=== PATIENT | female | born 1950 | race African-American/Black ===

== ENCOUNTER → 2020-07-25 10:32 | Outpatient (CLI) | payer MEDICARE, OTHER, SELFPAY ==
[2020-07-25 12:30] LABS: CRP < 2.90 mg/L (0.0-3.0)
[2020-07-26 20:07] LABS: Endomysial Antibody IgA Negative (Negative)
[2020-07-26 20:46] LABS: Immunoglobulin A 468 mg/dL (64-422); t-Transglutaminase IgA 5 U/mL (0-3)
== END ==
PROVIDERS: PCP Family Medicine; Referring Provider Internal Medicine Gastroenterology; Visit Provider Internal Medicine Gastroenterology
DX: R19.7 Diarrhea, unspecified (principal)
CPT/HCPCS: 36415; 82784; 83516; 86140; 86255

== ENCOUNTER 2021-11-07 08:43 | Day surgery (SDC) | payer MEDICARE, OTHER, SELFPAY ==
--- NOTE | 2021-11-07 09:15 | HP.PCM_ITS ---
History and Physical Date of Admission: 11/07/21 71 F who presents to the office today for evaluation of abdominal pain associated with diarrhea. She says that this started multiple years ago with abdominal pain and urgency. She was given a previous diagnosis of IBS. However she does not think she has that disease. She has not had any success with cholestyramine. She has not tried fiber in the past. She is status post cholecystectomy, but she does not think that her diarrhea was worse after getting her gallbladder out. She does have a lot of fecal incontinence which is getting worse. She has no history of rectocele, rectal prolapse or bladder prolapse. She does have history of diabetes. However she has recently been taken off of insulin. She says her blood sugars have been under very good control. For the last forty years she has been having difficulty with stomach pain following PO intake and then urgent diarrhea and incontinence during the night and day. Stool will have undigested food in it. Difficulty swallowing. Has been following PCP for this issue. 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 She is a diabetic. Last colonoscopy performed last year by Dr. Nur who removed some polyps which she reports tubular adenoma. ROS Const Constitutional: No anorexia, fatigue, fever(s), weight change or sleep problems Eyes Eyes: No change in vision ENT ENT: No abnormal hearing, difficulty swallowing, mouth lesions, tongue swelling or throat swelling Resp Respiratory: No cough or shortness of breath Cardio Cardiology: No chest pain at rest, chest pain with exertion, shortness of breath or dyspnea on exertion Gastro GI: No difficulty swallowing Genitourinary-Female: No difficulty urinating or burning urination Musc Musculoskeletal: No joint pain, joint swelling, muscle weakness or decreased muscle mass Skin Skin: No hair loss in leg, yellowing of the eye, itchy eyes, rash, skin ulcer or skin swelling Neuro Neurology: No abnormal hearing, abnormal movements, confusion, unsteady gait/balance or memory loss Psych Psychiatric: No anxiety, No confusion and No memory loss Endo Endocrine: No fatigue or weight change Aller/Imm Allergy/Immunologic: No itchy eyes, throat swelling or tongue swelling Ward/Lymp Hematologic/Lymphatic: No easy bleeding, easy bruising or enlarged lymph nodes Exam Const General: cooperative and comfortable Nutritional Appearance: average body habitus and well nourished HENMT Head: normal to inspection Ears: hearing grossly normal bilaterally Nose: external nose normal Face and sinus: normal facial exam Mouth: oral mucosae normal Throat: posterior oropharynx normal Eyes General: appearance normal, both eyes and all related structures Neck Neck: normal visual inspection Chest Chest palpation & inspection: normal inspection of the chest and normal palpation of entire chest wall Resp Effort & Inspection: normal respiratory effort Auscultation: Bilateral: Clear to Auscultation Cardio Palpation: normal PMI Rate: regular rate Rhythm: regular rhythm GI Inspection: normal to inspection Auscultation: normal bowel sounds Percussion: normal to percussion Palpation: no hepatosplenomegaly Skin General: no rashes or lesions noted Neuro General: patient alert Extrem General: normal to inspection Psych Affect: normal affect Quality Reporting Tobacco Screening ([facility]) Smoking Status: Former smoker Assessment and Plan Assessment and Plan (1) Fecal incontinence: Status: Acute Plan - Dr. Melendez Friend, DO: Her diagnosis for her fecal incontinence could include infectious diarrhea. Also could include poor rectal tone, diverticular disease in the setting of overflow incontinence. Also would include rectal prolapse. I recommended that she start on fiber twice a day to thicken up her stools. We will evaluate further doing a colonoscopy. (2) Diarrhea: Status: Acute Plan - Dr. Al Emerson, DO: Differential diagnosis for her diarrhea includes microscopic colitis, lymphocytic colitis, IBS with diarrhea and accelerated gastrocolic reflex secondary to dumping syndrome. We will do biopsies in upper and lower GI tract and also check stool for any enteric pathogens and C. difficile Procedure. (3) Abdominal pain: Status: Acute Plan - Dr. Al Emerson, DO: The differential diagnosis for abdominal pain could be associated with dumping syndrome associated with diabetes, bacterial overgrowth secondary to diabetes, peptic ulcer disease, less likely inflammatory bowel disease, bile induced gastritis secondary to removing her gallbladder. We will evaluate this further with her upper endoscopy. I have re-examined the patient. There are no clinical changes since date of exam.
[2021-11-07 09:21] VITALS: BP 143/90; PULSE 75; RESP 18; TEMP 36.5; O2SAT 95; BMI 34.2
[2021-11-07] MEDS: Lactated Ringers 1,000 ML 15 ML IV (09:28)
[2021-11-07 09:36] LABS: Bedside Glucose 145 mg/dL (70-110)
--- NOTE | 2021-11-07 09:45 | COLBX_PTH ---
PATIENT: EDWIGE BEARDEN LOC: [facility] U#:[id number] AGE/SX: 71/F ROOM: RE11/07/[address]: Dr. Al Emerson DO : 1950 BED: DIS: 11/07/2021 SPEC #: [id number] RECD: 11/07/21 10:54 STATUS: CHANO ESPINOZA #: [id number] TASHA: 11/07/21 09:[address]: Al Emerson DEPT: SURGICAL PATHOLOGY RECD BY: Jesus Dawn ENTERED: 11/07/21 13:23 SP TYPE: COLON BX OTHR DR: Dr. Dashawn Abraham MD Tissues: A - Duodenum, NOS B - Gastric mucous membrane C - Esophagus, NOS D - Transverse colon E - Gastric mucous membrane F - COLON BIOPSY Procedures: Special Stain Group II Surgery Specimen Level IV Alcian Blue/PAS (control) HEADER OPERATION: Colonoscopy, EGD ([facility] [place] PRE-OP DIAGNOSIS: Fecal incontinence, diarrhea, abdominal pain TISSUE SUBMITTED: A ? Duodenum biopsy, B ? Gastric antrum biopsy for H. pylori and path, C ? Distal esophagus biopsy, D ? Biopsy of transverse polyp, E ? Biopsy of hepatic flexure polyp, F ? Random colon biopsies MICROSCOPIC DIAGNOSIS A. Duodenum, biopsy: Fragments of duodenal mucosa with focal nonspecific chronic inflammation. B. Gastric antrum, biopsy: Mild gastritis. See microscopic description and comment. C. Distal esophagus, biopsy: Fragments of gastric mucosa with moderate chronic inflammation. Intestinal metaplasia (goblet cell metaplasia) not identified. See comment. D. Transverse colon polyp, biopsy: Fragments of tubular adenoma. E. Hepatic flexure polyp, biopsy: Tubular adenoma. F. Colon, random biopsy: Fragments of colonic mucosa, no pathologic diagnosis. SJ:erin 11/08/2021 COMMENT B. The results of immunohistochemistry for Helicobacter pylori will be reported separately ([id number]). C. Alcian blue/PAS stain with matched control is used in the evaluation of the specimen. MICROSCOPIC DESCRIPTION Slides are reviewed. B. The specimen shows fragments of gastric mucosa with chronic inflammatory cell infiltrates in the lamina propria consisting of lymphocytes and plasma cells, consistent with mild chronic gastritis. Focal mucosal congestion and hemorrhage are also noted. GROSS DESCRIPTION A - Received in fixative is one container labeled with the patient's name and designated duodenum biopsy. The specimen consists of multiple irregular fragments of light amezcua soft tissue that in aggregate measure 1.4 x 0.3 x 0.1 cm. The specimen is totally submitted in one cassette. B - Received in fixative is one container labeled with the patient's name and designated gastric antrum biopsy. The specimen consists of multiple irregular fragments of light amezcua soft tissue that in aggregate measure 1.2 x 0.3 x 0.1 cm. The specimen is totally submitted in one cassette. C - Received in fixative is one container labeled with the patient's name and designated distal esophagus biopsy. The specimen consists of multiple irregular fragments of light amezcua soft tissue that in aggregate measure 1 x 0.3 x 0.1 cm. The specimen is totally submitted in one cassette. D - Received in fixative is one container labeled with the patient's name and designated biopsy of transverse polyp. The specimen consists of one irregular fragment of light amezcua soft tissue that measures 0.4 x 0.4 x 0.1 cm. Also present in the container are minute fragments of amezcua soft tissue measuring 0.1 cm in greatest dimension. The entire specimen is submitted in one cassette. E - Received in fixative is one container labeled with the patient's name and designated biopsy of hepatic flexure polyp. The specimen consists of one irregular fragment of light amezcua soft tissue that measures 0.4 x 0.3 x 0.1 cm. The specimen is totally submitted in one cassette. F - Received in fixative is one container labeled with the patient's name and designated random colon biopsy. The specimen consists of multiple irregular fragments of light amezcua soft tissue that in aggregate measure 2 x 1 x 0.1 cm. The specimen is totally submitted in one cassette. / SJ:erin 11/07/21 TC:1 [facility]: [id number] x6, [id number]
--- NOTE | 2021-11-07 09:45 | IMM_PTH ---
PATIENT: EDWIGE BEARDEN LOC: [facility] U#:[id number] AGE/SX: 71/F ROOM: RE11/07/[address]: Dr. Al Emerson DO : 1950 BED: DIS: 11/07/2021 SPEC #: [id number] RECD: 11/07/21 12:44 STATUS: CHANO REAlexander #: [id number] TASHA: 11/07/21 09:[address]: Al Emerson DEPT: IMMUNOHISTOCHEMISTRY RECD BY: Odalys Song ENTERED: 11/07/21 12:44 SP TYPE: IMMUNO OTHR DR: Dr. Dashawn Abraham MD Tissues: B - Stomach, NOS Procedures: H Pylori (initial) PHYSICIAN & INSTITUTION [place] [id number] SPECIMEN INFORMATION: Tissue Source: B ? Gastric antrum Clinical Info: Fecal incontinence, diarrhea, abdominal pain Specimen Number: [id number] CPT code: 26321 METHODOLOGY: Deparaffinized sections of prefer/formalin-fixed tissue or PAP/DQ stained slides are incubated with monoclonal/polyclonal antibodies/oligonucleotide probes. Localization is made via biotin free immunoperoxidase method. Appropriate controls are performed and reacted as expected. Results on target cell population are indicated in the following table: RESULTS: ANTIBODY / CLONE RESULT Block B H Pylori (polyclonal) negative These tests were developed and their performance characteristics determined by [facility]. They may not have been cleared or approved by the U.S. Food and Drug Administration. The FDA has determined that such clearance or approval is not necessary. INTERPRETATION: B. Gastric antrum, biopsy: Negative for Helicobacter pylori organisms. KAREN:erin 11/08/2021
[2021-11-07 10:36] VITALS: BP 135/90; BP 143/90; PULSE 75; RESP 16; TEMP 36.3; O2SAT 92
[2021-11-07 10:40] VITALS: BP 140/86; BP 143/90; PULSE 68; RESP 16; O2SAT 92
--- NOTE | 2021-11-07 10:41 | OP.EGD_ITS ---
Patient Name: Cristine Urbina Procedure Date: 11/07/2021 9:39 AM Date of : 1950 Age: 71 Procedure: Upper GI endoscopy Indications: Epigastric abdominal pain Providers: Al Emerson DO Medicines: See the Anesthesia note for documentation of the administered medications Patient Profile: This is a 71 year old female. Refer to note in patient chart for documentation of history and physical. Patient has symptoms of acute abdominal cramping, acute abdominal distention and acute epigastric abdominal pain. Complications: No immediate complications. Procedure: Pre-Anesthesia Assessment: - Prior to the procedure, a History and Physical was performed, and patient medications and allergies were reviewed. The patient is competent. The risks and benefits of the procedure and the sedation options and risks were discussed with the patient. All questions were answered and informed consent was obtained. Patient identification and proposed procedure were verified by the physician in the pre-procedure area. Mental Status Examination: alert and oriented. Airway Examination: normal oropharyngeal airway and neck mobility. Respiratory Examination: clear to auscultation. CV Examination: normal. Prophylactic Antibiotics: The patient does not require prophylactic antibiotics. Prior Anticoagulants: The patient has taken no previous anticoagulant or antiplatelet agents. ASA Grade Assessment: II - A patient with mild systemic disease. After reviewing the risks and benefits, the patient was deemed in satisfactory condition to undergo the procedure. The anesthesia plan was to use moderate sedation / analgesia (conscious sedation). Immediately prior to administration of medications, the patient was re-assessed for adequacy to receive sedatives. The heart rate, respiratory rate, oxygen saturations, blood pressure, adequacy of pulmonary ventilation, and response to care were monitored throughout the procedure. The physical status of the patient was re-assessed after the procedure. After obtaining informed consent, the endoscope was passed under direct vision. Throughout the procedure, the patient's blood pressure, pulse, and oxygen saturations were monitored continuously. The pediatric colonoscope was introduced through the mouth, and advanced to the second part of duodenum. The upper GI endoscopy was accomplished without difficulty. The patient tolerated the procedure well. Moderate Sedation: Moderate (conscious) sedation was administered by the endoscopy nurse and supervised by the endoscopist. The patient's oxygen saturation, heart rate, blood pressure and response to care were monitored. Total physician intraservice time was 15 minutes. Scope In: 9:55:27 AM Scope Out: 10:02:26 AM Total Procedure Duration Time 0 hours 6 minutes 59 seconds Findings: LA Grade A (one or more mucosal breaks less than 5 mm, not extending between tops of 2 mucosal folds) esophagitis with no bleeding was found 34 to 35 cm from the incisors. Biopsies were taken with a cold forceps for histology. Verification of patient identification for the specimen was done by the physician. Estimated blood loss was minimal. Scattered moderate inflammation characterized by congestion (edema), erosions, erythema, friability and granularity was found in the gastric body and in the gastric antrum. Biopsies were taken with a cold forceps for histology. Verification of patient identification for the specimen was done. Estimated blood loss was minimal. Localized mildly erythematous mucosa without active bleeding and with no stigmata of bleeding was found in the first portion of the duodenum and in the second portion of the duodenum. Biopsies were taken with a cold forceps for histology. Verification of patient identification for the specimen was done. Estimated blood loss was minimal. Impression: - LA Grade A reflux esophagitis. Biopsied. - Gastritis. Biopsied. - Erythematous duodenopathy. Biopsied. Recommendation: - Discharge patient to home. - Resume previous diet. - Continue present medications. - Await pathology results. - Return to my office in 2 weeks. Procedure Code(s): --- Professional --- 21591, Esophagogastroduodenoscopy, flexible, transoral; with biopsy, single or multiple 48329, 59, Moderate sedation services provided by the same physician or other qualified health resident care technician performing the diagnostic or therapeutic service that the sedation supports, requiring the presence of an independent trained observer to assist in the monitoring of the patient's level of consciousness and physiological status; initial 15 minutes of intraservice time, patient age 5 years or older CPT copyright 2017 [employer]. All rights reserved. The codes documented in this report are preliminary and upon medical records coder review may be revised to meet current compliance requirements. Al Emerson DO 11/07/2021 10:40:46 AM This report has been signed electronically. Number of Addenda: 1 Note Initiated On: 11/07/2021 9:39 AM Addendum Number: 1 Addendum Date: 07/11/2022 6:06:15 AM MAC was used instead of moderate sedation for the patient. Al Emerson DO 07/11/2022 6:06:22 AM This report has been signed electronically.
--- NOTE | 2021-11-07 10:41 | OP.CCLET_ITS ---
07/11/2022 Dashawn Abraham Re : Upper GI endoscopy procedure for Cristine Perkinsr Leigh This procedure was performed on Sunday, November 07, 2021. My impressions and recommendations are as follows: Impressions : - LA Grade A reflux esophagitis. Biopsied. - Gastritis. Biopsied. - Erythematous duodenopathy. Biopsied. Recommendations : - Discharge patient to home. - Resume previous diet. - Continue present medications. - Await pathology results. - Return to my office in 2 weeks. My findings are described in the full procedure note, which is enclosed. If I can be of further assistance, please feel free to contact me at . Sincerely, Al Emerson, 11/07/2021 10:40:46 AM This report has been signed electronically.
[2021-11-07 10:45] VITALS: BP 135/83; BP 143/90; PULSE 67; RESP 16; O2SAT 93
--- NOTE | 2021-11-07 10:46 | OP.CCLET_ITS ---
07/11/2022 Dashawn Abraham Re : Colonoscopy procedure for Cristine Perkinsr Leigh This procedure was performed on Sunday, November 07, 2021. My impressions and recommendations are as follows: Impressions : - Stool in the rectum and in the cecum. - Two 1 to 2 mm polyps in the transverse colon and at the hepatic flexure, removed with a hot snare. Resected and retrieved. - Diverticulosis in the recto-sigmoid colon, in the sigmoid colon and in the descending colon. There was no evidence of diverticular bleeding. - Congested mucosa in the sigmoid colon, in the descending colon, at the hepatic flexure and in the ascending colon. Biopsied. Recommendations : - Discharge patient to home. - Resume previous diet. - Continue present medications. - Await pathology results. - Return to my office in 2 weeks. - Repeat colonoscopy in 5 years for surveillance based on pathology results. My findings are described in the full procedure note, which is enclosed. If I can be of further assistance, please feel free to contact me at . Sincerely, Al Emerson, 11/07/2021 10:46:00 AM This report has been signed electronically.
--- NOTE | 2021-11-07 10:46 | OP.COLON_ITS ---
Patient Name: Cristine Urbina Procedure Date: 11/07/2021 10:02 AM Date of : 1950 Age: 71 Procedure: Colonoscopy Indications: Generalized abdominal pain, Chronic diarrhea Providers: Al Emerson DO Medicines: See the Anesthesia note for documentation of the administered medications Patient Profile: This is a 71 year old female. Refer to note in patient chart for documentation of history and physical. Patient has symptoms of acute abdominal cramping, acute abdominal distention and acute epigastric abdominal pain. Last Colonoscopy: 5 years ago. Complications: No immediate complications. Procedure: Pre-Anesthesia Assessment: - Prior to the procedure, a History and Physical was performed, and patient medications and allergies were reviewed. The patient is competent. The risks and benefits of the procedure and the sedation options and risks were discussed with the patient. All questions were answered and informed consent was obtained. Patient identification and proposed procedure were verified by the physician in the pre-procedure area. Mental Status Examination: alert and oriented. Airway Examination: normal oropharyngeal airway and neck mobility. Respiratory Examination: clear to auscultation. CV Examination: normal. Prophylactic Antibiotics: The patient does not require prophylactic antibiotics. Prior Anticoagulants: The patient has taken no previous anticoagulant or antiplatelet agents. ASA Grade Assessment: II - A patient with mild systemic disease. After reviewing the risks and benefits, the patient was deemed in satisfactory condition to undergo the procedure. The anesthesia plan was to use moderate sedation / analgesia (conscious sedation). Immediately prior to administration of medications, the patient was re-assessed for adequacy to receive sedatives. The heart rate, respiratory rate, oxygen saturations, blood pressure, adequacy of pulmonary ventilation, and response to care were monitored throughout the procedure. The physical status of the patient was re-assessed after the procedure. After I obtained informed consent, the scope was passed under direct vision. Throughout the procedure, the patient's blood pressure, pulse, and oxygen saturations were monitored continuously. The pediatric colonoscope was introduced through the anus and advanced to the cecum, identified by appendiceal orifice and ileocecal valve. The colonoscopy was performed without difficulty. The patient tolerated the procedure well. The quality of the bowel preparation was adequate. Moderate Sedation: Moderate (conscious) sedation was administered by the endoscopy nurse and supervised by the endoscopist. The patient's oxygen saturation, heart rate, blood pressure and response to care were monitored. Total physician intraservice time was 15 minutes. Scope In: 10:06:51 AM Scope Withdrawal Time 0 hours 15 minutes 9 seconds Scope Out: 10:33:41 AM Total Procedure Duration Time 0 hours 26 minutes 50 seconds Findings: The perianal and digital rectal examinations were normal. Semi-liquid stool was found in the rectum and in the cecum, precluding visualization. Lavage of the area was performed using a moderate amount of sterile water, resulting in clearance with fair visualization. Two sessile polyps were found in the transverse colon and hepatic flexure. The polyps were 1 to 2 mm in size. These polyps were removed with a hot snare. Resection and retrieval were complete. Verification of patient identification for the specimen was done. Estimated blood loss was minimal. Scattered small and large-mouthed diverticula were found in the recto-sigmoid colon, sigmoid colon and descending colon. There was no evidence of diverticular bleeding. An area of mildly congested mucosa was found in the sigmoid colon, in the descending colon, at the hepatic flexure and in the ascending colon. Biopsies were taken with a cold forceps for histology. Verification of patient identification for the specimen was done. Estimated blood loss was minimal. Impression: - Stool in the rectum and in the cecum. - Two 1 to 2 mm polyps in the transverse colon and at the hepatic flexure, removed with a hot snare. Resected and retrieved. - Diverticulosis in the recto-sigmoid colon, in the sigmoid colon and in the descending colon. There was no evidence of diverticular bleeding. - Congested mucosa in the sigmoid colon, in the descending colon, at the hepatic flexure and in the ascending colon. Biopsied. Recommendation: - Discharge patient to home. - Resume previous diet. - Continue present medications. - Await pathology results. - Return to my office in 2 weeks. - Repeat colonoscopy in 5 years for surveillance based on pathology results. Procedure Code(s): --- Professional --- 78459, Colonoscopy, flexible; with removal of tumor(s), polyp(s), or other lesion(s) by snare technique 34017, 59, Colonoscopy, flexible; with biopsy, single or multiple 40747, 59, Moderate sedation services provided by the same physician or other qualified health medicare contact specialist performing the diagnostic or therapeutic service that the sedation supports, requiring the presence of an independent trained observer to assist in the monitoring of the patient's level of consciousness and physiological status; initial 15 minutes of intraservice time, patient age 5 years or older CPT copyright 2017 [employer]. All rights reserved. The codes documented in this report are preliminary and upon narrow fabric loom fixer review may be revised to meet current compliance requirements. Al Emerson DO 11/07/2021 10:46:00 AM This report has been signed electronically. Number of Addenda: 1 Note Initiated On: 11/07/2021 10:02 AM Addendum Number: 1 Addendum Date: 07/11/2022 6:06:31 AM MAC was used instead of moderate sedation for the patient. Al Emerson DO 07/11/2022 6:06:36 AM This report has been signed electronically.
[2021-11-07 10:50] VITALS: BP 140/86; BP 143/90; PULSE 65; RESP 16; O2SAT 94
[2021-11-07 11:29] VITALS: BP 143/90
== END 2021-11-07 23:59 | disposition home or self-care (01) ==
LOC: EN 08:47 → AC 08:49
PROVIDERS: PCP Family Medicine; Referring Provider Family Medicine; Visit Provider Internal Medicine Gastroenterology
PROC: 0DJD8ZZ Inspection of Lower Intestinal Tract, Via Natural or Artificial Opening Endoscopic (ICD-10-PCS; CPT 45378; principal; 2021-11-07 09:40)
DX: K21.00 Gastro-esophageal reflux disease with esophagitis, without bleeding (principal); E11.9 Type 2 diabetes mellitus without complications; K29.70 Gastritis, unspecified, without bleeding; K31.89 Other diseases of stomach and duodenum; K52.9 Noninfective gastroenteritis and colitis, unspecified; K57.30 Diverticulosis of large intestine without perforation or abscess without bleeding; D12.3 Benign neoplasm of transverse colon; K63.89 Other specified diseases of intestine; R10.84 Generalized abdominal pain; I10 Essential (primary) hypertension; E78.00 Pure hypercholesterolemia, unspecified; M19.90 Unspecified osteoarthritis, unspecified site; Z90.49 Acquired absence of other specified parts of digestive tract; Z79.899 Other long term (current) drug therapy; Z87.891 Personal history of nicotine dependence; Z86.73 Personal history of transient ischemic attack (TIA), and cerebral infarction without residual deficits
CPT/HCPCS: 45385; 45380; 43239; 82962; 88305; 88313; 88342; J7120; J2405

== ENCOUNTER 2021-11-09 10:36 | Outpatient (CLI) | payer MEDICARE, OTHER, SELFPAY ==
--- NOTE | 2021-11-09 10:42 | RAD_ITS ---
PROCEDURE: Fluoroscopic guided right shoulder Injection DATE: 05/09/2022. INDICATION: Female, 71 years old. Chronic right shoulder pain. PHYSICIAN: Hernan Roland M.D. MEDICATIONS: 12 mg of BETAMETHASONE and 4 cc of 1% LIDOCAINE. 2% lidocaine administered subcutaneously for local anesthesia. ACCESS SITE: Right shoulder. NEEDLE: 22-gauge spinal needle. FLUOROSCOPY TIME (if supplied): (1:00) minutes/seconds. One image was submitted. FINDINGS: The risks, benefits, and alternatives to the procedure were explained to the patient. The specific risks of bleeding, infection, and neurovascular injury were detailed and accepted. Witnessed informed consent was obtained. A 20-gauge spinal needle was positioned under radiographic fluoroscopic localization. Approximately 2 cc of ISOVUE-300 instilled for localization purposes. Medication was then injected. The patient tolerated the procedure well without any immediate complications. RAD/Inj/Asp Bert Jt Should/Hip/Knee IMPRESSION: 1. Successful fluoroscopic guided right shoulder injection. Electronically Signed: Hernan Roland MD at 12:38 EST , Service support ,
== END 2021-11-09 23:59 | disposition short-term general hospital (02) ==
LOC: RAD 10:38
PROVIDERS: PCP Family Medicine; Referring Provider Specialist; Visit Provider Specialist
DX: M19.011 Primary osteoarthritis, right shoulder (principal)
CPT/HCPCS: 23350; 20610; 77002; Q9967; J0702

== ENCOUNTER → 2022-04-04 | Outpatient (CLI) | payer MEDICARE, OTHER, SELFPAY ==
--- NOTE | 2022-04-04 14:20 | RAD_ITS ---
STUDY: X-RAY CHEST REASON FOR EXAM: Female, 71 years old. Preop TECHNIQUE: Single PA view of the chest. COMPARISON: None. FINDINGS: The lungs are clear and expanded. There is no demonstrated pleural abnormality. Normal size heart. Normal mediastinum and leonardo. Normal visualized pulmonary arteries. There is atherosclerotic calcification of the aortic arch with tortuosity. Normal visualized thoracic spine. Normal visualized ribs, clavicles, and shoulders. There is no demonstrated abnormality of the visualized soft tissue structures of the upper abdomen. RAD/Chest 1 View IMPRESSION: Nonacute portable x-ray examination of the chest. Electronically Signed: Abdiel Silverman MD ([place]) at 18:54 EDT ,
== END | disposition home or self-care (01) ==
LOC: PAT 05-14 14:18
PROVIDERS: Anesthesiology; PCP Family Medicine; Visit Provider Orthopaedic Surgery
DX: Z01.818 Encounter for other preprocedural examination (principal)
CPT/HCPCS: 36415; 71045; 84443

== ENCOUNTER 2022-06-06 09:29 | Inpatient (IN) | payer MEDICARE, OTHER, SELFPAY ==
--- NOTE | 2022-05-25 10:42 | HP.PCM_ITS ---
History and Physical History and Physical [facility] Patient Name: Cristine Urbina : 1950 From:? TA ESQUEDA PA-C? DATE OF SURGERY:? 06/06/2022 SCHEDULED PROCEDURE:? LUMBAR 4 - 5 POSTERIOR LUMBAR INTERBODY FUSION, DECOMPRESSION, POSTERIOR SPINAL FUSION WITH INSTRUMENTATION, USE OF ALLOGRAFT HISTORY OF PRESENT ILLNESS: Preoperative history and physical exam was performed on May 24, 2022.? This is a 71-year-old female who was initially to undergo back surgery but was canceled due to elevated thyroid lab work.? Patient was referred back to her endo crinologist and has been given surgical clearance to proceed with surgery.? Patient has had chronic low back pain for years.? They have been going on for over 5 years.? She states her symptoms have progressed over the past 1 year.? Patient has been in pain management with Dr. Burciaga who has treated her with injections in the past.? Prior to that she has seen Dr. Ibarra for injections.? Injections are only helpful for a short period of time.? She continues to get pain in the low back region.? She gets pain in the bilateral lower extremities.? She has not had any bowel or bladder dysfunction.? No recent fevers, chills, recent infections.? She has tried conservative care with injections from pain management, oral medications including [place], Excedrin, ibuprofen with minimal relief.? Patient has been through physical therapy.? After failing conservative measures and discussing treatment options with Dr. Armando Stone, the patient does wish to proceed with the L4-L5 posterior lumbar interbody fusion with decompression and posterior spinal fusion with use of allograft.? We have been given surgical clearance from primary care provider Mylene Krishna, cardiology Kimber Marks, and endocrinology Dr. Connor.? Patient currently denies any chest pain or shortness of breath. REVIEW OF SYSTEMS: Review Of Systems: Constitutional: Reports weight change,Denies change in appetite, fever, hard of hearing, vision problems? Cardiovasular: Denies chest pain, heart murmur, irregular heartbeat and peripheral vascular disease. Respiratory: Denies asthma, cough, pneumonia, sleep apnea, shortness of breath, tuberculosis and wheezing. Gastrointestinal: Reports heartburn, but denies constipation, diarrhea, nausea, rectal itching, bloody stools and vomiting. Genitourinary: Denies incontinence. Musculoskeletal: Reports trouble walking and weakness, but denies leg swelling and pain. Skin: Denies Raynaud's, history of shingles and tattoo. Neurological: Reports difficulty with balance and tremor but denies ambulatory dysfunction, dizziness, numbness/tingling and transient monocular blindness. Psychiatric: Denies anxiety, depression, insomnia, mental illness and stress. Hematologic/Lymphatic: Reports past transfusion, but denies anemia and bleeding/bruising tendency. Reviewed, no changes. PAST MEDICAL HISTORY: Advance Care Plan: Other Directive, P.O.A. Effective Date: 09/30/2016 Comments: [employer]?? Other Directive, LIVING WILL Effective Date: 09/30/2016 Comments: [employer]? Past Medical History: Medical Problems: Diabetes, High Blood Pressure, Stroke, Arthritis, Sleep Apnea, Bundle Branch Block, Migraines Covid- 19 - (09/2020) Anxiety, IBS, GERD, DVT Accidents: Fell - (01/15/2022) RT 3rd FINGER, RT SHOULDER, RT KNEE Surgical Hx: [facility]ito Knee Arthroscopy - GEE @ [facility] RT Shoulder Arthroscopy - GEE @ [facility] RT Foot Bunion - [facility] Lito CTR - NEIL @ [facility] RT TKR - (2002) GEE @ [facility] LT TKR - (2011) GEE @ [facility] IRRIGATION AND DEBRIDEMENT BY [email or web address] ON 08/08/15? Lito Hammer Toe - [facility] LT Knee - (09/01/2015) [email or web address] LT TKR Revision - (10/13/2015) [email or web address] Lito Lympoma (Fatty Tumor) - lipoma LT TKR Revision - (07/28/2017) [facility] @ [facility] IV Fliter - (2011) Heart Cath Anesthesia Complications: None Assistive Devices: Glasses Reviewed, no changes. SOCIAL HISTORY: Social History: Marital: .Occupation: Retired.Work Status: Retired.Hand Dominance: Right- handed. Personal Habits:? Cigarette Use: Former.Smokeless Tobacco: Never Used Smokeless Tobacco.E-Cigarette Use: Never used.Alcohol: Occasionally.Drug Use: Denies Use.Enjoy Exercising: Exercises 1-3 X/Week. Reviewed, no changes. VITALS: Ht: 74.4 Wt: 265lb Wt k.204 BMI: 33.7 BP: 132/90 Pulse: 69 Resp: 14 T: 97.6 T: 36.4C Pain Level: 1 O2SatR: 97 ALLERGIES: Sulfa Linezolid? MEDICATIONS: Ipratropion [place] 42 mcg 2 sprays each nostril bid, Metoprolol Tartrate 50 mg 1 tab PO bid, Levothyroxine Sodium 125 mcg 1 tab PO daily, Clonazepam 1 mg 1 tab PO qhs, Gabapentin 400 mg 1 cap PO q hs, Acetaminophen 325 mg prn, Hydrochlorothiazide 25 mg 1 tab PO daily, Candesartan Cilexetil 16 mg 1 tab PO daily, Tizanidine HCL 4 mg prn, Oxybutynin Chloride ER 10 mg 1 tab PO daily, Duloxetine HCL 60 mg 1 by mouth every day, Ibuprofen 200 200 mg prn, Colestipol HCL 1 gm 1 by mouth QDAY, Pantoprazole Sodium 20 mg 1 by mouth every day, Ondansetron 4 mg dissolve 1 tablet ON TONGUE every 8 hours if needed for nausea OR vomiting, Cpap? as directed PRE-OP EXAM:? General appearance:NORMAL? ? ? Other: Eyes: Conjunctivae and lids: NORMAL? Pupils: ERR Ears, Nose, Mouth, and Throat: NORMAL? Other: Inspection of lips, teeth and gums: NORMAL? ?Other: Neck: Examination of neck: no masses noted. Respiratory: Assessment of respiratory effort: NORMAL? ?Other: ?Auscultation of lungs: clear to auscultation no wheezes, rhonchi or rales. Cardiovascular:? Auscultation of heart: regular rate and rhythm, no murmurs, gallops or rubs. PHYSICAL EXAMINATION: Patient does walk with a slight antalgic gait.? She has tenderness to palpation along the lower lumbar region around L4-L5.? Bilateral paraspinal tenderness to palpation lumbar region.? She has pain in the sciatic notch bilaterally.? Sensation intact to light touch to bilateral lower extremities. IMAGING STUDIES: Previous lumbar x-rays reveal overall good alignment in coronal and sagittal planes.? No gross instability.? Degenerative changes at multiple levels with loss of disc height, disc osteophyte complex formation and facet arthrosis most severe L4-L5.? Degenerative changes in bilateral sacroiliac joints. ?Lumbar MRI from outside facility dated 02/04/22 she has good overall alignment in coronal and sagittal planes.? No gross instability is noted.? The radiologist has commented on likely renal cyst. At L5-S1 there is no loss of disc height or signal.? No posterior disc bulge or central canal stenosis.? No facet arthrosis.? No subarticular or foraminal stenosis. At L4-5 there is moderate to severe loss of disc height and signal.? Mild broad posterior disc bulge compressing the thecal sac.? No central canal stenosis.? Moderate facet arthrosis.? Moderate subarticular stenosis.? Mild foraminal stenosis. At L3-4, L2-3, L1-2, T12-L1 there is minimal loss of disc height and signal.? Minimal posterior disc bulge.? No central canal stenosis.? Minimal facet arthrosis.? No subarticular or foraminal stenosis. IMPRESSION: 1.? Lumbar degenerative disc disease with stenosis 2.? Type 2 diabetes mellitus: 3.? Hypertension 4.? Stroke 5.? Obstructive sleep apnea 6.? Bundle branch block 7.? History of migraines 8.? Anxiety 9.? Irritable bowel syndrome 10.? Gastroesophageal reflux disease PLAN: Dr. Armando Stone did discuss and review with the patient all treatment options including surgical versus nonsurgical options.? Patient does wish to proceed with the above-stated procedure.? Potential risks, benefits, and complications of the procedure were discussed in detail including but not limited to , infection, nerve and blood vessel damage, persistent pain, numbness, tingling, paresthesias, blood clot, pulmonary embolism, and requirement for possible further surgery.? The patient expressed full understanding and has no further questions for the doctor.? Patient does agree to proceed with the above-stated procedure and has signed the surgery consent form.? Patient was given back brace at previous preoperative visit.? She will bring this to day of surgery. We discussed the current risks associated with COVID 19.? This does include the risk of exposure while in the hospital.? Patient was reassured local hospitals have low infection rates and are taking all necessary precautions to avoid exposure to patients.? In addition, we discussed strategies that can be used to help limit exposure including those that limit the patient's time in the hospital.? Also using strategies to limit the patient's need for continued inpatient services after being discharged from the hospital.? Patient was notified that we will need to comply with any screening or testing the hospital wishes to perform or that surgery may be delayed for any positive results. This dictation was created using voice recognition software. Phonetic and/or grammatical errors may exist. ___? I have re-examined the patient.? There are no clinical changes since date of exam. ___? See progress notes for changes. ___? Dictated on admission Date: ? ? ?Time: Signature:
[2022-06-06] VITALS (12 sets, daily range): BP systolic 112–139; BP diastolic 68–80; PULSE 67–75; RESP 13–18; TEMP 36.4–36.6; O2SAT 94–100; BMI 33.7
[2022-06-06 10:35] LABS: Bedside Glucose 170 mg/dL (74-106)
[2022-06-06] MEDS: Lactated Ringers 1,000 ML 15 ML IV (10:36)
--- NOTE | 2022-06-06 11:02 | OP.PCM_ITS ---
Problems Associated Problem List Diagnoses (1) Lumbar stenosis: Report of Operation Date of Procedure: 06/06/22 Pre-Operative Diagnosis: 1. Lumbar stenosis, L4-5 with spondylosis 2. Lumbar degenerative disc disease, L4-5 Post-Operative Diagnosis: 1. Lumbar stenosis, L4-5 with spondylosis 2. Lumbar degenerative disc disease, L4-5 Surgery/Procedure Performed:: 1. L4-5 posterior lumbar interbody fusion 2. Insertion of intervertebral biomechanical device x1 3. Structural allograft for spinal fusion 4. L4 bilateral laminectomies, foraminotomies, facetectomies, decompression of nerve roots 5. L5 bilateral laminectomies, foraminotomies, facetectomies, decompression of bilateral nerve roots 6. L4-5 posterior lateral fusion 7. Pedicle screw fixation 8. Local autograft for spinal fusion 9. Neuro monitoring bilateral upper and bilateral lower extremities Description of Surgical Findings:: The patient is a 71-year-old female with intractable back and leg pain. Image studies confirm the above diagnoses. She has failed conservative treatment to include medication, physical therapy and injections. The patient opted for operative intervention understanding the risk to include but not limited to infection, bleeding, damage to nerves arteries and veins, possibility of spinal fluid leak, nonunion, hardware failure, continued pain, need for further surgery, deep vein thrombosis, pulmonary embolism, heart attack, risk of stroke or . The patient was identified in the preoperative holding area. There she received preoperative IV antibiotics, Ancef, and was then transferred to the operative suite. Once in the operative suite after general endotracheal anesthesia was established the patient was transferred to the [place] operating table in the prone position. All bony prominences were padded accordingly. The lumbar spine was prepped and draped in a standard fashion. Bear hugger's were not turned on until the drapes were placed and sealed with Ioban. A midline incision was made and taken down to the lumbodorsal fascia. The fascia was divided and subperiosteal dissection was taken down to the level of the bilateral transverse processes of L4 and L5. Deep retractors were placed. A bone scalpel was used to make cuts in the lamina of L4 and then a series of rongeurs and Kerrisons was used removing the spinous process and lamina at L4. Then facetectomies of greater than 50% were performed as well as foraminotomies, decompressing the bilateral nerve roots. Given the severity of the stenosis I needed to perform wide bilateral laminectomies and near complete facetectomies in order to decompress the neural elements therefore creating instability necessitating the fusion. The dura and nerve roots were identified and retracted medially and a 15 blade scalpel was used to make a laminotomy at L4-5 on the right. An endplate elevator, curettes, and pituitaries were utilized to remove disc material. Endplates were prepared with a rasp. An appropriate sized intervertebral peek cage device measuring 10 millimeters was packed with morselized cancellous allograft and impacted into position completing the posterior lumbar interbody fusion at L4-5. I then proceeded with pedicle screw fixation. Starting points were found at the junction of the superior articular process and transverse process of L4 and L5 bilaterally. A power bur was used for the starting points. Pedicle probes were placed bilaterally and then 6.5 x 45 millimeter screws were placed bilaterally at L4 and 6.4 x 45 millimeter screws were placed bilaterally at L5. The screws were tested with intraoperative neurophysiologic monitoring and tested within normal limits. Connecting rods were applied and secured with set screws. I then proceeded with the posterior lateral fusion. This was accomplished by decorticating the transverse processes bilaterally at L4 and L5. This decorticated bone was then bridged with local autograft from the decompression as well as morselized cancellous allograft therefore completing the posterior lateral fusion at L4-5. The incision was thoroughly irrigated. Tisseel was placed over the dura as a hemostatic agent. A deep drain was placed. The fascia was closed with #1 Vicryl, subcutaneous with 2-0 Vicryl and skin with 2-0 nylon. A sterile dressing was applied with 4 x 4's ABD and tape. Sponge instrument and needle counts were correct at the end of the case. Neurophysiologic monitoring was maintained at baseline throughout the duration of the case. The patient was extubated and taken to the PACU without incident Surgeon: Armando Stone Type of Anesthesia: General Drains: Hemovac Estimated Blood Loss (mL): 600 cc Fluids Replaced: 1400 cc Grafts/Implants Used: Unified spine, talos, vitae os, DBM Complications None Admit VTE Documentation VTE Present on Admission: No
--- NOTE | 2022-06-06 11:03 | PCM.PN.ORT ---
Subjective Subjective The patient was seen and examined postoperatively in the PACU. She is lying in bed resting comfortably. She is complaining of some postop soreness in the back. She denies any other complaints including numbness tingling or weakness Objective Data Objective Data Vital Signs: Vital Signs Temp Pulse Resp BP Pulse Ox O2 Del Method 97.9 F 67 18 118/76 95 Room Air 06/06/22 10:03 06/06/22 10:03 06/06/22 10:03 06/06/22 10:03 06/06/22 10:03 06/06/22 10:03 Oxygen Delivery Method Room Air Weight: 263 lb 0.183 oz Body Mass Index (BMI) 33.7 Lab / Micro Data Labs: Laboratory Results - last 24 hr 06/06/22 10:06: POC Glucose 170 H Physical Exam Const alert, oriented x3 and no apparent distress General Appearance: cooperative and comfortable HEENT normocephalic and head/scalp atraumatic Eyes EOMs intact bilaterally and conjunctivae normal Neck full ROM General: normal visual inspection Chest inspection of chest normal and palpation of chest normal Resp normal respiratory effort and normal air movement Cardio regular rate, regular rhythm and peripheral pulses 2+ throughout GI soft to palpation, non-tender and non-distended Back/Spine Back/Spine Narrative: Dressing clean dry and intact. Drain in place and functioning with serosanguineous fluid in the drain. Cervical Spine: cervical ROM normal Thoracic Spine / Upper Back: normal to inspection Lumbar Spine / Lower Back: normal to inspection Extremity normal to inspection, full ROM, normal capillary refill, no clubbing, cyanosis or edema and no calf tenderness Skin no rashes or lesions noted General Skin Exam: no breakdown Neuro oriented x3, CN's II-XII intact bilaterally, moves all extremities, no focal motor deficits, no sensory deficits noted and deep tendon reflexes 2+ bilaterally Motor Exam: strength 5/5 throughout and muscle tone normal throughout Assessment & Plan Assessment/Plan (1) Lumbar stenosis: PLAN: Plan Okay to transfer to floor See orders Pain control and mobilization as tolerated. Back brace on at all times while out of bed Discharge planning, likely home tomorrow
--- NOTE | 2022-06-06 11:03 | PCM.DC.SUM ---
Providers Date of Admission: 06/06/22 Primary Care Physician: Mylene Esteban, TOOL GRINDING TECHNICIAN-C Reason For Visit: LUMBAR 4-5 INTERBODY FUSION Medications at Discharge Home Medications clonazepam 1 mg tablet 1 mg PO QHS sleep 08/07/15 gabapentin 400 mg capsule 400 mg PO QHS pain 08/07/15 levothyroxine 125 mcg tablet (Synthroid) 200 mcg PO DAILY Thyroid 08/07/15 diphenhydramine HCl 25 mg capsule (Banophen) 25 mg PO Q4H PRN ITCHING ##0 10/09/15 candesartan 16 mg tablet (Atacand) 16 mg PO QHS Check with primary doctor 07/21/17 duloxetine 60 mg capsule,delayed release (Cymbalta) 60 mg PO DAILY nerve pain 07/21/17 oxybutynin chloride 10 mg tablet,extended release 24 hr (Ditropan XL) 10 mg PO DAILY bladder 07/21/17 tizanidine 4 mg tablet (Zanaflex) 4 mg PO PRN PRN Pain 07/21/17 metformin 500 mg tablet 500 mg PO BID Blood sugar 11/05/21 atorvastatin 10 mg tablet (Lipitor) 5 mg PO QHS Check with primary doctor 04/04/22 colestipol 1 gram tablet (Colestid) See Rx Instructions .Route .COMPLEX Check with primary doctor 04/04/22 empagliflozin 25 mg tablet (Jardiance) 25 mg PO BID Blood sugar 04/04/22 metoprolol tartrate 50 mg tablet 50 mg PO BID BP 04/04/22 psyllium husk 0.4 gram capsule (Fiber (psyllium husk)) 0.4 g PO BID Stomach health 04/04/22 ondansetron 4 mg disintegrating tablet 4 mg PO Q8H PRN nausea and vomiting #60 tabs 05/29/22 pantoprazole 40 mg tablet,delayed release 40 mg PO DAILY GERD #90 tabs 05/29/22 hydrocodone-acetaminophen 5-325mg 5mg-325mg 1 tab PO Q6H 7 days #28 tabs 06/06/22 Hospital Course Operations - (L4-5 posterior lumbar interbody fusion, decompression, posterior spinal fusion with instrumentation, use of allograft) Summary of Care Provided Minutes Spent on Discharge: 15 Hospital Course: The patient is a 71-year-old female who underwent L4-5 posterior lumbar interbody fusion, decompression, posterior spinal fusion with instrumentation, use of allograft on 06/06/2022. She was subsequently admitted. The hospitalist was consulted for medical management. The patient progressed well. Her pain was controlled and she was mobilizing well. Her drain was pulled on postoperative day 1. No significant medical issues were reported. She was subsequently discharged home on 06/08/2022 to follow-up with Dr. Stone in 3 weeks Physical Exam Const alert, oriented x3 and no apparent distress General Appearance: cooperative, comfortable and well kempt HEENT normocephalic and head/scalp atraumatic Eyes EOMs intact bilaterally and conjunctivae normal Neck full ROM General: normal visual inspection Chest inspection of chest normal and palpation of chest normal Resp normal respiratory effort and normal air movement Effort and Inspection: able to speak in complete sentences Cardio regular rate and peripheral pulses 2+ throughout GI soft to palpation, non-tender and non-distended Back/Spine Back/Spine Narrative: Dressing clean dry and intact. Drain in place and functioning with small amount of serosanguineous fluid present. Drain was pulled. Incision well approximated with interrupted sutures in place. No tenderness erythema drainage or fluctuance Cervical Spine: cervical ROM normal Thoracic Spine / Upper Back: normal to inspection Lumbar Spine / Lower Back: normal to inspection Extremity normal to inspection, full ROM, normal capillary refill, no clubbing, cyanosis or edema and no calf tenderness Skin no rashes or lesions noted General Skin Exam: no breakdown Neuro oriented x3, CN's II-XII intact bilaterally, moves all extremities, no focal motor deficits, no sensory deficits noted and deep tendon reflexes 2+ bilaterally Motor Exam: strength 5/5 throughout and muscle tone normal throughout Weight / BMI Weight Weight: 263 lb 0.183 oz Body Mass Index (BMI) 33.7 ABG / Lab / Microbiology Data Result Diagrams: 06/07/22 10:35 Laboratory: Laboratory Results - last 24 hr 06/06/22 10:06: POC Glucose 170 H D/C Instructions Discharge Diet: No restrictions Lifting Restricted to (Lbs): 5 Additional Activity Instructions: No repetitive bending twisting or lifting greater than 5 pounds. Back brace on at all times while out of bed Call your doctor if your incision/area has: Continuous Slow Oozing, Sudden Increased Bleeding, Increased Pain/ Swelling, Increased Redness, Foul Smelling Discharge and Swelling at the incision site Call your doctor if you observe: Fever of 101 or Higher, Coldness, Increased Pain, Numbness or Tingling, Change in Color, Inability to urinate, Inability to have a bowel movement, Using more than 1 pad per hour, Shortness of breath, Dizziness, Fainting spells, Swelling in the ankles, Chest pain, Prolonged hiccupping, Increased palpitations (irregular heartbeat), Calf discomfort and Uncontrolled pain Cleanse incision/area with: Do not get Incision Wet and Keep Dressing Clean & Dry Additional Dressing/Incision Instructions: Change dressing daily with iodine gauze and tape. [place] dressing to shower Please Follow Up With: Armando Stone DO When: 3 weeks Meaningful Use Info Meaningful Use Diagnoses (Choose all that apply): None applicable Discharge Plan Admission Admit Date/Time: 06/06/22 09:29 Primary Reason for Your Visit: Lumbar stenosis, L4-5 with spondylosis Attending Provider: Armando Stone Primary Care Provider: Mylene Esteban NP Consulting Providers: Hannah Espinoza ; Olivia Carvalho ; Cristine Johnson ; Kwaku Cruz ; Adam Harris ; Maurilio Weaver ; Hanna Mitchell ; Gabriel Lancaster ; Raj Horne ; Garth Gonzales ; Callie Carpio ; Wade Giang ; Teresa Del Rio ; Pranav Turcios ; Efren Goldsmith ; Brian Parra ; Rica Nguyen ; Rick Overton ; Ashely Contreras ; Mylene Choudhary TOOL GRINDING TECHNICIAN Instructions Additional Instructions / Restrictions: 1. During your procedure, you received sedation through your IV. Please follow these instructions for the next 24 hours: Do not drive a motor vehicle, do not drink any alcoholic beverages, and do not sign any legal documents or make personal or business decisions. A responsible adult should stay with you at least 6 hours after the procedure. 2. Keep your surgical site/incision clean and the dressing dry and intact. Change dressing daily 3. Monitor the incision site for any signs or symptoms of infection. Watch for redness, excessive swelling or drainage, or continued pain at the incision site after 3 days. Contact your physician immediately for a fever, chills or a temperature of 101.5? F or greater. 4. Take your medication exactly as prescribed by your physician. Do not attempt to wean yourself off any of your medications even though your pain is improving. This process needs to be carefully monitored by your doctor. Take any antibiotics prescribed exactly as directed and until they are gone. 5. Avoid stretching, bending, pulling, twisting or any sudden movements. Do not bend or twist at the waist. Back brace on at all times while out of bed 6. No lifting greater than 5 pounds. 7. Do not operate a motor vehicle, equipment or a power tool while your stimulator is on. If you need to use any equipment, you must turn your stimulator off first. As a passenger in a motor vehicle, you may use your stimulator. 8. Do not have any manipulation done by a chiropractor or any other physician without first consulting with the surgeon 9.Please contact our office if you are even scheduled for a CT scan or an MRI. 10. Please call us if you have any questions, problems or concerns. Do not resume your candesartan until your blood pressure is above 120 systolic. Discharge Orders/Prescriptions Prescriptions: New hydrocodone-acetaminophen 5-325 mg tablet 1 tab PO Q6H 7 Days Qty: 28 0RF Continued ondansetron 4 mg tablet,disintegrating 4 mg PO Q8H PRN (Reason: nausea and vomiting) Qty: 60 0RF pantoprazole 40 mg tablet,delayed release (DR/EC) 40 mg PO DAILY Qty: 90 0RF gabapentin 400 MG capsule 400 mg PO QHS Label Comments: Nerve pain clonazepam 1 mg tablet 1 mg PO QHS Label Comments: ANXIETY levothyroxine [Synthroid] 125 mcg tablet 200 mcg PO DAILY Label Comments: THYROID diphenhydramine HCl [Banophen] 25 MG capsule 25 mg PO Q4H PRN (Reason: ITCHING) Qty: 0 0RF oxybutynin chloride [Ditropan XL] 10 MG tablet extended release 24hr 10 mg PO DAILY tizanidine [Zanaflex] 4 MG tablet 4 mg PO PRN PRN (Reason: Pain) candesartan [Atacand] 16 MG tablet 16 mg PO QHS duloxetine [Cymbalta] 60 MG capsule 60 mg PO DAILY metformin 500 mg Tablet 500 mg PO BID Jardiance 25 mg tablet 25 mg PO BID Label Comments: take 1 tablet by mouth every morning atorvastatin [Lipitor] 10 MG tablet 5 mg PO QHS metoprolol tartrate 50 MG tablet 50 mg PO BID colestipol [Colestid] 1 gram tablet See Rx Instructions .ROUTE .COMPLEX Rx Instructions: take 1 tablet by mouth twice a day psyllium husk [Fiber (psyllium husk)] 0.4 gram capsule 0.4 g PO BID Discontinued verapamil [Verelan] 240 mg capsule,ext rel. pellets 24 hr 240 mg PO QHS Label Comments: BLOOD PRESSURE hydrochlorothiazide 25 MG tablet 25 mg PO DAILY Referrals / Follow Up: Armando Stone DO [Med Staff - Active Staff] - Mylene Esteban NP, TOOL GRINDING TECHNICIAN-C [Primary Care Provider] - Within 1 Week (See your family physician within a week for a recheck on your blood pressure and guidance whether to resume the blood pressure medicines we have stopped during your hospitalization) Disposition Disposition (needs filled in before D/C Order can be placed): Home Health Service
--- NOTE | 2022-06-06 12:05 | RAD_ITS ---
INDICATION: L4-5 POSTERIOR FUSION EXAMINATION/TECHNIQUE: X-RAY - XR Spine Lumbar 2 or 3 Views COMPARISON: None. FLUOROSCOPY DOSE: 61.67 mGy FLUOROSCOPY TIME: 116.3 seconds. FINDINGS: 6 spot fluoroscopic images were obtained intraoperatively. Images demonstrate localization of the L4 vertebral body right surgery, follow-up images demonstrate placement of internal fixation screws in addition to a L5-S1 intervertebral disc spacer. No radiologist was present for the procedure, please refer to operative report for details. RAD/Lumbar Spine 2 or 3 Views IMPRESSION: Please refer to operative report for details. Electronically Signed: Ephraim Ng MD at 15:47 EDT ,
[2022-06-06] MEDS: Heparin 10,000 UNITS/10 ML Vial 10000 UNITS (13:20)
[2022-06-06] MEDS: Bupivacaine 0.25% 30 ML Vial (15:35)
[2022-06-06 17:35] LABS: Bedside Glucose 215 mg/dL (74-106)
[2022-06-06] MEDS: Cefazolin 1 GM/50 ML BAG IV ×2 (17:53→23:47)
--- NOTE | 2022-06-06 18:24 | PN.HOSP_ITS ---
Subjective Subjective Patient was seen and examined today at the request of orthopedic surgery, patient underwent an L4-5 posterior lumbar interbody fusion, L4-5 posterior lateral fusion, L4 bilateral laminectomies, and L5 bilateral laminectomies. Chronic medical problems include essential hypertension, hypothyroidism, hyperlipidemia, osteoarthritis, type 2 diabetes, and chronic kidney disease. At the time my examination, patient is not complaining of any severe back discomfort or leg discomfort. Patient has no complaints of any shortness of breath. Patient is on 2 L nasal cannula oxygen, her vital signs appear to be stable. Objective Data Objective Data Vital Signs: Vital Signs Temp Pulse Resp BP Pulse Ox O2 Del Method O2 Flow Rate 97.5 F L 69 16 112/71 97 Nasal Cannula 2 06/06/22 17:29 06/06/22 17:29 06/06/22 17:29 06/06/22 17:29 06/06/22 17:29 06/06/22 17:29 06/06/22 17:29 Oxygen Flow Rate (L/min) 2 Oxygen Delivery Method Nasal Cannula Weight: 119.3 kg Body Mass Index (BMI) 33.7 Intake & Output: Intake and Output for Last 24 Hours 06/04/22 06/05/22 06/06/22 23:59 23:59 23:59 Intake Total 115 / 115 Output Total 550 / 550 Balance -435 / -435 Lab / Micro Data Labs: Laboratory Results - last 24 hr 06/06/22 10:06: POC Glucose 170 H 06/06/22 17:01: POC Glucose 215 H Radiography Diagnostic Testing: Radiology Impression Lumbar Spine X-Ray 06/06/22 12:05 IMPRESSION: Please refer to operative report for details. Electronically Signed: Ephraim Ng MD at 15:47 EDT , Physical Exam Const alert, oriented x3, no apparent distress, average body habitus and healthy crow earing General Appearance: cooperative, well kempt and well developed Orientation / Consciousness: awake, oriented to person, oriented to place and oriented to time HEENT normocephalic, head/scalp atraumatic and moist oral mucous membranes Eyes PERRL, EOMs intact bilaterally and conjunctivae normal Neck supple, no JVD, thyroid normal and no carotid bruits General: trachea midline Resp normal respiratory effort, no retractions, no use of accessory muscles and clear to auscultation bilaterally Auscultation: Negative for rales, rhonchi or wheezes Cardio regular rate, regular rhythm, S1 normal heart sound, S2 normal heart sound, no murmurs, no rub and no gallops GI normal to inspection, nondistended, normoactive bowel sounds, soft to palpation, non-tender and non-distended Extremity no clubbing, cyanosis or edema Skin no rashes or lesions noted Neuro oriented x3, CN's II-XII intact bilaterally, moves all extremities, no focal motor deficits and no sensory deficits noted Sensorium / Orientation: awake and alert Speech: speech normal Psych affect normal Assessment & Plan Assessment/Plan (1) Hypertension: QUALIFIERS: Hypertension type: essential hypertension Qualified Code(s): I10 - Essential (primary) hypertension PLAN: Plan 1. Essential hypertension-patient will remain on her present blood pressure medications, blood pressure will be monitored #2 type 2 diabetes-patient will have fingerstick blood sugars monitored, sliding scale insulin will be given as needed #3 hypothyroidism-patient is on Synthroid #4 hyperlipidemia-patient is on Lipitor #5 degenerative disc disease of the lumbar spine with spinal stenosis-postop day 0 L4-L5 posterior lumbar interbody fusion with L4-L5 bilateral laminectomies-PT and OT will be seeing the patient, spinal surgery participating in her care Charges/Coding Visit Charges Inpatient E&M: 55900 Subs Hosp L2
[2022-06-06] MEDS: Morphine 4 MG/ML Syringe IV (20:24)
[2022-06-06] MEDS: Lactated Ringers 1,000 ML 100 ML IV (20:24)
[2022-06-06] MEDS: Gabapentin 400 MG Capsule PO (22:24)
[2022-06-06] MEDS: Psyllium 1 PACKET PO (22:24)
[2022-06-06] MEDS: Acetaminophen 500 MG Tablet 1000 MG PO (22:24)
[2022-06-06] MEDS: Metoprolol Tartrate 50 MG Tablet PO (22:24)
[2022-06-06] MEDS: Losartan Potassium 50 MG Tablet 75 MG PO (22:25)
[2022-06-06] MEDS: metFORMIN HCl 500 MG Tablet PO (22:25)
[2022-06-06] MEDS: clonazePAM 1 MG Tablet PO (22:25)
[2022-06-06] MEDS: Atorvastatin Calcium 10 MG Tablet 5 MG PO (22:25)
[2022-06-06] MEDS: Empagliflozin 25 MG Tablet PO (22:26)
[2022-06-06] MEDS: Colestipol 1 GM TABLET PO (22:26)
[2022-06-06] MEDS: Verapamil SR 240 MG Tablet PO (22:26)
[2022-06-06] MEDS: oxyCODONE 5 MG Tablet PO (23:53)
[2022-06-07] VITALS (17 sets, daily range): BP systolic 70–121; BP diastolic 40–80; PULSE 71–93; RESP 14–18; TEMP 36.4–36.8; O2SAT 94–99
[2022-06-07 00:01] LABS: Bedside Glucose 209 mg/dL (74-106)
[2022-06-07] MEDS: Acetaminophen 500 MG Tablet 1000 MG PO ×3 (05:31→22:49)
[2022-06-07] MEDS: oxyCODONE 5 MG Tablet PO ×3 (05:31→22:49)
[2022-06-07] MEDS: Levothyroxine 100 MCG Tablet 200 MCG PO (05:31)
--- NOTE | 2022-06-07 07:22 | PCM.PN.ORT ---
Subjective Subjective The patient was seen and examined postoperative day 1. She is sitting up in a chair resting comfortably. She is having some soreness in her lower back from surgery but feels this is controlled well with her pain medications. She has been mobilizing well. She denies any complaints including numbness tingling or weakness. Objective Data Objective Data Vital Signs: Vital Signs Temp Pulse Resp BP Pulse Ox O2 Del Method O2 Flow Rate 97.6 F L 78 14 121/80 H 95 Room Air 2 06/07/22 02:54 06/07/22 07:04 06/07/22 02:54 06/07/22 02:54 06/07/22 06:43 06/07/22 06:43 06/07/22 03:00 Oxygen Flow Rate (L/min) 2 Oxygen Delivery Method Room Air Weight: 263 lb 0.183 oz Body Mass Index (BMI) 33.7 Intake & Output: Intake and Output for Last 24 Hours 06/05/22 06/06/22 06/07/22 23:59 23:59 23:59 Intake Total 313.25 / 813.25 1950 / 1950 Output Total 550 / 1400 1780 / 1780 Balance -236.75 / -586.75 170 / 170 Lab / Micro Data Labs: Laboratory Results - last 24 hr 06/06/22 10:06: POC Glucose 170 H 06/06/22 17:01: POC Glucose 215 H 06/06/22 22:21: POC Glucose 209 H Radiography Diagnostic Testing: Radiology Impression Lumbar Spine X-Ray 06/06/22 12:05 IMPRESSION: Please refer to operative report for details. Electronically Signed: Ephraim Ng MD at 15:47 EDT , Physical Exam Const alert, oriented x3 and no apparent distress General Appearance: cooperative, comfortable and well kempt HEENT normocephalic and head/scalp atraumatic Eyes EOMs intact bilaterally and conjunctivae normal Neck full ROM General: normal visual inspection Chest inspection of chest normal and palpation of chest normal Resp normal respiratory effort and normal air movement Effort and Inspection: able to speak in complete sentences Cardio regular rate and peripheral pulses 2+ throughout GI soft to palpation, non-tender and non-distended Back/Spine Back/Spine Narrative: Dressing clean dry and intact. Drain in place and functioning. Small amount of serosanguineous fluid in the drain. Incision well approximated with interrupted sutures in place. No tenderness erythema drainage or fluctuance Cervical Spine: cervical ROM normal Thoracic Spine / Upper Back: normal to inspection Lumbar Spine / Lower Back: normal to inspection Extremity normal to inspection, full ROM, normal capillary refill, no clubbing, cyanosis or edema and no calf tenderness Skin no rashes or lesions noted General Skin Exam: no breakdown Neuro oriented x3, CN's II-XII intact bilaterally, moves all extremities, no focal motor deficits, no sensory deficits noted and deep tendon reflexes 2+ bilaterally Motor Exam: strength 5/5 throughout and muscle tone normal throughout Assessment & Plan Assessment/Plan (1) Lumbar stenosis: PLAN: The patient is doing very well status post L4-5 fusion. Drain was pulled today. Okay to stop antibiotics. Okay to remove Donaldson. Continue with pain control and mobilization with activity as tolerated. Back brace on at all times while out of bed. The patient wishes to stay another night. Plan for discharge tomorrow morning.
[2022-06-07] MEDS: Psyllium 1 PACKET PO ×2 (09:06→22:52)
[2022-06-07] MEDS: Pantoprazole Sodium 40 MG Tablet PO (09:06)
[2022-06-07] MEDS: Empagliflozin 25 MG Tablet PO ×2 (09:06→22:51)
[2022-06-07] MEDS: Colestipol 1 GM TABLET PO ×2 (09:06→22:50)
[2022-06-07] MEDS: Tolterodine Tartrate 2 MG CAP.SA PO (09:06)
[2022-06-07] MEDS: metFORMIN HCl 500 MG Tablet PO ×2 (09:07→22:51)
--- NOTE | 2022-06-07 09:45 | CASEMGMT ---
CARY SINGH Face to Face with patient for initial transition planning/care coordination assessment. RN CM introduced self and role at [facility]. Patient sitting in chair, alert and oriented. Patient willing to participate in assessment and is able to answer all questions appropriately. Care providers, pharmacy, and demographics verified. Patient wishes to discharge home with HHC to assist with dressing changes. RN SAMANTHA explained that HHC will not come daily and she will need someone to learn and assist with changes at home. Patient voiced understanding. CM to provide patient with HHC list. Patient states she has no further needs or concerns at this time. CM to follow for discharge planning needs that may arise. PCP: Carlito Specialists: Chase, spinal ortho; Ted, Neuro; Friend, GI; Jeff, endocrinology Preferred Pharmacy: [facility] Insurance: [place] Prescription Benefit: yes Living Will/HPOA: yes, daughter Dionna Urbina, HPOA LNOK: daughter, sister, nephew Living Arrangements: Patient lives alone in a single story home with 2 steps to enter. Patient states she is independent at home. Patient states she has cleaning lady. Transportation: self, nephew DME/HHC: Patient has shower chair, raised toilet, cane, walker, lift chair, grab bars, medical alert, cpap, pulse ox, BP cuff, and glucometer with supplies at home. Patient denies previous HHC. Patient states she has been to SNF in [place] previously. Disposition Plan: Patient to discharge to home with HHC, family support, and follow-up plans in place. Lavern RAMAN, RN, CM
[2022-06-07 10:48] LABS: Hematocrit 33.5 % (37-47); Hemoglobin 10.3 g/dL (12.0-15.0)
--- NOTE | 2022-06-07 10:55 | CASEMGMT ---
Addendum entered by Sepideh Hobbs 06/07/22 16:23: CARY SINGH in to pt room, pt aware [facility] will start on Friday. She denies further needs at this time. Addendum entered by Sepideh Hobbs 06/07/22 16:07: Received tc from Nilesh at [facility], they are able to accept pt for SOC on Friday. Original Note: CARY SINGH in to pt room, patient was provided a list of [facility] providers including quality and resource use data and consistent with the patient?s preferred geographic region, medical needs, and insurance network. The patient?s preferred provider is [facility], [facility] and [facility] respectively. TC to Nilesh at [facility], left message with referral. TC to [facility] main number, spoke with Connie and requested referral to be faxed. Faxed referral at this time.
[2022-06-07] MEDS: Insulin Lispro 100 UNIT/ML INSULN.PEN SC ×3 (12:07→23:00)
[2022-06-07 12:21] LABS: Bedside Glucose 236 mg/dL (74-106)
--- NOTE | 2022-06-07 17:30 | PCM.PN.HOSP ---
Subjective Subjective Patient was seen and examined today, she has been running low blood pressure and I have held her blood pressure medication for now. Patient was given IV fluids today with some improvement in her blood pressure. Objective Data Objective Data Vital Signs: Vital Signs Temp Pulse Resp BP Pulse Ox O2 Del Method O2 Flow Rate 97.5 F L 74 16 99/58 L 94 Room Air 2 06/07/22 14:07 06/07/22 15:01 06/07/22 14:07 06/07/22 14:07 06/07/22 14:07 06/07/22 14:07 06/07/22 03:00 Oxygen Flow Rate (L/min) 2 Oxygen Delivery Method Room Air Weight: 119.3 kg Body Mass Index (BMI) 33.7 Intake & Output: Intake and Output for Last 24 Hours 06/05/22 06/06/22 06/07/22 23:59 23:59 23:59 Intake Total 313.25 / 813.25 3050 / 3050 Output Total 550 / 1400 2780 / 2780 Balance -236.75 / -586.75 270 / 270 Lab / Micro Data Result Diagrams: 06/07/22 10:35 Labs: Laboratory Results - last 24 hr 06/06/22 17:01: POC Glucose 215 H 06/06/22 22:21: POC Glucose 209 H 06/07/22 10:35: Hgb 10.3 L, Hct 33.5 L 06/07/22 11:57: POC Glucose 236 H Physical Exam Const alert, oriented x3, no apparent distress and healthy appearing General Appearance: cooperative, well kempt and well developed Orientation / Consciousness: awake, oriented to person, oriented to place and oriented to time HEENT normocephalic and moist oral mucous membranes Eyes PERRL, EOMs intact bilaterally and conjunctivae normal Neck supple, no JVD and thyroid normal General: trachea midline Resp normal respiratory effort, no retractions, no use of accessory muscles and clear to auscultation bilaterally Auscultation: Negative for rales, rhonchi or wheezes Cardio regular rate, regular rhythm, S1 normal heart sound, S2 normal heart sound, no murmurs, no rub and no gallops GI normal to inspection, nondistended, normoactive bowel sounds, soft to palpation, non-tender and non-distended Extremity no clubbing, cyanosis or edema Skin no rashes or lesions noted General Skin Exam: no breakdown Neuro oriented x3, CN's II-XII intact bilaterally, no focal motor deficits and no sensory deficits noted Sensorium / Orientation: awake and alert Speech: speech normal Psych affect normal Assessment & Plan Assessment/Plan (1) Infection of total left knee replacement: (2) Hypertension: QUALIFIERS: Hypertension type: essential hypertension Qualified Code(s): I10 - Essential (primary) hypertension PLAN: Plan 1. Essential hypertension-due to low blood pressure at this time, patient's hypertensive medications will be held, blood pressure will be monitored #2 type 2 diabetes-patient will have fingerstick blood sugars monitored, sliding scale insulin will be given as needed #3 hypothyroidism-patient is on Synthroid #4 hyperlipidemia-patient is on Lipitor #5 degenerative disc disease of the lumbar spine with spinal stenosis-postop day 1 L4-L5 posterior lumbar interbody fusion with L4-L5 bilateral laminectomies-PT and OT will be seeing the patient, spinal surgery participating in her care Charges/Coding Visit Charges Inpatient E&M: 24782 Subs Hosp L2
[2022-06-07 17:45] LABS: Bedside Glucose 164 mg/dL (74-106)
[2022-06-07] MEDS: Morphine 4 MG/ML Syringe IV (17:55)
[2022-06-07] MEDS: 0.9% Saline Lock 10 ML Syringe IV (17:55)
[2022-06-07] MEDS: clonazePAM 1 MG Tablet PO (22:49)
[2022-06-07] MEDS: Gabapentin 400 MG Capsule PO (22:49)
[2022-06-07] MEDS: Atorvastatin Calcium 10 MG Tablet 5 MG PO (22:52)
[2022-06-07 23:06] LABS: Bedside Glucose 197 mg/dL (74-106)
[2022-06-08] VITALS (7 sets, daily range): BP systolic 99–118; BP diastolic 50–63; PULSE 93–113; RESP 16–18; TEMP 36.7–36.8; O2SAT 94–98
[2022-06-08] MEDS: Acetaminophen 500 MG Tablet 1000 MG PO (05:34)
[2022-06-08] MEDS: oxyCODONE 5 MG Tablet PO ×2 (05:34→09:30)
[2022-06-08] MEDS: Levothyroxine 100 MCG Tablet 200 MCG PO (05:34)
[2022-06-08] MEDS: Insulin Lispro 100 UNIT/ML INSULN.PEN SC ×2 (06:47→11:20)
[2022-06-08 07:10] LABS: Bedside Glucose 162 mg/dL (74-106)
--- NOTE | 2022-06-08 08:10 | PCM.PN.HOSP ---
Subjective Subjective Patient was seen and Ament today, she has no complaints of any fevers or chills, her blood pressure still running slightly low for somebody on chronic blood pressure medication and who is not receiving any blood pressure medication in the hospital presently. I told her I may have to adjust her medications on a home-going basis, I will talk with spinal surgery about her care today. Objective Data Objective Data Vital Signs: Vital Signs Temp Pulse Resp BP Pulse Ox O2 Del Method O2 Flow Rate 98.0 F 98 16 118/63 98 Room Air 2 06/08/22 05:30 06/08/22 07:00 06/08/22 05:30 06/08/22 05:30 06/08/22 05:30 06/08/22 05:30 06/07/22 03:00 Oxygen Flow Rate (L/min) 2 Oxygen Delivery Method Room Air Weight: 119.3 kg Body Mass Index (BMI) 33.7 Intake & Output: Intake and Output for Last 24 Hours 06/06/22 06/07/22 06/08/22 23:59 23:59 23:59 Intake Total 313.25 / 813.25 3350 / 3350 Output Total 550 / 1400 2780 / 2780 Balance -236.75 / -586.75 570 / 570 Lab / Micro Data Result Diagrams: 06/07/22 10:35 Labs: Laboratory Results - last 24 hr 06/07/22 10:35: Hgb 10.3 L, Hct 33.5 L 06/07/22 11:57: POC Glucose 236 H 06/07/22 17:25: POC Glucose 164 H 06/07/22 22:46: POC Glucose 197 H 06/08/22 06:46: POC Glucose 162 H Physical Exam Const alert, oriented x3, no apparent distress and healthy appearing General Appearance: cooperative, well kempt and well developed Orientation / Consciousness: awake, oriented to person, oriented to place and oriented to time HEENT normocephalic and moist oral mucous membranes Eyes PERRL, EOMs intact bilaterally and conjunctivae normal Neck supple, no JVD, thyroid normal and no carotid bruits General: trachea midline Resp normal respiratory effort, no retractions, no use of accessory muscles and clear to auscultation bilaterally Auscultation: Negative for rales, rhonchi or wheezes Cardio regular rate, regular rhythm, S1 normal heart sound, S2 normal heart sound, no murmurs, no rub and no gallops GI normal to inspection, nondistended, normoactive bowel sounds, soft to palpation, non-tender and non-distended Extremity no clubbing, cyanosis or edema Skin no rashes or lesions noted General Skin Exam: no breakdown Neuro oriented x3, CN's II-XII intact bilaterally, moves all extremities, no focal motor deficits and no sensory deficits noted Sensorium / Orientation: awake and alert Speech: speech normal Psych affect normal Assessment & Plan Assessment/Plan (1) Lumbar stenosis: (2) Infection of total left knee replacement: (3) Hypertension: QUALIFIERS: Hypertension type: essential hypertension Qualified Code(s): I10 - Essential (primary) hypertension PLAN: Plan 1. Essential hypertension-due to low blood pressure at this time, patient's hypertensive medications will be held, blood pressure will be monitored #2 type 2 diabetes-patient will have fingerstick blood sugars monitored, sliding scale insulin will be given as needed #3 hypothyroidism-patient is on Synthroid #4 hyperlipidemia-patient is on Lipitor #5 degenerative disc disease of the lumbar spine with spinal stenosis-postop day 1 L4-L5 posterior lumbar interbody fusion with L4-L5 bilateral laminectomies-PT and OT will be seeing the patient, spinal surgery participating in her care
[2022-06-08] MEDS: DULoxetine Hcl 60 MG Capsule PO (09:25)
[2022-06-08] MEDS: Tolterodine Tartrate 2 MG CAP.SA PO (09:25)
[2022-06-08] MEDS: Colestipol 1 GM TABLET PO (09:25)
[2022-06-08] MEDS: metFORMIN HCl 500 MG Tablet PO (09:25)
[2022-06-08] MEDS: Pantoprazole Sodium 40 MG Tablet PO (09:25)
[2022-06-08] MEDS: Metoprolol Tartrate 50 MG Tablet PO (09:25)
[2022-06-08] MEDS: Empagliflozin 25 MG Tablet PO (09:25)
[2022-06-08] MEDS: Psyllium 1 PACKET PO (09:26)
[2022-06-08 11:50] LABS: Bedside Glucose 161 mg/dL (74-106)
--- NOTE | 2022-06-08 14:06 | DCINST_ITS ---
Discharge Instructions Diet Discharge Diet: 1800 Calorie Control Diet Activity Discharge Activity: May Not Drive (for 23 hrs) Weight Bearing Status: Full weight bearing Additional Activity Instructions:: No repetitive bending twisting or lifting greater than 5 pounds. Back brace on at all times while out of bed Dressing / Incision Call your doctor if your incision/area has: Continuous Slow Oozing, Sudden Increased Bleeding, Increased Pain/ Swelling, Increased Redness, Foul Smelling Discharge and Swelling at the incision site Call your doctor if you observe: Fever of 101 or Higher, Coldness, Increased Pain, Numbness or Tingling, Change in Color, Inability to urinate, Inability to have a bowel movement, Using more than 1 pad per hour, Shortness of breath, Dizziness, Fainting spells, Swelling in the ankles, Chest pain, Prolonged hiccupping, Increased palpitations (irregular heartbeat), Calf discomfort and Uncontrolled pain Cleanse incision/area with: Do not get Incision Wet and Keep Dressing Clean & Dry Additional Dressing/Incision Instructions:: Change dressing daily with iodine gauze and tape. [place]iterocks dressing to shower Follow Up Care Please Follow Up With: Armando Stone DO Test Results: Test results from this visit will be discussed in further detail at your follow- up appointment, if applicable. Discharge Plan Admission Admit Date/Time: 06/06/22 09:29 Primary Reason for Your Visit: Lumbar stenosis, L4-5 with spondylosis Attending Provider: Armando Stone Primary Care Provider: Mylene Esteban NP Consulting Providers: Hannah Espinoza ; Olivia Carvalho ; Cristine Johnson ; Kwaku Cruz ; Adam Harris ; Maurilio Weaver ; Hanna Mitchell ; Gabriel Lancaster ; Raj Horne ; Garth Gonzales ; Callie Carpio ; Wade Giang ; Teresa Del Rio ; Pranav Turcios ; Efren Goldsmith ; Brian Parra ; Rica Nguyen ; Rick Overton ; Ashely Contreras ; Mylene Choudhary THEORETICAL PHYSICS TEACHER Instructions Additional Instructions / Restrictions: 1. During your procedure, you received sedation through your IV. Please follow these instructions for the next 24 hours: Do not drive a motor vehicle, do not drink any alcoholic beverages, and do not sign any legal documents or make personal or business decisions. A responsible adult should stay with you at least 6 hours after the procedure. 2. Keep your surgical site/incision clean and the dressing dry and intact. Change dressing daily 3. Monitor the incision site for any signs or symptoms of infection. Watch for redness, excessive swelling or drainage, or continued pain at the incision site after 3 days. Contact your physician immediately for a fever, chills or a temperature of 101.5? F or greater. 4. Take your medication exactly as prescribed by your physician. Do not attempt to wean yourself off any of your medications even though your pain is improving. This process needs to be carefully monitored by your doctor. Take any antibiotics prescribed exactly as directed and until they are gone. 5. Avoid stretching, bending, pulling, twisting or any sudden movements. Do not bend or twist at the waist. Back brace on at all times while out of bed 6. No lifting greater than 5 pounds. 7. Do not operate a motor vehicle, equipment or a power tool while your stimulator is on. If you need to use any equipment, you must turn your stimulator off first. As a passenger in a motor vehicle, you may use your stimulator. 8. Do not have any manipulation done by a chiropractor or any other physician without first consulting with the surgeon 9.Please contact our office if you are even scheduled for a CT scan or an MRI. 10. Please call us if you have any questions, problems or concerns. Do not resume your candesartan until your blood pressure is above 120 systolic. Discharge Orders/Prescriptions Prescriptions: New hydrocodone-acetaminophen 5-325 mg tablet 1 tab PO Q6H 7 Days Qty: 28 0RF Continued ondansetron 4 mg tablet,disintegrating 4 mg PO Q8H PRN (Reason: nausea and vomiting) Qty: 60 0RF pantoprazole 40 mg tablet,delayed release (DR/EC) 40 mg PO DAILY Qty: 90 0RF gabapentin 400 MG capsule 400 mg PO QHS Label Comments: Nerve pain clonazepam 1 mg tablet 1 mg PO QHS Label Comments: ANXIETY levothyroxine [Synthroid] 125 mcg tablet 200 mcg PO DAILY Label Comments: THYROID diphenhydramine HCl [Banophen] 25 MG capsule 25 mg PO Q4H PRN (Reason: ITCHING) Qty: 0 0RF oxybutynin chloride [Ditropan XL] 10 MG tablet extended release 24hr 10 mg PO DAILY tizanidine [Zanaflex] 4 MG tablet 4 mg PO PRN PRN (Reason: Pain) candesartan [Atacand] 16 MG tablet 16 mg PO QHS duloxetine [Cymbalta] 60 MG capsule 60 mg PO DAILY metformin 500 mg Tablet 500 mg PO BID Jardiance 25 mg tablet 25 mg PO BID Label Comments: take 1 tablet by mouth every morning atorvastatin [Lipitor] 10 MG tablet 5 mg PO QHS metoprolol tartrate 50 MG tablet 50 mg PO BID colestipol [Colestid] 1 gram tablet See Rx Instructions .ROUTE .COMPLEX Rx Instructions: take 1 tablet by mouth twice a day psyllium husk [Fiber (psyllium husk)] 0.4 gram capsule 0.4 g PO BID Discontinued verapamil [Verelan] 240 mg capsule,ext rel. pellets 24 hr 240 mg PO QHS Label Comments: BLOOD PRESSURE hydrochlorothiazide 25 MG tablet 25 mg PO DAILY Referrals / Follow Up: Armando Stone DO [Med Staff - Active Staff] - Mylene Esteban NP, THEORETICAL PHYSICS TEACHER-C [Primary Care Provider] - Within 1 Week (See your family physician within a week for a recheck on your blood pressure and guidance whether to resume the blood pressure medicines we have stopped during your hospitalization) Disposition Disposition (needs filled in before D/C Order can be placed): Home Health Service
--- NOTE | 2022-06-08 14:15 | PCM.PN.HOSP ---
Subjective Subjective Patient was seen and examined today, her blood pressure is still running a little low but her systolic blood pressure is above 100 at the time of this dictation. I talked to her about staying off of some of her blood pressure medications and monitoring her pressure at home. I asked her to see her PCP next week to see if the medicines that were stopped could be resumed. Also talked with Dr. Stone and he confirmed that he was okay with the patient going home. Objective Data Objective Data Vital Signs: Vital Signs Temp Pulse Resp BP Pulse Ox O2 Del Method O2 Flow Rate 98.1 F 93 18 99/57 L 98 Room Air 2 06/08/22 09:13 06/08/22 11:00 06/08/22 09:13 06/08/22 09:25 06/08/22 09:13 06/08/22 09:18 06/07/22 03:00 Oxygen Flow Rate (L/min) 2 Oxygen Delivery Method Room Air Weight: 119.3 kg Body Mass Index (BMI) 33.7 Intake & Output: Intake and Output for Last 24 Hours 06/06/22 06/07/22 06/08/22 23:59 23:59 23:59 Intake Total 313.25 / 813.25 3350 / 3350 Output Total 550 / 1400 2780 / 2780 Balance -236.75 / -586.75 570 / 570 Lab / Micro Data Result Diagrams: 06/07/22 10:35 Labs: Laboratory Results - last 24 hr 06/07/22 17:25: POC Glucose 164 H 06/07/22 22:46: POC Glucose 197 H 06/08/22 06:46: POC Glucose 162 H 06/08/22 11:18: POC Glucose 161 H Physical Exam Const alert, oriented x3, no apparent distress and healthy appearing General Appearance: cooperative, well kempt and well developed Orientation / Consciousness: awake, oriented to person, oriented to place and oriented to time HEENT normocephalic and moist oral mucous membranes Eyes PERRL, EOMs intact bilaterally and conjunctivae normal Neck supple, no JVD, thyroid normal and no carotid bruits General: trachea midline Resp normal respiratory effort, no retractions, no use of accessory muscles and clear to auscultation bilaterally Auscultation: Negative for rales, rhonchi or wheezes Cardio regular rate, regular rhythm, S1 normal heart sound, S2 normal heart sound, no murmurs, no rub and no gallops GI normal to inspection, nondistended, normoactive bowel sounds, soft to palpation, non-tender and non-distended Extremity no clubbing, cyanosis or edema Skin no rashes or lesions noted General Skin Exam: no breakdown Neuro oriented x3, CN's II-XII intact bilaterally, no focal motor deficits and no sensory deficits noted Sensorium / Orientation: awake and alert Speech: speech normal Psych affect normal Assessment & Plan Assessment/Plan (1) Lumbar stenosis: (2) Infection of total left knee replacement: (3) Hypertension: QUALIFIERS: Hypertension type: essential hypertension Qualified Code(s): I10 - Essential (primary) hypertension PLAN: Plan 1. Essential hypertension-I filled out home-going instructions for the patient, I have elected to hold her hydrochlorothiazide, her verapamil, and her Atacand for now. I have asked her to monitor her pressure at home and if her systolic blood pressure is above 120, she can resume the Atacand. She is to remain off hydrochlorothiazide and verapamil though. I asked her to follow-up with her PCP next week for further guidance on her blood pressure medications. #2 type 2 diabetes #3 hypothyroidism-patient is on Synthroid #4 hyperlipidemia-patient is on Lipitor #5 degenerative disc disease of the lumbar spine with spinal stenosis-postop day 2 L4-L5 posterior lumbar interbody fusion with L4-L5 bilateral laminectomies-PT and OT will be seeing the patient, spinal surgery participating in her care Charges/Coding Visit Charges Inpatient E&M: 38877 Subs Hosp L3
== END 2022-06-08 15:39 | disposition home health service (06) | DRG 455 ==
LOC: ACINP 09:30 → MS3 11:19
PROVIDERS: Internal Medicine; Admitting Provider Orthopaedic Surgery; PCP Nurse Practitioner Primary Care; Visit Provider Orthopaedic Surgery
PROC: 0SG00AJ Fusion of Lumbar Vertebral Joint with Interbody Fusion Device, Posterior Approach, Anterior Column, Open Approach (ICD-10-PCS; CPT 22630; principal; 2022-06-06 10:40)
DX: M48.061 Spinal stenosis, lumbar region without neurogenic claudication (principal); E03.9 Hypothyroidism, unspecified; E11.9 Type 2 diabetes mellitus without complications; E78.00 Pure hypercholesterolemia, unspecified; F41.9 Anxiety disorder, unspecified; G43.909 Migraine, unspecified, not intractable, without status migrainosus; I10 Essential (primary) hypertension; K58.9 Irritable bowel syndrome, unspecified; K21.9 Gastro-esophageal reflux disease without esophagitis; G47.33 Obstructive sleep apnea (adult) (pediatric); M51.36 Other intervertebral disc degeneration, lumbar region; M47.816 Spondylosis without myelopathy or radiculopathy, lumbar region; Z86.73 Personal history of transient ischemic attack (TIA), and cerebral infarction without residual deficits; Z86.16 Personal history of COVID-19; Z86.718 Personal history of other venous thrombosis and embolism; Z87.891 Personal history of nicotine dependence; Z79.899 Other long term (current) drug therapy; Z79.84 Long term (current) use of oral hypoglycemic drugs
CPT/HCPCS: 36415; 72100; 76000; 82962; 85014; 85018; 97162; 97530; 99251; C1713; J7040; J7120; A4216; G0463; J2405

== ENCOUNTER 2023-08-27 09:15 | Inpatient (IN) | payer MEDICARE, OTHER, SELFPAY ==
--- NOTE | 2023-08-04 12:37 | EKG12_ITS ---
Test Reason : PRE OP Blood Pressure : / mmHG Vent. Rate : 077 BPM Atrial Rate : 077 BPM P-R Int : 156 ms QRS Dur : 132 ms QT Int : 418 ms P-R-T Axes : 071 -04 011 degrees QTc Int : 473 ms Normal sinus rhythm Right bundle branch block Abnormal ECG Confirmed by NIRMAL ZHU, RAISA ([id number]), assistant film editor GABRIELLE SMALLS ([id number]) on 08/05/2023 2:14:06 PM Referred By: SHANNAN Confirmed By:RAISA KINNEY MD
[2023-08-04 13:18] LABS: Absolute Lymphocyte Count 1.93 X10^3/uL (0.83-4.51); Absolute Neutrophil Count 2.3 X10^3/uL (2.0-7.7); Basophil# 0.02 X10^3/uL; Basophil% 0.4 % (0-1); Eosinophil# 0.32 X10^3/uL; Eosinophils% 6.1 % (0-5); Hematocrit 44.1 % (37-47); Hemoglobin 13.6 g/dL (12.0-15.0); Lymphocyte # 1.93 X10^3/ul (0.83-4.51); Lymphocyte % 36.6 % (19-41); Mean Corp Hgb Conc 30.8 g/dL (32-36); Mean Corpuscular Hgb 29.2 pg (27.0-32.0); Mean Corpuscular Volume 94.8 fL (81-99); Mean Platelet Vol. 9.2 fl (6.2-12.0); Monocyte# 0.71 X10^3/uL; Monocyte% 13.4 % (0-10); NRBC Flagged by Analyzer 0 % (0-5); Neutrophil # 2.29 X10^3/uL (2.7-7.7); Neutrophil % 43.3 % (47-70); Platelet Count 276 K/mm3 (150-450); RBC Distribution Width CV 12.9 % (11.6-14.6); RBC Distribution Width SD 45.1 fl (35.1-43.9); Red Blood Count 4.65 M/mm3 (4.2-5.4); White Blood Count 5.3 K/mm3 (4.4-11.0)
[2023-08-04 13:57] LABS: Albumin, Serum 3.5 g/dL (3.2-5.0); Anion Gap 4 (5-15); BUN 10 mg/dL (7-18); BUN/Creat Ratio 11.5 RATIO (10-20); Calcium,Total 9.4 mg/dL (8.5-10.1); Chloride 106 mmol/L (98-107); Creatinine, Serum 0.87 mg/dL (0.55-1.02); EST Glomerular Filtration Rate 68 mL/min (>60); Est Glom Filt Rate - Afr Amer 82 mL/min (>60); Glucose 123 mg/dL (74-106); Potassium 3.8 mmol/L (3.5-5.1); Sodium Level 141 mmol/L (136-145)
[2023-08-04 13:58] LABS: Hemoglobin A1c 6.1 % (3.8-5.6)
[2023-08-04 14:07] LABS: Magnesium 2.1 mg/dL (1.6-2.6); Thyroid Stim Hormone (TSH) 2.21 uIU/mL (0.358-3.74)
--- NOTE | 2023-08-18 13:14 | HP.PCM_ITS ---
History and Physical History and Physical? Patient Name: Cristine Urbina : 1950 From:? TA ESQUEDA PA-C? DATE OF PRE-OPERATIVE EXAM: 08/18/2023 DATE OF SURGERY:? 08/27/2023 SCHEDULED PROCEDURE:? Revision right total knee arthroplasty HISTORY OF PRESENT ILLNESS: Preoperative history and physical exam was performed on August 18, 2023.? This is a 72-year-old female who is had ongoing pain in the right knee.? Patient states the knee wants to give out.? On the right knee by outside provider Dr. Olivares.? Patient underwent previous knee arthroscopy as well as a right total knee arthroplasty in 2002.? Patient does report having a DVT after the right total knee arthroplasty.? She has continued to have pain with the right knee.? She has been using a cane for ambulatory assistance.? She has tried bracing.? She has been through physical therapy for strengthening.? She has had previous bone scan which did show increase uptake in loosening of the right total knee.? She had inflammatory lab work with elevated ESR 58 and CRP less than 0.2.? She did have aspirations which was negative for infection.? After failing the conservative measures and discussion with Dr. Raghav Murphy, the patient does wish to proceed with a revision right total knee arthroplasty.? Patient has obtain surgical clearance from the primary care provider Mylene Esteban.? She has had past cardiac clearance from [facility] however since it was many months ago primary care provider would like her to see cardiology again.? She has appointment on Friday, August 25, 2023.? She denies any recent chest pain, short breath, fevers chills or recent infections.? She has had recent left hip intra-articular injection by Dr. Raghav Murphy which was helpful.? Patient does have medical history pertinent for type 2 diabetes mellitus with current A1c 6.1, hypertension, previous stroke, sleep apnea with use of CPAP, migraines, anxiety, irritable bowel syndrome, gastroesophageal reflux disease, past history of DVT, kidney disease stage III.? Patient is currently in pain management at [facility] with Adia Triplett in which she takes chronic Percocet. REVIEW OF SYSTEMS: Review Of Systems: Constitutional: Reports weight change. Cardiovasular: Denies chest pain, heart murmur, irregular heartbeat and peripheral vascular disease. Respiratory: Denies asthma, cough, pneumonia, sleep apnea, shortness of breath, tuberculosis and wheezing. Gastrointestinal: Reports heartburn, but denies constipation, diarrhea, nausea, rectal itching, bloody stools and vomiting. Genitourinary: Denies incontinence. Musculoskeletal: Reports pain, trouble walking and weakness, but denies leg swelling. Skin: Denies Raynaud's, history of shingles and tattoo. Neurological: Reports difficulty with balance and tremor but denies ambulatory dysfunction, dizziness, numbness/tingling and transient monocular blindness. Psychiatric: Denies anxiety, depression, insomnia, mental illness and stress. Hematologic/Lymphatic: Reports past transfusion, but denies anemia and bleeding/bruising tendency. Reviewed and updated. PAST MEDICAL HISTORY: Advance Care Plan: Other Directive, P.O.A. Effective Date: 09/30/2016 Comments: [employer]?? Other Directive, LIVING WILL Effective Date: 09/30/2016 Comments: [employer]? Past Medical History: Medical Problems: Diabetes, High Blood Pressure, Stroke, Arthritis, Sleep Apnea, Bundle Branch Block, Migraines Covid- 19 - (09/2020) Anxiety, IBS, GERD, DVT, Kidney Disease/Renal Failure Accidents: Fell - (01/15/2022) RT 3rd FINGER, RT SHOULDER, RT KNEE Surgical Hx: Lito Knee Arthroscopy - DR OLIVARES @ [place] RT Shoulder Arthroscopy - DR OLIVARES @ [facility] RT Foot Bunion - @ [facility] CTR - DR NEIL @ [place] RT TKR - (2002) DR OLIVARES @ [place] LT TKR - (2011) DR OLIVARES @ [place] Fliter - (2011) Lito Hammer Toe - [place] LT Knee, I&D w/ Explant TKA w/ Placement of ABx Spacer - (08/08/2015) SAW @ [facility] LT Knee, Revision of ABx Spacer, Debridement, Placement of Wound Vac - (09/01/2015) JERMAINE @ [facility] LT TKR Revision - (10/13/2015) JERMAINE @ [facility] Lito Lympoma (Fatty Tumor) - lipoma LT TKR Revision - (07/29/2017) SAW @ [facility] Heart Cath L4 - 5 Posterior Lumbar Interbody Fusion w/ Posterolateral Fusion - (06/06/2022) Dr Elsy Stone @ [facility] Anesthesia Complications: None Assistive Devices: Glasses, Cpap, Cane Reviewed and updated. SOCIAL HISTORY: Social History: Marital: .Occupation: Retired.Work Status: Retired.Hand Dominance: Right- handed. Personal Habits:? Cigarette Use: Former.Smokeless Tobacco: Never Used Smokeless Tobacco.E-Cigarette Use: Never used.Alcohol: Occasionally.Drug Use: Denies Use.Enjoy Exercising: Exercises 1-3 X/Week. Reviewed, no changes. VITALS: Ht: 74 Wt: 255lb Wt k.668 BMI: 32.7 BP: 126/78 Pulse: 86 Resp: 14 T: 96.8 T: 36.0C Pain Level: 4 O2SatR: 93 ALLERGIES: Sulfa Linezolid Sulfa (Sulfonamide Antibiotics)? MEDICATIONS: Pantoprazole Sodium 40 mg daily, Jardiance 25 mg twice A day, Metformin HCL 500 mg twice A day, Ipratropion Channahon 42 mcg 2 sprays each nostril bid, Levothyroxine Sodium 125 mcg 1 tab PO daily, Clonazepam 1 mg 1 tab PO qhs, Gabapentin 400 mg 1 cap PO q hs, Acetaminophen 325 mg prn, Candesartan Cilexetil 16 mg 1 tab PO daily, Tizanidine HCL 4 mg prn, Oxybutynin Chloride ER 10 mg 1 tab PO daily, Duloxetine HCL 60 mg 1 by mouth every day, Ibuprofen 200 200 mg prn, Ondansetron 4 mg dissolve 1 tablet ON TONGUE every 8 hours if needed for nausea OR vomiting, Percocet 5-325 mg 1-2 by mouth every 4-6 hour as needed pain, Ozempic (0.25 Or 0.5 MG/Dose) 2 mg/3ml inject 0.25 qweekly for four weeks inject 0.5 qweekly for two weeks, Metoclopramide HCL 5 mg take 1 tablet by mouth twice a day, Aimovig 140 mg/ml once monthly, Probiotic Gummies 30 mg daily PRE-OP EXAM:? General appearance:NORMAL? ? ? Other: Eyes: Conjunctivae and lids: NORMAL? Pupils: ERR Ears, Nose, Mouth, and Throat: NORMAL? Other: Inspection of lips, teeth and gums: NORMAL? ?Other: Neck: Examination of neck: no masses noted. Respiratory: Assessment of respiratory effort: NORMAL? ?Other: ?Auscultation of lungs: clear to auscultation no wheezes, rhonchi or rales. Cardiovascular:? Auscultation of heart: regular rate and rhythm, no murmurs, gallops or rubs. PHYSICAL EXAMINATION: On exam the patient's right knee the incision is well-healed.? There is no erythema or signs of infection.? Patient has tenderness to palpation over the anterior medial knee at the pes anserine region.? Range of motion: 0 extension to 100 flexion.? Laxity with anterior drawer testing with increased pain. IMAGING STUDIES: Previous bone scan of the right knee reveals increased uptake consistent with loosening. Inflammatory lab work: Previous ESR 58 and CRP less than 0.2 Negative for aspiration for infectious workup IMPRESSION: 1.? Painful right total knee arthroplasty 2.? Type 2 diabetes mellitus 3.? Hypertension 4.? Previous stroke 5.? Sleep apnea with use of CPAP 6.? Stage III kidney disease 7.? History of DVT 2002 8.? Migraines 9.? Anxiety 10.? Irritable bowel syndrome 11.? Gastroesophageal reflux disease PLAN: Dr. Raghav Murphy did discuss and review with the patient all treatment options including surgical versus nonsurgical options.? Patient does wish to proceed with the above-stated procedure.? Potential risks, benefits, and complications of the procedure were discussed in detail including but not limited to , infection, nerve and blood vessel damage, persistent pain, numbness, tingling, paresthesias, blood clot, pulmonary embolism, and requirement for possible further surgery.? The patient expressed full understanding and has no further questions for the doctor.? Patient does agree to proceed with the above-stated procedure and has signed the surgery consent form. POST-OP MEDICATION PLAN: Pain Medications: We are reaching out the patient's pain management provider Adia Triplett to determine who will be managing postoperative narcotics. DVT Prophylaxis: Patient does have past history of DVT in 2002.? We will proceed was Rivaroxaban 10 mg once daily for the first 2 weeks followed by aspirin 81 mg twice daily for an additional 2 weeks This dictation was created using voice recognition software. Phonetic and/or grammatical errors may exist. ___? I have re-examined the patient.? There are no clinical changes since date of exam. ___? See progress notes for changes. ___? Dictated on admission Date: ? ? ?Time: Signature:
[2023-08-27] VITALS (12 sets, daily range): BP systolic 124–169; BP diastolic 75–99; PULSE 77–90; RESP 14–18; TEMP 36.1–36.7; O2SAT 94–100; BMI 32.8; BMI 32.9
[2023-08-27] MEDS: Magnesium 1 GM over 15 mins IV (10:09)
[2023-08-27] MEDS: Acetaminophen 500 MG Tablet 1000 MG PO ×2 (10:10→21:26)
[2023-08-27] MEDS: Gabapentin 600 MG Tablet PO ×2 (10:10→21:26)
[2023-08-27] MEDS: Lactated Ringers 1,000 ML 999 ML IV ×2 (10:19→16:12)
[2023-08-27 13:06] LABS: Bedside Glucose 124 mg/dL (74-106)
[2023-08-27] MEDS: JPS (Morphine 10mg/ml) OPERA.SITE (15:10)
[2023-08-27] MEDS: TRANEXAMIC ACID 2,000 MG, 0.9% Normal Saline (100mL Bag) 100 ML OPERA.SITE (15:10)
--- NOTE | 2023-08-27 15:13 | PCM.OPRPT ---
Report of Operation Date of Procedure: 08/27/23 Pre-Operative Diagnosis: Painful right total knee replacement, aseptic loosening Post-Operative Diagnosis: Painful right total knee replacement, aseptic loosening Surgery/Procedure Performed:: Revision right total knee replacement all components Description of Surgical Findings:: Stable knee with good patella tracking. Implants demonstrated for bone cement interface. Surgeon: Raghav Murphy insulation board back tender: Bart King Type of Anesthesia: General Anesthesiologist: Siva Amaro Special Medications: 2 g Ancef, 1 g TXA at incision, 1 g TXA closure, 10 mg Decadron, joint cocktail (5 mg Duramorph, 30 mL of 0.5% Ropivicaine, 1000 units of epinephrine, 30 mg of Toradol), Ancef was redosed after 2 hours Specimen's removed: 3 separate specimens were sent to microbiology Estimated Blood Loss (mL): 125 Fluids Replaced: 1800 mL crystalloid Description of Procedure: Implants used: Femur: [place] triathlon total stabilized size 5 distal femoral component with 5 mm augments distally medially and laterally and 5 mm augments posteriorly medially and laterally. 15 x 100 mm cemented stem Tibia: Size 6 [place] triathlon universal tibial baseplate with 15 x 50 mm stem. Size C. Jamie tibial cone Poly: Jamie triathlon total stabilized 13 mm polyethylene insert Patella: [place] triathlon 38 mm asymmetric press-fit patella Brief history operative indications: 72-year-old F with total knee replacement in 2002. Patient demonstrated pain and instability. Bone scan consistent with loosening. After ruling out infection we agreed to proceed with revision total knee replacement which had risks which include but not limited to blood loss, DVTs, PEs, nervous damage, infection, the risk of anesthesia. Patient demonstrate understanding was able to sign informed consent. Medical clearance was obtained. Procedure: On the date of procedure patient's R lower extremity was marked in the preoperative area. The patient was then taken back to the operating room where the patient was placed on the table in the supine position. All bony prominences were identified a well-padded. Anesthesia assumed control of the C-spine and airway and remained controlled throughout the remainder of the procedure. A tourniquet was placed on the R upper thigh and the leg was prepped in a sterile fashion. The surgeon then scrubbed at this time. Upon reentering the room R lower extremity was draped in a standard orthopedic fashion. A timeout was then called and everyone agreed upon the side, the site, the procedure to be performed, patient's identity and antibiotics given. An Esmarch bandage was used to exsanguinate the extremity and the tourniquet was placed up to 250 mmHg with the knee in flexion. A midline skin incision was made using the previous incision and extending it proximally and distally to identify normal tissue planes. Medial and lateral flaps were developed appropriate releases. The standard medial parapatellar arthrotomy was made and the patella was subluxed laterally. At this time an aggressive synovectomy was performed re-creating the medial gutter first, then the suprapatellar pouch than the lateral gutter. Once this was completed the knee was flexed up an osteotome was used to remove the tibial polyethylene. The remainder of the synovium was debrided. The standard deep MCL release was done and the patella scar pad was resected and lateral releases were performed. Next our attention was directed to the femur. Where flexible osteotomes and TPS saw were used to break up the implant cement interface. This was done both medially and laterally. After this a bone tamp was used to remove the femur component from the end of the bone. This was done with minimal bone loss. At this time attention was now directed towards the proximal tibia. Possible osteotome and TPS saw were then used to break up the proximal tibia implant interface and stacked osteotomes were used to remove the tibial implant. This was done with minimal bone loss. Our attention was then turned to the tibia where the intramedullary canal was reamed to 18 mm and a size C tibial cone was reamed. We then made a cleanup cut on the tibia, A drop lalo was then used to verify the cut. A size 6 tibial base plate was selected. the knee was flexed and the tibial component was pinned into place and the boss reamer was used to ream the proximal medullary canal. The trial implant was impacted in its prepared position. Our attention was then turned back to the femur or the femur intramedullary canal was reamed to 19 mm using the previous implants a size 5 TCG cutting guide with a 19 mm stem was put into place. The medial epicondyle was used to set the joint line. With this TCG cutting guide we used a 13 mm polyethylene trial in order to help balance the gaps. Once the gaps were appropriately balanced the guide was firmly pinned into place. Distal cuts were made with 5 mm augments medially and 5 mm augment laterally. Posterior cuts were made with 5 mm augments medially and 5 mm augment laterally. Using the guide the box cut was made using a reciprocating saw. The appropriate trials were then placed on the femur and tibia. A trial polyethylene was trialed to ensure proper balancing and stability of the knee. Patella tracking, was then verified and corrected appropriately as needed. Our attention was then directed to the patella. Patella had significant chronic wear and deformity. Based on this we elected to reverse the patella and remove it. Patella and cement were removed using a saw making a fresh cut down to bone. Pegs were drilled for a 38 mm patella. Final components were verified and opened, 6 liters of normal saline were irrigated throughout the joint under low-pressure lavage. Then the cement was mixed in a vacuum. [place] Simplex cement with tobramycin was used. The wound was copiously irrigated with normal saline. When the cement was ready cement plugs were placed in the tibial cone was placed the components were cemented into place starting with the tibia, femur. The trial poly component was placed and the knee was placed in full extension. All excess cement was removed in the process. Once the cement had cured the tracking, alignment and balance were verified and a size 13 mm TS polyethylene component was placed. Once the final components were placed a 3-minute dilute Betadine lavage followed by a chlorhexidine lavage was used and the wound was copiously irrigated with normal saline solution and the remainder of the periarticular injection was given. The wound was closed in a layer de jesus fashion using #1 vicryl interrupted sutures for the arthrotomy, 2-0 interrupted Vicryl for the subcuticular layer and martha for final skin closure. A sterile compressive dressing was then placed. The patient was then awakened from anesthesia, transferred to the [place] and transferred to the PACU for recovery. Post op plan DVT ppx: Xarelto 10 mg daily due to previous VTE, thigh high compression stockings Follow up: in office in 2 weeks for wound check PT: to start POD #0 at hospital, outpatient PT should be arranged. Cultures: Patient be placed on doxycycline 100 mg p.o. twice daily as we follow cultures. My physician therapeutic recreation assistant was a vital part of this case. He was important in appropriate retraction during the case, and protection of soft tissues during bony cuts. His intimate knowledge of the case and my steps aided in safe and expedient completion of the procedure as well as appropriate position of the leg during the case. He was also vital in assisting with closure under my direct supervision.
--- NOTE | 2023-08-27 16:15 | RAD_ITS ---
INDICATION: post op -- AP and Lateral xray of operative knee in PACU EXAMINATION/TECHNIQUE: X-RAY - RIGHT XR Knee 2 VIEWS COMPARISON: FINDINGS: Status post total right knee replacement. The hardware components are well aligned.. Post surgical changes in the adjacent soft tissue. RAD/Knee 1 or 2 Views IMPRESSION: Total right knee replacement with post surgical changes. Electronically Signed: Matthias Mantilla DO at 16:53 EDT ,
[2023-08-27 16:45] LABS: Bedside Glucose 168 mg/dL (74-106)
[2023-08-27] MEDS: Lactated Ringers 1,000 ML 15 ML IV (17:16)
--- NOTE | 2023-08-27 17:50 | NURSING ---
dietary hs been called for reg diet for this pt
[2023-08-27] MEDS: Cefazolin 1 GM/50 ML BAG IV (20:05)
--- NOTE | 2023-08-27 21:00 | PN.HOSP_ITS ---
Reason for Visit Reason for Visit: Right knee osteoarthritis Subjective Subjective Ms. Urbina is a 72-year-old female who had been suffering ongoing pain in the right knee. She had previous knee arthroplasty in 2002 and did have a DVT after her right total knee arthroplasty. She had been using a cane for assistance and had tried bracing with no significant effect. She also been through physical therapy for strengthening. Bone scan was performed that showed increased uptake and loosening of the right total knee arthroplasty. She did have an elevated E SR but her CRP was unremarkable. She had aspirations which were negative for infection and after failing conservative outpatient management she decided to proceed with a revision of her right total knee arthroplasty. She was admitted to [facility] on 08/27/2023 for an elective right total knee arthroplasty done by Dr. Murphy. Her past medical history includes DM-2, hypertension, history of stroke, AYAZ, migraines, IBS, GERD, history of DVT, CKD stage IIIb and anxiety. The patient is in chronic pain management and takes Percocet regularly. We have been consulted postoperatively for medical management of medical issues postoperatively. Patient was evaluated in the medical floor postoperatively. Patient denies any significant pain at this point in time. States the plan is for her to stay 3 midnights and go to transitional care unit versus rehab at discharge. Objective Data Objective Data Vital Signs: Vital Signs Temp Pulse Resp BP Pulse Ox O2 Del Method O2 Flow Rate 97.8 F 78 16 152/99 H 100 Nasal Cannula 2 08/27/23 19:47 08/27/23 19:47 08/27/23 19:47 08/27/23 19:47 08/27/23 19:47 08/27/23 19:47 08/27/23 19:47 Oxygen Flow Rate (L/min) 2 Oxygen Delivery Method Nasal Cannula Weight: 116.12 kg Body Mass Index (BMI) 32.8 Intake & Output: Intake and Output for Last 24 Hours 08/25/23 08/26/23 08/27/23 23:59 23:59 23:59 Intake Total 2151 Balance 2151 Lab / Micro Data 08/04/23 12:55 08/04/23 12:55 Labs: Laboratory Results - last 24 hr 08/27/23 09:58: POC Glucose 124 H 08/27/23 16:25: POC Glucose 168 H Micro: Microbiology 08/04/23 12:55 Swab (Method) Nasal Screen MRSA/MSSA - Final Radiography Diagnostic Testing: Radiology Impression Knee X-Ray 08/27/23 16:15 IMPRESSION: Total right knee replacement with post surgical changes. Electronically Signed: Matthias Mantilla DO at 16:53 EDT Reading Location ID and State: [address] [place] [address] Tel [phone], Service support , Physical Exam Const alert, oriented x3, no apparent distress, healthy appearing and well nourished Constitutional Narrative: Older, -[place] female, sitting up in bed resting but awakens easily to voice, appears comfortable nontoxic HEENT head/scalp atraumatic, moist oral mucous membranes and oropharynx normal HEENT Narrative: Mallampati 3, no thrush Resp normal respiratory effort, no retractions, no use of accessory muscles and clear to auscultation bilaterally Auscultation: wheezes; Negative for crackles or rhonchi Cardio regular rate, regular rhythm, S1 normal heart sound, S2 normal heart sound, no murmurs, no rub, no gallops and no clicks GI normal to inspection, nondistended, normoactive bowel sounds, soft to palpation and non-tender Extremity no clubbing, cyanosis or edema Extremity Narrative: Right knee with polar ice in place, bilateral lower extremity thigh-high YUKI hose in place Neuro oriented x3, CN's II-XII intact bilaterally and no focal motor deficits Speech: speech normal Psych affect normal Psych Narrative: Very pleasant Assessment & Plan Assessment/Plan (1) Arthritis of right knee: PLAN: Plan Right knee arthritis -Postop day 0 of revision right total knee arthroplasty -Management per primary -Recommend bowel regimen -PT/OT consultation -DVT prophylaxis with Xarelto 10 mg daily due to previous DVT and thigh high compression stockings -Postop weightbearing as tolerated -Cultures are pending and plan is for patient to be on doxycycline twice daily as cultures are followed AYAZ -Continue home CPAP Hypertension -Continue amlodipine and continue home atenolol -Continue home ARB DM-2 -Well-controlled with hemoglobin A1c of 6.1 preoperatively -Continue Ozempic -continue home metformin -Continue home Jardiance Neuropathy -Continue home Cymbalta -continue home gabapentin Glaucoma -Continue home eyedrops Hypothyroidism -Continue home Synthroid Urinary continence -Continue home oxybutynin Insomnia -Continue home clonazepam 0.5 mg nightly GERD -Continue home PPI IBS -restart home plecanatide tied at discharge DVT prophylaxis -Michel per primary Charges/Coding Visit Charges Inpatient E&M: 40563 Subs Hosp L2
[2023-08-27] MEDS: Senna/Docusate Sodium 1 Tablet 2 TABLET PO (21:26)
[2023-08-27] MEDS: clonazePAM 0.5 MG Tablet PO (21:26)
[2023-08-27] MEDS: Ketorolac 15 MG/ML Vial IV (21:26)
[2023-08-27] MEDS: Atenolol 100 MG Tablet PO (21:27)
[2023-08-27] MEDS: Losartan Potassium 100 MG Tablet PO (21:27)
[2023-08-28] VITALS (8 sets, daily range): BP systolic 107–152; BP diastolic 64–94; PULSE 80–98; RESP 16–18; TEMP 36.3–36.9; O2SAT 93–98; BMI 32.9
[2023-08-28] MEDS: Ondansetron ODT 4 MG Tablet PO (02:24)
[2023-08-28] MEDS: Morphine 4 MG/ML Syringe IV (02:24)
[2023-08-28] MEDS: Ketorolac 15 MG/ML Vial IV ×2 (04:35→20:16)
[2023-08-28] MEDS: Cefazolin 1 GM/50 ML BAG IV (04:35)
[2023-08-28] MEDS: Levothyroxine 175 MCG Tablet PO (05:46)
[2023-08-28] MEDS: Metoclopramide 5 MG TABLET PO ×2 (05:46→15:38)
[2023-08-28] MEDS: Acetaminophen 500 MG Tablet 1000 MG PO ×3 (05:46→21:56)
[2023-08-28] MEDS: Rivaroxaban 10 MG Tablet PO (05:47)
[2023-08-28 07:03] LABS: Hematocrit 35.2 % (37-47); Hemoglobin 10.7 g/dL (12.0-15.0); Mean Corp Hgb Conc 30.4 g/dL (32-36); Mean Corpuscular Hgb 29.3 pg (27.0-32.0); Mean Corpuscular Volume 96.4 fL (81-99); Mean Platelet Vol. 9.2 fl (6.2-12.0); Platelet Count 149 K/mm3 (150-450); RBC Distribution Width CV 13.5 % (11.6-14.6); RBC Distribution Width SD 47.8 fl (35.1-43.9); Red Blood Count 3.65 M/mm3 (4.2-5.4); White Blood Count 6.5 K/mm3 (4.4-11.0)
[2023-08-28 07:22] LABS: Anion Gap 4 (5-15); BUN 11 mg/dL (7-18); BUN/Creat Ratio 11.6 RATIO (10-20); Calcium,Total 8.4 mg/dL (8.5-10.1); Chloride 103 mmol/L (98-107); Creatinine, Serum 0.95 mg/dL (0.55-1.02); EST Glomerular Filtration Rate 61 mL/min (>60); Est Glom Filt Rate - Afr Amer 74 mL/min (>60); Estimated Creatinine Clearance 63.73 ml/min; Glucose 194 mg/dL (74-106); Potassium 3.7 mmol/L (3.5-5.1); Sodium Level 138 mmol/L (136-145)
[2023-08-28] MEDS: metFORMIN HCl 500 MG Tablet PO ×2 (08:22→15:52)
[2023-08-28] MEDS: Pantoprazole Sodium 40 MG Tablet PO (08:22)
[2023-08-28] MEDS: Tolterodine Tartrate 2 MG CAP.SA PO (08:22)
[2023-08-28] MEDS: DULoxetine Hcl 60 MG Capsule PO (08:22)
[2023-08-28] MEDS: Ensure Surgery 237 ML LIQUID PO ×3 (08:27→15:51)
--- NOTE | 2023-08-28 09:04 | CASEMGMT ---
Discharge Planning A list of?SNF providers including quality and resource use data and consistent with the patient's preferred geographic region, medical needs, and insurance network was created in CarePort Guide.? This list was provided to the SW. Randi Thakur Discharge Planning Asst.
[2023-08-28] MEDS: Gabapentin 300 MG Capsule PO (09:33)
[2023-08-28] MEDS: oxyCODONE 5 MG Tablet PO ×2 (09:33→14:16)
[2023-08-28] MEDS: Senna/Docusate Sodium 1 Tablet 2 TABLET PO ×2 (09:37→21:56)
[2023-08-28] MEDS: Famotidine 20 MG Tablet PO (09:37)
[2023-08-28] MEDS: amLODIPine 5 MG Tablet PO (09:38)
[2023-08-28] MEDS: Atenolol 100 MG Tablet PO ×2 (09:39→21:56)
--- NOTE | 2023-08-28 10:23 | PN.ORTHO_ITS ---
Subjective Subjective The patient was sitting in bedside chair eating breakfast upon examination. Patient denies any chest pain, shortness of breath, dizziness, lightheadedness, nausea or vomiting, or calf pain. Pain is controlled on medications. Patient did receive perioperative block for the knee. No adverse overnight events. She has worked with physical therapy. Patient does live home alone and is wishing to try to be discharged to rehabilitation facility temporarily. Case management is currently on board. Patient does have past history of DVT and is currently on Xarelto. Patient did report having drainage over the distal incision after getting up to use the restroom. New Mepilex dressing was placed and there is been no further drainage even after finishing with physical therapy. Objective Data Objective Data Vital Signs: Vital Signs Temp Pulse Resp BP Pulse Ox O2 Del Method O2 Flow Rate 97.3 F L 87 16 107/64 95 Room Air 2 08/28/23 08:52 08/28/23 08:52 08/28/23 08:52 08/28/23 08:52 08/28/23 08:52 08/28/23 08:52 08/27/23 21:47 Oxygen Flow Rate (L/min) 2 Oxygen Delivery Method Room Air Weight: 116.12 kg Body Mass Index (BMI) 32.8 Intake & Output: Intake and Output for Last 24 Hours 08/26/23 08/27/23 08/28/23 23:59 23:59 23:59 Intake Total 2151 50 / 50 Balance 2151 50 / 50 Lab / Micro Data 08/28/23 06:45 08/28/23 06:45 Labs: Laboratory Results - last 24 hr 08/27/23 09:58: POC Glucose 124 H 08/27/23 16:25: POC Glucose 168 H 08/28/23 06:45: WBC 6.5, RBC 3.65 L, Hgb 10.7 L, Hct 35.2 L, MCV 96.4, MCH 29.3, MCHC 30.4 L, RDW Std Deviation 47.8 H, RDW Coeff of Olesya 13.5, Plt Count 149 L, MPV 9.2, Sodium 138, Potassium 3.7, Chloride 103, Carbon Dioxide 31.0, Anion Gap 4 L, BUN 11, Creatinine 0.95, Estim Creat Clear Calc 63.73, Est GFR (MDRD) Af Amer 74, Est GFR (MDRD) Non-Af 61, BUN/Creatinine Ratio 11.6, Glucose 194 H, Calcium 8.4 L Micro: Microbiology 08/04/23 12:55 Swab (Method) Nasal Screen MRSA/MSSA - Final Radiography Diagnostic Testing: Radiology Impression Knee X-Ray 08/27/23 16:15 IMPRESSION: Total right knee replacement with post surgical changes. Electronically Signed: Matthias MantillaDO at 16:53 EDT , Physical Exam Narrative Vital signs stable and afebrile. SCDs and YUKI hose are in place bilaterally Patient is able to plantarflex and dorsiflex actively. Sensation is intact to light touch to saphenous, sural, superficial and deep peroneal, and tibial distribution. Current dressing dressing is clean dry and intact. Patient does report nursing remove the first dressing due to the drainage over the distal portion after getting up to the restroom. Since physical therapy there has been no further drainage. We will continue to monitor the dressing for drainage. Negative Homans bilaterally, negative signs and symptoms of DVT. Const alert, oriented x3 and no apparent distress Assessment & Plan Assessment/Plan (1) Status post revision of total replacement of right knee: PLAN: 1. S/P revision right total knee arthroplasty POD #1 2. Continue Pain Medications: Tylenol and oxycodone 3. DVT Prophylaxis: Patient is currently placed on Xarelto 10 mg once daily for 2 weeks postoperatively. She does have past history of DVT. After 2 weeks of Xarelto she will then be switched over to aspirin 81 mg twice daily for an additional 2 weeks. 4. PT/OT: Weightbearing as tolerated with walker 5. Lab work has been reviewed and currently stable. Mild drop in hemoglobin postoperatively but no need for current treatment at this time. Repeat lab work tomorrow for CBC 6. Currently on doxycycline for 2 weeks postoperatively. Microbiology wound and tissue specimens were reviewed in chart and are currently pending. I discussed with the patient potential side effects of doxycycline including sensitivity to the sunlight and increased risk of skin burn. Recommend patient take appropriate precautions. Also recommend patient to take probiotic while on the antibiotic. Patient voiced understanding agreement. 7. Continue postoperative medical management per medicine: Case was discussed with medicine 8. Encouraged Incentive Spirometry 9. Disposition: Patient currently lives home alone and case management is currently involved with appropriate and safe discharge planning. I would like to continue to monitor the cultures. They are currently pending. Once we have discharge planning from case management can consider discharge as long as patient is stable. Patient does see chronic pain management in which they are wanting orthopedics to prescribe medications for the first 6 weeks postoperatively. She was on chronic Percocet. I did inform her upon discharge she is not to use the Percocet and only utilize medications we prescribed her. She voiced understanding and agreement. Appreciate recommendations from physical therapy. I have reviewed the [place] Automated Rx Reporting System (OARRS) report for this patient for refill pattern and other prescriber involvement as part of the appropriate surveillance for the provision of acute and chronic controlled medications. The report was requested and reviewed on the date of this entry and was considered in the prescribing process. This dictation was created using voice recognition software. Phonetic and/or gr ammatical errors may exist.
--- NOTE | 2023-08-28 10:59 | CASEMGMT ---
Social Work SW met with pt to discuss advance directives.? Pt confirms she has completed a living will and health care POA naming her daughter La Urbina.? Pt notified that documents are not on file at [facility] and SW requested they be brought in for scanning into the EMR.? BALTAZAR Meyer
--- NOTE | 2023-08-28 11:01 | CASEMGMT ---
Social Work SW?to room to meet with patient for initial transition planning/care coordination?assessment.?SW?introduced self and role at [facility].? Pt voices understanding and consents to?assessment.? Pt is A/Ox4 and answers all questions appropriately. Dgt Lizzie present during assessment.?? Care providers, pharmacy, and demographics verified. PCP: Mylene Esteban [employer] DIRECTOR Specialists: Jeffrey, senait - Shola, radio division officer - Chase, surgeon, Kendrick - Cardiology Preferred Pharmacy: [facility] Insurance: Sandata and secondary Prescription Benefit:?yes Living Will/HPOA:?Pt has completed a living will and health care power of trust and estates attorney naming her daughter Lizzie. Documents not on file and SW requested they be brought in for scanning into medical record LNOK: Daughter La Urbina, sister Whit Olguin Living Arrangements: Pt lives home alone in a single story home with 2 steps to enter. Prior to elective surgery pt was independent with all ADLs and IADLs. Transportation:?Pt drives herself and has no concerns. DME: ? cane, walker, seat in the walk in shower PLAN: Pt and dgt concerned with pt returning home alone after surgery as pt has a history of falls at home. Pt requesting to go to TCU. SW informed that TCU does not have beds available at this time and no dischrages planned. A list of SNF providers including quality and resource use data and consistent with the patient?s preferred geographic region, medical needs, and insurance network were provided from the CarePort Guide. Pt requesting placement at [facility]. SW did advise pt and dgt that precert will be needed and admission to SNF is dependent on insurance approval. Referral to be sent. BALTAZAR Meyer
[2023-08-28] MEDS: Latanoprost 0.005% 1 Bottle 1 DRP EACH EYE (11:19)
[2023-08-28] MEDS: Flu Vacc QS2023-24(65YR UP)/PF 240 MCG/0.7 ML Syringe IM (11:35)
--- NOTE | 2023-08-28 11:41 | CASEMGMT ---
Discharge Planning Referral sent to [facility]CU via [facility]. Randi Thakur, Discharge Planning Asst.
--- NOTE | 2023-08-28 14:16 | PCM.PN.HOSP ---
Reason for Visit Reason for Visit: Diagnoses Unilateral primary osteoarthritis, right knee (08/27/23) Encounter for preprocedural cardiovascular examination (08/27/23) Encounter for other preprocedural examination (08/27/23) Presence of right artificial knee joint (08/27/23) Subjective Subjective Feeling well today, had a bit of pain but is not moving around. No other complaints Objective Data Objective Data Vital Signs: Vital Signs Temp Pulse Resp BP Pulse Ox O2 Del Method O2 Flow Rate 97.3 F L 87 16 107/64 95 Room Air 2 08/28/23 08:52 08/28/23 08:52 08/28/23 08:52 08/28/23 08:52 08/28/23 08:52 08/28/23 08:52 08/27/23 21:47 Oxygen Flow Rate (L/min) 2 Oxygen Delivery Method Room Air Weight: 116.12 kg Body Mass Index (BMI) 32.8 Intake & Output: Intake and Output for Last 24 Hours 08/26/23 08/27/23 08/28/23 23:59 23:59 23:59 Intake Total 2151 50 / 50 Balance 2151 50 / 50 Lab / Micro Data 08/28/23 06:45 08/28/23 06:45 Labs: Laboratory Results - last 24 hr 08/27/23 16:25: POC Glucose 168 H 08/28/23 06:45: WBC 6.5, RBC 3.65 L, Hgb 10.7 L, Hct 35.2 L, MCV 96.4, MCH 29.3, MCHC 30.4 L, RDW Std Deviation 47.8 H, RDW Coeff of Olesya 13.5, Plt Count 149 L, MPV 9.2, Sodium 138, Potassium 3.7, Chloride 103, Carbon Dioxide 31.0, Anion Gap 4 L, BUN 11, Creatinine 0.95, Estim Creat Clear Calc 63.73, Est GFR (MDRD) Af Amer 74, Est GFR (MDRD) Non-Af 61, BUN/Creatinine Ratio 11.6, Glucose 194 H, Calcium 8.4 L Micro: Microbiology 08/27/23 12:00 Tissue - Tibial Membrane Gram Stain - Final 08/27/23 12:00 Tissue - Femoral Membrane Gram Stain - Final 08/27/23 12:00 Tissue - Suprapatellar Pouch Gram Stain - Final 08/04/23 12:55 Swab (Method) Nasal Screen MRSA/MSSA - Final Radiography Diagnostic Testing: Radiology Impression Knee X-Ray 08/27/23 16:15 IMPRESSION: Total right knee replacement with post surgical changes. Electronically Signed: Matthias Mantilla DO at 16:53 EDT Reading Location ID and State: [facility] / [place] Tel [phone], Service support , Physical Exam Narrative General: Alert, oriented, no apparent distress HEENT: Atraumatic, normocephalic Eyes: extraocular movements grossly intact Neck: Supple Respiratory: normal respiratory effort Cardiovascular: no edema appreciated GI: nondistended Extremities: Moving all extremities Neuro: No overt focal neurological deficits Psych: Cooperative Assessment & Plan Assessment/Plan (1) Arthritis of right knee: PLAN: Plan Right knee arthritis -Postop day 0 of revision right total knee arthroplasty -Management per primary -Recommend bowel regimen -PT/OT consultation -DVT prophylaxis with Xarelto 10 mg daily due to previous DVT and thigh high compression stockings -Postop weightbearing as tolerated -Cultures are pending and plan is for patient to be on doxycycline twice daily as cultures are followed -08/28: On Doxy, management per primary AYAZ -Continue home CPAP Hypertension -Continue amlodipine and continue home atenolol -Continue home ARB -08/28: Well-controlled, no adjustments needed at this time DM-2 -Well-controlled with hemoglobin A1c of 6.1 preoperatively -Continue Ozempic -continue home metformin -Continue home Jardiance -08/28: Remains on home medications, add glucose checks and ssi Neuropathy -Continue home Cymbalta -continue home gabapentin Glaucoma -Continue home eyedrops Hypothyroidism -Continue home Synthroid Urinary continence -Continue home oxybutynin Insomnia -Continue home clonazepam 0.5 mg nightly GERD -Continue home PPI IBS -restart home plecanatide tied at discharge DVT prophylaxis -Xarelto per primary Charges/Coding Visit Charges Inpatient E&M: [id number] [facility] Hosp L1
[2023-08-28] MEDS: Insulin Lispro 100 UNIT/ML INSULN.PEN SC ×2 (15:52→21:58)
--- NOTE | 2023-08-28 16:09 | CHAPLAIN ---
Type of Pastoral Visit _x__ Initial Visit ___ Follow-up Visit ___ On-call Visit ___ General Patient Visit ___ Spiritual Assessment ___ Family Conference ___ Bereavement ___ Rapid Response ___ Code Blue ___ Other (describe below) Pastoral Care Referral From _x__ Patient ___ Family ___ Nurse ___ Physician ___ Dairy Lab Technician ___ Industrial Mechanic ___ Other (describe below) Sacrament/Intervention _x__ Active listening ___ Anointing ___ Latter Day ___ Bereavement ___ Communion _x__ Patria exploration ___ _x__ Life review _x__ Prayer ___ Reconciliation ___ Sacrament of Sick ___ Supportive presence ___ Wedding ___ Other (describe below) Pastoral Comments patient gives life and family review; pt has no concerns but recognizes need to follow through with therapy and handle the pain; pt has other ortho surgeries expected in her future; pt is active with her religious and finds support in the community and patria; pt has an active family of grandchildren that are in college and make the pt proud of them; prayer and presence
[2023-08-28 16:16] LABS: Bedside Glucose 224 mg/dL (74-106)
[2023-08-28] MEDS: 0.9% Saline Lock 10 ML Syringe IV (20:16)
[2023-08-28] MEDS: clonazePAM 0.5 MG Tablet PO (21:56)
[2023-08-28] MEDS: Losartan Potassium 100 MG Tablet PO (21:56)
[2023-08-28] MEDS: Gabapentin 600 MG Tablet PO (21:56)
[2023-08-28 22:24] LABS: Bedside Glucose 236 mg/dL (74-106)
[2023-08-29 02:15] VITALS: BP 152/89; PULSE 85; RESP 16; TEMP 36.7; O2SAT 97
[2023-08-29] MEDS: oxyCODONE 5 MG Tablet PO ×2 (05:49→16:00)
[2023-08-29] MEDS: Acetaminophen 500 MG Tablet 1000 MG PO ×2 (05:49→13:39)
[2023-08-29] MEDS: Rivaroxaban 10 MG Tablet PO (05:49)
[2023-08-29] MEDS: Levothyroxine 175 MCG Tablet PO (05:49)
[2023-08-29] MEDS: Metoclopramide 5 MG TABLET PO (05:49)
[2023-08-29] MEDS: Insulin Lispro 100 UNIT/ML INSULN.PEN SC ×2 (06:29→12:04)
[2023-08-29 07:04] LABS: Bedside Glucose 179 mg/dL (74-106)
[2023-08-29 07:36] VITALS: BP 110/66; PULSE 93; RESP 16; TEMP 37.3; O2SAT 93
[2023-08-29] MEDS: metFORMIN HCl 500 MG Tablet PO (07:46)
[2023-08-29 07:48] LABS: Hemoglobin 9.2 g/dL (12.0-15.0); Mean Corp Hgb Conc 30.7 g/dL (32-36); Mean Corpuscular Hgb 29.2 pg (27.0-32.0); Mean Corpuscular Volume 95.2 fL (81-99); Mean Platelet Vol. 10.1 fl (6.2-12.0); Platelet Count 145 K/mm3 (150-450); RBC Distribution Width CV 13.6 % (11.6-14.6); RBC Distribution Width SD 47.3 fl (35.1-43.9); Red Blood Count 3.15 M/mm3 (4.2-5.4)
[2023-08-29] MEDS: Ensure Surgery 237 ML LIQUID PO (07:48)
[2023-08-29 08:33] VITALS: O2SAT 97
--- NOTE | 2023-08-29 09:33 | CASEMGMT ---
Discharge Planning Patient has been accepted by [facility]. Updates faxed and SW notified. Randi Thakur, Discharge Planning Asst.
[2023-08-29] MEDS: Tolterodine Tartrate 2 MG CAP.SA PO (10:28)
[2023-08-29] MEDS: Empagliflozin 25 MG Tablet 12.5 MG PO (10:28)
[2023-08-29] MEDS: DULoxetine Hcl 60 MG Capsule PO (10:28)
[2023-08-29] MEDS: amLODIPine 5 MG Tablet PO (10:29)
[2023-08-29] MEDS: Famotidine 20 MG Tablet PO (10:29)
[2023-08-29] MEDS: Pantoprazole Sodium 40 MG Tablet PO (10:29)
[2023-08-29] MEDS: Senna/Docusate Sodium 1 Tablet 2 TABLET PO (10:30)
[2023-08-29] MEDS: Atenolol 100 MG Tablet PO (10:30)
[2023-08-29] MEDS: Latanoprost 0.005% 1 Bottle 1 DRP EACH EYE (10:34)
[2023-08-29] MEDS: Gabapentin 300 MG Capsule PO (10:38)
[2023-08-29 11:21] VITALS: O2SAT 95
--- NOTE | 2023-08-29 11:28 | CASEMGMT ---
Social Work [facility] is able to accept pt into the TCU. Precert started at this time. Pt updated and states she will notify her daughter. BALTAZAR Meyer
--- NOTE | 2023-08-29 11:54 | PN.ORTHO_ITS ---
Subjective Subjective Patient is s/p revision right sided total knee arthroplasty with Dr. Murphy. Patient resting comfortably in bed. Rates pain 6/ 10 at rest. With movement 6/10. States taking Tylenol and oxycodone as needed and ice help to relieve pain. Patient has been up with therapy. Walking with the assit of a walker. Afebrile, no chest pain, shortness of breath, negative calf pain/ erythema, and no other signs of DVT . Dressing was replaced yesterday. She has no further problems with drainage or incision.. Objective Data Objective Data Vital Signs: Vital Signs Temp Pulse Resp BP Pulse Ox O2 Del Method O2 Flow Rate 99.1 F 93 16 110/66 97 Room Air 2 08/29/23 07:36 08/29/23 07:36 08/29/23 07:36 08/29/23 07:36 08/29/23 08:33 08/29/23 08:33 08/27/23 21:47 Oxygen Flow Rate (L/min) 2 Oxygen Delivery Method Room Air Weight: 116.12 kg Body Mass Index (BMI) 32.8 Intake & Output: Intake and Output for Last 24 Hours 08/27/23 08/28/23 08/29/23 23:59 23:59 23:59 Intake Total 215 / 215 1750 / 1750 Balance 215 / 2151 1750 / 1750 Lab / Micro Data 08/29/23 07:05 08/28/23 06:45 Labs: Laboratory Results - last 24 hr 08/28/23 15:45: POC Glucose 224 H 08/28/23 21:52: POC Glucose 236 H 08/29/23 06:28: POC Glucose 179 H 08/29/23 07:05: WBC 8.0, RBC 3.15 L, Hgb 9.2 L, Hct 30.0 L, MCV 95.2, MCH 29.2, MCHC 30.7 L, RDW Std Deviation 47.3 H, RDW Coeff of Olesya 13.6, Plt Count 145 L, MPV 10.1 Micro: Microbiology 08/27/23 12:00 Tissue - Femoral Membrane Gram Stain - Final 08/27/23 12:00 Tissue - Femoral Membrane Wound Culture - Final No growth aerobically. 08/27/23 12:00 Tissue - Suprapatellar Pouch Gram Stain - Final 08/27/23 12:00 Tissue - Suprapatellar Pouch Wound Culture - Final No growth aerobically. 08/27/23 12:00 Tissue - Tibial Membrane Gram Stain - Final 08/04/23 12:55 Swab (Method) Nasal Screen MRSA/MSSA - Final Physical Exam Narrative Patient resting comfortably in bed No signs of acute distress Satting well on room air Limb is warm to touch, Sensation intact throughout entire lower extremity, including saphenous, sural, superficial and deep peroneal, and tibial distribution. DP/PT pulses bounding. dorsi/plantar flexion 5/5 Dressing clear , dry, intact Calf nontender to palpation, no erythema, no edema. Negative Homans Assessment & Plan Assessment/Plan (1) Status post revision of total replacement of right knee: PLAN: (1) Status post revision of total replacement of right knee: PLAN: 1. S/P revision right total knee arthroplasty POD #2 2. Continue Pain Medications: Tylenol and oxycodone 3. DVT Prophylaxis: Patient is currently placed on Xarelto 10 mg once daily for 2 weeks postoperatively. She does have past history of DVT. After 2 weeks of Xarelto she will then be switched over to aspirin 81 mg twice daily for an additional 2 weeks. 4. PT/OT: Weightbearing as tolerated with walker 5. H/H 9.2/ 30.0 ( 10.7 / 35.2) . asymptomatic. acute post op anemia: will begin ferrous sulfate and folate supplements. should follow up with PCP for follow up blood work. recommend repeat CBC in 2-3 days. 6. Currently on doxycycline for 2 weeks postoperatively. Microbiology wound and tissue specimens were reviewed in chart and are currently pending. I discussed with the patient potential side effects of doxycycline including sensitivity to the sunlight and increased risk of skin burn. Recommend patient take appropriate precautions. Also recommend patient to take probiotic while on the antibiotic. Patient voiced understanding agreement. 7. Continue postoperative medical management per medicine: Case was discussed with medicine 8. Encouraged Incentive Spirometry 9. Disposition: Patient currently lives home alone and case management is currently involved with appropriate and safe discharge planning. patient has been accepted to [facility] and precert obtained. Patient does see chronic pain management in which they are wanting orthopedics to prescribe medications for the first 6 weeks postoperatively. She was on chronic Percocet. I did inform her upon discharge she is not to use the Percocet and only utilize medications we prescribed her. She voiced understanding and agreement. Appreciate recommendations from physical therapy.
--- NOTE | 2023-08-29 12:12 | DCINST_ITS ---
Discharge Instructions Diet Discharge Diet: No restrictions Activity Discharge Activity: Return to Normal Activity Weight Bearing Status: Weight bearing as tolerated Dressing / Incision Call your doctor if your incision/area has: Continuous Slow Oozing, Sudden Increased Bleeding, Increased Pain/ Swelling, Increased Redness, Foul Smelling Discharge and Swelling at the incision site Call your doctor if you observe: Fever of 101 or Higher, Dizziness and Chest pain Remove Dressing in: 5 days Cleanse incision/area with: Soap & Water and Keep Dressing Clean & Dry Follow Up Care When: in 2 weeks as previously scheduled with [place] [facility]. Test Results: Test results from this visit will be discussed in further detail at your follow- up appointment, if applicable. Discharge Plan Admission Admit Date/Time: 08/27/23 09:15 Attending Provider: Raghav Murphy Primary Care Provider: Mylene Esteban NP Consulting Providers: Rica Nguyen Discharge Orders/Prescriptions Prescriptions: New acetaminophen 500 mg Tablet 1,000 mg PO Q8 Qty: 120 0RF oxycodone 5 mg Tablet 5 - 10 mg PO .q4-6hours prn pain PRN (Reason: Pain Score 4-10) 7 Days Qty: 42 0RF Xarelto 10 mg Tablet 10 mg PO DAILY@0600 Qty: 12 0RF sennosides-docusate sodium [Stool Softener-Stimulant Laxat] 8.6-50 mg Tablet 2 tab PO BID Qty: 14 0RF aspirin 81 mg tablet,chewable 81 mg PO DAILY Qty: 30 0RF doxycycline hyclate 100 mg tablet 100 mg PO BID Qty: 30 0RF ferrous sulfate 325 mg (65 mg iron) tablet 325 mg PO DAILY Qty: 1 0RF folic acid 1 mg tablet 1 mg PO DAILY Qty: 30 0RF Continued metoclopramide HCl 5 mg tablet 5 mg PO BID Qty: 90 3RF Trulance 3 mg tablet 3 mg PO BID Qty: 180 2RF gabapentin 400 MG capsule 600 mg PO QHS Patient Comments: Nerve pain clonazepam 1 mg tablet 0.5 mg PO QHS Patient Comments: ANXIETY levothyroxine [Synthroid] 125 mcg tablet 175 mcg PO MOTUWETHFR Patient Comments: THYROID oxybutynin chloride [Ditropan XL] 10 MG tablet extended release 24hr 10 mg PO DAILY tizanidine [Zanaflex] 4 MG tablet 4 mg PO PRN PRN (Reason: Pain) candesartan [Atacand] 16 MG tablet 32 mg PO QHS duloxetine [Cymbalta] 60 MG capsule 60 mg PO DAILY metformin 500 mg Tablet 500 mg PO BID Jardiance 25 mg tablet 12.5 mg PO DAILY Patient Comments: take 1 tablet by mouth every morning psyllium husk [Fiber (psyllium husk)] 0.4 gram capsule 0.4 g PO BID PRN (Reason: Stomach health) amlodipine 5 mg tablet 5 mg PO DAILY atenolol 100 mg tablet 100 mg PO BID Patient Comments: take 1 tablet by mouth twice a day fluticasone propionate 50 mcg/actuation spray,suspension 1 spray intranasal DAILY PRN (Reason: allergy symptoms) Rx Instructions: administer into each nostril latanoprost 0.005 % drops 1 drp EACH EYE DAILY nystatin 100,000 unit/gram cream 1 applic TOPICAL PRN Patient Comments: apply topically twice a day as directed Ozempic 1 mg/dose (4 mg/3 mL) pen injector 1 mg subcut SA gabapentin 300 mg capsule 300 mg PO DAILY pantoprazole 20 mg tablet,delayed release (DR/EC) 40 mg PO DAILY pantoprazole 40 mg tablet,delayed release (DR/EC) 40 mg PO BID Qty: 60 3RF ondansetron 4 mg tablet,disintegrating 4 mg PO Q8H PRN (Reason: nausea and vomiting) Qty: 60 3RF Discontinued oxycodone-acetaminophen 5-325 mg tablet 1 tab PO Q12H PRN (Reason: pain) acetaminophen 650 mg tablet extended release 650 mg PO Q12H PRN (Reason: pain) Referrals / Follow Up: Mylene Esteban NP, LANOLIN PLANT OPERATOR-C [Primary Care Provider] - Bart King PA-C [Med Staff - [facility]] - 09/11/23 3:15 pm Disposition Disposition (needs filled in before D/C Order can be placed): Nursing Home Facility
--- NOTE | 2023-08-29 12:13 | PCM.TXEXTCAR ---
Diet Diet Order/Speech Therapy: 08/27/23 17:49 Diet: Regular - General Wound(s) r knee: Wound Type: Surgical Incision Therapies Weight Bearing: Full weight bearing and Weight bearing as tolerated Physical Therapy: Eval and Treat Occupational Therapy: Eval and Treat Narrative: needs follow up labs for CBC for post op anemia. started on ferrous sulfate and folic acid. follow up with PCP [facility]. Problem/Diagnosis (1) Status post revision of total replacement of right knee: Status: Acute Code(s): Z96.651 - Presence of right artificial knee joint Plan: (1) Status post revision of total replacement of right knee: PLAN: 1. S/P revision right total knee arthroplasty POD #2 2. Continue Pain Medications: Tylenol and oxycodone 3. DVT Prophylaxis: Patient is currently placed on Xarelto 10 mg once daily for 2 weeks postoperatively. She does have past history of DVT. After 2 weeks of Xarelto she will then be switched over to aspirin 81 mg twice daily for an additional 2 weeks. 4. PT/OT: Weightbearing as tolerated with walker 5. H/H 9.2/ 30.0 ( 10.7 / 35.2) . asymptomatic. acute post op anemia: will begin ferrous sulfate and folate supplements. should follow up with PCP for follow up blood work. 6. Currently on doxycycline for 2 weeks postoperatively. Microbiology wound and tissue specimens were reviewed in chart and are currently pending. I discussed with the patient potential side effects of doxycycline including sensitivity to the sunlight and increased risk of skin burn. Recommend patient take appropriate precautions. Also recommend patient to take probiotic while on the antibiotic. Patient voiced understanding agreement. 7. Continue postoperative medical management per medicine: Case was discussed with medicine 8. Encouraged Incentive Spirometry 9. Disposition: Patient currently lives home alone and case management is currently involved with appropriate and safe discharge planning. patient has been accepted to [facility] and is waiting for precert from insurance. ok for discharge when precert obtained. Patient does see chronic pain management in which they are wanting orthopedics to prescribe medications for the first 6 weeks postoperatively. She was on chronic Percocet. I did inform her upon discharge she is not to use the Percocet and only utilize medications we prescribed her. She voiced understanding and agreement. Appreciate recommendations from physical therapy. Allergies/Procedures Done in Hospital Allergies Sulfa (Sulfonamide Antibiotics) Allergy (Verified 08/12/23 09:24) Itching linezolid [From Zyvox] Adverse Reaction (Verified 08/12/23 09:24) Other Type of Care/Length of Stay Estimated LOS: Convalescent Care Less Than 30 days Type of Care Needed: Skilled Rehab Potential: Good Prognosis: Good Additional Orders/Day of Discharge Day of Discharge: 08/29/23 Follow Up Care Please follow up with your Primary Care Physician in: [facility] needs follow up labs for CBC for post op anemia. When: [facility] in 2 weeks as previously scheduled. Discharge Plan Admission Admit Date/Time: 08/27/23 09:15 Attending Provider: Raghav Murphy Primary Care Provider: Mylene Esteban NP Consulting Providers: Rica Nguyen Discharge Orders/Prescriptions Prescriptions: New acetaminophen 500 mg Tablet 1,000 mg PO Q8 Qty: 120 0RF oxycodone 5 mg Tablet 5 - 10 mg PO .q4-6hours prn pain PRN (Reason: Pain Score 4-10) 7 Days Qty: 42 0RF Xarelto 10 mg Tablet 10 mg PO DAILY@0600 Qty: 12 0RF sennosides-docusate sodium [Stool Softener-Stimulant Laxat] 8.6-50 mg Tablet 2 tab PO BID Qty: 14 0RF aspirin 81 mg tablet,chewable 81 mg PO DAILY Qty: 30 0RF doxycycline hyclate 100 mg tablet 100 mg PO BID Qty: 30 0RF ferrous sulfate 325 mg (65 mg iron) tablet 325 mg PO DAILY Qty: 1 0RF folic acid 1 mg tablet 1 mg PO DAILY Qty: 30 0RF Continued metoclopramide HCl 5 mg tablet 5 mg PO BID Qty: 90 3RF Trulance 3 mg tablet 3 mg PO BID Qty: 180 2RF gabapentin 400 MG capsule 600 mg PO QHS Patient Comments: Nerve pain clonazepam 1 mg tablet 0.5 mg PO QHS Patient Comments: ANXIETY levothyroxine [Synthroid] 125 mcg tablet 175 mcg PO MOTUWETHFR Patient Comments: THYROID oxybutynin chloride [Ditropan XL] 10 MG tablet extended release 24hr 10 mg PO DAILY tizanidine [Zanaflex] 4 MG tablet 4 mg PO PRN PRN (Reason: Pain) candesartan [Atacand] 16 MG tablet 32 mg PO QHS duloxetine [Cymbalta] 60 MG capsule 60 mg PO DAILY metformin 500 mg Tablet 500 mg PO BID Jardiance 25 mg tablet 12.5 mg PO DAILY Patient Comments: take 1 tablet by mouth every morning psyllium husk [Fiber (psyllium husk)] 0.4 gram capsule 0.4 g PO BID PRN (Reason: Stomach health) amlodipine 5 mg tablet 5 mg PO DAILY atenolol 100 mg tablet 100 mg PO BID Patient Comments: take 1 tablet by mouth twice a day fluticasone propionate 50 mcg/actuation spray,suspension 1 spray intranasal DAILY PRN (Reason: allergy symptoms) Rx Instructions: administer into each nostril latanoprost 0.005 % drops 1 drp EACH EYE DAILY nystatin 100,000 unit/gram cream 1 applic TOPICAL PRN Patient Comments: apply topically twice a day as directed Ozempic 1 mg/dose (4 mg/3 mL) pen injector 1 mg subcut SA gabapentin 300 mg capsule 300 mg PO DAILY pantoprazole 20 mg tablet,delayed release (DR/EC) 40 mg PO DAILY pantoprazole 40 mg tablet,delayed release (DR/EC) 40 mg PO BID Qty: 60 3RF ondansetron 4 mg tablet,disintegrating 4 mg PO Q8H PRN (Reason: nausea and vomiting) Qty: 60 3RF Discontinued oxycodone-acetaminophen 5-325 mg tablet 1 tab PO Q12H PRN (Reason: pain) acetaminophen 650 mg tablet extended release 650 mg PO Q12H PRN (Reason: pain) Referrals / Follow Up: Mylene Esteban NP, RECREATION THERAPY AIDES TEACHER-C [Primary Care Provider] - Bart King PA-C [Med Staff - [facility]] - 09/11/23 3:15 pm Disposition Disposition (needs filled in before D/C Order can be placed): [facility]
[2023-08-29 12:29] LABS: Bedside Glucose 230 mg/dL (74-106)
--- NOTE | 2023-08-29 13:20 | CASEMGMT ---
Discharge Planning Discharge orders, signed med list, and [facility] will transport patient by wheelchair at 3p. Nursing, SW, and patient updated. Randi Thakur, Discharge Planning Asst.
[2023-08-29 13:33] VITALS: BP 96/69; PULSE 98; RESP 16; TEMP 36.8; O2SAT 96
[2023-08-29] MEDS: tiZANidine HCl 2 MG Tablet 4 MG PO (16:00)
== END 2023-08-29 16:50 | disposition skilled nursing facility (03) | DRG 468 ==
LOC: ACINP 09:37 → MS3 17:32
PROVIDERS: Anesthesiology; Admitting Provider Specialist; PCP Nurse Practitioner Primary Care; Referring Provider Specialist; Visit Provider Specialist
PROC: 0SPC0JZ Removal of Synthetic Substitute from Right Knee Joint, Open Approach (ICD-10-PCS; principal; 2023-08-27 11:35)
DX: T84.032A Mechanical loosening of internal right knee prosthetic joint, initial encounter (principal); E03.9 Hypothyroidism, unspecified; E11.40 Type 2 diabetes mellitus with diabetic neuropathy, unspecified; E11.22 Type 2 diabetes mellitus with diabetic chronic kidney disease; N18.32 Chronic kidney disease, stage 3b; I12.9 Hypertensive chronic kidney disease with stage 1 through stage 4 chronic kidney disease, or unspecified chronic kidney disease; F17.210 Nicotine dependence, cigarettes, uncomplicated; G47.33 Obstructive sleep apnea (adult) (pediatric); F41.9 Anxiety disorder, unspecified; E78.00 Pure hypercholesterolemia, unspecified; K21.9 Gastro-esophageal reflux disease without esophagitis; K58.9 Irritable bowel syndrome, unspecified; G47.00 Insomnia, unspecified; G89.29 Other chronic pain; X58.XXXA Exposure to other specified factors, initial encounter; R32 Unspecified urinary incontinence; Z96.653 Presence of artificial knee joint, bilateral; Z79.01 Long term (current) use of anticoagulants; Z79.84 Long term (current) use of oral hypoglycemic drugs; Z79.891 Long term (current) use of opiate analgesic; Z79.899 Other long term (current) drug therapy; Z86.718 Personal history of other venous thrombosis and embolism; Z86.73 Personal history of transient ischemic attack (TIA), and cerebral infarction without residual deficits
CPT/HCPCS: 36415; 73560; 80048; 82040; 82962; 83036; 83735; 84443; 85025; 85027; 87015; 87070; 87075; 87081; 87102; 87116; 87205; 87206; 93005; 94668; 97110; 97162; 97166; 97530; 97535; 99252; C1776; J7120; 90662; A4216; G0463; J2405; J3475

== ENCOUNTER 2023-12-18 10:07 | Day surgery (SDC) | payer MEDICARE, OTHER, SELFPAY ==
--- OUTSIDE RECORDS SUMMARY | 2023-12-15 05:30 | XMS RPT_ITS | CCD ---
Author Name Unknown Address [address] [place] [address] Organization [facility] Care Team Providers Care Medical Office Assistant Name Role Phone MALIK LETTER OF CREDIT DOCUMENT EXAMINER-SALMA, EDMUNDO Cardona Primary Care Physicia n ANTON ZHU, MILES Chin Primary Care Physician [phone] Miles Abraham MD Primary Care Provider [phone] Anton ZHU, Miles Chin Primary Care Provider [phone] ISAAC BERMUDEZ Attending Unavailable MILES ABRAHAM Primary Care Unavailable ISAAC BERMUDEZ Attending Unavailable MILES ABRAHAM Primary Care Unavailable MOSHE ZHU, DARIO Spencer Attending Unavailable MALIK LETTER OF CREDIT DOCUMENT EXAMINER-ROUTE RETURNER, EDMUNDO S Primary Care Unava symone CAMPBELL MD, DR WONG Mattson Attending Unavailab le MALIK LETTER OF CREDIT DOCUMENT EXAMINER-ROUTE RETURNER, EDMUNDO S Primary Care Unava symone CAMPBELL MD, DR WONG Mattson Attending Unavailab le MALIK LETTER OF CREDIT DOCUMENT EXAMINER-ROUTE RETURNER, EDMUNDO S Primary Care Unava symone CAMPBELL MD, DR WONG Mattson Attending Unavailab le MALIK LETTER OF CREDIT DOCUMENT EXAMINER-ROUTE RETURNER, EDMUNDO S Primary Care Unava NEL Fair MD Attending Unavaila ble MALIK LETTER OF CREDIT DOCUMENT EXAMINER-ROUTE RETURNER, EDMUNDO S Primary Care Unava ilable MALIK LETTER OF CREDIT DOCUMENT EXAMINER-ROUTE RETURNER, EDMUNDO S Primary Care Unava ilable MALIK LETTER OF CREDIT DOCUMENT EXAMINER-ROUTE RETURNER, EDMUNDO S Attending Unava ilmiladis GAN LETTER OF CREDIT DOCUMENT EXAMINER-ROUTE RETURNER, EDMUNDO S Attending Unava ilmiladis GAN LETTER OF CREDIT DOCUMENT EXAMINER-ROUTE RETURNER, EDMUNDO S Primary Care Unava ilable MELISSA LETTER OF CREDIT DOCUMENT EXAMINER-ROUTE RETURNER, ILYA Mattson Attending Linnea vailable MALIK LETTER OF CREDIT DOCUMENT EXAMINER-ROUTE RETURNER, [facility] Primary Care Unava seemaable SHANNAN ZHU, DR WONG Mattson Attending Unavailab le MALIK LETTER OF CREDIT DOCUMENT EXAMINER-ROUTE RETURNER, [facility] Primary Care Unava ilable MALIK LETTER OF CREDIT DOCUMENT EXAMINER-ROUTE RETURNER, [facility] Primary Care Unava ilable SHANNAN ZHU, DR WONG Mattson Attending Unavailab carlos ABRAHAM MD, MILES Chin Referring Unavailable BARBER DO, DR RODRIGUEZ Attending Unavailable JAQUELIN ZHU FACP, ARABELLA Spencer Admitting Unavail able MALIK LETTER OF CREDIT DOCUMENT EXAMINER-ROUTE RETURNER, [facility] Primary Care Unava ilable TORRES LETTER OF CREDIT DOCUMENT EXAMINER-ROUTE RETURNER, ILYA Mattson Attending Linnea vailable MALIK LETTER OF CREDIT DOCUMENT EXAMINER-ROUTE RETURNER, [facility] Primary Care Unava ilable TORRES LETTER OF CREDIT DOCUMENT EXAMINER-ROUTE RETURNER, ILYA Mattson Attending Linnea vailable MALIK LETTER OF CREDIT DOCUMENT EXAMINER-ROUTE RETURNER, [facility] Primary Care Unava ilable TORRES LETTER OF CREDIT DOCUMENT EXAMINER-ROUTE RETURNER, ILYA Mattson Attending Linnea vailable MALIK LETTER OF CREDIT DOCUMENT EXAMINER-ROUTE RETURNER, [facility] Primary Care Unava ilable TORRES LETTER OF CREDIT DOCUMENT EXAMINER-ROUTE RETURNER, ILYA Mattson Attending Linnea vailable MALIK LETTER OF CREDIT DOCUMENT EXAMINER-ROUTE RETURNER, [facility] Primary Care Unava ilable VAMSI VARGAS, DR TEAGAN Mattson Attending Unavailabl e MALIK LETTER OF CREDIT DOCUMENT EXAMINER-ROUTE RETURNER, [facility] Primary Care Unava ilable ZACH ZHU, NEL Attending Unavaila ble MALIK LETTER OF CREDIT DOCUMENT EXAMINER-ROUTE RETURNER, [facility] Primary Care Unava ilable ZACH ZHU, NEL Attending Unavaila ble MALIK LETTER OF CREDIT DOCUMENT EXAMINER-ROUTE RETURNER, [facility] Primary Care Unava symone CAMPBELL MD, DR WONG Mattson Attending Unavailab le MALIK LETTER OF CREDIT DOCUMENT EXAMINER-ROUTE RETURNER, [facility] Primary Care Unava symone CAMPBELL MD, DR WONG Mattson Attending Unavailab le MALIK LETTER OF CREDIT DOCUMENT EXAMINER-ROUTE RETURNER, [facility] Primary Care Unava ilable Allergies Allergy Classification Reported Allergen(s) Allergy Type Date of Onset Reaction(s) Facility (20 sources) linezolid; Translations: [linezolid] Drug Allergy [facility] (20 sources) Povidone-Iodine; Translations: [povidone iodine topical] Drug Allergy 02-05-2023 [facility] (20 sources) Sulfonamides (Antibiotic); Translations: [sulfa drugs] Drug allergy rash [facility] (10 sources) linezolid Drug Allergy 07-21-2017 [facility] (10 sources) Metoprolol Drug Allergy 08-10-2008 Rash [facility] (10 sources) Sulfonamides (Antibiotic) Drug Allergy 07-21-2017 Itching [facility] Medications Current Medications Medication Drug Class(es) Dates Sig (Normalized) Sig (Original) 0.5 ML semaglutide 1 MG/ML Auto-Injector (2 sources) Start: 04-14-2023 End: 06-09-2023 inject 1 dose by subcutaneous injection every week semaglutide 0.5 mg/0.5 mL (0.5 mg dose) subcutaneous solution Dose : 0.5 mg =, Subcutaneous, qWeek, in the abdomen, thigh, or upper arm, X 4 week(s), # 2 mL, 1 Refill(s), 06/09/23 7:55:00 AM EDT, Pharmacy: [facility] #[id number], 188, cm, 03/24/23 11:40:00 EDT, Height, kg, 03/24/23 11:40:00 EDT, Dosing Weight Start Date: 04/14/23 Stop Date: 06/09/23 Status: Ordered Completed/Discontinued Medications Medication Drug Class(es) Dates Sig (Normalized) Sig (Original) 0.25 MG, 0.5 MG Dose 3 ML semaglutide 0.68 MG/ML Pen Injector [Ozempic] (1 source) Start: 05-01-2023 inject 0.5 mg by subcutaneous injection every week Ozempic 2 mg/3 mL (0.25 mg or 0.5 mg dose) subcutaneous solution Dose : 0.5 mg =, Subcutaneous, qWeek, rotate injection sites, # 1 EA, 3 Refill(s), Pharmacy: [facility] #[id number], 188, cm, 03/24/23 11:40:00 EDT, Height Start Date: 05/01/23 Status: Ordered acetaminophen 325 mg / HYDROcodone bitartrate 5 mg oral tablet (16 sources) Opioid Agonist Start: 11-28-2021 End: 12-28-2021 take 1 tablet by mouth once daily as needed for pain [place] 325- 5 mg oral tablet Dose = 1 tab(s), Oral, Daily, PRN as needed for pain, # 30 tab(s), 0 Refill(s), Pharmacy: [id number] Spondylosis of lumbar region without myelopathy or radiculopathy, 191, cm, 11/28/21 9:32:00 EST, Height, 123, kg, 11/28/21 9:32:00 EST,... 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 09-09-2023 06:35-0500 Body temperature 97.52 [degF] ARABELLA HAMMER MD [facility] 09-09-2023 06:35-0500 Diastolic Blood Pressure Non-Invasive 82 1 ARABELLA HAMMER MD [facility] 09-09-2023 06:35-0500 Heart rate 75 /min ARABELLA HAMMER MD [facility] 09-09-2023 06:35-0500 Respiratory rate 18 /min ARABELLA HAMMER MD [facility] 09-09-2023 06:35-0500 Systolic Blood Pressure Non-Invasive 139 1 ARABELLA HAMMER MD FACP [facility] 09-08-2023 21:21-0500 Heart rate 82 /min ARABELLA HAMMER MD FACP [facility] 09-08-2023 20:31-0500 Body temperature 98.42 [degF] ARABELLA HAMMER MD FACP [facility] 09-08-2023 20:31-0500 Diastolic Blood Pressure Non-Invasive 72 1 ARABELLA HAMMER MD FACP [facility] 09-08-2023 20:31-0500 Heart rate 74 /min ARABELLA HAMMER MD FACP [facility] 09-08-2023 20:31-0500 Respiratory rate 18 /min ARABELLA HAMMER MD FACP [facility] 09-08-2023 20:31-0500 Systolic Blood Pressure Non-Invasive 128 1 ARABELLA HAMMER MD FACP [facility] 09-08-2023 06:45-0500 Body temperature 98.78 [degF] ARABELLA HAMMER MD FACP [facility] 09-08-2023 06:45-0500 Diastolic Blood Pressure Non-Invasive 85 1 ARABELLA HAMMER MD FACP [facility] 09-08-2023 06:45-0500 Heart rate 71 /min ARABELLA HAMMER MD FACP [facility] 09-08-2023 06:45-0500 Respiratory rate 18 /min ARABELLA HAMMER MD FACP [facility] 09-08-2023 06:45-0500 Systolic Blood Pressure Non-Invasive 142 1 ARABELLA HAMMER MD FACP [facility] 09-07-2023 20:14-0500 Heart rate 80 /min ARABELLA HAMMER MD FACP [facility] 09-06-2023 20:16-0400 Heart rate 78 /min ARABELLA HAMMER MD FACP [facility] 09-06-2023 10:05-0400 Heart rate 76 /min ARABELLA HAMMER MD FACP [facility] 09-06-2023 08:10-0400 Reason For Taking VItal Signs ARABELLA HAMMER MD FACP [facility] 09-05-2023 06:50-0400 Heart rate 73 /min ARABELLA HAMMER MD FACP [facility] 09-05-2023 06:50-0400 Reason For Taking VItal Signs ARABELLA HAMMER MD FACP [facility] 09-05-2023 05:01-0400 Body weight 118 kg ARABELLA HAMMER MD FACP [facility] 09-01-2023 23:26-0400 Mean blood pressure 86 mm[Hg] ARABELLA HAMMER MD FACP [facility] 08-29-2023 17:53-0400 Body height 188 cm ARABELLA HAMMER MD FACP [facility] 08-29-2023 17:53-0400 Body weight 115.9 kg ARABELLA HAMMER MD FACP [facility] 08-29-2023 17:53-0400 Body weight 32.79 kg/m2 ARABELLA HAMMER MD FACP [facility] 08-20-2023 10:30-0400 Body mass index (BMI) [Ratio] 32.74 kg/m2 Isaac Bermudez LETTER OF CREDIT DOCUMENT EXAMINER - ROUTE RETURNER Work Phone: [facility] 08-20-2023 10:30-0400 Body weight 115.67 kg Isaac Bermudez LETTER OF CREDIT DOCUMENT EXAMINER - ROUTE RETURNER Work Phone: [facility] 08-20-2023 10:30-0400 Diastolic blood pressure 85 mm[Hg] Isaac Bermudez LETTER OF CREDIT DOCUMENT EXAMINER - ROUTE RETURNER Work Phone: [facility] 08-20-2023 10:30-0400 Heart rate 86 /min Isaac Bermudez LETTER OF CREDIT DOCUMENT EXAMINER - ROUTE RETURNER Work Phone: [facility] 08-20-2023 10:30-0400 Systolic blood pressure 131 mm[Hg] Isaac Bermudez LETTER OF CREDIT DOCUMENT EXAMINER - ROUTE RETURNER Work Phone: [facility] 02-17-2023 08:38-0400 Diastolic Blood Pressure Non-Invasive 93 1 DARIO MESA MD [facility] 02-17-2023 08:38-0400 Heart rate 76 /min DARIO MESA MD [facility] 02-17-2023 08:38-0400 Respiratory rate 16 /min DARIO MESA MD [facility] 02-17-2023 08:38-0400 Systolic Blood Pressure Non-Invasive 160 1 DARIO MESA MD [facility] 02-17-2023 07:56-0400 Body height 188 cm DARIO MESA MD [facility] 02-17-2023 07:56-0400 Body temperature 98.06 [degF] DARIO MESA MD [facility] 02-17-2023 07:56-0400 Body weight 121 kg DARIO MESA MD [facility] 02-17-2023 07:56-0400 Diastolic Blood Pressure Non-Invasive 90 1 DARIO MESA MD [facility] 02-17-2023 07:56-0400 Heart rate 76 /min DARIO MESA MD [facility] 02-17-2023 07:56-0400 Systolic Blood Pressure Non-Invasive 155 1 DARIO MESA MD [facility] 02-05-2023 11:39-0400 Body height 188 cm Isaac Quentin LETTER OF CREDIT DOCUMENT EXAMINER - ROUTE RETURNER Work Phone: [facility] 02-05-2023 11:39-0400 Body mass index (BMI) [Ratio] 34.54 kg/m2 Isaac Quentin LETTER OF CREDIT DOCUMENT EXAMINER - ROUTE RETURNER Work Phone: [facility] 02-05-2023 11:39-0400 Body weight 122.02 kg Isaac Rojolellan LETTER OF CREDIT DOCUMENT EXAMINER - ROUTE RETURNER Work Phone: [facility] 02-05-2023 11:39-0400 Diastolic blood pressure 99 mm[Hg] Isaac Quentin LETTER OF CREDIT DOCUMENT EXAMINER - ROUTE RETURNER Work Phone: [facility] 02-05-2023 11:39-0400 Heart rate 111 /min Isaac Quentin LETTER OF CREDIT DOCUMENT EXAMINER - ROUTE RETURNER Work Phone: [facility] 02-05-2023 11:39-0400 Systolic blood pressure 174 mm[Hg] Isaac Quentin LETTER OF CREDIT DOCUMENT EXAMINER - ROUTE RETURNER Work Phone: [facility] 01-02-2022 03:02-0500 Body height [address] CARLA BURKS MD [facility] 01-02-2022 03:02-0500 Body temperature 98.24 [degF] DR CARLA BURKS MD [facility] 01-02-2022 03:02-0500 Body weight [address] CARLA BURKS MD [facility] 01-02-2022 03:02-0500 Diastolic blood pressure 92 mm[Hg] DR CARLA BURKS MD [facility] 01-02-2022 03:02-0500 Heart rate 98 /min DR CARLA BURKS MD [facility] 01-02-2022 03:02-0500 Respiratory rate 18 /min DR CARLA BURKS MD [facility] 01-02-2022 03:02-0500 Systolic blood pressure 158 mm[Hg] DR CARLA BURKS MD [facility] 12-11-2021 07:54-0500 diastolic 100 mm[Hg] BRYN WHITLEY MD [facility] 12-11-2021 07:54-0500 Heart rate 80 /min BRYN WHITLEY MD [facility] 12-11-2021 07:54-0500 Respiratory rate 20 /min BRYN WHITLEY MD [facility] 12-11-2021 07:54-0500 systolic 161 mm[Hg] BRYN WHITLEY MD [facility] 12-11-2021 07:48-0500 diastolic 103 mm[Hg] BRYN WHITLEY MD [facility] 12-11-2021 07:48-0500 Heart rate 79 /min BRYN WHITLEY MD [facility] 12-11-2021 07:48-0500 Respiratory rate 20 /min BRYN WHITLEY MD [facility] 12-11-2021 07:48-0500 systolic 173 mm[Hg] BRYN WHITLEY MD [facility] 12-11-2021 07:25-0500 Body height 191 cm BRYN WHITLEY MD [facility] 12-11-2021 07:25-0500 Body temperature 96.62 [degF] BRYN WHITLEY MD [facility] 12-11-2021 07:25-0500 Body weight 123 kg BRYN WHITLEY MD [facility] 12-11-2021 07:25-0500 Body weight 33.72 kg/m2 BRYN WHITLEY MD [facility] 12-11-2021 07:25-0500 diastolic 104 mm[Hg] BRYN WHITLEY MD [facility] 12-11-2021 07:25-0500 Heart rate 80 /min BRYN WHITLEY MD [facility] 12-11-2021 07:25-0500 Respiratory rate 20 /min BRYN WHITLEY MD [facility] 12-11-2021 07:25-0500 systolic 173 mm[Hg] BRYN WHITLEY MD [facility] Encounters Encounter Date Encounter Type Care Provider Facility Start: 12-12-2023 Refill Isaac cagle LETTER OF CREDIT DOCUMENT EXAMINER - ROUTE RETURNER Work Phone: [facility] Start: 11-25-2023 ambulatory EDMUNDO ROMERO LETTER OF CREDIT DOCUMENT EXAMINER-ROUTE RETURNER Facility:B Start: 11-11-2023 End: 11-12-[address] TEAGAN AGUSTIN DO Facility:[facility] Start: 11-11-2023 End: 11-11-[address] TEAGAN AGUSTIN DO [facility] Start: 10-20-2023 Telephone encounter Isaac Abraham LETTER OF CREDIT DOCUMENT EXAMINER - ROUTE RETURNER Work Phone: [facility] Start: 10-13-2023 End: 10-14-2023 ambulatory NEL SERRANO MD Facility:[facility] Start: 10-13-2023 End: 10-13-2023 Patient encounter procedure NEL SERRANO MD [facility] Start: 08-29-2023 End: 09-09-2023 Evaluation and management of inpatient MILES ABRAHAM MD Facility:B Start: 08-29-2023 End: 09-09-2023 Evaluation and management of inpatient ARABELLA HAMMER MD FACP [facility] Start: 08-20-2023 End: 08-20-2023 ambulatory ISAAC BERMUDEZ [facility] Start: 08-20-2023 End: 08-20-2023 Office outpatient visit 25 minutes Isaac Bermudez LETTER OF CREDIT DOCUMENT EXAMINER - ROUTE RETURNER Work Phone: [facility] Procedures Date Procedure Procedure Detail Performing Clinician Start: 08-03-2023 Knee region structur e (body structure) DR TEAGAN AGUSTIN DO Plan of Treatment Date Care Activity Detail Author Start: 02-19-2024 End: 02-19-2024 Patient encounter procedure 02/19/2024 12:30 PM EDT Office Visit [facility] [address] [place] [address] Isaac Bermudez, ALEXANDRO Castellanos CNP [address] [place] [address] [facility] Start: 08-07-2023 End: 08-07-2023 Patient encounter procedure [facility] Start: 07-04-2023 COVID-19 Vaccine ( season) COVID-19 Vaccine ( season) [facility] Start: 07-04-2023 Influenza vaccination Influenza Vaccine (#1) [facility] Start: 01-10-2023 COVID-19 Vaccine (6 - Moderna series) COVID-19 Vaccine (6 - Moderna series) [facility] Start: 07-15-2019 Zoster Vaccines (2 of 2) Zoster Vaccines (2 of 2) [facility] Start: 05-26-2018 DTaP/Tdap/Td Vaccines (2 - Td or Tdap) DTaP/Tdap/Td Vaccines (2 - Td or Tdap) [facility] Start: 2008 Hepatitis B Vaccines (1 of 3 - Risk 3-dose series) Hepatitis B Vaccines (1 of 3 - Risk 3-dose series) [facility] Start: 2008 RSV Immunization aged 60 or older (1 - 1-dose 60+ series) RSV Immunization aged 60 or older (1 - 1-dose 60+ series) [facility] Start: 1988 Screening for malignant neoplasm of breast Mammogram [facility] Start: 1967 Urine screening for protein Diabetes: Urine Protein Screening [facility] Start: 1966 Hepatitis C screening Hepatitis C Screening [facility] Start: 1960 Depression Screening Depression Screening [facility] Start: 1958 Diabetic foot examination Diabetes: Foot Exam [facility] Start: 1958 Glaucoma screening Diabetes: Retinopathy Screening [facility] Start: 1958 Preventive dental service Diabetes: Dental Exam [facility] Start: 1948 Creatinine measurement Creatinine Level [facility] Start: 1948 Echocardiography Echocardiogram [facility] Start: 1948 Hemoglobin A1c measurement Diabetes: Hemoglobin A1C [facility] Start: 1948 Hepatitis B Vaccines (1 of 3 - 3-dose series) Hepatitis B Vaccines (1 of 3 - 3-dose series) [facility] Start: 1948 Lipid panel Lipid Panel [facility] Start: 1948 Medicare Advantage Annual Wellness Visit (AWV) Medicare Advantage Annual Wellness Visit (AWV) [facility] Start: 1948 Potassium measurement Potassium Level [facility] Start: 1948 Screening for malignant neoplasm of colon [facility] Start: 1948 Screening for osteoporosis Bone Density Scan [facility] Start: 1948 Thyroid stimulating hormone measurement TSH Level [facility] Immunizations Immunization Date Immunization Notes Care Provider Fa [facility] 08-28-2023 influenza virus vaccine, unspecified formulation ARABELLA HAMMER MD [facility] 09-12-2022 SARS-CoV-2 (CV19)mRNA-1273 bivalent vac ILYA TORRES LETTER OF CREDIT DOCUMENT EXAMINER-ROUTE RETURNER [facility] 09-12-2022 SARSCoV2 (CV19)mRNA-1273(6y+ bival sarah EDMUNDO GAN LETTER OF CREDIT DOCUMENT EXAMINER-ROUTE RETURNER [facility] 07-31-2022 influenza, high dose seasonal, preservative-free NEL SERRANO MD [facility] 07-31-2022 influenza virus vaccine, unspecified formulation Isaac Bermudez LETTER OF CREDIT DOCUMENT EXAMINER - ROUTE RETURNER Work Phone: [facility] 02-04-2022 SARS-CoV-2 (COVID-19 ) mRNA-1273 vaccine CARRIE PELAEZ PA-C [facility] 09-12-2021 SARS-CoV-2 (COVID-19 ) mRNA-1273 vaccine CARRIE PELAEZ PA-C [facility] 02-13-2021 SARS-CoV-2 (COVID-19 ) mRNA-1273 vaccine CARRIE PELAEZ PA-C [facility] 01-16-2021 SARS-CoV-2 (COVID-19 ) mRNA-1273 vaccine NEL SERRANO MD [facility] Payers Date Payer Category Payer Medicare [id number] 2021 Medicare ANTHEM MEDICARE ADVANTAGE AN[employer]M MEDIBLUE [id number] 2021-Present [address] [place] [address] Medicare HMO [id number] 2021 Medicare [id number] 2008 Unknown ANIKA BAKERVA [id number] 2008-Present [address] [place] [address] Other Government [id number] 2008 Unknown [id number] 1948 Unknown [id number] .16.840.1.401000.3.579.2. 1948 Unknown [id number] 2.16.840.1.226184.3.579.2. 1948 Unknown [id number] 2..840.1.877768.3.579.2. 1948 Unknown [id number] 2.16.840.1.718394.3.579.2. 1948 Unknown [id number] 2..840.1.597849.3.579.2. 1948 Unknown [id number] 2..840.1.583778.3.579.2 1948 Unknown [id number] 2..840.1.884295.3.579.2. 1948 Unknown [id number] 2.840.1.884239.3.579.2 1948 Unknown [id number] 2..840.1.277214.3.579.2. 1948 Unknown [id number] 840.1.659446.3.579.2. 1948 Unknown [id number] ..840.1.434960.3.579.2. 1948 Unknown [id number] 840.1.641467.3.579.2. 1948 Unknown [id number] ..840.1.634801.3.579.2. 1948 Unknown [id number] 2..840.1.641268.3.579.2. 1948 Unknown [id number] 2..840.1.131237.3.579.2. 1948 Unknown [id number] 2.16.840.1.118227.3.579.2. 1948 Unknown [id number] 2.16.840.1.313483.3.579.2.627 1948 Unknown [id number] 2.16.840.1.095495.3.579.2.627 1948 Unknown [id number] 2.16.840.1.416616.3.579.2.627 1948 Unknown [id number] 2.16.840.1.749539.3.579.2.627 Social History Date Type Detail Facility Start: 02-02-2020 End: 08-20-2023 Ex-smoker (finding) [facility] Sex Assigned At Female [facility] History of tobacco use Current smoker [facility] Start: 02-05-2023 Alcohol intake Current drinke r of alcohol (finding) [facility] Start: 1948 Sex Assigned At Not on file [facility] Start: 01-26-2023 End: 02-05-2023 Exposure to SARS-CoV-2 (event) Not sure [facility] Start: 02-05-2023 End: 08-20-2023 History of Social function [facility] Start: 02-05-2023 End: 08-20-2023 Tobacco use panel [facility] Start: 01-29-2023 Gender identity Identifies as female gender (finding) [facility] History of tobacco use Cigarette Smoker S [facility] Start: 08-20-2023 Tobacco use and exposure Smokeless tobacco non-user [facility] Start: 08-20-2023 Alcohol intake Ex-drinker (finding) [facility] Medical Equipment Procedure Code Equipment Code Equipment Origin al Text Equipment Identifier Dates See Instructions , malcolm precision laurent test strips, 1 strip daily and as needed #50 per 30 and 6 refills., # 1 EA, 0 Refill(s), Pharmacy: [id number], Uncontrolled diabetes mellitus, 188, cm, 11/28/20 11:50:00 EST, Height, 115.6, kg, 01... Start: 11-28-2020 See Instructions , test strips for indira reader 2 - once a day - 100# with 3 refills., # 1 EA, 0 Refill(s), Pharmacy: [facility] [address] [facility] 188, cm, 11/28/20 11:50:00 EST, Height, 115.6, kg, 11/28/20 11:50:00 EST, Dosing Weight Start: 11-28-2020 See Instructions , freestlye precision laurent test strips, 1 strip daily and as needed #50 per 30 and 6 refills., # 1 EA, 0 Refill(s), Pharmacy: [facility] [address] [facility] Uncontrolled diabetes mellitus, 188, cm, 11/28/20 11:50:00 EST, Height, 115.6, kg, 01... Start: 11-28-2020 See Instructions , test strips for indira reader 2 - once a day - 100# with 3 refills., # 1 EA, 0 Refill(s), Pharmacy: [facility] [facility] 188, cm, 11/28/20 11:50:00 EST, Height, 115.6, kg, 11/28/20 11:50:00 EST, Dosing Weight Start: 11-28-2020 See Instructions , freestlye precision laurent test strips, 1 strip daily and as needed #50 per 30 and 6 refills., # 1 EA, 0 Refill(s), Pharmacy: [facility] Uncontrolled diabetes mellitus, 188, cm, 11/28/20 11:50:00 EST, Height, 115.6, kg, 01... Start: 11-28-2020 See Instructions , test strips for indira reader 2 - once a day - 100# with 3 refills., # 1 EA, 0 Refill(s), Pharmacy: [facility] 188, cm, 11/28/20 11:50:00 EST, Height, 115.6, kg, 11/28/20 11:50:00 EST, Dosing Weight Start: 11-28-2020 Functional Status Date Assessment Result Facility 09-09-2023 Functional Status bilateral knee high removed/off [facility] 09-09-2023 [facility] Functional Status Room check performed [facility]] 09-09-2023 Functional Status Moon ho [facility] 09-08-2023 Functional Status Moon ho [facility] 09-08-2023 [facility] Functional Status Lunch Percent 98 [facility] 09-08-2023 Functional Status Independent [facility] 09-08-2023 Functional Status 2x10 [facility] 09-08-2023 Functional Status Demonstrates C orrect Call Light Use Yes [facility] 09-08-2023 Functional Status [facility] 09-07-2023 Functional Status [facility] 09-07-2023 Functional Status [facility] 09-06-2023 Functional Status Ambulation Up with assi stance [facility] 09-06-2023 Functional Status [facility] 09-05-2023 Functional Status Positioning Repositions self [facility] 09-05-2023 Functional Status Dinner Percent 50 [facility] 09-05-2023 [facility] 09-05-[facility]23 Functional Status Moon ho [facility] 09-05-2023 Functional Status Moon ho [facility] 09-05-2023 Functional Status Moon ho [facility] 09-04-2023 Functional Status Moon ho [facility] 09-04-2023 Functional Status Moon ho [facility] 09-04-2023 Functional Status [facility] 09-03-2023 Functional Status [facility] 09-03-2023 Functional Status [facility] 09-03-2023 [facility] 09-[facility]23 Functional Status [facility] 09-02-2023 Functional Status [facility] 09-02-2023 Functional Status [facility] 09-01-2023 Functional Status Antiembolism S tocking On/Re-applied bilateral thigh high [facility] 09-01-2023 Functional Status [facility] 09-01-2023 Functional Status [facility] 09-01-2023 Functional Status Pt has a son a nd daughter but son lives out of state and daughter lives in [facility]. [facility] 08-31-2023 Functional Status [facility] 08-30-2023 Functional Status [facility] 08-30-2023 Functional Status Fair [facility] 08-30-2023 Functional Status Multilevel home [facility] 08-30-2023 Functional Status [facility] 08-30-2023 Functional Status [facility] 08-29-2023 Functional Status Sensory Deficits None A [facility] 02-17-2023 [facility] Status Date Assessment Result Facility 09-09-2023 [facility]08-[facility]23 [facility] Status [facility] 09-08-2023 [facility] Status [facility]-08-[facility]23 Mental Status [facility] 02-17-2023 Mental Status Oriented x 4 [facility] Clinical Notes 12-10-2021 to 10-20-2023 Telephone Encounter - Sandee Lovett MA - 10/20/2023 3:13 PM ESTTelephone Encounter - Sandee Lovett MA - 10/20/2023 3:13 PM ESTTelephone Encounter - Evy Navarreteson - 10/20/2023 1:03 PM EST Note Date & Type Note Facility 10-20-2023 Telephone encounter Note Patient notified and order sent to [facility] 10-20-2023 Miscellaneous Notes Patient notified and order sent to [facility] Please fax new PAP order to [facility] and let pt know I reduced her setting to [id number] Name of caller: Cristine Contact phone number: [phone] Relationship to Patient: patient Provider: Raymundo Bermudez Practice: Neurology Chief Complaint/Reason for Call: States had not been using CPAP machine because air is going into her stomach, as before, due to weight loss. She states the last time the office adjusted the air flow. Please call Cristine to advise. Best time of day caller can be reached: Any Patient advised that office/PCP has 24-48 business hours to return their call: Yes documented in this encounter [facility] 10-20-2023 Telephone encounter Note Please fax new PAP order to [facility] and let pt know I reduced her setting to [id number] [facility] 10-20-2023 Telephone encounter Note Name of caller: Cristine Contact phone number: [phone] Relationship to Patient: patient Provider: Raymundo Bermudez Practice: Neurology Chief Complaint/Reason for Call: States had not been using CPAP machine because air is going into her stomach, as before, due to weight loss. She states the last time the office adjusted the air flow. Please call Cristine to advise. Best time of day caller can be reached: Any Patient advised that office/PCP has 24-48 business hours to return their call: Yes [facility] 09-09-2023 Hospital Discharg e instructions Patient Education 09/09/2023 12:25:54 Oral Thrush, Adult, Zyhi-tl-Kfxi Oral Thrush, Adult Oral thrush is an infection in your mouth and throat. It causes white patches on your tongue and in your mouth. Follow these instructions at home: Helping with soreness To lessen your pain: ?Drink cold liquids, like water and iced tea. ?Eat frozen ice pops or frozen juices. ?Eat foods that are easy to swallow, like gelatin and ice cream. ?Drink from a straw if the patches in your mouth are painful. General instructions Take or use axql-zeh-kmukgfd and prescription medicines only as told by your doctor. Medicine for oral thrush may be something to swallow, or it may be something to put on the infected area. Eat plain yogurt that has live cultures in it. Read the label to make sure. If you wear dentures: ?Take out your dentures before you go to bed. ?Ragan them well. ?Soak them in a denture rug cleaner. Rinse your mouth with warm salt-water many times a day. To make the salt-water mixture, completely dissolve 1/2 1 teaspoon of salt in 1 cup of warm water. Contact a doctor if: Your problems are getting worse. Your problems do not get better in less than 7 days with treatment. Your infection is spreading. This may show as white patches on the skin outside of your mouth. You are nursing your baby and you have redness and pain in the nipples. This information is not intended to replace advice given to you by your health care provider. Make sure you discuss any questions you have with your health care provider. Document Released: 01/14/2011 Document Revised: 01/22/2019 Document Reviewed: 07/14/2017 [employer] Patient Education 2020 [employer] 09/09/2023 12:25:37 Total Knee Replacement Total Knee Replacement Total knee replacement is a procedure to replace the damaged knee joint with an artificial (prosthetic) knee joint. The purpose of this surgery is to reduce knee pain and improve knee function. The prosthetic knee joint (prosthesis) may be made of metal, plastic, or ceramic. It replaces parts of the thigh bone (femur), lower leg bone (tibia), and kneecap (patella) that are removed during the procedure. Tell a health care provider about: Any allergies you have. All medicines you are taking, including vitamins, herbs, eye drops, creams, and dhex-cik-fotcbew medicines. Any problems you or family members have had with anesthetic medicines. Any blood disorders you have. Any surgeries you have had. Any medical conditions you have. Whether you are or may be . What are the risks? Generally, this is a safe procedure. However, problems may occur, including: Infection. Bleeding. Blood clot. Allergic reactions to medicines. Damage to nerves or other structures. Decreased range of motion of the knee. Instability of the knee. Loosening of the prosthetic joint. Knee pain that does not go away (chronic pain). What happens before the procedure? Staying hydrated Follow instructions from your health care provider about hydration, which may include: Up to 2 hours before the procedure you may continue to drink clear liquids, such as water, clear fruit juice, black coffee, and plain tea. Eating and drinking restrictions Follow instructions from your health care provider about eating and drinking, which may include: 8 hours before the procedure stop eating heavy meals or foods, such as meat, fried foods, or fatty foods. 6 hours before the procedure stop eating light meals or foods, such as toast or cereal. 6 hours before the procedure stop drinking milk or drinks that contain milk. 2 hours before the procedure stop drinking clear liquids. Medicines Ask your health care provider about: Changing or stopping your regular medicines. This is especially important if you are taking diabetes medicines or blood thinners. Taking medicines such as aspirin and ibuprofen. These medicines can thin your blood. Do not take these medicines unless your health care provider tells you to take them. Taking gyvk-fea-fgtvxza medicines, vitamins, herbs, and supplements. Tests and exams You may have a physical exam. You may have tests, such as: ?X-rays. ?MRI. ?CT scan. ?Bone scans. You may have a blood or urine sample taken. Lifestyle If your health care provider prescribes physical therapy, do exercises as instructed. Maintain good body and oral hygiene. Germs from anywhere in your body can travel to your new joint and infect it. Tell your health care provider if you: ?Plan to have dental care and routine cleanings. ?Develop any skin infections. If you are overweight, work with your health care provider to reach a safe weight. Extra weight can put pressure on your knee. Do not use any products that contain nicotine or tobacco, such as cigarettes, e-cigarettes, and chewing tobacco. These can delay healing after surgery. If you need help quitting, ask your health care provider. General instructions Plan to have someone take you home from the hospital or clinic. Plan to have a responsible adult care for you for at least 24 hours after you leave the hospital or clinic. This is important. It is recommended that you have someone to help care for you for at least 4 6 weeks after your procedure. Do not shave your legs just before surgery. If hair removal is needed, it will be done in the hospital. Ask your health care provider how your surgical site will be marked or identified. Ask your health care provider what steps will be taken to prevent infection. These may include: ?Removing hair at the surgery site. ?Washing skin with a germ-killing soap. What happens during the procedure? An IV will be inserted into one of your veins. You will be given one or more of the following: ?A medicine to help you relax (sedative). ?A medicine that is injected into an area of your body near the nerves to numb everything below the injection site (peripheral nerve block). ?A medicine that is injected into your spine to numb the area below and slightly above the injection site (spinal anesthetic). ?A medicine to make you fall asleep (general anesthetic). An incision will be made in your knee. Damaged cartilage and bone will be removed from your femur, tibia, and patella. Parts of the prosthesis (liners) will be placed over the areas of bone and cartilage that were removed. A metal liner will be placed over your femur, and plastic liners will be placed over your tibia and the underside of your patella. One or more small tubes (drains) may be placed near your incision to help drain extra fluid from your surgery site. Your incision will be closed with stitches (sutures), skin glue, or adhesive strips. A bandage (dressing) will be placed over your incision. The procedure may vary among health care providers and hospitals. What happens after the procedure? Your blood pressure, heart rate, breathing rate, and blood oxygen level will be monitored until you leave the hospital or clinic. You will be given medicines to help manage pain. You may: ?Continue to receive fluids through an IV. ?Have fluid coming from one or more drains in your incision. ?Have to wear compression stockings. These stockings help to prevent blood clots and reduce swelling in your legs. ?Be given a continuous passive motion machine to use. You will be shown how to use this machine. You will be encouraged to move. A physical therapist will teach you how to use crutches or a walker. He or she will also teach you how to exercise at home. Do not drive until your health care provider approves. Summary Total knee replacement is a procedure to replace the knee joint with an artificial (prosthetic) knee joint. Before the procedure, follow instructions from your health care provider about eating and drinking. Plan to have someone take you home from the hospital or clinic. This information is not intended to replace advice given to you by your health care provider. Make sure you discuss any questions you have with your health care provider. Document Released: 01/26/2002 Document Revised: 06/03/2019 Document Reviewed: 06/03/2019 [employer] Patient Education 2020 [employer]. 09/09/2023 09:08:07 Weakness Weakness Weakness is a lack of strength. You may feel weak all over your body (generalized), or you may feel weak in one specific part of your body (focal). Common causes of weakness include: Infection and immune system disorders. Physical exhaustion. Internal bleeding or other blood loss that results in a lack of red blood cells (anemia). Dehydration. An imbalance in mineral (electrolyte) levels, such as potassium. Heart disease, circulation problems, or stroke. Other causes include: Some medicines or cancer treatment. Stress, anxiety, or depression. Nervous system disorders. Thyroid disorders. Loss of muscle strength because of age or inactivity. Poor sleep quality or sleep disorders. The cause of your weakness may not be known. Some causes of weakness can be serious, so it is important to see your health care provider. Follow these instructions at home: Activity Rest as needed. Try to get enough sleep. Most adults need 7 8 hours of quality sleep each night. Talk to your health care provider about how much sleep you need each night. Do exercises, such as arm curls and leg raises, for 30 minutes at least 2 days a week or as told by your health care provider. This helps build muscle strength. Consider working with a physical therapist or sports athletic trainer who can develop an exercise plan to help you gain muscle strength. General instructions Take mgwe-kqe-frarjov and prescription medicines only as told by your health care provider. Eat a healthy, well-balanced diet. This includes: ?Proteins to build muscles, such as lean meats and fish. ?Fresh fruits and vegetables. ?Carbohydrates to boost energy, such as whole grains. Drink enough fluid to keep your urine pale yellow. Keep all follow-up visits as told by your health care provider. This is important. Contact a health care provider if your weakness: Does not improve or gets worse. Affects your ability to think clearly. Affects your ability to do your normal daily activities. Get help right away if you: Develop sudden weakness, especially on one side of your face or body. Have chest pain. Have trouble breathing or shortness of breath. Have problems with your vision. Have trouble talking or swallowing. Have trouble standing or walking. Are light-headed or lose consciousness. Summary Weakness is a lack of strength. You may feel weak all over your body or just in one specific part of your body. Weakness can be caused by a variety of things. In some cases, the cause may be unknown. Rest as needed, and try to get enough sleep. Most adults need 7 8 hours of quality sleep each night. Eat a healthy, well-balanced diet. This information is not intended to replace advice given to you by your health care provider. Make sure you discuss any questions you have with your health care provider. Document Released: 10/20/2006 Document Revised: 05/26/2019 Document Reviewed: 05/26/2019 [employer] Patient Education 2020 [employer]. Follow Up Care 08/29/2023 14:44:36 With:BART ESQUEDA PA-C, Orthopedic Address: [facility] [address] [place] [id number]- When:09/11/2023 15:15:00 Comments:This is your post-op appointment. Follow-up as scheduled. With:EDMUNDO AGN APRN-[facility] Address: [address] [place] [address]- [phone] When:09/17/2023 13:30:00 Comments:This is your post-hospital follow-up appointment. [facility] 09-09-2023 Note Discharge Instructions Thank you for allowing [facility] to assist you with your healthcare needs. The following is important discharge information regarding your hospital visit. Your Care Team EDMUNDO GAN LISA APRN-CNP Your Diagnosis Anxiety Asthenia Chronic kidney disease, stage 3a Diabetes mellitus, type 2 HYPERTENSION, ESSENTIAL AYAZ (OBSTRUCTIVE SLEEP APNEA) S/P total knee arthroplasty What to do next Instructions From Your Doctor You were admitted to our swing program following a right total knee replacement. You have been working with our physical and occupational therapy while here and have progressed to the point where you are ready to discharge home. We have arranged for home health PT and OT to see you in your home and continue to work with you. You have a follow-up with Bart Esqueda PA-C tomorrow to have a repeat right knee x-ray and have your sutures removed. You also have a follow-up scheduled for 09/17 with your PCP for post-hospitalization follow-up. You stated that you did not need any medications sent in except for the nystatin swish and swallow. We will send this is to your mail-order pharmacy. We will send in a prescription for the doxycycline to [facility] as you will need another dose tonight through evening dose on 09/14/2023. You had been on xarelto for DVT prophylaxis which ended today. You are to start aspirin 81 mg oral twice daily tomorrow for two weeks. When this is finished, you can resume once daily baby aspirin as before surgery. If you have any new problems or concerns, please contact your PCP or return to the ED. Thank you for choosing our swing program for your rehab! Scheduled Follow-Up Appointments Appointment Type When With Where Contact InformationPC Hospital Follow-Up 09/17/2023 01:30 PM EDMUNDO GOSS APRN-[address] [phone] PC OV 10/15/2023 02:00 PM EST EDMUNDO GAN LETTER OF CREDIT DOCUMENT EXAMINER-[facility] [address] [place] [id number] ENDO OV 10/16/2023 02:45 PM EST NEL SERRANO MD AM [facility] PC OV 02/11/2024 02:00 PM EDT EDMUNDO GAN APRN-[facility] [address] [place] [phone] CV OV 03/15/2024 01:30 PM EDT CHERRY HILARIO APRN-[facility] CV Follow Up Appointments Follow Up with EDMUNDO GAN When 09/17/2023 01:30 PM EST Why: This is your post-hospital follow-up appointment. Where: [address] [place] [phone] Follow Up with BART ESQUEDA PA-C, Orthopedic When 09/11/2023 03:15 PM EST Why: This is your post-op appointment. Follow-up as scheduled. Where: [facility] [address] [place] [id number]- The Following Activity and Diet Have Been Ordered for You Discharge Activity - Ordered -- Resume your pre-hospitalization activity, 09/09/23 9:25:00 EST Discharge Diet - Ordered -- Type of Diet: Regular Diet, 09/09/23 9:25:00 EST Allergies linezolid sulfa drugs (rash) Medications Please ask your primary doctor or pharmacist before taking any other medication not listed, including over the counter drugs, herbal medications, vitamins and or supplements as they may interact with your home medications. What How Much When Why Instructions Last Dose New nystatin (nystatin 100,000 units/ mL oral suspension) 5 Milliliter Swish in mouth and swallow Four (4) times a day Duration: 7 Days Pickup at [facility] Changed amLODIPine (amLODIPine 5 mg oral tablet) 1 tab(s) by mouth Once a day Duration: 90 Days Changed doxycycline (doxycycline hyclate 100 mg oral capsule) 1 cap by mouth Two (2) times a day Pickup at [id number] Changed empagliflozin (Jardiance 10 mg oral tablet) 1 tab(s) by mouth Once a day (in the morning) Changed levothyroxine (levothyroxine 150 mcg (0.15 mg) oral tablet) 1 tab(s) by mouth Every Fri / / Fri / / Fri and Friday Changed metFORMIN (MetFORMIN (Eqv-Glumetza) 500 mg oral tablet, EXTENDED RELEASE) 1 tab(s) by mouth Two (2) times a day Unchanged acetaminophen (Tylenol Extra Strength 500 mg oral tablet) 2 tab(s) by mouth Every 8 hours Unchanged aspirin (aspirin 81 mg oral delayed release tablet) 1 tab(s) by mouth Two (2) times a day Duration: 14 Days Unchanged aspirin (aspirin 81 mg oral delayed release tablet) 1 tab(s) by mouth Every day Unchanged atenolol (atenolol 100 mg oral tablet) 1 tab(s) by mouth Two (2) times a day Unchanged candesartan (Atacand 32 mg oral tablet) 1 tab(s) by mouth Once a day Duration: 90 Days Unchanged clonazePAM (KlonoPIN 0.5 mg oral tablet) 1 tab(s) by mouth Daily at bedtime Insomnia Duration: 90 Days Unchanged DME (Alcohol Swabs) See instructions Diabetes mellitus type 2 QS for testing once daily. E11.9 Unchanged DME (DME MISCellaneous) See instructions DME Freestyle Indira 2 Sensors. 1 every 14 days. E11.65 Unchanged DME (DME MISCellaneous) See instructions Freestyle Indira 2 [place]. Unchanged DME (Pen needles 4 mm) See instructions Diabetes mellitus type 2 Injects insulin twice daily. E11.9 Unchanged docusate (docusate sodium) 50 Milligram by mouth Two (2) times a day Unchanged DULoxetine (DULoxetine 60 mg oral delayed release capsule) 1 cap by mouth Every day Duration: 90 Days Unchanged erenumab (Aimovig SureClick Autoinjector 140 mg/ mL subcutaneous solution) 140 Milligram Subcutaneous Once a month Unchanged ferrous sulfate (ferrous sulfate 325 mg (65 mg elemental iron) oral tablet) 1 tab(s) by mouth Once a day Unchanged fluticasone nasal (Flonase 50 mcg/ inh nasal spray) 1 spray(s) each nostril Two (2) times a day Bacterial sinusitis Unchanged folic acid (folic acid 1 mg oral tablet) 1 tab(s) by mouth Once a day Unchanged gabapentin (gabapentin 300 mg oral capsule) 1 cap by mouth Once a day Unchanged gabapentin (gabapentin 600 mg oral tablet) 1 tab(s) by mouth Daily at bedtime Unchanged latanoprost ophthalmic (latanoprost 0.005% ophthalmic solution) place 1 drop into both eyes every evening Unchanged metoclopramide (metoclopramide 5 mg oral tablet) take 1 tablet by mouth twice a day Unchanged Misc Medication (FREESTYLE INDIRA 2 SENSOR) apply 1 SENSOR to back OF UPPER ARM REMOVE AND REPLACE every 14 days Unchanged nystatin topical (nystatin 100,000 units/ g topical cream) 1 application Topical Two (2) times a day Unchanged ondansetron (ondansetron 4 mg oral tablet, disintegrating) dissolve 1 tablet ON TONGUE every 8 hours if needed for nausea and vomiting Unchanged oxybutynin (oxybutynin 10 mg/ 24 hr oral tablet, extended release) 1 tab(s) by mouth Once a day Duration: 90 Days Unchanged oxyCODONE (oxyCODONE 5 mg oral tablet ( IMMEDIATE release )) 1-2 tab(s) by mouth Every 4 hours as needed for for pain Unchanged pantoprazole (pantoprazole 40 mg oral enteric coated tablet) 1 tab(s) by mouth Two (2) times a day Unchanged psyllium 0.4 gram(s) by mouth Four (4) times a day Unchanged semaglutide (Ozempic 4 mg/ 3 mL (1 mg dose) subcutaneous solution) 1 Milligram Subcutaneous Every week Duration: 4 week(s) PLEASE CANCEL OUT PREVIOUS RX, AND FILL THIS RX WITH NEW DOSE THANK YOUE11.65 Pharmacy Information [id number]: [address], [place] [id number] [phone] [id number]: [address] [phone] What How Much When Comments Stop Taking plecanatide (Trulance 3 mg oral tablet) 1 tab(s) by mouth Two (2) times a day Stop Taking rivaroxaban (Xarelto 10 mg oral tablet) 1 tab(s) by mouth Once a day Please take this list to your next doctor s visit. Bring all medications you take, including over the counter medications, herbals and other supplements with you to your doctor s visit. Patients and families are reminded to discard old lists and to update any records with all medication providers or retail pharmacies. Medication Leaflets nystatin (oral) (santa STAT in) Bio-Statin What is the most important information I should know about nystatin? Use only as directed. Tell your doctor if you use other medicines or have other medical conditions or allergies. What is nystatin? Nystatin when taken by mouth is used to treat yeast infections in the mouth. Oral nystatin is not absorbed into your bloodstream and will not treat fungal infections in other parts of the body or on the skin. Nystatin may also be used for purposes other than those listed in this medication guide. What should I discuss with my healthcare provider before taking nystatin? You should not use nystatin if you are allergic to it. Tell your doctor if you are or . Do not give this medicine to a child without medical advice. How should I take nystatin? Follow all directions on your prescription label and read all medication guides or instruction sheets. Use the medicine exactly as directed. Take this medicine with a full glass of water. Shake the oral suspension (liquid) well just before you measure a dose. Measure liquid medicine with the dosing syringe provided, or with a special dose-measuring spoon or medicine cup. If you do not have a dose-measuring device, ask your pharmacist for one. When taking liquid nystatin to treat a yeast infection of the mouth, you may need to hold the medicine in your mouth for as long as possible. This allows the medicine to stay in contact with the infected area. Follow your doctor's instructions. Do not share this medicine with another person, even if they have the same symptoms you have. Use this medicine for the full prescribed length of time. Your symptoms may improve before the infection is completely cleared. Skipping doses may also increase your risk of further infection that is resistant to antifungal medicine. Nystatin will not treat a viral infection such as the flu or a common cold. Nystatin is usually given for up to 48 hours after lab tests show that the infection has cleared. Store the Bio-Statin brand of nystatin in the refrigerator. Do not freeze. Other brands or forms of this medicine may be stored at room temperature away from moisture and heat. What happens if I miss a dose? Take the missed dose as soon as you remember. Skip the missed dose if it is almost time for your next scheduled dose. Do not take extra medicine to make up the missed dose. What happens if I overdose? Seek emergency medical attention or call the Poison Help line at . What should I avoid while taking nystatin? Do not use nystatin to treat any condition that has not been checked by your doctor. What are the possible side effects of nystatin? Get emergency medical help if you have signs of an allergic reaction: hives; difficult breathing; swelling of your face, lips, tongue, or throat. Stop using nystatin if you have mouth irritation. Call your doctor at once if you have: fast heart rate; trouble breathing; or severe skin reaction--fever, sore throat, swelling in your face or tongue, burning in your eyes, skin pain, followed by a red or purple skin rash that spreads (especially in the face or upper body) and causes blistering and peeling. Common side effects may include: mouth irritation; upset stomach, nausea, vomiting, diarrhea; or skin rash. This is not a complete list of side effects and others may occur. Call your doctor for medical advice about side effects. You may report side effects to FDA at 2-663-OYI-6307. What other drugs will affect nystatin? Other drugs may affect nystatin, including prescription and jzqp-sgg-wpngiqi medicines, vitamins, and herbal products. Tell your doctor about all other medicines you use. Where can I get more information? Your doctor or pharmacist can provide more information about nystatin. Remember, keep this and all other medicines out of the reach of children, never share your medicines with others, and use this medication only for the indication prescribed. Every effort has been made to ensure that the information provided by [employer]. [employer]') is accurate, up-to-date, and complete, but no guarantee is made to that effect. Drug information contained herein may be time sensitive. [employer] information has been compiled for use by healthcare practitioners and consumers in the [place] and therefore [employer] does not warrant that uses outside of the [place] are appropriate, unless specifically indicated otherwise. [employer]'s drug information does not endorse drugs, diagnose patients or recommend therapy. [facility] drug information is an informational resource designed to assist licensed healthcare practitioners in caring for their patients and/or to serve consumers viewing this service as a supplement to, and not a substitute for, the expertise, skill, knowledge and judgment of healthcare practitioners. The absence of a warning for a given drug or drug combination in no way should be construed to indicate that the drug or drug combination is safe, effective or appropriate for any given patient. [facility] does not assume any responsibility for any aspect of healthcare administered with the aid of information [facility]. provides. The information contained herein is not intended to cover all possible uses, directions, precautions, warnings, drug interactions, allergic reactions, or adverse effects. If you have questions about the drugs you are taking, check with your doctor, nurse or pharmacist. Copyright 6871-0928 [employer]. Version: 6.01. Revision Date: 11/26/2021. doxycycline (oral/injection) (DOX i CRISTELA arellano) Acticlate, Adoxa, Alodox, Avidoxy, Doryx, Doryx MPC, Lymepak, Mondoxyne NL, Monodox, Morgidox, Morgidox [id number], Morgidox [id number], Okebo, Oracea, Targadox, Vibramycin, Vibramycin Monohydrate What is the most important information I should know about doxycycline? You should not take this medicine if you are allergic to any tetracycline antibiotic. Children younger than 8 years old should use doxycycline only in cases of severe or life-threatening conditions. This medicine can cause permanent yellowing or graying of the teeth in children Using doxycycline during could harm the unborn baby or cause permanent tooth discoloration later in the baby's life. What is doxycycline? Doxycycline is a tetracycline antibiotic that Doxycycline is used to treat many different bacterial infections, such as acne, urinary tract infections, intestinal infections, eye infections, gonorrhea, chlamydia, periodontitis (gum disease), and others. Doxycycline is also used to treat blemishes, bumps, and acne-like lesions caused by rosacea. Doxycycline will not treat facial redness caused by rosacea. Some forms of doxycycline are used to prevent malaria, to treat anthrax, or to treat infections caused by mites, ticks, or lice. Doxycycline may also be used for purposes not listed in this medication guide. What should I discuss with my healthcare provider before taking doxycycline? You should not take this medicine if you are allergic to doxycycline or other tetracycline antibiotics such as demeclocycline, minocycline, tetracycline, or tigecycline. Tell your doctor if you have ever had: liver disease; kidney disease; asthma or sulfite allergy; increased pressure inside your skull; or if you also take isotretinoin, seizure medicine, or a blood thinner such as warfarin (Coumadin). If you are using doxycycline to treat gonorrhea, your doctor may test you to make sure you do not also have syphilis, another sexually transmitted disease. Taking this medicine during may affect tooth and bone development in the unborn baby. Taking doxycycline during the last half of can cause permanent tooth discoloration later in the baby's life. Tell your doctor if you are or if you become . Doxycycline can make control pills less effective. Ask your doctor about using a non-hormonal control (condom, diaphragm with spermicide) to prevent . Doxycycline can pass into breast milk and may affect bone and tooth development in a nursing . Do not breastfeed while you are taking doxycycline. Doxycycline can cause permanent yellowing or graying of the teeth in children younger than 8 years old. Children should use doxycycline only in cases of severe or life-threatening conditions such as anthrax or [place] spotted fever. The benefit of treating a serious condition may outweigh any risks to the child's tooth development. How should I take doxycycline? Follow all directions on your prescription label and read all medication guides or instruction sheets. Use the medicine exactly as directed. Take doxycycline with a full glass of water. Drink plenty of liquids while you are taking doxycycline. Read and carefully follow any Instructions for Use provided with your medicine. Ask your doctor or pharmacist if you do not understand these instructions. Most brands of doxycyline may be taken with food or milk if the medicine upsets your stomach. Different brands of doxycycline may have different instructions about taking them with or without food. Take Oracea on an empty stomach, at least 1 hour before or 2 hours after a meal. You may need to split a doxycycline tablet to get the correct dose. Follow your doctor's instructions. Swallow a delayed-release capsule or tablet whole. Do not crush, chew, break, or open it. Measure liquid medicine with the dosing syringe provided, or with a special dose-measuring spoon or medicine cup. If you do not have a dose-measuring device, ask your pharmacist for one. If you take doxycycline to prevent malaria: Start taking the medicine 1 or 2 days before entering an area where malaria is common. Continue taking the medicine every day during your stay and for at least 4 weeks after you leave the area. Doxycycline is usually given by injection only if you are unable to take the medicine by mouth. A healthcare provider will give you this injection as an infusion into a vein. Use this medicine for the full prescribed length of time, even if your symptoms quickly improve. Skipping doses can increase your risk of infection that is resistant to medication. Doxycycline will not treat a viral infection such as the flu or a common cold. Store at room temperature away from moisture, heat, and light. Throw away any unused medicine after the expiration date on the label has passed. Using doxycycline can cause damage to your kidneys. What happens if I miss a dose? Take the medicine as soon as you can, but skip the missed dose if it is almost time for your next dose. Do not take two doses at one time. What happens if I overdose? Seek emergency medical attention or call the Poison Help line at . What should I avoid while taking doxycycline? Do not take iron supplements, multivitamins, calcium supplements, antacids, or laxatives within 2 hours before or after taking doxycycline. Avoid taking any other antibiotics with doxycycline unless your doctor has told you to. Doxycycline could make you sunburn more easily. Avoid sunlight or tanning beds. Wear protective clothing and use sunscreen (SPF 30 or higher) when you are outdoors. Antibiotic medicines can cause diarrhea, which may be a sign of a new infection. If you have diarrhea that is watery or bloody, call your doctor. Do not use anti-diarrhea medicine unless your doctor tells you to. What are the possible side effects of doxycycline? Get emergency medical help if you have signs of an allergic reaction (hives, difficult breathing, swelling in your face or throat) or a severe skin reaction (fever, sore throat, burning in your eyes, skin pain, red or purple skin rash that spreads and causes blistering and peeling). Seek medical treatment if you have a serious drug reaction that can affect many parts of your body. Symptoms may include: skin rash, fever, swollen glands, flu-like symptoms, muscle aches, severe weakness, unusual bruising, or yellowing of your skin or eyes. This reaction may occur several weeks after you began using doxycycline. Call your doctor at once if you have: severe stomach pain, diarrhea that is watery or bloody; throat irritation, trouble swallowing; chest pain, irregular heart rhythm, feeling short of breath; little or no urination; low white blood cell counts--fever, chills, swollen glands, body aches, weakness, pale skin, easy bruising or bleeding; increased pressure inside the skull--severe headaches, ringing in your ears, dizziness, nausea, vision problems, pain behind your eyes; or signs of liver or pancreas problems--loss of appetite, upper stomach pain (that may spread to your back), tiredness, nausea or vomiting, fast heart rate, dark urine, jaundice (yellowing of the skin or eyes). Common side effects may include: nausea, vomiting, upset stomach, loss of appetite; mild diarrhea; skin rash or itching; darkened skin color; or vaginal itching or discharge. This is not a complete list of side effects and others may occur. Call your doctor for medical advice about side effects. You may report side effects to FDA at 8-502-LVL-9860. What other drugs will affect doxycycline? Sometimes it is not safe to use certain medications at the same time. Some drugs can affect your blood levels of other drugs you take, which may increase side effects or make the medications less effective. Other drugs may affect doxycycline, including prescription and hkul-voj-pqtefsg medicines, vitamins, and herbal products. Tell your doctor about all your current medicines and any medicine you start or stop using. Where can I get more information? Your pharmacist can provide more information about doxycycline. Remember, keep this and all other medicines out of the reach of children, never share your medicines with others, and use this medication only for the indication prescribed. Every effort has been made to ensure that the information provided by [employer]. [employer]') is accurate, up-to-date, and complete, but no guarantee is made to that effect. Drug information contained herein may be time sensitive. [employer] information has been compiled for use by healthcare practitioners and consumers in the [place] and therefore [employer] does not warrant that uses outside of the [place] are appropriate, unless specifically indicated otherwise. [employer] drug information does not endorse drugs, diagnose patients or recommend therapy. [employer] drug information is an informational resource designed to assist licensed healthcare practitioners in caring for their patients and/or to serve consumers viewing this service as a supplement to, and not a substitute for, the expertise, skill, knowledge and judgment of healthcare practitioners. The absence of a warning for a given drug or drug combination in no way should be construed to indicate that the drug or drug combination is safe, effective or appropriate for any given patient. [employer] does not assume any responsibility for any aspect of healthcare administered with the aid of information [employer] provides. The information contained herein is not intended to cover all possible uses, directions, precautions, warnings, drug interactions, allergic reactions, or adverse effects. If you have questions about the drugs you are taking, check with your doctor, nurse or pharmacist. Copyright [id number] [facility] [employer]. Version: 25.. Revision Date: 07/09/2023. Education Materials Oral Thrush, Adult Oral thrush is an infection in your mouth and throat. It causes white patches on your tongue and in your mouth. Follow these instructions at home: Helping with soreness To lessen your pain: ? Drink cold liquids, like water and iced tea. ? Eat frozen ice pops or frozen juices. ? Eat foods that are easy to swallow, like gelatin and ice cream. ? Drink from a straw if the patches in your mouth are painful. General instructions Take or use slti-irc-rwnxjya and prescription medicines only as told by your doctor. Medicine for oral thrush may be something to swallow, or it may be something to put on the infected area. Eat plain yogurt that has live cultures in it. Read the label to make sure. If you wear dentures: ? Take out your dentures before you go to bed. ? Ragan them well. ? Soak them in a denture rug cleaner. Rinse your mouth with warm salt-water many times a day. To make the salt-water mixture, completely dissolve 1/2 1 teaspoon of salt in 1 cup of warm water. Contact a doctor if: Your problems are getting worse. Your problems do not get better in less than 7 days with treatment. Your infection is spreading. This may show as white patches on the skin outside of your mouth. You are nursing your baby and you have redness and pain in the nipples. This information is not intended to replace advice given to you by your health care provider. Make sure you discuss any questions you have with your health care provider. Document Released: 01/14/2011 Document Revised: 01/22/2019 Document Reviewed: 07/14/2017 [employer] Patient Education 2020 [employer]. Total Knee Replacement Total knee replacement is a procedure to replace the damaged knee joint with an artificial (prosthetic) knee joint. The purpose of this surgery is to reduce knee pain and improve knee function. The prosthetic knee joint (prosthesis) may be made of metal, plastic, or ceramic. It replaces parts of the thigh bone (femur), lower leg bone (tibia), and kneecap (patella) that are removed during the procedure. Tell a health care provider about: Any allergies you have. All medicines you are taking, including vitamins, herbs, eye drops, creams, and ueuu-uix-xtzrohy medicines. Any problems you or family members have had with anesthetic medicines. Any blood disorders you have. Any surgeries you have had. Any medical conditions you have. Whether you are or may be . What are the risks? Generally, this is a safe procedure. However, problems may occur, including: Infection. Bleeding. Blood clot. Allergic reactions to medicines. Damage to nerves or other structures. Decreased range of motion of the knee. Instability of the knee. Loosening of the prosthetic joint. Knee pain that does not go away (chronic pain). What happens before the procedure? Staying hydrated Follow instructions from your health care provider about hydration, which may include: Up to 2 hours before the procedure you may continue to drink clear liquids, such as water, clear fruit juice, black coffee, and plain tea. Eating and drinking restrictions Follow instructions from your health care provider about eating and drinking, which may include: 8 hours before the procedure stop eating heavy meals or foods, such as meat, fried foods, or fatty foods. 6 hours before the procedure stop eating light meals or foods, such as toast or cereal. 6 hours before the procedure stop drinking milk or drinks that contain milk. 2 hours before the procedure stop drinking clear liquids. Medicines Ask your health care provider about: Changing or stopping your regular medicines. This is especially important if you are taking diabetes medicines or blood thinners. Taking medicines such as aspirin and ibuprofen. These medicines can thin your blood. Do not take these medicines unless your health care provider tells you to take them. Taking rgiy-dil-dhobxqa medicines, vitamins, herbs, and supplements. Tests and exams You may have a physical exam. You may have tests, such as: ? X-rays. ? MRI. ? CT scan. ? Bone scans. You may have a blood or urine sample taken. Lifestyle If your health care provider prescribes physical therapy, do exercises as instructed. Maintain good body and oral hygiene. Germs from anywhere in your body can travel to your new joint and infect it. Tell your health care provider if you: ? Plan to have dental care and routine cleanings. ? Develop any skin infections. If you are overweight, work with your health care provider to reach a safe weight. Extra weight can put pressure on your knee. Do not use any products that contain nicotine or tobacco, such as cigarettes, e-cigarettes, and chewing tobacco. These can delay healing after surgery. If you need help quitting, ask your health care provider. General instructions Plan to have someone take you home from the hospital or clinic. Plan to have a responsible adult care for you for at least 24 hours after you leave the hospital or clinic. This is important. It is recommended that you have someone to help care for you for at least 4 6 weeks after your procedure. Do not shave your legs just before surgery. If hair removal is needed, it will be done in the hospital. Ask your health care provider how your surgical site will be marked or identified. Ask your health care provider what steps will be taken to prevent infection. These may include: ? Removing hair at the surgery site. ? Washing skin with a germ-killing soap. What happens during the procedure? An IV will be inserted into one of your veins. You will be given one or more of the following: ? A medicine to help you relax (sedative). ? A medicine that is injected into an area of your body near the nerves to numb everything below the injection site (peripheral nerve block). ? A medicine that is injected into your spine to numb the area below and slightly above the injection site (spinal anesthetic). ? A medicine to make you fall asleep (general anesthetic). An incision will be made in your knee. Damaged cartilage and bone will be removed from your femur, tibia, and patella. Parts of the prosthesis (liners) will be placed over the areas of bone and cartilage that were removed. A metal liner will be placed over your femur, and plastic liners will be placed over your tibia and the underside of your patella. One or more small tubes (drains) may be placed near your incision to help drain extra fluid from your surgery site. Your incision will be closed with stitches (sutures), skin glue, or adhesive strips. A bandage (dressing) will be placed over your incision. The procedure may vary among health care providers and hospitals. What happens after the procedure? Your blood pressure, heart rate, breathing rate, and blood oxygen level will be monitored until you leave the hospital or clinic. You will be given medicines to help manage pain. You may: ? Continue to receive fluids through an IV. ? Have fluid coming from one or more drains in your incision. ? Have to wear compression stockings. These stockings help to prevent blood clots and reduce swelling in your legs. ? Be given a continuous passive motion machine to use. You will be shown how to use this machine. You will be encouraged to move. A physical therapist will teach you how to use crutches or a walker. He or she will also teach you how to exercise at home. Do not drive until your health care provider approves. Summary Total knee replacement is a procedure to replace the knee joint with an artificial (prosthetic) knee joint. Before the procedure, follow instructions from your health care provider about eating and drinking. Plan to have someone take you home from the hospital or clinic. This information is not intended to replace advice given to you by your health care provider. Make sure you discuss any questions you have with your health care provider. Document Released: 01/26/2002 Document Revised: 06/03/2019 Document Reviewed: 06/03/2019 [employer] Patient Education 2020 [employer] Weakness Weakness is a lack of strength. You may feel weak all over your body (generalized), or you may feel weak in one specific part of your body (focal). Common causes of weakness include: Infection and immune system disorders. Physical exhaustion. Internal bleeding or other blood loss that results in a lack of red blood cells (anemia). Dehydration. An imbalance in mineral (electrolyte) levels, such as potassium. Heart disease, circulation problems, or stroke. Other causes include: Some medicines or cancer treatment. Stress, anxiety, or depression. Nervous system disorders. Thyroid disorders. Loss of muscle strength because of age or inactivity. Poor sleep quality or sleep disorders. The cause of your weakness may not be known. Some causes of weakness can be serious, so it is important to see your health care provider. Follow these instructions at home: Activity Rest as needed. Try to get enough sleep. Most adults need 7 8 hours of quality sleep each night. Talk to your health care provider about how much sleep you need each night. Do exercises, such as arm curls and leg raises, for 30 minutes at least 2 days a week or as told by your health care provider. This helps build muscle strength. Consider working with a physical therapist or sports athletic trainer who can develop an exercise plan to help you gain muscle strength. General instructions Take [id number] and prescription medicines only as told by your health care provider. Eat a healthy, well-balanced diet. This includes: ? Proteins to build muscles, such as lean meats and fish. ? Fresh fruits and vegetables. ? Carbohydrates to boost energy, such as whole grains. Drink enough fluid to keep your urine pale yellow. Keep all follow-up visits as told by your health care provider. This is important. Contact a health care provider if your weakness: Does not improve or gets worse. Affects your ability to think clearly. Affects your ability to do your normal daily activities. Get help right away if you: Develop sudden weakness, especially on one side of your face or body. Have chest pain. Have trouble breathing or shortness of breath. Have problems with your vision. Have trouble talking or swallowing. Have trouble standing or walking. Are light-headed or lose consciousness. Summary Weakness is a lack of strength. You may feel weak all over your body or just in one specific part of your body. Weakness can be caused by a variety of things. In some cases, the cause may be unknown. Rest as needed, and try to get enough sleep. Most adults need 7 8 hours of quality sleep each night. Eat a healthy, well-balanced diet. This information is not intended to replace advice given to you by your health care provider. Make sure you discuss any questions you have with your health care provider. Document Released: 10/20/2006 Document Revised: 05/26/2019 Document Reviewed: 05/26/2019 [employer] Patient Education 2020 [employer] Additional Information VACCINATE! IT SAVES LIVES! Members of the community who have not yet received the COVID-19 vaccine and would like to receive it can visit one of [facility] vaccine clinics. There are many vaccine clinic locations within the [facility]. For locations and available times, please visit https://[email or web address].[place].gov/. It is important to note that some COVID mobile vaccine clinics are held outdoors and may be canceled in rainy or stormy conditions. To learn more about pediatric vaccinations (ages 5-11), we invite you to visit the [facility] webpage. [email or web address] To learn more about the COVID-19 vaccine, we invite you to visit the CDC website for a list of frequently asked questions.https://www.cdc.gov/cor onavirus/2019-ncov/vaccines/faq.h tml [facility] Patient Portal Access Instructions: Stay connected with your healthcare team and access your personal medical information anytime with the [facility] Patient Portal. Please follow the directions below to create your [facility] account: 1.Access the email account you provided upon registration to the hospital/physician office.2.Look for an invitation email from [facility].3.Open the email and access the invitation link: Accept Invitation to [facility].4.Fill in the required fulton to create your account. To access your account, visit [email or web address]. Click the blue button labeled Access Patient Portal and then log in with the username and password that you created in the steps above. You will be able to view your test results, lab results, a summary of your visits, upcoming appointments and more. There is also a convenient messaging option where you can send secure messages to your provider. In addition, you will have the ability to download any documents or summaries to your computer and/or send the information securely to a physician. Remember that your healthcare information is confidential, so carefully consider who you will allow to register on the [facility] Patient Portal for access to your information. You can also access the [facility] Patient Portal on the [employer] [facility] crow. Simply click on Patient Portal and then log into your account. If you would like to receive a full copy of your medical records, please contact the [facility] Medical Records Department by calling [phone], Friday through Friday between 8 a.m. and 4:30 p.m. HOW TO SAFELY DISPOSE OF PRESCRIPTION MEDICATIONS Please use one of the following methods to safely dispose of your unused medications. 1.Use a drug disposal kit: the drug disposal pouch allows you to safely discard your old and unused drugs. Ask your nurse to give you one when you are discharged.2.Visit a local take-back location: Many local pharmacies and police departments have programs that collect old and unwanted prescription drugs. Call your local pharmacy or go to http://LearnBop.GigSocial/3V8Tj1i to find one close to you.3.Make use of household items: Use cat litter or old coffee grounds to dispose medications if other options are not available. Mix your drugs with these household products, seal them in an airtight container and throw it into the garbage. Call [facility]: [phone] to be sure your drugs can be disposed of in this way. Some medicines may require a different approach.4.Never flush your medications down the toilet. IF YOU HAVE BEEN PRESCRIBED AN OPIOID FOR PAIN If you have been prescribed an opioid (such as hydrocodone, oxycodone or morphine), it is critical to understand the possible side effects and risks of opioid pain medications. Even when taken as directed, opioids can have several side effects including: Tolerance, meaning you might need to take more of a medication for the same pain relief. Nausea, vomiting and/or constipation. Sleepiness, dizziness, dry mouth, confusion, depression or itching. Physical dependence, meaning you have withdrawal symptoms when a medication is stopped, can develop within a few days. KNOW YOUR RESPONSIBILITIES It is important to know exactly how much and how often to take the opioid pain medications you are prescribed. Never take opioids in higher amounts or more often than prescribed. Do not combine opioids with alcohol or other drugs that cause drowsiness, such as benzodiazepines, also known as benzos, including diazepam and alprazolam, muscle relaxants or sleep aids. Never sell or share prescription opioids. This is illegal. Store opioids in a secure place and out of reach of others (including children, family, friends and visitors). The last page of this document has been signed and retained as a CHART COPY. Signatures Patient Education Materials Oral Thrush, Adult, [id number] Total Knee Replacement Weakness Medication Leaflets nystatin (oral), doxycycline (oral/injection) My discharge plan and instructions have been reviewed and explained to me and IMONISHA MARY D understand my curren (more content not included)... [facility] 09-08-2023 Note ORIGINAL EXAMINATION: Right groin ITTODBTIOG01/6/2023 6:41 am COMPARISON: None HISTORY: ORDERING SYSTEM PROVIDED HISTORY: Reason for Exam: pain in rt groin, past hx inguinal hernia FINDINGS: Scanning of the right groin without and with Valsalva shows no evidence of hernia. No fluid collection or mass. There are a couple of inguinal lymph nodes that are subcentimeter short axis and statistically likely to be benign. 1 of these is 2.6 x 0.9 x 1.9 cm with no echogenic hilum. The other lymph node is 2.3 x 3.3 x 0.7 cm with a large echogenic hilum. IMPRESSION: No acute findings or obvious hernia. There are a couple of inguinal lymph nodes that are favored to be benign/reactive based on short axis measurement. 1 of these however does not have a fatty hilum and is therefore nonspecific in appearance. Interpreted by: Isaac Roland MD Preliminary Report By: Isaac Roland MD Electronically signed By Isaac Roland MD Dictated Date: 09/08/2023 9:29:12 AM Prelim Date: 09/08/2023 9:32:19 AM Sign Date: 09/08/2023 9:32:19 AM Ordering Provider: ANNETTA PORRAS [facility] 09-07-2023 Note Date of Service 09/07/2023 Chief Complaint weakness Subjective Patient seen and evaluated at her request this morning. Patient again complaining of right groin pain. She states that she had 3 episodes of severe pain in her right groin overnight. She is convinced that she has an inguinal hernia again. The area was palpated but nothing unusual was noted. We will order an ultrasound for tomorrow to see if there is anything unusual in that area. Patient otherwise feels that she is doing well. She denies any fever, chills, cough, shortness of breath, chest pain, abdominal pain, nausea or dysuria. All questions answered. Objective Vitals and Measurements T: 36.5 C (Oral) TMIN: 36.5 C (Oral) TMAX: 36.7 C (Oral) HR: 102(Apical) RR: 18 BP: 131/75 SpO2: 94% Intake and Output 7AM Yesterday to 7AM Today Intake and Output (Last 24 hours) Intake Output Total Summary Total Intake 0.00 Total Output 0.00 Fluid Balance 0.00 Physical Exam General: No acute distress. Patient is alert and appropriate. Skin: No rash. Skin is warm, dry and intact. HEENT: Head is normocephalic, atraumatic. Pupils are equal, round and reactive. Neck: Supple. No lymphadenopathy, thyromegaly. Lungs: Bilaterally clear but diminished without crepitation or wheeze. Unlabored. Heart: Heart is regular rhythm, S1, S2. No murmurs, gallops or rubs. Abdomen: Abdomen is soft, nontender. Bowels sounds present in all quadrants. Extremities: No clubbing, cyanosis, or edema. Peripheral pulses palpable. No calf tenderness. Right knee surgical incision healing, well-approximated, sutures remain in place. Neurological: Patient is awake and alert to person, place and time. Following simple commands, moving all extremities. Weight Dosing Weight: 118 kg (09/05/23) Dosing Weight: 115.9 kg (08/29/23) Medications Medications (36) Active Scheduled: (25) acetaminophen 500 mg Tablet 1,000 mg 2 tab(s), Oral, q8h amLODIPine 5 mg tablet 5 mg 1 tab(s), Oral, qDay aspirin 81 mg EC 81 mg 1 tab(s), Oral, Daily atenolol 50 mg tablet 100 mg 2 tab(s), Oral, BID clonazePAM 0.5 mg tablet 0.5 mg 1 tab(s), Oral, qHS docusate sodium 100 mg Capsule 100 mg 1 cap(s), Oral, BID doxycycline hyclate 100 mg Capsule 100 mg 1 cap(s), Oral, BID duloxetine [address] capsule 60 mg 1 cap(s), Oral, Daily empagliflozin 10 mg tablet 10 mg 1 tab(s), Oral, qAM ferrous sulfate 325 mg Tablet 325 mg 1 tab(s), Oral, qDayM fluticasone nasal 0.05 mg/inh [place] 50 mcg 1 spray(s), Nostril, each, BID folic acid 1 mg tablet 1 mg 1 tab(s), Oral, qDay gabapentin 300 mg Capsule 300 mg 1 cap(s), Oral, qDay gabapentin 300 mg Capsule 600 mg 2 cap(s), Oral, qHS latanoprost ophthalmic 0.005% Solution 1 drop(s), Eyes, both, qHS levothyroxine 100 mcg tablet 150 mcg 1.5 tab(s), Oral, Fri//Fri//Fri/Fri losartan 50 mg tablet 100 mg 2 tab(s), Oral, qDay metformin 500 mg ER tablet 500 mg 1 tab(s), Oral, BID metoclopramide 10 mg tablet 5 mg 0.5 tab(s), Oral, BID nystatin susp 100,000 units/mL 5 mL UD 500,000 unit(s) 5 mL, Swish & Swallow, QID oxybutynin 5 mg ER tablet 10 mg 2 tab(s), Oral, qDay Ozempic 4 mg/3 mL (1 mg dose) subcutaneous solution 1 mg, Subcutaneous, Friday pantoprazole 20 mg EC tablet 40 mg 2 tab(s), Oral, BID psyllium REC Packet 0.5 packet(s), Oral, QID rivaroxaban 10 mg tablet 10 mg 1 tab(s), Oral, qDay Continuous: (0) PRN: (11) acetaminophen 325 mg Tablet 650 mg 2 tab(s), Oral, q4h acetaminophen 325 mg Tablet 650 mg 2 tab(s), Oral, q4h Al hydrox/Mg hydrox/simethicone 200-200-20 mg/5 mL Susp UD 15 mL, Oral, q4h docusate sodium 100 mg Capsule 100 mg 1 cap(s), Oral, BID guaifenesin 100 mg/5 mL Liquid SUGAR-FREE 120 mL 200 mg 10 mL, Oral, q4h melatonin 3 mg tablet 6 mg 2 tab(s), Oral, qHS menthol (Biofreeze) gel packet 1 crow, Topical, TID ondansetron 4 mg DIS tablet 4 mg 1 tab(s), Oral, q8h oxycodone 5 mg tablet (immediate release) 5 mg 1 tab(s), Oral, q4h oxycodone 5 mg tablet (immediate release) 10 mg 2 tab(s), Oral, q4h polyethylene glycol 3350 - UD packet 17 gram(s) 15 mL, Oral, BID Assessment/Plan 1. Asthenia Continue PT and OT. Surgery was 08/27 at [facility]. Last dose of doxycycline 09/14/23. Patient is progressing well with therapy. Continue heating pad for groin pain. Will order ultrasound of right groin to rule out hernia. 2. S/P total knee arthroplasty Surgery was 08/27 at [facility] by Dr. Wong Campbell. Follow-up scheduled for 09/11 with Bart Esqueda PA-C. 3. Anxiety Patient is prescribed clonazepam 0.5 mg nightly and has been on this chronically. Continue. 4. Chronic kidney disease, stage 3a Baseline GFR 61-63 with creatinine of 0.9. Labs reviewed from [facility] on 08/28/2023 with creatinine of 0.95 and GFR of 61. 5. Diabetes mellitus, type 2 Chronic with peripheral neuropathy. Glucose goal of 180 or less and avoid hypoglycemia. Continue ADA diet. Continue gabapentin and duloxetine. Patient has her own Ozempic on hand in the med room. 6. HYPERTENSION, ESSENTIAL Chronic, controlled. Continue home antihypertensives with hold parameters. 7. AYAZ (OBSTRUCTIVE SLEEP APNEA) Continue CPAP as at home. DVT prophylaxis: Xarelto 10 mg daily, last dose 09/09/23. Code status: Full Code. Labs, diagnostic test and progress notes reviewed as noted in HPI. Plan of care discussed with patient. All questions answered. Patient verbalizes understanding and is agreeable with plan of care. This case was discussed with collaborating physician, Dr. Hussain Saucedo. Time Spent 35 minutes spent reviewing past diagnostic tests, reviewing lab results, vital sign trends, medical history, reviewing medications and ordering home medications, examining patient, reviewed past medical record regarding inguinal hernia repair, collaborating with physician, and documenting in chart. CPT#56567 Digitally Signed by ANNETTA PORRAS on 09/07/2023 11:36 AM Digitally Signed by ANNETTA PORRAS on 09/07/2023 11:37 AM [facility] 09-05-2023 Note Date of Service 09/05/2023 Chief Complaint Right groin pain Subjective Patient seen and evaluated this morning while resting in bed. She states that she is doing well but did have a few complaints this morning. She states that she developed right groin pain this morning but it is gone now. She had an inguinal hernia surgery in the past on the right side and states it feels similar to that. Patient states she was told to push up on that area if she gets the pain. She has been doing that and, for now, the pain is gone. No hernia palpated at this point. We will just continue to monitor it for now. She states Dr. Roman at [facility] did her surgery in the past. Patient also concerned about some redness at the top of her right knee sutures. It does look slightly erythematous at the top but is not warm to touch. Patient has an appointment scheduled for Sep.11 with Bart Esqueda PA-C. We will continue to monitor this area and let Ray know if it looks worse or is more painful. Patient denies any fever, chills, cough, shortness of breath, chest pain, abdominal pain, nausea, diarrhea, constipation or dysuria. All questions answered. Objective Vitals and Measurements T: 36.3 C (Oral) TMIN: 36.3 C (Oral) TMAX: 36.8 C (Oral) HR: 73(Monitored) RR: 18 BP: 137/69 SpO2: 94% WT: 118.0 kg Intake and Output 7AM Yesterday to 7AM Today Intake and Output (Last 24 hours) Intake Oral Intake 1160.00 Output Stool Count 1.00 Urine Count 8.00 Emesis Count 0.00 Total Summary Total Intake 1160.00 Total Output 0.00 Fluid Balance 1160.00 Physical Exam General: No acute distress. Patient is alert and appropriate. Skin: No rash. Skin is warm, dry and intact. HEENT: Head is normocephalic, atraumatic. Pupils are equal, round and reactive. Neck: Supple. No lymphadenopathy, thyromegaly. Lungs: Bilaterally clear but diminished without crepitation or wheeze. Unlabored. Heart: Heart is regular rhythm, S1, S2. No murmurs, gallops or rubs. Abdomen: Abdomen is soft, nontender. Bowels sounds present in all quadrants. Extremities: No clubbing, cyanosis, or edema. Peripheral pulses palpable. No calf tenderness. Sutures noted to right knee, incision healing and well-approximated. Neurological: Patient is awake and alert to person, place and time. Following simple commands, moving all extremities. Weight Dosing Weight: 118 kg (09/05/23) Dosing Weight: 115.9 kg (08/29/23) Medications Medications (36) Active Scheduled: (25) acetaminophen 500 mg Tablet 1,000 mg 2 tab(s), Oral, q8h amLODIPine 5 mg tablet 5 mg 1 tab(s), Oral, qDay aspirin 81 mg EC 81 mg 1 tab(s), Oral, Daily atenolol 50 mg tablet 100 mg 2 tab(s), Oral, BID clonazePAM 0.5 mg tablet 0.5 mg 1 tab(s), Oral, qHS docusate sodium 100 mg Capsule 100 mg 1 cap(s), Oral, BID doxycycline hyclate 100 mg Capsule 100 mg 1 cap(s), Oral, BID duloxetine [address] capsule 60 mg 1 cap(s), Oral, Daily empagliflozin 10 mg tablet 10 mg 1 tab(s), Oral, qAM ferrous sulfate 325 mg Tablet 325 mg 1 tab(s), Oral, qDayM fluticasone nasal 0.05 mg/inh [place] 50 mcg 1 spray(s), Nostril, each, BID folic acid 1 mg tablet 1 mg 1 tab(s), Oral, qDay gabapentin 300 mg Capsule 300 mg 1 cap(s), Oral, qDay gabapentin 300 mg Capsule 600 mg 2 cap(s), Oral, qHS latanoprost ophthalmic 0.005% Solution 1 drop(s), Eyes, both, qHS levothyroxine 100 mcg tablet 150 mcg 1.5 tab(s), Oral, Fri//Fri//Fri/Sat losartan 50 mg tablet 100 mg 2 tab(s), Oral, qDay metformin 500 mg ER tablet 500 mg 1 tab(s), Oral, BID metoclopramide 10 mg tablet 5 mg 0.5 tab(s), Oral, BID nystatin susp 100,000 units/mL 5 mL UD 500,000 unit(s) 5 mL, Swish & Swallow, QID oxybutynin 5 mg ER tablet 10 mg 2 tab(s), Oral, qDay Ozempic 4 mg/3 mL (1 mg dose) subcutaneous solution 1 mg, Subcutaneous, Friday pantoprazole 20 mg EC tablet 40 mg 2 tab(s), Oral, BID psyllium REC Packet 0.5 packet(s), Oral, QID rivaroxaban 10 mg tablet 10 mg 1 tab(s), Oral, qDay Continuous: (0) PRN: (11) acetaminophen 325 mg Tablet 650 mg 2 tab(s), Oral, q4h acetaminophen 325 mg Tablet 650 mg 2 tab(s), Oral, q4h Al hydrox/Mg hydrox/simethicone 200-200-20 mg/5 mL Susp UD 15 mL, Oral, q4h docusate sodium 100 mg Capsule 100 mg 1 cap(s), Oral, BID guaifenesin 100 mg/5 mL Liquid SUGAR-FREE 120 mL 200 mg 10 mL, Oral, q4h melatonin 3 mg tablet 6 mg 2 tab(s), Oral, qHS menthol (Biofreeze) gel packet 1 crow, Topical, TID ondansetron 4 mg DIS tablet 4 mg 1 tab(s), Oral, q8h oxycodone 5 mg tablet (immediate release) 5 mg 1 tab(s), Oral, q4h oxycodone 5 mg tablet (immediate release) 10 mg 2 tab(s), Oral, q4h polyethylene glycol 3350 - UD packet 17 gram(s) 15 mL, Oral, BID Imaging Results and Diagnostics XR Abdomen AP Result Date: September 02, 2023 Verified By: CLARITZA ZHU, LESTER Varner CLINICAL STATEMENT: IMPRESSION: No sign of acute abdominal process. Assessment/Plan 1. Asthenia Continue PT and OT. Surgery was 08/27 at [facility]. Last dose of doxycycline 09/14/23. Patient is progressing well with therapy. Continue heating pad for groin pain. If continues, patient may need an outpatient follow-up with general surgery. 2. S/P total knee arthroplasty Surgery was 08/27 at [facility] by Dr. Wong Campbell. 3. Anxiety Patient is prescribed clonazepam 0.5 mg nightly and has been on this chronically. Continue. 4. Chronic kidney disease, stage 3a Baseline GFR 61-63 with creatinine of 0.9. Labs reviewed from [facility] on 08/28/2023 with creatinine of 0.95 and GFR of 61. 5. Diabetes mellitus, type 2 Chronic with peripheral neuropathy. Glucose goal of 180 or less and avoid hypoglycemia. Continue ADA diet. Continue gabapentin and duloxetine. Patient has her own Ozempic on hand in the med room. 6. HYPERTENSION, ESSENTIAL Chronic, controlled. Continue home antihypertensives with hold parameters. 7. AYAZ (OBSTRUCTIVE SLEEP APNEA) Continue CPAP as at home. DVT prophylaxis: Xarelto 10 mg daily, last dose 09/09/23. Code status: Full Code. Labs, diagnostic test and progress notes reviewed as noted in HPI. Plan of care discussed with patient. All questions answered. Patient verbalizes understanding and is agreeable with plan of care. This case was discussed with collaborating physician, Dr. Hussain Saucedo. Time Spent 35 minutes spent reviewing past diagnostic tests, reviewing lab results, vital sign trends, medical history, reviewing medications and ordering home medications, examining patient, discussed plan of care with nursing, therapy and social media community manager, collaborating with physician, and documenting in chart. CPT#91947 Digitally Signed by ANNETTA PORRAS on 09/05/2023 02:26 PM [facility] 09-02-2023 Note ORIGINAL EXAMINATION: ONE SUPINE XRAY VIEW(S) OF THE ABDOMEN 09/02/2023 11:04 am COMPARISON: CT abdomen and pelvis on 05/19/2021 HISTORY: ORDERING SYSTEM PROVIDED HISTORY: Reason for Exam: Constipation FINDINGS: The bowel gas pattern is nonobstructive with scattered gas in the small and large intestine. No dilated loops of intestine are present. There is no abnormal fecal retention in the colon. No abnormal gas collection is detected. No pathologic calcifications are detected. Patient has had instrumented lumbosacral fusion. There is moderate arthritis of both hips. No acute skeletal abnormality is detected. IMPRESSION: No sign of acute abdominal process. Interpreted by: Lester Campbell MD Preliminary Report By: Lester Campbell MD Electronically signed By Lester Campbell MD Dictated Date: 09/02/2023 11:18:11 AM Prelim Date: 09/02/2023 11:20:15 AM Sign Date: 09/02/2023 11:20:15 AM Ordering Provider: GABRIELLE COPELAND [facility] 09-01-2023 Note Date of Service 09/01/2023 Chief Complaint Asthenia Subjective 72-year-old female with past medical history significant for hypertension, AYAZ on CPAP, MV prolapse, CKD stage III, hypothyroidism, insomnia, IBS, osteoarthritis, history of DVT, type 2 diabetes mellitus, GERD, glaucoma, neuropathy. Patient originally presented to [facility] for revision of right total knee arthroplasty on 08/27/[address] Campbell. Original TKA was done in 2002 In this right knee. She has failed conservative outpatient management. She did have a decrease in function from baseline requiring skilled therapy services per therapy recommendations. Patient has been progressing well. She did not sleep well last night due to groin pain. She states that she has had pain there before but it just started to creep back up since having the surgery. No complaints otherwise. Objective Vitals and Measurements T: 37.1 C (Oral) TMIN: 36.2 C (Oral) TMAX: 37.1 C (Oral) HR: 91(Apical) RR: 18 BP: 109/63 SpO2: 97% Intake and Output 7AM Yesterday to 7AM Today Intake and Output (Last 24 hours) Intake Oral Intake 1200.00 Output Stool Count 0.00 Urine Count 5.00 Emesis Count 0.00 Total Summary Total Intake 1200.00 Total Output 0.00 Fluid Balance 1200.00 Physical Exam GEN: Appears chronically ill CHEST: Normal S1 and S2. Rhythm is regular. Clear to auscultation, without rales, rhonchi, wheezing. ABD: Positive bowel sounds x 4 quads. Soft, nondistended, nontender. EXT: No significant deformity or joint abnormality. No edema. Peripheral pulses intact. NEURO: Sensation grossly intact SKIN: Skin color normal for ethnicity. PSYCH: The mental examination revealed the patient was alert and oriented x 4 Weight Dosing Weight: 115.9 kg (08/29/23) Medications Medications (35) Active Scheduled: (24) acetaminophen 500 mg Tablet 1,000 mg 2 tab(s), Oral, q8h amLODIPine 5 mg tablet 5 mg 1 tab(s), Oral, qDay aspirin 81 mg EC 81 mg 1 tab(s), Oral, Daily atenolol 50 mg tablet 100 mg 2 tab(s), Oral, BID clonazePAM 0.5 mg tablet 0.5 mg 1 tab(s), Oral, qHS docusate sodium 100 mg Capsule 100 mg 1 cap(s), Oral, BID doxycycline hyclate 100 mg Capsule 100 mg 1 cap(s), Oral, BID duloxetine [address] capsule 60 mg 1 cap(s), Oral, Daily empagliflozin 10 mg tablet 10 mg 1 tab(s), Oral, qAM ferrous sulfate 325 mg Tablet 325 mg 1 tab(s), Oral, qDayM fluticasone nasal 0.05 mg/inh [place] 50 mcg 1 spray(s), Nostril, each, BID folic acid 1 mg tablet 1 mg 1 tab(s), Oral, qDay gabapentin 300 mg Capsule 300 mg 1 cap(s), Oral, qDay gabapentin 300 mg Capsule 600 mg 2 cap(s), Oral, qHS latanoprost ophthalmic 0.005% Solution 1 drop(s), Eyes, both, qHS levothyroxine 100 mcg tablet 150 mcg 1.5 tab(s), Oral, Fri//Fri//Fri/Fri losartan 50 mg tablet 100 mg 2 tab(s), Oral, qDay metformin 500 mg ER tablet 500 mg 1 tab(s), Oral, BID metoclopramide 10 mg tablet 5 mg 0.5 tab(s), Oral, BID oxybutynin 5 mg ER tablet 10 mg 2 tab(s), Oral, qDay Ozempic 4 mg/3 mL (1 mg dose) subcutaneous solution 1 mg, Subcutaneous, Friday pantoprazole 20 mg EC tablet 40 mg 2 tab(s), Oral, BID psyllium REC Packet 0.5 packet(s), Oral, QID rivaroxaban 10 mg tablet 10 mg 1 tab(s), Oral, qDay Continuous: (0) PRN: (11) acetaminophen 325 mg Tablet 650 mg 2 tab(s), Oral, q4h acetaminophen 325 mg Tablet 650 mg 2 tab(s), Oral, q4h Al hydrox/Mg hydrox/simethicone 200-200-20 mg/5 mL Susp UD 15 mL, Oral, q4h docusate sodium 100 mg Capsule 100 mg 1 cap(s), Oral, BID guaifenesin 100 mg/5 mL Liquid SUGAR-FREE 120 mL 200 mg 10 mL, Oral, q4h melatonin 3 mg tablet 6 mg 2 tab(s), Oral, qHS menthol (Biofreeze) gel packet 1 crow, Topical, TID ondansetron 4 mg DIS tablet 4 mg 1 tab(s), Oral, q8h oxycodone 5 mg tablet (immediate release) 5 mg 1 tab(s), Oral, q4h oxycodone 5 mg tablet (immediate release) 10 mg 2 tab(s), Oral, q4h polyethylene glycol 3350 - UD packet 17 gram(s) 15 mL, Oral, BID Lab Results No 36 Hour Lab Data EKG No qualifying data available. Assessment/Plan 1. Asthenia 2. S/P total knee arthroplasty 3. HYPERTENSION, ESSENTIAL 4. Diabetes mellitus, type 2 5. Chronic kidney disease, stage 3a 6. AYAZ (OBSTRUCTIVE SLEEP APNEA) 7. Anxiety Asthenia Continue PT and OT. 5 days postop. Last dose of doxycyline 09/14/23. Patient is progressing well with therapy. Add heating pad for groin pain. HTN- SBP goal 140 or less. Continue home antihypertensives. Hold parameters. Type 2 diabetes mellitus with peripheral neuropathy- Glucose goal 180 or less and avoid hypoglycemia. ADA diet. Continue gabapentin and duloxetine CKD stage III baseline GFR 61-63 with creatinine of 0.9. Labs reviewed from [facility] on 08/28/2023 with creatinine of 0.95 and GFR of 61. AYAZ on CPAP CPAP as at home Anxiety patient is prescribed clonazepam 0.5 mg nightly and has been on this chronically. Continue. DVT prophylaxis: Xarelto 10 mg daily, last dose 09/09/23 Code Status: Full code Plan of care discussed with patient. All questions answered. Patient verbalizes understanding is agreeable to plan of care. This dictation was performed using voice recognition software and may include grammatical and/or spelling errors. Time Spent 20 minutes CPT 58387 Digitally Signed by GABRIELLE COPELAND on 09/01/2023 05:11 PM [facility] 1. Asthenia 2. S/P total knee arthroplasty 3. HYPERTENSION, ESSENTIAL 4. Diabetes mellitus, type 2 5. Chronic kidney disease, stage 3a 6. AYAZ (OBSTRUCTIVE SLEEP APNEA) 7. Anxiety Asthenia consult PT and OT. Admit to TCU. Patient is 3 days postop for revision of right total knee arthroplasty. Patient is postoperatively receiving doxycycline. She does have a low-grade temperature this morning of 37.7 C Last dose of doxycyline 09/14/23 HTN- SBP goal 140 or less. Continue home antihypertensives. Hold parameters. Type 2 diabetes mellitus with peripheral neuropathy- Glucose goal 180 or less and avoid hypoglycemia. ADA diet. Continue gabapentin and duloxetine CKD stage III baseline GFR 61-63 with creatinine of 0.9. Labs reviewed from [facility] on 08/28/2023 with creatinine of 0.95 and GFR of 61. AYAZ on CPAP CPAP as at home Anxiety patient is prescribed clonazepam 0.5 mg nightly and has been on this chronically. Continue. DVT prophylaxis: Xarelto 10 mg daily, last dose 09/09/23 Code Status: Full code Plan of care discussed with patient. All questions answered. Patient verbalizes understanding is agreeable to plan of care. This dictation was performed using voice recognition software and may include grammatical and/or spelling errors. CPT 43348 47 minutes Future Appointments Appointment Date:09/17/2023 01:30:00 PM Scheduled Provider:EDMUNDO GAN Location:[facility] Appointment Type:[facility] Hospital Follow-Up Appointment Date:10/15/2023 02:00:00 PM Scheduled Provider:EDMUNDO GAN Location:[facility] Appointment Type: OV Appointment Date:10/16/2023 02:45:00 PM Scheduled Provider:NEL SERRANO MD Location:[facility] Appointment Type:ENDO OV Appointment Date:02/11/2024 02:00:00 PM Scheduled Provider:EDMUNDO GAN Location:[facility] Appointment Type: OV Appointment Date:03/15/2024 01:30:00 PM Scheduled Provider:CHERRY HILARIO Location:[facility] Appointment Type:[facility] Future Scheduled Tests Laboratory* Thyroglobulin, Serum with Reflex 10/19/23 * Thyroid Antibodies 10/19/23 * Thyroid Stimulating Hormone 10/19/23 * Free T4 10/19/23 * A1C Hemoglobin 10/19/23 * Free T3 10/19/23 * Albumin/Creatinine Ratio, Random Urine 10/19/23 * Vitamin D Level 10/19/23 * Complete Metabolic Panel 10/19/23 [facility] 10-28-2023 Note Date of Service 08/30/2023 Chief Complaint Asthenia History of Present Illness 72-year-old female with past medical history significant for hypertension, AYAZ on CPAP, MV prolapse, CKD stage III, hypothyroidism, insomnia, IBS, osteoarthritis, history of DVT, type 2 diabetes mellitus, GERD, glaucoma, neuropathy. Patient originally presented to [facility] for revision of right total knee arthroplasty on 08/27/[address] Campbell. Original TKA was done in 2002 In this right knee. She has failed conservative outpatient management. She did have a decrease in function from baseline requiring skilled therapy services per therapy recommendations. Of note patient has a history of DVT following previous orthopedic surgery. On exam today, pt denies any fever or chills. No headache or dizziness. Denies chest pain, palpitations. No cough, dyspnea, sputum production. Denies N/V/D/C. No melena/hematochezia. No dysuria or hematuria. No new paresthesias. Review of Systems See HPI for specific ROS. All other systems reviewed and negative. Physical Exam Vitals and Measurements T: 37.7 C (Oral) TMIN: 36.6 C (Oral) TMAX: 37.7 C (Oral) HR: 88(Apical) RR: 18 BP: 129/83 SpO2: 92%HT: 188 cm WT: 115.9 kg BMI: 32.79 Weight Dosing Weight: 115.9 kg (08/29/23) GEN: Appears chronically ill EYES: No conjunctival erythema, drainage. EOMI EARS: Hearing grossly intact. NOSE: No nasal discharge. THROAT: Oral cavity and pharynx pink and moist. CHEST: Normal S1 and S2. Rhythm is regular. Clear to auscultation, without rales, rhonchi, wheezing. ABD: Positive bowel sounds x 4 quads. Soft, nondistended, nontender. EXT: No significant deformity or joint abnormality. No edema. Peripheral pulses intact. NEURO: Sensation grossly intact SKIN: Skin color normal for ethnicity. Dressing in place over surgical incision. PSYCH: The mental examination revealed the patient was alert and oriented x 4 Assessment/Plan 1. Asthenia 2. S/P total knee arthroplasty 3. HYPERTENSION, ESSENTIAL 4. Diabetes mellitus, type 2 5. Chronic kidney disease, stage 3a 6. AYAZ (OBSTRUCTIVE SLEEP APNEA) 7. Anxiety Asthenia consult PT and OT. Admit to TCU. Patient is 3 days postop for revision of right total kneearthroplasty. Patient is postoperatively receiving doxycycline. She does have a low-grade temperature this morning of 37.7 C Last dose of doxycyline 09/14/23 HTN- SBP goal 140 or less. Continue home antihypertensives. Hold parameters. Type 2 diabetes mellitus with peripheral neuropathy- Glucose goal 180 or less and avoid hypoglycemia. ADA diet. Continue gabapentin and duloxetine CKD stage III baseline GFR 61-63 with creatinine of 0.9. Labs reviewed from [facility] on 08/28/2023 with creatinine of 0.95 and GFR of 61. AYAZ on CPAP CPAP as at home Anxiety patient is prescribed clonazepam 0.5 mg nightly and has been on this chronically. Continue. DVT prophylaxis: Xarelto 10 mg daily, last dose 09/09/23 Code Status: Full code Plan of care discussed with patient. All questions answered. Patient verbalizes understanding is agreeable to plan of care. This dictation was performed using voice recognition software and may include grammatical and/or spelling errors. 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 Long-term current use of benzodiazepine Lower leg edema Lumbar post-laminectomy syndrome Lumbar radiculitis MIGRAINE MITRAL VALVE PROLAPSE Oral candidiasis AYAZ (OBSTRUCTIVE SLEEP APNEA) Screening for osteoporosis Sleep apnea Sleep apnea Spondylosis of lumbar region without myelopathy or radiculopathy Vitamin D deficiency Vivid dream Historical DVT - Deep vein thrombosis TIA Procedure/Surgical History Epidural steroid injection: 02/17/23 History of lumbar spine surgery: 06/06/22 Fluoroscopy guided injection of bilateral facet joints of cervical spine: 12/11/21 Injection into shoulder joint- right: 11/09/21 Radiofrequency ablation of medial branch of lumbar nerve using fluoroscopic guidance: 06/25/21 IVC - Removal of inferior vena caval filter: 08/15/17 Total arthroplasty of knee, geomedic or polycentric: 2011 Arthroscopy of shoulder: 2010 Total arthroplasty of knee, geomedic or polycentric: 2002 IVC - Insertion of inferior vena caval filter Hammer toe operation Cholecystectomy Cholecystectomy Medications Home Medications (35) Active Alcohol Swabs See Instructions amLODIPine 5 mg oral tablet 5 mg = 1 tab(s), Oral, qDay amLODIPine 5 mg oral tablet 5 mg = 1 tab(s), Oral, qDay aspirin 81 mg oral delayed release tablet 81 mg = 1 tab(s), Oral, Daily Atacand 32 mg oral tablet 32 mg = 1 tab(s), Oral, qDay atenolol 100 mg oral tablet 100 mg = 1 tab(s), Oral, BID DME MISCellaneous See Instructions DME MISCellaneous See Instructions docusate sodium 50 mg, Oral, BID doxycycline hyclate 100 mg oral capsule 100 mg = 1 cap(s), Oral, BID DULoxetine 60 mg oral delayed release capsule 60 mg = 1 cap(s), Oral, Daily ferrous sulfate 325 mg (65 mg elemental iron) oral tablet 325 mg = 1 tab(s), Oral, qDay Flonase 50 mcg/inh nasal spray 1 spray(s), Nostril, each, BID folic acid 1 mg oral tablet 1 mg = 1 tab(s), Oral, qDay FREESTYLE INDIRA 2 SENSOR gabapentin 300 mg oral capsule 300 mg = 1 cap(s), Oral, qDay gabapentin 600 mg oral tablet 600 mg = 1 tab(s), Oral, qHS Jardiance 25 mg oral tablet 12.5 mg = 0.5 tab(s), Oral, qAM KlonoPIN 0.5 mg oral tablet 0.5 mg = 1 tab(s), Oral, qHS latanoprost 0.005% ophthalmic solution metFORMIN 500 mg oral tablet (IR) 500 mg = 1 tab(s), Oral, BID metoclopramide 5 mg oral tablet nystatin 100,000 units/g topical cream 1 crow, Topical, BID ondansetron 4 mg oral tablet, disintegrating oxybutynin 10 mg/24 hr oral tablet, extended release 10 mg = 1 tab(s), Oral, qDay oxyCODONE 5 mg oral tablet ( IMMEDIATE release ) 1-2 tab(s), PRN, Oral, q4h Ozempic 4 mg/3 mL (1 mg dose) subcutaneous solution 1 mg, Subcutaneous, qWeek pantoprazole 40 mg oral enteric coated tablet 40 mg = 1 tab(s), Oral, BID Pen needles 4 mm See Instructions psyllium 0.4 gram(s), Oral, QID Synthroid 175 mcg (0.175 mg) oral tablet 175 mcg = 1 tab(s), Oral, qDay tiZANidine 4 mg oral capsule 4 mg = 1 cap(s), PRN, Oral, qDay Trulance 3 mg oral tablet 3 mg = 1 tab(s), Oral, BID Tylenol Extra Strength 500 mg oral tablet 1,000 mg = 2 tab(s), Oral, q8h Xarelto 10 mg oral tablet 10 mg = 1 tab(s), Oral, qDay Allergies linezolid sulfa drugs (rash) Social History Smoking Status - 08/09/2018 Former smoker Alcohol - Denies Alcohol Use, 01/13/2018 Use: Current. Type: Wine. Frequency: 1-2 times per year., 12/26/2022 Employment/School Status: Retired., 05/01/2021 Home/Environment Living situation: Home/Independent., 08/29/2023 Living situation: Home/Independent., 08/13/2019 Nutrition/Health Type of diet: Regular. Appetite Good., 08/29/2023 Caffeine intake amount: sometimes., 12/26/2022 Substance Abuse - Denies Substance Abuse, 01/13/2018 Use: Never., 12/24/2018 Tobacco Nicotine Use: Former smoker, quit more than 30 days ago. Exposure to Tobacco Smoke Lives in non-smoking home., 02/02/2020 Family History Cancer: Mother. Diabetes mellitus: Sister. HTN - Hypertension: Sister and Brother. Immunizations pneumococcal 13-valent conjugate vaccine: 0.5 mL (11/02/15) pneumococcal 23-valent vaccine(Pneumovax: 0.5 mL (08/22/20) pneumococcal 23-valent vaccine(Pneumovax: 0.5 mL (06/07/14) pneumococcal 23-valent vaccine(Pneumovax: 0 unknown unit (09/20/10) SARS-CoV-2 (COVID-19) mRNA-1273 vaccine: 0.25 unknown unit (02/04/22) SARS-CoV-2 (COVID-19) mRNA-1273 vaccine: 0.25 unknown unit (09/12/21) SARS-CoV-2 (COVID-19) mRNA-1273 vaccine: 0.5 unknown unit (02/13/21) SARS-CoV-2 (COVID-19) mRNA-1273 vaccine: 0.5 unknown unit (01/16/21) tetanus/diphth/pertuss (Tdap) adult/adol: 0.5 mL (05/26/08) zoster vaccine, inactivated: 1 unknown unit (05/20/19) Code Status Code Status - Ordered -- 08/29/23 17:54:00 EDT, Full Code, Constant Order Digitally Signed by GABRIELLE COPELAND on 08/30/2023 01:15 PM [facility]10-18-2023 NoteAddended by: JEREMIAH BERMUDEZ on: 08/20/2023 11:58 AM Modules [facility] History of Present illness Narrative* ALEXANDRO Morillo CNP - 08/20/2023 10:00 AM EDT Patient was identified and seen today via Telehealth by agreement and consent. I used the followingTeleAmitive technology: Audio and video capabilities. Patient location: Patient Location: Home. This patient encounter is appropriate and reasonable under the circumstances: transportation issuesVisit type: Established Patient Reason for Visit: Follow-up and Sleep Apnea Assessment and Plan 1. Migraine without aura and without status migrainosus, not intractable 2. Obstructive sleep apnea Subjective HPI: Failed-Nurtec, cannot use Triptans, Fioricet, Ubrelvy, Verapamil Gabapentin 300mg and 600mg in pm Cymbalta 60mg daily, Aimovig Total right knee replacement scheduled for next Friday She reports that her headaches are great Dosing Excedrin migraine She got a new PAP Using nightly She has lost about 16lbs. She is experiencing some gas after waking REVIEW OF SYSTEMS: Review of Systems Constitutional: Negative. HENT: Negative. Eyes: Negative. Respiratory: Negative. Cardiovascular: Negative. Gastrointestinal: Negative. Endocrine: Negative. Genitourinary: Negative. Musculoskeletal: Negative. Skin: Negative. Allergic/Immunologic: Negative. Neurological: Positive for headaches. Hematological: Negative. Psychiatric/Behavioral: Negative. Allergies Allergen Reactions Linezolid Other reaction(s): Other, Other (See Comments) Povidone-Iodine Other reaction(s): None Sulfa Antibiotics Itching Other reaction(s): rash Metoprolol Rash Outpatient Medications Prior to Visit Medication Sig Dispense Refill amLODIPine (Norvasc) 5 MG tablet 5 mg. aspirin 81 MG EC tablet 162 mg. atenolol (Tenormin) 100 MG tablet Take 100 mg by mouth. Azelastine HCl 137 MCG/SPRAY solution Administer 1 spray into each nostril 2 times daily. candesartan (Atacand) 32 MG tablet 32 mg. clonazePAM (KlonoPIN) 0.5 MG tablet Take 0.5 mg by mouth Nightly. doxycycline (Vibra-Tabs) 100 MG tablet Take 100 mg by mouth 2 times daily. DULoxetine (Cymbalta) [address] capsule Take 60 mg by mouth. erenumab (Aimovig) 140 MG/ML injection INJECT 1 PEN INTO THE SKIN EVERY 30 DAYS 1 mL 5 Jardiance 25 MG Take 25 mg by mouth every morning. levothyroxine (Synthroid, Levoxyl) 150 MCG tablet Take 150 mcg by mouth daily. metoclopramide (Reglan) 5 MG tablet Take 5 mg by mouth 2 times daily. ondansetron ODT (Zofran-ODT) 4 MG disintegrating tablet dissolve 1 tablet ON TONGUE every 8 hours if needed for nausea and vomiting Ozempic, 0.25 or 0.5 MG/DOSE, 2 MG/3ML solution pen-injector inject 0.5 milligram subcutaneously every week -ROTATE INJECTION SITES pantoprazole (ProtoNix) 40 MG EC tablet take 1 tablet by mouth twice a day for 8 WEEKS then once daily for 8 WEEKS plecanatide (Trulance) tablet tablet Take 3 mg by mouth. tiZANidine (Zanaflex) 4 MG tablet take 1 tablet by mouth once daily if needed for muscle spasm gabapentin (Neurontin) 300 MG capsule Take 1 cap in am and 2 at bedtime 270 capsule 1 No facility-administered medications prior to visit. Past Medical History: Diagnosis Date Diabetes mellitus (HCC) Hypertension Lumbar herniated disc Migraine Neuropathy Sleep apnea Stroke (HCC) 2007 Social History Tobacco Use Smoking status: Former Packs/day: 0.00 Years: 15.00 Additional pack years: 0.00 Total pack years: 0.00 Types: Cigarettes Smokeless tobacco: Never Substance Use Topics Alcohol use: Not Currently Past Surgical History: Procedure Laterality Date BACK SURGERY 06/06/2022 lower CARPAL TUNNEL RELEASE 1978 COLONOSCOPY JOINT REPLACEMENT UPPER GASTROINTESTINAL ENDOSCOPY No family history on file. Objective Vitals: BP 131/85 Pulse 86 Wt 255 lb (116 kg) BMI 32.74 kg/m General Appearance: Patient is in no apparent distress. Head is normocephalic, atraumatic Neurologic: Mentation: Alert and oriented x 3 to person, [address] and time. Speech and Language: Speech and language normal Concentration and Attention: Concentration normal Memory: Memory normal Fund of Knowledge: Fund of knowledge normal Data Reviewed and Summarized DIAGNOSTIC TESTING CBC: No results found for: WBC , RBC , HGB , HCT , MCV , MCH , MCHC , RDW , PLT , MPV CMP: No results found for: NA , K , CL , CO2 , BUN , CREATININE , AGRATIO , LABGLOM , GLUCOSE , GLU , PROT , CALCIUM , BILITOT , ALKPHOS , AST , ALT BMP: No results found for: NA , K , CL , CO2 , BUN , CREATININE , CALCIUM , LABGLOM , GLUCOSE , GLU PT/INR: No results found for: PROTIME , INR PTT: No results found for: APTT , PTT [APTT} FLP: No results found for: CHLPL , TRIG , HDL , LDLCALC , LDLDIRECT TSH: No results found for: TSH VITAMIN B12: No results found for: [id number] No results found for: PHENYTOIN , PHENOBARB , VALPROATE , CBMZ No components found for: TOPIRA @RESULTINGLABINFO@ No results found for: LEVETIRACETA , FERRITIN , CRP , GAMALIEL , ANCA No results found for: KATHLEEN , IMMUNOGLOBUL , OLIGOBANDS No results found for: [id number] , HEPCAB No results found for: CRP , ANATITER , ANCA FERRITIN: No results found for: FERRITIN ---- No image results found. @LASTAPPOINTMENTTHISPROV@ IMPRESSION and PLAN: Problem List Items Addressed This Visit None Visit Diagnoses Migraine without aura and without status migrainosus, not intractable - Primary Obstructive sleep apnea Continue Aimovig monthly injections Continue Gabapentin 300mg in am and 600mg in pm and Cymbalta 60mg daily Will get her current PAP settings from [facility] and reduce---after the visit staff was able to contact. Will reduce her CPAP setting from [id number] to [id number] No problem-specific Assessment & Plan notes found for this encounter. ALEXANDRO Morillo CNP I spent 30 minutes caring for this patient today, reviewing labs, records, seeing the patient, documenting in the record and arranging for studies. Electronically signed by @ALEXANDRA@ on @TDNR@ at @NOWNR@ . The patient has been advised of the potential risks and limitations of this mode of treatment (including but not limited to the absence of in-person examination) and has agreed to be treated in a remote fashion in spite of them. Any and all of the patient's/patient's family's questions on this issue have been answered and I have made no promises or guarantees to the patient. The patient has also been advised to contact this office for worsening conditions or problems, and seek emergency medical treatment and/or call 911 if the patient deems either necessary. The patient stated that they are currently in the [facility]. If the patient is a minor, permission has been obtained by the parent or guardian for the patient to receive medical care at this visit. documented in this [facility]10-18-2023 Miscellaneous Notes* Addendum Note - ALEXANDRO Morillo CNP - 08/20/2023 10:00 AM EDTAddended by: JEREMIAH BERMUDEZ on: 08/20/2023 11:58 AM Modules accepted: Orders documented in this [facility]10-18-2023 Note* Addendum Note - ALEXANDRO Morillo CNP - 08/20/2023 10:00 AM EDTAddended by: JEREMIAH BERMUDEZ on: 08/20/2023 11:58 AM Modules accepted: [id number] Note* Addendum Note - ALEXANDRO Morillo CNP - 08/20/2023 10:00 AM EDTAddended by: JEREMIAH BERMUDEZ on: 08/20/2023 11:58 AM Modules accepted: Orders [facility] [id number] Note. MICRO - Microbiology PROCEDURE: Acid Fast Bacilli Culture w Stain if Ind [*1] SOURCE: Synovial Fluid BODY SITE: COLLECTED DATE/TIME: 04/07/2023 14:39 EDT RECEIVED DATE/TIME: 04/07/2023 21:22 EDT START DATE/TIME: 04/07/2023 21:22 EDT FREE TEXT SOURCE: FINAL REPORTS Final Report [] Verified Date/Time/Personnel: 06/05/2023 09:19 EDT No growth of Acid Fast Bacilli PRELIMINARY REPORTS Preliminary Report [] Verified Date/Time/Personnel: 05/20/2023 09:33 EDT No growth of Acid Fast Bacilli to date. Final report to follow at 8 weeks. STAINS AFS [] Verified Date/Time/Personnel: 04/08/2023 12:13 EDT Acid Fast Smear from Concentrated Specimen: Negative Performing Locations *1: This test was performed at: [facility], [address] [place] [address], [facility] , [facility] ([place])05-07-2023 Note. MICRO - Microbiology PROCEDURE: Fungal Culture with Stain if Ind [*1] SOURCE: Synovial Fluid BODY SITE: COLLECTED DATE/TIME: 04/07/2023 14:40 EDT RECEIVED DATE/TIME: 04/07/2023 21:22 EDT START DATE/TIME: 04/07/2023 21:22 EDT FREE TEXT SOURCE: FINAL REPORTS Final Report [] Verified Date/Time/Personnel: 05/07/2023 08:46 EDT No fungus isolated in 4 weeks. PRELIMINARY REPORTS Preliminary Report [] Verified Date/Time/Personnel: 04/10/2023 07:38 EDT No fungus isolated to date. Final report to follow. STAINS FUNSM [] Verified Date/Time/Personnel: 04/08/2023 12:15 EDT No fungal elements observed by calcofluor white stain. Performing Locations *1: This test was performed at: [address], [facility] , [facility] access hospital04-12-2023 Note. MICRO - Microbiology PROCEDURE: Culture Body Fluid with Gram Stain [*1] SOURCE: Synovial Fluid BODY SITE: COLLECTED DATE/TIME: 04/07/2023 14:47 EDT RECEIVED DATE/TIME: 04/07/2023 21:22 EDT START DATE/TIME: 04/07/2023 21:22 EDT FREE TEXT SOURCE: FINAL REPORTS Final Report [] Verified Date/Time/Personnel: 04/12/2023 21:59 EDT Culture: No Growth at 5 days. PRELIMINARY REPORTS Preliminary Report [] Verified Date/Time/Personnel: 04/08/2023 11:20 EDT No growth to date Preliminary Report [] Verified Date/Time/Personnel: 04/07/2023 21:59 EDT Culture has been received in lab and is no growth to date. Routine cultures are held for 5 days. STAINS GS [] Verified Date/Time/Personnel: 04/07/2023 22:17 EDT Unsedimented No organisms seen. Performing Locations *1: This test was performed at: [address], [id number] , [facility])04-03-2023 Telephone encounter Note* Telephone Encounter - ALEXANDRO Morillo CNP - 04/03/2023 8:54 AM EDT On 03/28/23 I completed an order and faxed that along with most recent chart note. [facility] [id number] Miscellaneous Notes* Telephone Encounter - ALEXANDRO Morillo CNP - 04/03/2023 8:54 AM EDT On 03/28/23 I completed an order and faxed that along with most recent chart note. * Telephone Encounter - Asterabena Malone - 04/01/2023 9:46 AM EDT Name of caller: Prabhu Contact phone number: [phone] Relationship to Patient: [facility] Provider: SALMA Bermudez Practice: Neurology Chief Complaint/Reason for Call: Prabhu advises that a more detailed order has been faxed over regarding the Patient's Cpap machine. Prabhu is requesting for the order to be filled and out and faxed back. Please be advised. Best time of day caller can be reached: Any Patient advised that office/PCP has 24-48 business hours to return their call: Yes documented in [facility]SP[facility] [id number] Telephone encounter Note* Telephone Encounter - Asterabena Malone - 04/01/2023 9:46 AM EDT Name of caller: Prabhu Contact phone number: [phone] Relationship to Patient: [facility] Provider: SALMA Bermudez Practice: Neurology Chief Complaint/Reason for Call: Prabhu advises that a more detailed order has been faxed over regarding the Patient's Cpap machine. Prabhu is requesting for the order to be filled and out and faxed back. Please be advised. Best time of day caller can be reached: Any Patient advised that office/PCP has 24-48 business hours to return their call: Yes [facility] [id number] Note ORIGINAL EXAMINATION: THREE PHASE BONE SCAN03/28/2023 10:54 am TECHNIQUE: The patient received an intravenous injection of 29.9 millicuries of Tc-99m MDP. Immediate dynamic planar perfusion images of knees were acquired followed by static planar early blood pool images. After approximately 3h, multiple delayed static planar images were then acquired. Delayed Anterior and posterior planar images of the skeleton from skull vertex to feet were also obtained. Additional SPECT/CT images were acquired. COMPARISON: Right knee radiographs 01/16/2022. Left knee radiographs 02/05/2017 HISTORY: ORDERING SYSTEM PROVIDED HISTORY: Reason for Exam: Pain due to internal orthopedic prosthetic devices, implants and grafts, subsequent encounter. FINDINGS: Early phase images demonstrate no hyperemia. Blood pool images reveal increased activity at the right tibial plateau. Delayed osseous phase images demonstrate increased radiotracer uptake at the right tibial plateau and right patella. Photopenic areas seen at the left knee and right femoral condyle correlate with surgical hardware seen on prior radiographs. The soft tissue distribution of radiotracer activity is within normal limits. IMPRESSION: Three-phase negative study. Increased radiotracer uptake at the right tibial plateau and right patella on blood pool and delayed images are suspicious for hardware loosening but in the absence of increased flow, may represent degenerative changes. I have personally reviewed the images of this examination and agree with the resident's findings and interpretation. Interpreted by: Ronna Orta Preliminary Report By: Ludy Mosley Electronically signed By Ronna Orta Dictated Date: 03/28/2023 2:12:21 PM Prelim Date: 03/28/2023 4:40:44 PM Sign Date: 03/28/2023 4:40:44 PM Ordering Provider: WONG SHANNAN [facility]05-26-2023 Note ORIGINAL EXAMINATION: THREE PHASE BONE SCAN03/28/2023 10:54 am TECHNIQUE: The patient received an intravenous injection of 29.9 millicuries of Tc-99m MDP. Immediate dynamic planar perfusion images of knees were acquired followed by static planar early blood pool images. After approximately 3h, multiple delayed static planar images were then acquired. Delayed Anterior and posterior planar images of the skeleton from skull vertex to feet were also obtained. Additional SPECT/CT images were acquired. COMPARISON: Right knee radiographs 01/16/2022. Left knee radiographs 02/05/2017 HISTORY: ORDERING SYSTEM PROVIDED HISTORY: Reason for Exam: Pain due to internal orthopedic prosthetic devices, implants and grafts, subsequent encounter. FINDINGS: Early phase images demonstrate no hyperemia. Blood pool images reveal increased activity at the right tibial plateau. Delayed osseous phase images demonstrate increased radiotracer uptake at the right tibial plateau and right patella. Photopenic areas seen at the left knee and right femoral condyle correlate with surgical hardware seen on prior radiographs. The soft tissue distribution of radiotracer activity is within normal limits. IMPRESSION: Three-phase negative study. Increased radiotracer uptake at the right tibial plateau and right patella on blood pool and delayed images are suspicious for hardware loosening but in the absence of increased flow, may represent degenerative changes. I have personally reviewed the images of this examination and agree with the resident's findings and interpretation. Interpreted by: Ronna Orta Preliminary Report By: Ludy Mosley Electronically signed By Ronna Orta Dictated Date: 03/28/2023 2:12:21 PM Prelim Date: 03/28/2023 4:40:44 PM Sign Date: 03/28/2023 4:40:44 PM Ordering Provider: [facility]04-19-2023 Telephone encounter Note* Telephone Encounter - Osei Esparza MA - 02/19/2023 12:47 PM EDT Spoke with patient I advised her that the order will be re-faxed to [facility] [phone] [facility] [id number] Miscellaneous Notes* Telephone Encounter - Osei Esparza MA - 02/19/2023 12:47 PM EDT Spoke with patient I advised her that the order will be re-faxed to [facility] in [place] [phone] * Telephone Encounter - Martha Arce - 02/19/2023 12:16 PM EDT Name of caller: Cristine Contact phone number: [phone] Relationship to Patient: patient Provider: SALMA Bermudez Practice: [facility] Neuro Chief Complaint/Reason for Call: Pt states that she was seen in the office on 02/12 and told that a new order for a CPAP machine would be getting put in after that. Pt states that it was needing to besent to [facility] in [place], and that [facility] then sends it to the location in [facility] for her. Pt states that [facility] in [place] has not received the order. Chart shows an order from 02/05, but not one on or after 02/12. Best time of day caller can be reached: Any Patient advised that office/PCP has 24-48 business hours to return their call: Yes documented in this encounterSParkview Health [facility]pel[facility] [id number] Telephone encounter Note* Telephone Encounter - Martha Arce - 02/19/2023 12:16 PM EDT Name of caller: Cristine Contact phone number: [phone] Relationship to Patient: patient Provider: SALMA Bermudez Practice: [facility] Neuro Chief Complaint/Reason for Call: Pt states that she was seen in the office on 02/12 and told that a new order for a CPAP machine would be getting put in after that. Pt states that it was needing to besent to [facility] in [place], and that [facility] then sends it to the location in [facility] for her. Pt states that [facility] in [place] has not received the order. Chart shows an order from 02/05, but not one on or after 02/12. Best time of day caller can be reached: Any Patient advised that office/PCP has 24-48 business hours to return their call: Yes [facility] [id number] Note ORIGINAL Images acquired, not reported on this accession number. [facility]04-17-2023 Note ORIGINAL Images acquired, not reported on this accession number.[place] [id number] Hospital Discharge instructions Patient Education 02/17/2023 08:20:41 Local Anesthesia, Care After Local Anesthesia, Care After This sheet gives you information about how to care for yourself after your procedure. Your health care provider may also give you more specific instructions. If you have problems or questions, contact your health care provider. What can I expect after the procedure? After the procedure, it is common to have: Numbness in the area where you were given local anesthetic medicine. This numbness usually wears off within a few hours. It should be completely gone after 24 hours. Bruising, bleeding, or redness in the area where the medicine was given. Follow these instructions at home: If you had an injection: Check the area where the medicine was injected every day for signs of infection. Check for: ?Redness, swelling, or pain. ?Fluid or blood. ?Warmth. ?Pus or a bad smell. General instructions Follow instructions from your health care provider about how to take care of the area that was numbed. Protect the area from harm until the medicine wears off and you regain full feeling in the area. If you have a wound or incision, keep it clean and dry. Return to your normal activities as told by your health care provider. Ask your health care provider what activities are safe for you. Take pasj-per-samrlrz and prescription medicines only as told by your health care provider. Contact a health care provider if: You have numbness at the procedure site that last more than 24 hours. You have pain at the procedure site that is not controlled with the pain medicine that your health care provider gave you. You have redness or swelling around the procedure site. The injection area feels warm to the touch. You have pus or a bad smell coming from the injection site. You have a fever. Get help right away if: You have trouble breathing. You have chest pain. Summary After the procedure, it is common to have numbness for many hours in the area where you were given local anesthetic medicine. Protect the numbed area from harm until the medicine wears off and you regain full feeling in the area. This information is not intended to replace advice given to you by your health care provider. Make sure you discuss any questions you have with your health care provider. Document Released: 04/10/2018 Document Revised: 10/02/2018 Document Reviewed: 04/10/2018 [employer] Patient Education 2020 [employer] 02/17/2023 08:20:14 Epidural Steroid Injection, Care After Epidural Steroid Injection, Care After Refer to this sheet in the next few weeks. These instructions provide you with information about caring for yourself after your procedure. Your health care provider may also give you more specific instructions. Your treatment has been planned according to current medical practices, but problems sometimes occur. Call your health care provider if you have any problems or questions after your procedure. What can I expect after the procedure? After your procedure, it is common to feel a little discomfort at the injection site. Follow these instructions at home: For 24 hours after the procedure: ?Avoid using heat on the injection site. ?Do not take a tub bath, and do not soak in water. ?Do not drive if you received a medicine to help you relax (sedative). If directed, put ice on the injection site: ?Put ice in a plastic bag. ?Place a towel between your skin and the bag. ?Leave the ice on for 20 minutes, 2 3 times a day. Return to your normal activities as told by your health care provider. Ask your health care provider what activities are safe for you. You may remove the bandage (dressing) after 24 hours. Take wmzg-btl-otagjkn and prescription medicines only as told by your health care provider. Keep all follow-up visits as told by your health care provider. This is important. Contact a health care provider if: You have a fever. You continue to have pain and soreness around the injection site, even after taking mixv-yfb-rtxhpcc pain medicine. You have severe, sudden, or lasting nausea or vomiting. Get help right away if: You have severe pain at the injection site that is not relieved by medicines. You develop a severe headache or a stiff neck. You become sensitive to light. You have any new numbness or weakness in your legs or arms. You lose control of your bladder or bowel movements. You have trouble breathing. This information is not intended to replace advice given to you by your health care provider. Make sure you discuss any questions you have with your health care provider. Document Released: 02/04/2012 Document Revised: 10/02/2018 Document Reviewed: 02/04/2017 [employer] Patient Education 2020 [employer] Follow Up Care 02/05/2023 15:06:31 With:DARIO MESA Address: [address] [place] [address] [phone] Business (1) When: Unknown Comments:Keep follow-up appointment. [facility] 04-17-2023 Summary of episode note Discharge Instructions Thank you for allowing [facility] to assist you with your healthcare needs. The following is importantdischarge information regarding your hospital visit. Your Care Team EDMUNDO GAN What to do next Scheduled Follow-Up Appointments Appointment Type When With Where Contact InformationPM OV 02/19/2023 09:45 AM EDT RENE TORRES [facility] OV Controlled Medication 03/18/2023 10:45 AM EDT EDMUNDO GAN [facility] [address] [id number] ENDO OV 03/20/2023 11:00 AM EDT NEL SERRANO MD AM Endocrinology [place] CV OV 03/24/2023 11:30 AM EDT CHERRY HIL[facility] CV Follow Up Appointments Follow Up with DARIO MESA When Why: Keep follow-up appointment. Where: [address] [place] [address] [place] [address] [phone] Business (1) Allergies linezolid sulfa drugs (rash) Medications Please ask your primary doctor or pharmacist before taking any other medication not listed, including over the counter drugs, herbal medications, vitamins and or supplements as they may interact withyour home medications. What How Much When Why Instructions Last Dose Unchanged acetaminophen-oxyCODONE (acetaminophen-oxyCODONE 325 mg-5 mg oral tablet) 1 tab(s) by mouth Two (2) times a day Lumbar post-laminectomy syndrome Lumbar radiculitis Duration: 30 Days Unchanged amLODIPine (amLODIPine 5 mg oral tablet) 1 tab(s) by mouth Once a day Duration: 90 Days Unchanged aspirin (aspirin 81 mg oral delayed release tablet) 2 tab(s) by mouth Once a day Unchanged atenolol (atenolol 100 mg oral tablet) 1 tab(s) by mouth Two (2) times a day Unchanged candesartan (Atacand 32 mg oral tablet) 1 tab(s) by mouth Once a day Duration: 90 Days Unchanged cholecalciferol (Vitamin D3 1250 mcg (50,000 intl units) oral capsule) take 1 capsule by mouth every week Unchanged clonazePAM (KlonoPIN 0.5 mg oral tablet) 1 tab(s) by mouth Daily at bedtime Insomnia Duration: 90 Days Unchanged diazePAM (Valium 10 mg oral tablet) See instructions Lumbar radiculitis Take 1 tablet 1/ 2-hour prior to procedure. Patient must have a motorcoach driver to from procedure. Unchanged DME (Alcohol Swabs) See instructions Diabetes mellitus type 2 QS for testing once daily. E11.9 Unchanged DME (DME MISCellaneous) See instructions DME Freestyle Indira 2 Sensors. 1 every 14 days. E11.65 Unchanged DME (DME MISCellaneous) See instructions Freestyle Indira 2 [place]. Unchanged DME (Pen needles 4 mm) See instructions Diabetes mellitus type 2 Injects insulin twice daily. E11.9 Unchanged DULoxetine (DULoxetine 60 mg oral delayed release capsule) 1 cap by mouth Every day Duration: 90 Days Unchanged empagliflozin (Jardiance 25 mg oral tablet) take 1 tablet by mouth every morning Unchanged gabapentin (gabapentin 300 mg oral capsule) 1 cap by mouth Three (3) times a day Unchanged ibuprofen (ibuprofen 200 mg oral capsule) 2 cap by mouth Every 4 hours as needed for as needed Unchanged latanoprost ophthalmic (latanoprost 0.005% ophthalmic solution) place 1 drop into both eyes every evening Unchanged levothyroxine (levothyroxine 200 mcg (0.2 mg) oral tablet) 1 tab(s) by mouth Once a day before a meal 1/ 2 tab on friday Unchanged metFORMIN (metFORMIN 500 mg oral tablet (IR)) 1 tab(s) by mouth Two (2) times a day Unchanged Misc Medication (FREESTYLE INDIRA 2 SENSOR) apply 1 SENSOR to back OF UPPER ARM REMOVE AND REPLACE every 14 days Unchanged nystatin topical (nystatin 100,000 units/ g topical cream) 1 application Topical Two (2) times a day Unchanged ondansetron (ondansetron 4 mg oral tablet, disintegrating) dissolve 1 tablet ON TONGUE every 8 hours if needed for nausea OR vomiting Unchanged oxybutynin (oxybutynin 10 mg/ 24 hr oral tablet, extended release) 1 tab(s) by mouth Once a day Duration: 90 Days Unchanged pantoprazole (pantoprazole 40 mg oral enteric coated tablet) take 1 tablet by mouth twice a day for 8 WEEKS then once daily for 8 WEEKS Unchanged tiZANidine (tiZANidine 4 mg oral capsule) 1 cap by mouth Once a day as needed for as needed for muscle spasm Lumbar post-laminectomy syndrome Lumbar radiculitis Duration: 30 Days Unchanged colestipol (colestipol 1 g oral tablet) 1 tab(s) by mouth Two (2) times a day Contact prescriber if questions or concerns Please take this list to your next doctor s visit. Bring all medications you take, including over the counter medications, herbals and other supplements with you to your doctor s visit. Patients and families are reminded to discard old lists and to update any records with all medication providers or retail pharmacies. Education Materials Local Anesthesia, Care After This sheet gives you information about how to care for yourself after your procedure. Your health care provider may also give you more specific instructions. If you have problems or questions, contact your health care provider. What can I expect after the procedure? After the procedure, it is common to have: Numbness in the area where you were given local anesthetic medicine. This numbness usually wears off within a few hours. It should be completely gone after 24 hours. Bruising, bleeding, or redness in the area where the medicine was given. Follow these instructions at home: If you had an injection: Check the area where the medicine was injected every day for signs of infection. Check for: ? Redness, swelling, or pain. ? Fluid or blood. ? Warmth. ? Pus or a bad smell. General instructions Follow instructions from your health care provider about how to take care of the area that was numbed. Protect the area from harm until the medicine wears off and you regain full feeling in the area. If you have a wound or incision, keep it clean and dry. Return to your normal activities as told by your health care provider. Ask your health care provider what activities are safe for you. Take jqey-xso-fzgciuk and prescription medicines only as told by your health care provider. Contact a health care provider if: You have numbness at the procedure site that last more than 24 hours. You have pain at the procedure site that is not controlled with the pain medicine that your health care provider gave you. You have redness or swelling around the procedure site. The injection area feels warm to the touch. You have pus or a bad smell coming from the injection site. You have a fever. Get help right away if: You have trouble breathing. You have chest pain. Summary After the procedure, it is common to have numbness for many hours in the area where you were given local anesthetic medicine. Protect the numbed area from harm until the medicine wears off and you regain full feeling in the area. This information is not intended to replace advice given to you by your health care provider. Make sure you discuss any questions you have with your health care provider. Document Released: 04/10/2018 Document Revised: 10/02/2018 Document Reviewed: 04/10/2018 [employer] Patient Education 2020 [employer]. Epidural Steroid Injection, Care After Refer to this sheet in the next few weeks. These instructions provide you with information about caring for yourself after your procedure. Your health care provider may also give you more specific instructions. Your treatment has been planned according to current medical practices, but problems sometimes occur. Call your health care provider if you have any problems or questions after your procedure. What can I expect after the procedure? After your procedure, it is common to feel a little discomfort at the injection site. Follow these instructions at home: For 24 hours after the procedure: ? Avoid using heat on the injection site. ? Do not take a tub bath, and do not soak in water. ? Do not drive if you received a medicine to help you relax (sedative). If directed, put ice on the injection site: ? Put ice in a plastic bag. ? Place a towel between your skin and the bag. ? Leave the ice on for 20 minutes, 2 3 times a day. Return to your normal activities as told by your health care provider. Ask your health care provider what activities are safe for you. You may remove the bandage (dressing) after 24 hours. Take aptn-oni-pxsimsq and prescription medicines only as told by your health care provider. Keep all follow-up visits as told by your health care provider. This is important. Contact a health care provider if: You have a fever. You continue to have pain and soreness around the injection site, even after taking tzdl-gls-ccprbju pain medicine. You have severe, sudden, or lasting nausea or vomiting. Get help right away if: You have severe pain at the injection site that is not relieved by medicines. You develop a severe headache or a stiff neck. You become sensitive to light. You have any new numbness or weakness in your legs or arms. You lose control of your bladder or bowel movements. You have trouble breathing. This information is not intended to replace advice given to you by your health care provider. Make sure you discuss any questions you have with your health care provider. Document Released: 02/04/2012 Document Revised: 10/02/2018 Document Reviewed: 02/04/2017 Elsevier Patient Education 2020 [employer] Additional Information VACCINATE! IT SAVES LIVES! Members of the community who have not yet received the COVID-19 vaccine and would like to receive it can visit one of [facility] vaccine clinics. There are many vaccine clinic locations within the [facility]. For locations and available times, please visit [email or web address].[place].gov/. It is important to note that some COVID mobile vaccine clinics are held outdoors and may be canceled in rainy or stormy conditions. To learn more about pediatric vaccinations (ages 5-11), we invite you to visit the [facility] webpage. [email or web address]/[email or web address]-[email or web address]-[email or web address]-[email or web address] stions.htmlTo learn more about the COVID-19 vaccine, we invite you to visit the CDC website for a list of frequently asked questions. https://www.cdc.gov/coronavirus/2019-ncov/vaccines/faq.html [facility] Patient Portal Access Instructions: Stay connected with your healthcare team and access your personal medical information anytime with the [facility] Patient Portal.If you would like a full copy of your medical records, please contact the [facility] Medical Records Department, Friday through Friday between 8a.m. and 4:30p.m. Please follow the directions below to access the portal: 1.Access the email account you provided upon registration to the hospital.2.Look for an invitation email from [facility].3.Open the email and access the invitation link: Accept Invitation to [facility]4.Fill in the required fulton to create your account. Sign into [email or web address] with your username and password that you created in the above steps to stay up to date. You can then view a summary of results, a summary of your visits, and the ability to download your summaries to your computer or send the information securely to a physician. Remember that your healthcare information is confidential, so carefully consider who you will allow to register on the [facility] Patient Portal for access to your information. You can also access the [facility] Patient Portal on the [employer] crow. Simply click on Health Records under friendfund and then click on the [employer] logo. HOW TO SAFELY DISPOSE OF PRESCRIPTION MEDICATIONS Please use one of the following methods to safely dispose of your unused medications. 1.Use a drug disposal kit: the drug disposal pouch allows you to safely discard your old and unuseddrugs. Ask your nurse to give you one when you are discharged.2.Visit a local take-back location: Many local pharmacies and police departments have programs that collect old and unwanted prescriptiondrugs. Call your local pharmacy or go to http://LearnBop.GigSocial/8T4Ti4a to find one close to you.3.Make use of household items: Use cat litter or old coffee grounds to dispose medications if other options arenot available. Mix your drugs with these household products, seal them in an airtight container andthrow it into the garbage. Call [facility]: [phone] to be sure your drugs can be disposed of in this way. Some medicines may require a different approach.4.Never flush your medications down the toilet. IF YOU HAVE BEEN PRESCRIBED AN OPIOID FOR PAIN If you have been prescribed an opioid (such as hydrocodone, oxycodone or morphine), it is critical to understand the possible side effects and risks of opioid pain medications. Even when taken as directed, opioids can have several side effects including: Tolerance, meaning you might need to take more of a medication for the same pain relief. Nausea, vomiting and/or constipation. Sleepiness, dizziness, dry mouth, confusion, depression or itching. Physical dependence, meaning you have withdrawal symptoms when a medication is stopped, can develop within a few days. KNOW YOUR RESPONSIBILITIES It is important to know exactly how much and how often to take the opioid pain medications you are prescribed. Never take opioids in higher amounts or more often than prescribed. Do not combine opioids with alcohol or other drugs that cause drowsiness, such as benzodiazepines, also known as benzos, including diazepam and alprazolam, muscle relaxants or sleep aids. Never sell or share prescription opioids. This is illegal. Store opioids in a secure place and out of reach of others (including children, family, friends and visitors). The last page of this document has been signed and retained as a CHART COPY. Signatures Patient Education Materials Local Anesthesia, Care After Epidural Steroid Injection, Care After Medication Leaflets My discharge plan and instructions have been reviewed and explained to me and I,MONISHA CRISTINE Rajwinder understand my current condition and have read and understand these discharge instructions. I have received a written copy of the plan/instructions. If I have questions, I am aware that I should contact my doctor. 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04-05-2023 History of Present illness Narrative * Isaac Bermudez, LETTER OF CREDIT DOCUMENT EXAMINER - ROUTE RETURNER - 02/05/2023 11:30 AM EDT Visit type: Established Patient Reason for Visit: Follow-up (Cpap new order/Medication refills) Assessment and Plan 1. Obstructive sleep apnea 2. Migraine without aura and without status migrainosus, not intractable Subjective HPI: LV 01/03/22 Failed-Nurtec, cannot use Triptans, Fioricet, Ubrelvy Per last OV Gabapentin at bedtime Cymbalta 60mg daily Verapamil 360mg every day Aimovig She reports compliance There was a time she was acting out her dreams Her PAP machine is >5 yrs old She has found that the humidity tank is running out of water. Often she wakes through the night andit is empty She states her headaches are great Will dose Tylenol Dosing Gabapentin 300mg-1 in am and 2 in the pm No longer on Verapamil Remains on Cymbalta She had back surgery in June 2022 REVIEW OF SYSTEMS: Review of Systems Constitutional: Negative. HENT: Negative. Eyes: Negative. Respiratory: Negative. Cardiovascular: Negative. Gastrointestinal: Negative. Endocrine: Negative. Genitourinary: Negative. Musculoskeletal: Positive for back pain. Skin: Negative. Allergic/Immunologic: Negative. Neurological: Positive for headaches. Hematological: Negative. Psychiatric/Behavioral: Negative. Allergies Allergen Reactions Linezolid Other reaction(s): Other, Other (See Comments) Povidone-Iodine Other reaction(s): None Sulfa Antibiotics Itching Other reaction(s): rash Metoprolol Rash Outpatient Medications Prior to Visit Medication Sig Dispense Refill amLODIPine (Norvasc) 5 MG tablet 5 mg. aspirin 81 MG EC tablet 162 mg. atenolol (Tenormin) 100 MG tablet Take 100 mg by mouth. Azelastine HCl 137 MCG/SPRAY solution Administer 1 spray into each nostril 2 times daily. candesartan (Atacand) 32 MG tablet 32 mg. clonazePAM (KlonoPIN) 0.5 MG tablet Take 0.5 mg by mouth Nightly. doxycycline (Vibra-Tabs) 100 MG tablet Take 100 mg by mouth 2 times daily. erenumab (Aimovig) 140 MG/ML injection INJECT 1 PEN INTO THE SKIN EVERY 30 DAYS 1 mL 5 gabapentin (Neurontin) 300 MG capsule Take 1 cap in am and 2 at bedtime 90 capsule 1 Jardiance 25 MG Take 25 mg by mouth every morning. levothyroxine (Synthroid, Levoxyl) 150 MCG tablet Take 150 mcg by mouth daily. ondansetron ODT (Zofran-ODT) 4 MG disintegrating tablet dissolve 1 tablet ON TONGUE every 8 hours if needed for nausea and vomiting pantoprazole (ProtoNix) 40 MG EC tablet take 1 tablet by mouth twice a day for 8 WEEKS then once daily for 8 WEEKS plecanatide (Trulance) tablet tablet Take 3 mg by mouth. tiZANidine (Zanaflex) 4 MG tablet take 1 tablet by mouth once daily if needed for muscle spasm candesartan (Atacand) 32 MG tablet Take 16 mg by mouth. diazePAM (Valium) 10 MG tablet take 1 tablet by mouth 30 MINUTES prior to procedure ---MUST HAVE A SUPERINTENDENT OPERATING TO AND FROM PROCEDURE gabapentin (Neurontin) 300 MG capsule Take 1-2 caps po QPM as needed for insomnia verapamil ER (Verelan) 120 MG 24 hr capsule Take 120 mg by mouth. No facility-administered medications prior to visit. Past Medical History: Diagnosis Date Diabetes mellitus (HCC) Hypertension Lumbar herniated disc Migraine Neuropathy Sleep apnea Social History Tobacco Use Smoking status: Former Smokeless tobacco: Never Substance Use Topics Alcohol use: Yes Past Surgical History: Procedure Laterality Date BACK SURGERY 06/06/2022 lower COLONOSCOPY JOINT REPLACEMENT UPPER GASTROINTESTINAL ENDOSCOPY No family history on file. Objective Vitals: BP (!) 174/99 (BP Location: Right arm, Patient Position: Sitting, BP Cuff Size: Adult) Pulse (!) 111 Ht 6' 2 (1.88 m) Wt 269 lb (122 kg) BMI 34.54 kg/m General Appearance: Patient is in no apparent distress. Head is normocephalic, atraumatic Cardiovascular: Regular rate and rhythm. No heart murmurs. No carotid bruit Neurologic: Mentation: Alert and oriented x 3 [address] person, place and time. Speech and Language: Speech and language normal Concentration and Attention: Concentration normal Memory: Memory normal Fund of Knowledge: Fund of knowledge normal Cranial Nerves: II, III, IV, V, , VII, VIII, IX, X, XI, XII examined and were intact. Motor: Strength: Strength 5 out of 5 with normal tone Alternating Movements: Normal Cogwheel Rigidity: None Tone: Tone is normal Tremor / Involuntary Movements: None Deep Tendon Reflexes: 1 out of 4 symmetrical in all four limbs. Sensory: Normal sensation upper and lower extremities Coordination: Normal coordination upper and lower extremities Gait and Station: Station is normal. Gait is normal Data Reviewed and Summarized DIAGNOSTIC TESTING CBC: No results found for: WBC, RBC, HGB, HCT, MCV, MCH, MCHC, RDW, PLT, MPV CMP: No results found for: NA, K, CL, CO2, BUN, CREATININE, AGRATIO, LABGLOM, GLUCOSE, GLU, PROT, CALCIUM, BILITOT, ALKPHOS, AST, ALT BMP: No results found for: NA, K, CL, CO2, BUN, CREATININE, CALCIUM, LABGLOM, GLUCOSE, GLU PT/INR: No results found for: PROTIME, INR PTT: No results found for: APTT, PTT[APTT} FLP: No results found for: CHLPL, TRIG, HDL, LDLCALC, LDLDIRECT TSH: No results found for: TSH VITAMIN B12: No results found for: [id number] No results found for: PHENYTOIN, PHENOBARB, VALPROATE, CBMZ No components found for: TOPIRA @RESULTINGLABINFO@ No results found for: LEVETIRACETA, FERRITIN, CRP, GAMALIEL, ANCA No results found for: KATHLEEN, IMMUNOGLOBUL, OLIGOBANDS No results found for: [id number], HEPCAB No results found for: CRP, ANATITER, ANCA, ANCA FERRITIN: No results found for: FERRITIN ---- No image results found. @LASTAPPOINTMENTTHISPROV@ IMPRESSION and PLAN: Problem List Items Addressed This Visit None Visit Diagnoses Obstructive sleep apnea - Primary Migraine without aura and without status migrainosus, not intractable Her PAP machine is >5 years ago and malfunctioning. She is in need of a new machine. Order placed to be faxed to [facility] Aimovig monthly injections, Cymbalta 60mg daily and Gabapentin 300mg 1 in am and 2 in pm No problem-specific Assessment & Plan notes found for this encounter. ALEXANDRO Morillo CNP I spent 30 minutes caring for this patient today, reviewing labs, records, seeing the patient, documenting in the record and arranging for studies. Electronically signed by @ALEXANDRA@ on @TDNR@ at @NOWNR@ documented in this [facility]02-15-2023 Note ORIGINAL EXAMINATION: TWO XRAY VIEWS OF THE LEFT HIP12/18/2022 12:31 pm HIP AP and LATERAL LEFT XR left hip two views COMPARISON: 03/05/2021 HISTORY: ORDERING SYSTEM PROVIDED HISTORY: Reason for Exam: left hip pain, FINDINGS: No acute fracture, dislocation, lytic process or periosteal reaction is seen in the visualized bones and joints. No erosive type of arthritis. No periarticular soft tissue calcification. There is left hip osteoarthritis as previously with large marginal osteophytes and severe joint space narrowing. IMPRESSION: No acute skeletal abnormality is seen. . Severe left hip osteoarthritis. Interpreted by: Isaac Roland MD Preliminary Report By: Isaac Roland MD Electronically signed By Isaac Roland MD Dictated Date: 12/18/2022 8:59:10 PM Prelim Date: 12/18/2022 8:59:54 PM Sign Date: 12/18/2022 8:59:54 PM Ordering Provider: [facility]02-15-2023 Note ORIGINAL EXAMINATION: TWO XRAY VIEWS OF THE LEFT HIP12/18/2022 12:31 pm HIP AP and LATERAL LEFT XR left hip two views COMPARISON: 03/05/2021 HISTORY: ORDERING SYSTEM PROVIDED HISTORY: Reason for Exam: left hip pain, FINDINGS: No acute fracture, dislocation, lytic process or periosteal reaction is seen in the visualized bones and joints. No erosive type of arthritis. No periarticular soft tissue calcification. There is left hip osteoarthritis as previously with large marginal osteophytes and severe joint space narrowing. IMPRESSION: No acute skeletal abnormality is seen. . Severe left hip osteoarthritis. Interpreted by: Isaac Roland MD Preliminary Report By: Isaac Roland MD Electronically signed By Isaac Roland MD Dictated Date: 12/18/2022 8:59:10 PM Prelim Date: 12/18/2022 8:59:54 PM Sign Date: 12/18/2022 8:59:54 PM Ordering Provider: [facility]11-07-2022 Note ORIGINAL EXAMINATION: BONE DENSITOMETRY 09/09/2022 2:55 pm TECHNIQUE: A bone density dual x-ray absorptiometry (DEXA) scan was performed of the left forearm and left hip. COMPARISON: 08/25/2020 HISTORY: ORDERING SYSTEM PROVIDED HISTORY: Reason for Exam: Osteoporosis Screening FINDINGS: T Score Left Femoral Neck: 2.0 Left Femoral Neck: 1.241 (g/cm2) T Score Left Hip: 1.5 Left Hip: 1.268 (g/cm2) T Score Left Forearm: 1.0 Left Forearm: 0.740 (g/cm2) *By the World Health Organization standards: Osteopenia is present when the bone mineral density is greater than 1 standard deviation (SD) but less than 2.5 SDs below a young normal sex matched population. Osteoporosis is present when the bone mineral density is equal to or greater than 2.5 SDs below a young normal sex matched population. BMD Change from previous Hip: No significant change IMPRESSION: Normal bone mineral density by WHO criteria. *By the World Health Organization criteria: (Comparing with young normal sex matched population) - Normal: T-score at or above -1 SD (standard deviation) - Osteopenia: T-score between -1 and -2.5 SD - Osteoporosis: T-score at or below -2.5 SD Interpreted by: Kwaku Hicks DO Preliminary Report By: Kwaku Hicks DO Electronically signed By Kwaku Hicks DO Dictated Date: 09/09/2022 3:57:59 PM Prelim Date: 09/09/2022 3:59:34 PM Sign Date: 09/09/2022 3:59:34 PM Ordering Provider: ONUR PRECIADO [facility]11-07-2022 Note ORIGINAL EXAMINATION: BONE DENSITOMETRY 09/09/2022 2:55 pm TECHNIQUE: A bone density dual x-ray absorptiometry (DEXA) scan was performed of the left forearm and left hip. COMPARISON: 08/25/2020 HISTORY: ORDERING SYSTEM PROVIDED HISTORY: Reason for Exam: Osteoporosis Screening FINDINGS: T Score Left Femoral Neck: 2.0 Left Femoral Neck: 1.241 (g/cm2) T Score Left Hip: 1.5 Left Hip: 1.268 (g/cm2) T Score Left Forearm: 1.0 Left Forearm: 0.740 (g/cm2) *By the World Health Organization standards: Osteopenia is present when the bone mineral density is greater than 1 standard deviation (SD) but less than 2.5 SDs below a young normal sex matched population. Osteoporosis is present when the bone mineral density is equal to or greater than 2.5 SDs below a young normal sex matched population. BMD Change from previous Hip: No significant change IMPRESSION: Normal bone mineral density by WHO criteria. *By the World Health Organization criteria: (Comparing with young normal sex matched population) - Normal: T-score at or above -1 SD (standard deviation) - Osteopenia: T-score between -1 and -2.5 SD - Osteoporosis: T-score at or below -2.5 SD Interpreted by: Kwaku Hicks DO Preliminary Report By: Kwaku Hicks DO Electronically signed By Kwaku Hicks DO Dictated Date: 09/09/2022 3:57:59 PM Prelim Date: 09/09/2022 3:59:34 PM Sign Date: 09/09/2022 3:59:34 PM Ordering Provider: ONUR [facility]03-02-2022 Hospital Discharge instructions Patient Education 01/02/2022 03:56:18 Constipation (Adult) Constipation (Adult) Constipation means that you have bowel movements that are less frequent than usual. Stools often become very hard and difficult to pass. Constipation is very common. At some point in life, it affects almost everyone. Since everyone's bowel habits are different, what is constipation to one person may not be to another. Your healthcare provider may do tests to diagnose constipation. It depends on what he or she finds when evaluating you. Symptoms of constipation include: Abdominal pain Bloating Vomiting Painful bowel movements Itching, swelling, bleeding, or pain around the anus Causes Constipation can have many causes. These include: Diet low in fiber Too much dairy Not drinking enough liquids Lack of exercise or physical activity (especially true for older adults) Changes in lifestyle or daily routine, including , aging, work, and travel Frequent use or misuse of laxatives Ignoring the urge to have a bowel movement or delaying it until later Medicines, such as certain prescription pain medicines, iron supplements, antacids, certain antidepressants, and calcium supplements Diseases like irritable bowel syndrome, bowel obstructions, stroke, diabetes, thyroid disease, Parkinson disease, hemorrhoids, and colon cancer Complications Potential complications of constipation can include: Hemorrhoids Rectal bleeding from hemorrhoids or anal fissures (skin tears) Hernias Dependency on laxatives Chronic constipation Fecal impaction, a severe form of constipation in which a large amount of hard stool is in your rectum that you can't pass Bowel obstruction or perforation Home care All treatment should be done after talking with your healthcare provider. This is especially true if you have another medical problems, are taking prescription medicines, or are an older adult. Treatment most often involves lifestyle changes. You may also need medicines. Your healthcare provider will tell you which will work best for you. Follow the advice below to help avoid this problem in the future. Lifestyle changes These lifestyle changes can help prevent constipation: Diet. Eat a high-fiber diet, with fresh fruit and vegetables, and reduce dairy intake, meats, and processed foods Fluids. It's important to get enough fluids each day. Drink plenty of water when you eat more fiber. If you are on diet that limits the amount of fluid you can have, talk about this with your healthcare provider. Regular exercise. Check with your healthcare provider first. Medicines Take any medicines as directed. Some laxatives are safe to use only every now and then. Others can be taken on a regular basis. While laxatives don't cause bowel dependence, they are treating the symptoms. So your constipation may return if you don't make other changes. Talk with your healthcare provider or pharmacist if you have questions. Prescription pain medicines can cause constipation. If you are taking this kind of medicine, ask your healthcare provider if you should also take a stool softener. Medicines you may take to treat constipation include: Fiber supplements Stool softeners Laxatives Enemas Rectal suppositories Follow-up care Follow up with your healthcare provider if symptoms don't get better in the next few days. You may need to have more tests or see a specialist. Call 911 Call 911 if any of these occur: Trouble breathing Stiff, rigid abdomen that is severely painful to touch Confusion Fainting or loss of consciousness Rapid heart rate Chest pain When to seek medical advice Call your healthcare provider right away if any of these occur: Fever of 100.4 F (38 C) or higher, or as directed by your healthcare provider Failure to resume normal bowel movements Pain in your abdomen or back gets worse Nausea or vomiting Swelling in your abdomen Blood in the stool Black, tarry stool Involuntary weight loss Weakness [id number] [employer]. [address] [place] [address]. All rights reserved. This information is not intended as a substitute for professional medical care. Always follow yourhealthcare professional's instructions. Follow Up Care 01/02/2022 02:57:51 With:MILES ABRAHAM MD Address: [address] [place] [id number]- When:2-4 days [facility] 02-07-2022 Hospital Discharge instructions Follow Up Care 12/10/2021 08:37:29 With:BRYN WHITLEY MD Address: [phone] When: Unknown Comments:Follow-up as scheduled [facility] Evaluation + Plan note Future Appointments Appointment Date:08/30/2021 01:45:00 PM Scheduled Provider:NEL SERRANO MD Location:[facility] Appointment Type:ENDO OV Appointment Date:09/12/2021 11:00:00 AM Scheduled Provider:EDMUNDO GAN Location:[facility] Appointment Type:PC OV Follow Up Appointment Date:09/13/2021 02:00:00 PM Scheduled Provider:CHERRY HILARIO Location:[facility] Appointment Type:CV OV Appointment Date:11/21/2021 08:15:00 AM Scheduled Provider:ILYA TORRES Location:[facility] PM Appointment Type:PM OV Future Scheduled Tests Laboratory* Thyroid Stimulating Hormone 08/31/21 * Free T4 08/31/21 * A1C Hemoglobin 08/31/21 * Free T3 08/31/21 * Lipid Profile 08/31/21 * Vitamin D Level 08/31/21 * Complete Metabolic Panel 08/31/21 Radiology* XR Hip Minimum 2 Views Left 03/05/21 [facility] Evaluation + Plan note Future Appointments Appointment Date:02/28/2022 11:15:00 AM Scheduled Provider:NEL SERRANO MD Location:[facility] Appointment Type:ENDO OV Appointment Date:03/12/2022 11:15:00 AM Scheduled Provider:EDMUNDO GAN Location:[facility] Appointment Type:PC OV Appointment Date:03/14/2022 02:00:00 PM Scheduled Provider:CHERRY HILARIO Location:[facility] Appointment Type:CV OV Future Scheduled Tests Laboratory* Thyroid Stimulating Hormone 08/31/21 * Thyroid Stimulating Hormone 02/28/22 * Free T4 08/31/21 * Free T4 02/28/22 * A1C Hemoglobin 08/31/21 * A1C Hemoglobin 02/28/22 * Free T3 08/31/21 * Lipid Profile 08/31/21 * Lipid Profile 02/28/22 * Microalbumin Level Urine 02/28/22 * Vitamin D Level 08/31/21 * Vitamin D Level 02/28/22 * Complete Metabolic Panel 08/31/21 * Complete Metabolic Panel 02/28/22 Radiology* XR Hip Minimum 2 Views Left 03/05/21 [facility] [facility] Evaluation + Plan note Future Appointments Appointment Date:02/13/2022 08:45:00 AM Scheduled Provider:ILYA TORRES Location:[facility] PM Appointment Type:PM OV Appointment Date:02/28/2022 11:15:00 AM Scheduled Provider:NEL SERRANO MD Location:[facility] Appointment Type:ENDO OV Appointment Date:03/12/2022 11:15:00 AM Scheduled Provider:EDMUNDO GAN Location:[facility] Appointment Type:PC OV Appointment Date:03/14/2022 02:00:00 PM Scheduled Provider:CHERRY HILARIO Location:[facility] Appointment Type:CV OV Future Scheduled Tests Laboratory* Thyroid Stimulating Hormone 08/31/21 * Thyroid Stimulating Hormone 02/28/22 * Free T4 08/31/21 * Free T4 02/28/22 * A1C Hemoglobin 08/31/21 * A1C Hemoglobin 02/28/22 * Free T3 08/31/21 * Lipid Profile 08/31/21 * Lipid Profile 02/28/22 * Microalbumin Level Urine 02/28/22 * Vitamin D Level 08/31/21 * Vitamin D Level 02/28/22 * Complete Metabolic Panel 08/31/21 * Complete Metabolic Panel 02/28/22 Radiology* XR Finger 3rd Digit 3 Views Right 01/16/22 * XR Hip Minimum 2 Views Left 03/05/21 * XR Knee 3 Views Right 01/16/22 * XR Shoulder Minimum 2 Views Right 01/16/22 * MRI Spine Lumbar w/o Contrast 01/10/22 [facility] Evaluation + Plan note Future Appointments Appointment Date:02/13/2022 08:45:00 AM Scheduled Provider:ILYA TORRES Location:[facility] PM Appointment Type:PM OV Appointment Date:02/28/2022 11:15:00 AM Scheduled Provider:NEL SERRANO MD Location:[facility] Appointment Type:ENDO OV Appointment Date:03/12/2022 11:15:00 AM Scheduled Provider:EDMUNDO GAN Location:[facility] Appointment Type:PC OV Appointment Date:03/14/2022 02:00:00 PM Scheduled Provider:CHERRY HILARIO Location:[facility] Appointment Type:CV OV Future Scheduled Tests Laboratory* Thyroid Stimulating Hormone 02/28/22 * Thyroid Stimulating Hormone 08/31/21 * Free T4 02/28/22 * Free T4 08/31/21 * A1C Hemoglobin 02/28/22 * A1C Hemoglobin 08/31/21 * Free T3 08/31/21 * Lipid Profile 02/28/22 * Lipid Profile 08/31/21 * Microalbumin Level Urine 02/28/22 * Vitamin D Level 02/28/22 * Vitamin D Level 08/31/21 * Complete Metabolic Panel 02/28/22 * Complete Metabolic Panel 08/31/21 Radiology* XR Finger 3rd Digit 3 Views Right 01/16/22 * XR Hip Minimum 2 Views Left 03/05/21 * XR Knee 3 Views Right 01/16/22 * XR Shoulder Minimum 2 Views Right 01/16/22 [facility] Evaluation + Plan note Future Appointments Appointment Date:02/28/2022 11:15:00 AM Scheduled Provider:NEL SERRANO MD Location:[facility] Appointment Type:ENDO OV Appointment Date:03/12/2022 11:15:00 AM Scheduled Provider:EDMUNDO GAN APRN-SALMA Location:[facility] Appointment Type:PC OV Appointment Date:03/14/2022 02:00:00 PM Scheduled Provider:CHERRY HILARIO APRN-SALMA Location:[facility] Appointment Type:CV OV Appointment Date:05/15/2022 09:15:00 AM Scheduled Provider:ILYA TORRES APRN-[employer]OUTE [employer]NER Location:[facility] PM Appointment Type:PM OV Future Scheduled Tests Laboratory* Thyroid Stimulating Hormone 02/28/22 * Thyroid Stimulating Hormone 08/31/21 * Free T4 02/28/22 * Free T4 08/31/21 * A1C Hemoglobin 02/28/22 * A1C Hemoglobin 08/31/21 * Free T3 08/31/21 * Lipid Profile 02/28/22 * Lipid Profile 08/31/21 * Microalbumin Level Urine 02/28/22 * Vitamin D Level 02/28/22 * Vitamin D Level 08/31/21 * Complete Metabolic Panel 02/28/22 * Complete Metabolic Panel 08/31/21 Radiology* XR Finger 3rd Digit 3 Views Right 01/16/22 * XR Hip Minimum 2 Views Left 03/05/21 * XR Knee 3 Views Right 01/16/22 * XR Shoulder Minimum 2 Views Right 01/16/22 [facility] Evaluation + Plan note Future Appointments Appointment Date:02/27/2022 11:00:00 AM Scheduled Provider:EDMUNDO GAN Location:[facility] Appointment Type:PC OV Pre Op Appointment Date:02/28/2022 11:15:00 AM Scheduled Provider:NEL SERRANO MD Location:[facility] Appointment Type:ENDO OV Appointment Date:03/12/2022 11:15:00 AM Scheduled Provider:EDMUNDO GAN Location:[facility] Appointment Type:PC OV Appointment Date:03/14/2022 02:00:00 PM Scheduled Provider:CHERRY HILARIO Location:[facility] Appointment Type:CV OV Appointment Date:05/15/2022 09:15:00 AM Scheduled Provider:ILYA TORRES Location:[facility] PM Appointment Type:PM OV Future Scheduled Tests Laboratory* Thyroid Stimulating Hormone 08/31/21 * Free T4 08/31/21 * A1C Hemoglobin 08/31/21 * Free T3 08/31/21 * Lipid Profile 08/31/21 * Vitamin D Level 08/31/21 * Complete Metabolic Panel 08/31/21 Radiology* XR Finger 3rd Digit 3 Views Right 01/16/22 * XR Hip Minimum 2 Views Left 03/05/21 * XR Knee 3 Views Right 01/16/22 * XR Shoulder Minimum 2 Views Right 01/16/22 [facility] Evaluation + Plan note Future Appointments Appointment Date:05/09/2022 11:30:00 AM Scheduled Provider:NEL SERRANO MD Location:[facility] Appointment Type:ENDO OV Appointment Date:05/15/2022 09:15:00 AM Scheduled Provider:ILYA TORRES Location:[facility] PM Appointment Type:PM OV Appointment Date:06/18/2022 10:45:00 AM Scheduled Provider:EDMUNDO GAN Location:[facility] Appointment Type:PC Wellness Medicare Appointment Date:09/04/2022 01:00:00 PM Scheduled Provider:CHERRY HILARIO Location:[facility] Appointment Type:CV OV Appointment Date:09/11/2022 10:00:00 AM Scheduled Provider:EDMUNDO GAN Location:[facility] Appointment Type:PC OV Controlled Medication Future Scheduled Tests Laboratory* Thyroid Stimulating Hormone 05/30/22 * Thyroid Stimulating Hormone 08/31/21 * Free T4 05/30/22 * Free T4 08/31/21 * A1C Hemoglobin 05/30/22 * A1C Hemoglobin 08/31/21 * Free T3 05/30/22 * Free T3 08/31/21 * Lipid Profile 05/30/22 * Lipid Profile 08/31/21 * Vitamin D Level 08/31/21 * Complete Metabolic Panel 05/30/22 * Complete Metabolic Panel 08/31/21 Radiology* XR Finger 3rd Digit 3 Views Right 01/16/22 * XR Knee 3 Views Right 01/16/22 * XR Shoulder Minimum 2 Views Right 01/16/22 [facility] Evaluation + Plan note Future Appointments Appointment Date:09/04/2022 01:00:00 PM Scheduled Provider:CHERRY HILARIO Location:[facility] Appointment Type:CV OV Appointment Date:09/11/2022 10:00:00 AM Scheduled Provider:EDMUNDO GAN Location:[facility] Appointment Type:PC OV Controlled Medication Appointment Date:10/31/2022 11:30:00 AM Scheduled Provider:NEL SERRANO MD Location:[facility] Appointment Type:ENDO OV Future Scheduled Tests Laboratory* Thyroid Stimulating Hormone 08/02/22 * Thyroid Stimulating Hormone 11/01/22 * Thyroid Stimulating Hormone 08/31/21 * Free T4 08/02/22 * Free T4 11/01/22 * Free T4 08/31/21 * A1C Hemoglobin 11/01/22 * A1C Hemoglobin 08/31/21 * Free T3 08/31/21 * Lipid Profile 08/31/21 * Microalbumin Level Urine 11/01/22 * Vitamin D Level 11/01/22 * Vitamin D Level 08/31/21 * Complete Metabolic Panel 11/01/22 * Complete Metabolic Panel 08/31/21 Radiology* MA Mammo Screening Bilateral w/ Jean 08/21/22 * BD Bone Density DEXA Axial Skeleton 08/21/22 * XR Finger 3rd Digit 3 Views Right 01/16/22 * XR Knee 3 Views Right 01/16/22 * XR Shoulder Minimum 2 Views Right 01/16/22 [facility] Evaluation + Plan note Future Appointments Appointment Date:09/09/2022 02:30:00 PM Scheduled Provider: Location:[facility] Appointment Type:MA Mammogram Screening Bilateral w/ Jean Appointment Date:09/09/2022 03:00:00 PM Scheduled Provider: Location:[facility] Appointment Type:BD Bone Density DEXA Axial Skeleton Appointment Date:09/11/2022 10:00:00 AM Scheduled Provider:EDMUNDO GAN Location:[facility] Appointment Type:PC OV Controlled Medication Appointment Date:11/14/2022 10:15:00 AM Scheduled Provider:NEL SERRANO MD Location:[facility] Appointment Type:ENDO OV Future Scheduled Tests Laboratory* Thyroid Stimulating Hormone 09/05/22 * Thyroid Stimulating Hormone 08/02/22 * Thyroid Stimulating Hormone 11/01/22 * Thyroid Stimulating Hormone 08/31/21 * Free T4 09/05/22 * Free T4 08/02/22 * Free T4 11/01/22 * Free T4 08/31/21 * A1C Hemoglobin 09/05/22 * A1C Hemoglobin 11/01/22 * A1C Hemoglobin 08/31/21 * Complete Blood Count 09/05/22 * Free T3 08/31/21 * Lipid Profile 09/05/22 * Lipid Profile 08/31/21 * Microalbumin Level Urine 11/01/22 * Vitamin D Level 09/05/22 * Vitamin D Level 11/01/22 * Vitamin D Level 08/31/21 * Complete Metabolic Panel 09/05/22 * Complete Metabolic Panel 11/01/22 * Complete Metabolic Panel 08/31/21 Radiology* MA Mammo Screening Bilateral w/ Jean 09/09/22 * BD Bone Density DEXA Axial Skeleton 09/09/22 * XR Finger 3rd Digit 3 Views Right 01/16/22 * XR Knee 3 Views Right 01/16/22 * XR Shoulder Minimum 2 Views Right 01/16/22 [facility] Evaluation + Plan note Future Appointments Appointment Date:09/09/2022 02:30:00 PM Scheduled Provider: Location:[facility] Appointment Type:MA Mammogram Screening Bilateral w/ Jean Appointment Date:09/09/2022 03:00:00 PM Scheduled Provider: Location:[facility] Appointment Type:BD Bone Density DEXA Axial Skeleton Appointment Date:09/11/2022 10:00:00 AM Scheduled Provider:EDMUNDO GAN Location:[facility] Appointment Type:PC OV Controlled Medication Appointment Date:11/14/2022 10:15:00 AM Scheduled Provider:NEL SERRANO MD Location:[facility] Appointment Type:ENDO OV Future Scheduled Tests Laboratory* Thyroid Stimulating Hormone 08/02/22 * Thyroid Stimulating Hormone 11/01/22 * Thyroid Stimulating Hormone 08/31/21 * Free T4 08/02/22 * Free T4 11/01/22 * Free T4 08/31/21 * A1C Hemoglobin 11/01/22 * A1C Hemoglobin 08/31/21 * Free T3 08/31/21 * Lipid Profile 08/31/21 * Microalbumin Level Urine 11/01/22 * Vitamin D Level 11/01/22 * Vitamin D Level 08/31/21 * Complete Metabolic Panel 11/01/22 * Complete Metabolic Panel 08/31/21 Radiology* MA Mammo Screening Bilateral w/ Jean 09/09/22 * BD Bone Density DEXA Axial Skeleton 09/09/22 * XR Finger 3rd Digit 3 Views Right 01/16/22 * XR Knee 3 Views Right 01/16/22 * XR Shoulder Minimum 2 Views Right 01/16/22 [facility] Evaluation + Plan note Future Appointments Appointment Date:09/11/2022 10:00:00 AM Scheduled Provider:EDMUNDO GAN Location:[facility] Appointment Type:PC OV Controlled Medication Appointment Date:09/11/2022 12:15:00 PM Scheduled Provider:ILYA TORRES Location:[facility] PM Appointment Type:PM OV Appointment Date:11/14/2022 10:15:00 AM Scheduled Provider:NEL SERRANO MD Location:[facility] Appointment Type:ENDO OV Future Scheduled Tests Laboratory* Thyroid Stimulating Hormone 08/02/22 * Thyroid Stimulating Hormone 11/01/22 * Thyroid Stimulating Hormone 08/31/21 * Free T4 08/02/22 * Free T4 11/01/22 * Free T4 08/31/21 * A1C Hemoglobin 11/01/22 * A1C Hemoglobin 08/31/21 * Free T3 08/31/21 * Lipid Profile 08/31/21 * Microalbumin Level Urine 11/01/22 * Vitamin D Level 11/01/22 * Vitamin D Level 08/31/21 * Complete Metabolic Panel 11/01/22 * Complete Metabolic Panel 08/31/21 Radiology* XR Finger 3rd Digit 3 Views Right 01/16/22 * XR Knee 3 Views Right 01/16/22 * XR Shoulder Minimum 2 Views Right 01/16/22 [facility] Evaluation + Plan note Future Appointments Appointment Date:09/16/2022 02:15:00 PM Scheduled Provider:CHERRY HILARIO Location:[facility] Appointment Type:CV OV Appointment Date:10/16/2022 09:45:00 AM Scheduled Provider:ILYA TORRES Location:[facility] PM Appointment Type:PM OV Appointment Date:11/14/2022 10:15:00 AM Scheduled Provider:NEL SERRANO MD Location:[facility] Appointment Type:ENDO OV Appointment Date:03/18/2023 10:45:00 AM Scheduled Provider:EDMUNDO GAN Location:[facility] Appointment Type:PC OV Controlled Medication Future Scheduled Tests Laboratory* Thyroid Stimulating Hormone 08/02/22 * Thyroid Stimulating Hormone 11/01/22 * Thyroid Stimulating Hormone 08/31/21 * Free T4 08/02/22 * Free T4 11/01/22 * Free T4 08/31/21 * A1C Hemoglobin 11/01/22 * A1C Hemoglobin 08/31/21 * Free T3 08/31/21 * Lipid Profile 08/31/21 * Microalbumin Level Urine 11/01/22 * Vitamin D Level 11/01/22 * Vitamin D Level 08/31/21 * Complete Metabolic Panel 11/01/22 * Complete Metabolic Panel 08/31/21 Radiology* XR Finger 3rd Digit 3 Views Right 01/16/22 * XR Knee 3 Views Right 01/16/22 * XR Shoulder Minimum 2 Views Right 01/16/22 [facility] Evaluation + Plan note Future Appointments Appointment Date:11/14/2022 10:15:00 AM Scheduled Provider:NEL SERRANO MD Location:[facility] Appointment Type:ENDO OV Appointment Date:11/20/2022 10:15:00 AM Scheduled Provider:ILYA TORRES Location:[facility] PM Appointment Type:PM OV Appointment Date:03/17/2023 11:00:00 AM Scheduled Provider:CHERRY HILARIO Location:[facility] Appointment Type:CV OV Appointment Date:03/18/2023 10:45:00 AM Scheduled Provider:EDMUNDO GAN Location:[facility] Appointment Type:PC OV Controlled Medication Future Scheduled Tests Laboratory* Thyroid Stimulating Hormone 08/02/22 * Free T4 08/02/22 Radiology* XR Finger 3rd Digit 3 Views Right 01/16/22 * XR Knee 3 Views Right 01/16/22 * XR Shoulder Minimum 2 Views Right 01/16/22 [facility] Evaluation + Plan note Future Appointments Appointment Date:11/20/2022 10:15:00 AM Scheduled Provider:ILYA TORRES Location:[facility] PM Appointment Type:PM OV Appointment Date:03/17/2023 11:00:00 AM Scheduled Provider:CHERRY HILARIO Location:[facility] Appointment Type:CV OV Appointment Date:03/18/2023 10:45:00 AM Scheduled Provider:EDMUNDO GAN APRN-SALMA Location:[facility] Appointment Type:PC OV Controlled Medication Appointment Date:03/20/2023 11:00:00 AM Scheduled Provider:NEL SERRANO MD Location:[facility] Appointment Type:ENDO OV Future Scheduled Tests Laboratory* Thyroid Stimulating Hormone 03/14/23 * Free T4 03/14/23 * A1C Hemoglobin 03/14/23 * Free T3 03/14/23 * Vitamin D Level 03/14/23 * Complete Metabolic Panel 03/14/23 Radiology* XR Finger 3rd Digit 3 Views Right 01/16/22 * XR Knee 3 Views Right 01/16/22 * XR Shoulder Minimum 2 Views Right 01/16/22 [facility] Evaluation + Plan note Future Appointments Appointment Date:12/25/2022 09:00:00 AM Scheduled Provider:ILYA TORRES Location:[facility] PM Appointment Type:PM OV Appointment Date:03/17/2023 11:00:00 AM Scheduled Provider:CHERRY HILARIO Location:[facility] Appointment Type:CV OV Appointment Date:03/18/2023 10:45:00 AM Scheduled Provider:EDMUNDO GAN Location:[facility] Appointment Type:PC OV Controlled Medication Appointment Date:03/20/2023 11:00:00 AM Scheduled Provider:NEL SERRANO MD Location:[facility] Appointment Type:ENDO OV Future Scheduled Tests Laboratory* Thyroid Stimulating Hormone 03/14/23 * Free T4 03/14/23 * A1C Hemoglobin 03/14/23 * Free T3 03/14/23 * Vitamin D Level 03/14/23 * Complete Metabolic Panel 03/14/23 Radiology* XR Finger 3rd Digit 3 Views Right 01/16/22 * XR Knee 3 Views Right 01/16/22 * XR Shoulder Minimum 2 Views Right 01/16/22 [facility] Evaluation + Plan note Future Appointments Appointment Date:12/25/2022 09:00:00 AM Scheduled Provider:ILYA TORRES Location:[facility] PM Appointment Type:PM OV Appointment Date:12/26/2022 11:30:00 AM Scheduled Provider:EDMUNDO GAN Location:[facility] Appointment Type:PC OV Appointment Date:03/17/2023 11:00:00 AM Scheduled Provider:CHERRY HILARIO Location:[facility] Appointment Type:CV OV Appointment Date:03/18/2023 10:45:00 AM Scheduled Provider:EDMUNDO GAN Location:[facility] Appointment Type:PC OV Controlled Medication Appointment Date:03/20/2023 11:00:00 AM Scheduled Provider:NEL SERRANO MD Location:[facility] Appointment Type:ENDO OV Future Scheduled Tests Laboratory* Thyroid Stimulating Hormone 03/14/23 * Free T4 03/14/23 * A1C Hemoglobin 03/14/23 * Free T3 03/14/23 * Vitamin D Level 03/14/23 * Complete Metabolic Panel 03/14/23 Radiology* XR Finger 3rd Digit 3 Views Right 01/16/22 * XR Knee 3 Views Right 01/16/22 * XR Shoulder Minimum 2 Views Right 01/16/22 [facility] Evaluation + Plan note Future Appointments Appointment Date:01/22/2023 09:00:00 AM Scheduled Provider:ILYA TORRES Location:[facility] PM Appointment Type:PM OV Appointment Date:03/17/2023 11:00:00 AM Scheduled Provider:CHERRY HILARIO Location:[facility] Appointment Type:CV OV Appointment Date:03/18/2023 10:45:00 AM Scheduled Provider:EDMUNDO GAN Location:[facility] Appointment Type:PC OV Controlled Medication Appointment Date:03/20/2023 11:00:00 AM Scheduled Provider:NEL SERRANO MD Location:[facility] Appointment Type:ENDO OV Future Scheduled Tests Laboratory* Thyroid Stimulating Hormone 03/14/23 * Free T4 03/14/23 * A1C Hemoglobin 03/14/23 * Free T3 03/14/23 * Vitamin D Level 03/14/23 * Complete Metabolic Panel 03/14/23 Radiology* XR Finger 3rd Digit 3 Views Right 01/16/22 * XR Knee 3 Views Right 01/16/22 * XR Shoulder Minimum 2 Views Right 01/16/22 [facility] Evaluation + Plan note Future Appointments Appointment Date:02/19/2023 09:45:00 AM Scheduled Provider:ILYA TORRES Location:[facility] PM Appointment Type:PM OV Appointment Date:03/18/2023 10:45:00 AM Scheduled Provider:EDMUNDO GAN Location:[facility] Appointment Type:PC OV Controlled Medication Appointment Date:03/20/2023 11:00:00 AM Scheduled Provider:NEL SERRANO MD Location:[facility] Appointment Type:ENDO OV Appointment Date:03/24/2023 11:30:00 AM Scheduled Provider:CHERRY HILARIO Location:[facility] Appointment Type:CV OV Future Scheduled Tests Laboratory* Thyroid Stimulating Hormone 03/14/23 * Free T4 03/14/23 * A1C Hemoglobin 03/14/23 * Free T3 03/14/23 * Vitamin D Level 03/14/23 * Complete Metabolic Panel 03/14/23 [facility] Evaluation + Plan note Future Appointments Appointment Date:03/18/2023 10:45:00 AM Scheduled Provider:EDMUNDO GAN Location:[facility] Appointment Type:PC OV Controlled Medication Appointment Date:03/20/2023 11:00:00 AM Scheduled Provider:NEL SERRANO MD Location:[facility] Appointment Type:ENDO OV Appointment Date:03/24/2023 11:30:00 AM Scheduled Provider:CHERRY HILARIO Location:[facility] Appointment Type:CV OV Appointment Date:05/21/2023 08:30:00 AM Scheduled Provider:ILYA TORRES Location:[facility] PM Appointment Type:PM OV [facility] Evaluation + Plan note Future Appointments Appointment Date:05/21/2023 08:30:00 AM Scheduled Provider:ILYA TORRES Location:[facility] PM Appointment Type:PM OV Appointment Date:06/19/2023 11:00:00 AM Scheduled Provider:NEL SERRANO MD Location:[facility] Appointment Type:ENDO OV Appointment Date:2023 11:00:00 AM Scheduled Provider:EDMUNDO GAN Location:[facility] Appointment Type:PC OV Controlled Medication Appointment Date:10/09/2023 11:30:00 AM Scheduled Provider:CHERRY HILARIO Location:[facility] Appointment Type:CV OV Future Scheduled Tests Laboratory* Thyroid Stimulating Hormone 06/20/23 * Free T4 06/20/23 * A1C Hemoglobin 06/20/23 * Free T3 06/20/23 * Lipid Profile 06/20/23 * Albumin/Creatinine Ratio, Random Urine 06/20/23 * Vitamin D Level 06/20/23 * Complete Metabolic Panel 06/20/23 [facility] Evaluation + Plan note Future Appointments Appointment Date:06/19/2023 11:00:00 AM Scheduled Provider:NLE SERRANO MD Location:[facility] Appointment Type:ENDO OV Appointment Date:08/06/2023 10:00:00 AM Scheduled Provider:ILYA TORRES Location:[facility] PM Appointment Type:PM OV Appointment Date:2023 11:00:00 AM Scheduled Provider:EDMUNDO GAN Location:[facility] Appointment Type:PC OV Controlled Medication Appointment Date:10/09/2023 11:30:00 AM Scheduled Provider:CHERRY HILARIO Location:[facility] Appointment Type:CV OV Future Scheduled Tests Laboratory* Thyroid Stimulating Hormone 06/20/23 * Free T4 06/20/23 * A1C Hemoglobin 06/20/23 * Free T3 06/20/23 * Lipid Profile 06/20/23 * Albumin/Creatinine Ratio, Random Urine 06/20/23 * Vitamin D Level 06/20/23 * Complete Metabolic Panel 06/20/23 [facility] Evaluation + Plan note Future Appointments Appointment Date:10/15/2023 02:00:00 PM Scheduled Provider:EDMUNDO GAN Location:[facility] Appointment Type:PC OV Appointment Date:10/16/2023 02:45:00 PM Scheduled Provider:NEL SERRANO MD Location:[facility] Appointment Type:ENDO OV Appointment Date:02/11/2024 02:00:00 PM Scheduled Provider:EDMUNDO GAN Location:[facility] Appointment Type:PC OV Appointment Date:03/15/2024 01:30:00 PM Scheduled Provider:CHERRY HILARIO Location:[facility] Appointment Type:CV OV Diagnostic Tests Pending * TgAb+Thyroglobulin,DEMIAN or LCMS 10/13/23 Future Scheduled Tests Laboratory* Albumin/Creatinine Ratio, Random Urine 10/19/23 [facility] Evaluation + Plan note Future Appointments Appointment Date:02/11/2024 02:00:00 PM Scheduled Provider:EDMUNDO GAN Location:[facility] Appointment Type:PC OV Appointment Date:02/19/2024 02:45:00 PM Scheduled Provider:NEL SERRANO MD Location:[facility] Appointment Type:ENDO OV Appointment Date:03/15/2024 01:30:00 PM Scheduled Provider:CHERRY HILARIO Location:[facility] Appointment Type:CV OV Appointment Date:04/14/2024 03:00:00 PM Scheduled Provider:EDMUNDO GAN Location:[facility] Appointment Type:PC OV Controlled Medication Future Scheduled Tests Laboratory* Thyroid Stimulating Hormone 12/18/23 * Thyroid Stimulating Hormone 02/15/24 * Free T4 12/18/23 * Free T4 02/15/24 * A1C Hemoglobin 02/15/24 * Complete Blood Count 02/15/24 * Free T3 12/18/23 * Free T3 02/15/24 * Lipid Profile 02/15/24 * Albumin/Creatinine Ratio, Random Urine 10/19/23 * Albumin/Creatinine Ratio, Random Urine 02/15/24 * Vitamin D Level 02/15/24 * Complete Metabolic Panel 02/15/24 [facility] Evaluation note* Diagnosis Obstructive sleep apnea- Primary Obstructive sleep apnea (adult) (pediatric) Migraine without aura and without status migrainosus, not intractable documented in this encounter [facility] note* Diagnosis Migraine without aura and without status migrainosus, not intractable- Primary Obstructive sleep apnea Obstructive sleep apnea (adult) (pediatric) documented in this encounter [facility] note* Diagnosis Obstructive sleep apnea- Primary Obstructive sleep apnea (adult) (pediatric) [facility] N[facility] No data available for this section [facility] Hospital Discharge instructions No data available for this section [facility] Note* BENIGNO SHEN MD: SIGN, VERIFY Event Display: VL Venous US/Doppler Both Legs (DVT) AOH [facility] Progress note No data available for this section [facility] Summary Purpose Family History No Family History Records Found No data available for this section No data available for this section No data available for this section No Family History Records Found No data available for this section No Family History Records Found Advance Directives No Advanced Directives Records FoundNo Advanced Directives Records FoundNo Advanced Directives Records Found Additional Source Comments INFORMATION SOURCE (unrecogn ized section and content) DATE CREATED AUTHOR AUTHOR'S ORGANIZ ATION 10/22/2023 [facility] DATE CREATED AUTHOR AUTHOR'S ORGANIZ ATION 11/26/2023 [facility] ([place]) Care Team (unrecognized sect ion and content) Medical Office Assistant Relationship Specialty Start Date End Date Miles Abraham MD [address] [place], [place] [phone] PCP - General 06/12/20 Medical Office Assistant Relationship Specialty Start Date End Date Miles Abraham MD [address] [place] [phone] PCP - General 06/12/20 Medical Office Assistant Relationship Specialty Start Date End Date Miles Abraham MD [address] [place] [phone] PCP - General 06/12/20 Care Team (unrecognized sect ion and content) Care Team Personnel Name: BRYN WHITLEY MD Position: P4 Physician - General Surgery Med Service: [facility] Member Role: Pain Management Address: Address: [address] [place] [address] [address] [facility] Pain Management [address] Name: EDMUNDO GAN APRN-ROUTE RETURNER Position: P4 Advanced Practice Nurse Med Service: Employed Provider Member Role: Primary Care Physician Address: Address: [address] [place] [address] Care Team Related Persons Name: DAVID HAJI Name: KWADWO URBINA Name: SAMMY URBINA Name: SAMMY URBINA Name: RADHA URBINA Name: LOS DAWSON Care Team Personnel Name: BRYN WHITLEY MD Position: P4 Physician - General Surgery Med Service: [facility] Member Role: Pain Management Address: Address: [address] [place] [address] [address] [facility] Pain [address] Name: EDMUNDO GAN APRN-ROUTE RETURNER Position: P4 Advanced Practice Nurse Med Service: Employed Provider Member Role: Primary Care Physician Address: Address: [address] [place] [address] Care Team Related Persons Name: DAVID HAJI Name: KWADWO URBINA Name: SAMMY URBINA Name: SAMMY URBINA Name: RADHA URBINA Name: LOS DAWSON Care Team Personnel Name: BRYN WHITLEY MD Position: P4 Physician - General Surgery Med Service: [facility] Member Role: Pain Management Address: Address: [address] [place] [address] Name: EDMUNDO GAN APRN-ROUTE RETURNER Position: P4 Advanced Practice Nurse Med Service: Employed Provider Member Role: Primary Care Physician Address: Address: [address] [place] [id number] [place] [address] Care Team Related Persons Name: DAVID HAIJ Name: KWADWO URBINA Name: BA URBINACEY Name: BA URBINACEY Name: RADHA URBINA Name: LOS DAWSON Care Team Personnel Name: BRYN WHITLEY MD Position: P4 Physician - General Surgery Member Role: Pain Management Address: Address: [address] [place] [address] [address] [facility] Pain Management [address] Name: EDMUNDO GAN LETTER OF CREDIT DOCUMENT EXAMINER-ROUTE RETURNER Position: P4 Advanced Practice Nurse Member Role: Primary Care Physician Address: Address: [address] [place] [address]- Care Team Related Persons Name: DAVID HAJI Name: KWADWO URBINA Name: MONISHA, SAMMY Name: MONISHA SAMMY Name: RADHA URBINA Name: DAWSON, LOS Care Team Personnel Name: BRYN WHITLEY MD Position: P4 Physician - General Surgery Member Role: Pain Management Address: Address: [address] [place] [address] [address] [facility] Pain Management [address] Name: EDMUNDO GAN LETTER OF CREDIT DOCUMENT EXAMINER-ROUTE RETURNER Position: P4 Advanced Practice Nurse Member Role: Primary Care Physician Address: Address: [address] [place] [address] Care Team Related Persons Name: DAVID HAJI Name: KWADWO URBINA Name: BA URBINACEY Name: BA URBINACEY Name: RADHA URBINA Name: DAWSON, LOS Care Team Personnel Name: BRYN WHITLEY MD Position: P4 Physician - General Surgery Member Role: Pain Management Address: Address: [address] [place] [address] Pain Management [address] Name: EDMUNDO GAN LETTER OF CREDIT DOCUMENT EXAMINER-ROUTE RETURNER Position: P4 Advanced Practice Nurse Member Role: Primary Care Physician Address: Address: [address] [place] [address] Care Team Related Persons Name: DAVID HAJI Name: SIRENA URBINAA Name: MONISHA SAMMY Name: MONISHA SAMMY Name: MONISHA RADHA Name: DAWSON, LOS Care Team Personnel Name: BRYN WHITLEY MD Position: P4 Physician - General Surgery Member Role: Pain Management Address: Address: [address] [place] [address] Pain Management [address] Name: EDMUNDO GAN LETTER OF CREDIT DOCUMENT EXAMINER-ROUTE RETURNER Position: P4 Advanced Practice Nurse Member Role: Primary Care Physician Address: Address: [address] [place] [address]- Care Team Related Persons Name: RAISSA DAVID Name: KWADWO URBINA Name: BA URBINACEY Name: SAMMY URBINA Name: RADHA URBINA Name: LOS DAWSON Care Team Personnel Name: BRYN WHITLEY MD Member Role: Pain Management Address: Address: [address] [place] [address] Pain Management [address] Name: EDMUNDO GAN LETTER OF CREDIT DOCUMENT EXAMINER-ROUTE RETURNER Position: P4 Advanced Practice Nurse Member Role: Primary Care Physician Address: Address: [address] [place] [address] Care Team Related Persons Name: DAVID HAJI Name: KWADWO URBINA Name: SAMMY URBINA Name: SAMMY URBINA Name: RADHA URBINA Name: LOS DAWSON Care Team Personnel Name: BRYN WHITLEY MD Member Role: Pain Management Address: Address: [address] [place] [address] Pain Management [address] Name: EDMUNDO GAN LETTER OF CREDIT DOCUMENT EXAMINER-ROUTE RETURNER Position: P4 Advanced Practice Nurse Member Role: Primary Care Physician Address: Address: [address] [place] [address] Care Team Related Persons Name: KWADWO URBINA Name: SAMMY URBINA Name: SAMMY URBINA Name: RADHA URBINA Name: LOS DAWSON Care Team Personnel Name: BRYN WHITLEY MD Member Role: Pain Management Address: Address: [address] [place] [address] Pain Management [address] Name: EDMUNDO GAN LETTER OF CREDIT DOCUMENT EXAMINER-ROUTE RETURNER Position: P4 Advanced Practice Nurse Member Role: Primary Care Physician Address: Address: [address] [place] [address] Care Team Related Persons Name: KWADWO URBINA Name: SAMMY URBINA Name: SAMMY URBINA Name: RADHA URBINA Name: LOS DAWSON Care Team Personnel Name: BRYN WHITLEY MD Member Role: Pain Management Address: Address: [address] [place] [address] Pain Management [address] Name: EDMUNDO GAN LETTER OF CREDIT DOCUMENT EXAMINER-ROUTE RETURNER Position: P4 Advanced Practice Nurse Member Role: Primary Care Physician Address: Address: [address] [place] [address] Care Team Related Persons Name: VILMA URBINAOYA Name: SAMMY URBINA Name: SAMMY URBINA Name: RADHA URBINA Name: LOS DAWSON Care Team Personnel Name: BRYN WHITLEY MD Member Role: Pain Management Address: Address: [address] [place] [address] Pain Management [place] [phone] Name: EDMUNDO GAN LETTER OF CREDIT DOCUMENT EXAMINER-ROUTE RETURNER Position: P4 Advanced Route Driver [employer] Member Role: Primary Care Physician Address: Address: [address] [place], [place] [phone] Care Team Related Persons Name: MONISHA KWADWO Name: SAMMY URBINA Name: SAMMY URBINA Name: RADHA URBINA Name: LOS DAWSON Reason for Visit (unrecogniz ed section and content) Reason Onset Date Comments CPAP Order 02/19/2023 Reason Onset Date Comments Forms/questionnaires 04/01/2023 Reason Comments Med Refill Reason Comments Follow-up Sleep Apnea FOR RECORDS PERTAINING TO PATIENTS WHO ARE OR HAVE BEEN ENROLLED IN A CHEMICAL DEPENDENCY/SUBSTANCEABUSE PROGRAM, SOME INFORMATION MAY BE OMITTED. This clinical summary was aggregated from multiple sources. Caution should be exercised in using it in the provision of clinical care. This summary normalizes information from multiple sources, and as a consequence, information in this document may materially change the coding, format and clinical context of patient data. In addition, data may be omitted in some cases. CLINICAL DECISIONS SHOULD BE BASED ON THE PRIMARY CLINICAL RECORDS. [facility] [employer] provides no warranty or guarantee of the accuracy or completeness of information in this document.
[2023-12-15] MEDS: Lactated Ringers 1,000 ML 15 ML IV (05:57)
[2023-12-15 05:58] VITALS: BP 116/90; PULSE 75; RESP 18; TEMP 36.4; O2SAT 97; BMI 31.7
[2023-12-15 06:45] LABS: Bedside Glucose 132 mg/dL (74-106)
[2023-12-18 10:27] VITALS: BP 147/95; PULSE 69; RESP 18; TEMP 36.1; O2SAT 95; BMI 31.0
[2023-12-18] MEDS: Lactated Ringers 1,000 ML 15 ML IV (10:30)
--- NOTE | 2023-12-18 10:49 | PCM.HP.BLA ---
History and Physical Date of Admission: 12/18/23 EDWIGE BEARDEN, is a 73 F who presents to the office today for PMH HTN, osteoarthritis, hypothyroidism, CKD, hyperlipidemia, over active bladder. *BGI established 12.8.21 for evaluation of abdominal pain with diarrhea, fecal incontinence and abdominal pain/cramping prior to BM for several years. s/p cholecystectomy with no worsening of symptoms following this. December 2021, she started a migraine injection with a side effect of constipation; she presented to [facility] ED for evaluation of constipation and received a fleet enema. Fecal incontinence, diarrhea, abd pain, EGD and colonoscopy. Possible stool studies. EGD and colonoscopy performed 1.03.24. EGD found LA Grade A reflux esophagitis; lymphocytic gastritis; Erythematous duodenopathy with inflammation. Colonoscopy found Stool remaining in rectum and cecum. Two 1-2mm tubular adenoma polyps removed from transverse colon and hepatic flexure. Diverticulosis in recto-sigmoid colon, sigmoid colon, descending colon without evidence of bleed. Congested mucosa in sigmoid colon, descending colon, hepatic flexure and ascending colon. Carafate and PPI taper were started for gastritis and inflammation. Start colestipol. OV 1.. with some constipation. Stop colestipol until Carafate completed. Continued reflux. OV 3.7. with presentation to [facility] ED for severe constipation; enema administered and effective but did have aftereffect of hemorrhoids. ABD pain just prior to BM; using apple juice and stool softeners. Stop Carafate OV 5.2.22 colestipol and protonix prescriptions ended several day prior with return of reflux, heartburn and regurgitation with postprandial stomach pain. Zofran helpful with nausea. Resume colestipol. OV 7.. decrease colestipol to daily. OV 10.26.22 start lactulose OV 3.6.23 feels she is doing well overall. Previously prescribed medications she did not feel were working well. Currently taking colestipol 1gram QD and protonix 40mg and Trulance as needed; with this regimen she has a BM twice a week. She does have bloating and will sometimes have pelvic pain on days without BM; also noting intermittent regurgitation. Nausea occurring 1-2 times a month with effectiveness use of Zofran. Contact 3.31.23 with continued constipation. Symptoms of loose stools with fecal incontinence continue to be resolved. Recommend half dose of colestipol daily. OV 6.21.23 reports she is losing weight; notes bloating in the evenings which self resolves. BM are doing wonderful with ? colestipol dose. She is having difficulty with her knees and is having knee surgery. OV 1.30.24 R knee replacement and has upcoming L hip replacement which will hopefully correct knee pain; she is using narcotic pain medication. Reglan was previously helpful with constipation but is no longer. ROS Const Constitutional: Positive for weight change; No fatigue ENT ENT: Positive for difficulty swallowing Cardio Cardiology: Positive for leg pain with exertion Gastro GI: Positive for abdominal pain, bloating, change in bowel habits, constipation, heartburn, difficulty swallowing, excessive flatus and nausea/dyspepsia; No belching, change in stool character, coffee ground emesis, cramping, diarrhea, feeling full early, incontinent of stools, Vomiting blood/hematemesis, Blood in stool, loose stools, Black,tarry stools, pain with swallowing, vomiting or other Musc Musculoskeletal: Positive for back pain, stiffness, Arthritis, leg pain at night and leg pain with exertion; No joint pain Skin Skin: No yellowing of the eye or itchy eyes Psych Psychiatric: No anxiety and No depression Endo Endocrine: Positive for weight change; No fatigue Aller/Imm Allergy/Immunologic: No itchy eyes Ward/Lymp Hematologic/Lymphatic: No easy bleeding or easy bruising Exam Const General: cooperative and comfortable Nutritional Appearance: average body habitus and well nourished [facility] Head: normal to inspection Ears: hearing grossly normal bilaterally Nose: external nose normal Face and sinus: normal facial exam Mouth: oral mucosae normal Throat: posterior oropharynx normal Eyes General: appearance normal, both eyes and all related structures Neck Neck: normal visual inspection Chest Chest palpation & inspection: normal inspection of the chest and normal palpation of entire chest wall Resp Effort & Inspection: normal respiratory effort Auscultation: Bilateral: Clear to Auscultation Cardio Palpation: normal PMI Rate: regular rate Rhythm: regular rhythm GI Inspection: normal to inspection Auscultation: normal bowel sounds Percussion: normal to percussion Palpation: no hepatosplenomegaly Skin General: no rashes or lesions noted Neuro General: patient alert Extrem General: normal to inspection Psych Affect: normal affect Quality Reporting Tobacco Screening ([facility] 138) Smoking Status: Former smoker Assessment and Plan Assessment and Plan (1) Fecal incontinence: Status: Chronic Qualifiers: Fecal incontinence type: unspecified Qualified Code(s): R15.9 - Full incontinence of feces Plan: Her Colestipol is likely causing her to become constipated. Hydrated back to the colestipol. She was taking narcotics. Due to severe arthritis in both knees it was making her constipated. We will institute Movantik or Relistor therapy. (2) Constipation: Status: Chronic Qualifiers: Constipation type: slow transit constipation Qualified Code(s): K59.01 - Slow transit constipation Plan: She is having constipation secondary to multiple medicines that she takes including high blood pressure medicines, narcotics and benzodiazepine, oxygen. She was doing well on Trulance therapy but it is not working so we will switch her to lactulose twice a day. I will hold her colestipol and increase Trulance to BID. We will institute Movantik or Relistor therapy. (3) Lymphocytic gastritis: Status: Inactive Plan: She is doing very well on medical therapy for lymphocytic gastritis With Carafate and PPI therapy. She has about 2 more weeks of Carafate therapy left and then she will stop that. She will continue PPI therapy. We also discussed when she comes back in approximately 6 weeks we will introduce a digestive enzyme versus pancreatic enzyme in order to stop her PPI usage and help her digestion being she does not have severe reflux disease to the point where she may not need proton pump inhibitor for an extended period of time. We will repeat her upper endoscopy to evaluate her lymphocytic gastritis. (4) Diarrhea: Status: Acute Qualifiers: Diarrhea type: functional diarrhea Qualified Code(s): K59.1 - Functional diarrhea Plan: resolved. (5) Anemia: Status: Acute Plan: She has noted to have a progressive anemia with a hemoglobin that was 13-10.4. Currently it is down to 9.6. We will recheck her CBC along with iron studies and we will perform an upper and lower endoscopy prior to her undergoing orthopedic surgery. Medications: Discontinued doxycycline hyclate Discontinued Reason: Order Completed 100 mg PO BID 30 tabs 0RF I have examined the patient and the H&P has been reviewed. There are no clinical changes since date of exam.
[2023-12-18 11:02] LABS: Bedside Glucose 129 mg/dL (74-106)
--- NOTE | 2023-12-18 11:30 | EGD_PTH ---
PATHOLOGY RESULTS PATIENT: EDWIGE BEARDEN LOC: EN U#:[id number] AGE/SX: 73/F ROOM: RE12/18/[address]: Dr. Al Emerson DO : 1950 BED: DIS: 12/18/2023 SPEC #: [id number] RECD: 12/18/23 13:21 STATUS: CHANO REAlexander #: [id number] TASHA: 12/18/23 11:[address]: Al Emerson DEPT: SURGICAL PATHOLOGY RECD BY: Ledy Krishnamurthy ENTERED: 12/18/23 13:40 SP TYPE: EGD BIOPSY OT DR: Mylene Esteban, RAT BREEDER-C Tissues: Gastric mucous membrane Cecum, NOS Transverse colon Procedures: Surgery Specimen Level IV HEADER OPERATION: Colonoscopy with polyp biopsy and polypectomy, EGD with biopsy PRE-OP DIAGNOSIS: Fecal incontinence, constipation, gastritis, diarrhea TISSUE SUBMITTED: A - Gastric body, B - Colon polyp cecum, C - Colon polyp transverse colon MICROSCOPIC DIAGNOSIS A. Gastric body, biopsy: Mild gastritis. See microscopic description and comment. B. Cecum polyp, polypectomy: Fragments of tubular adenoma. C. Transverse colon polyp, biopsy: Fragments of tubular adenoma. SJ:erin 12/22/2023 COMMENT A. The results of immunohistochemistry for Helicobacter pylori will be reported separately ([id number]). MICROSCOPIC DESCRIPTION Slides are reviewed. A. The specimen shows fragments of gastric mucosa with chronic inflammatory cell infiltrates in the lamina propria consisting of lymphocytes and plasma cells, consistent with mild chronic gastritis. GROSS DESCRIPTION A - Received in fixative is one container labeled with the patient's name and designated gastric body. The specimen consists of multiple irregular fragments of light amezcua soft tissue that in aggregate measure 1.0 x 0.5 x 0.1 cm. The specimen is totally submitted in one cassette. B - Received in fixative is one container labeled with the patient's name and designated colon polyp cecum. The specimen consists of two irregular fragments of light amezcua soft tissue that in aggregate measure 0.5 x 0.3 x 0.1 cm. The specimen is totally submitted in one cassette. C - Received in fixative is one container labeled with the patient's name and designated colon polyp transverse colon. The specimen consists of multiple irregular fragments of light amezcua soft tissue that in aggregate measure 2.0 x 0.5 x 0.1 cm. The specimen is totally submitted in one cassette. SJ/estefania 12/18/23 TC:1 CPT: 01358 x3
--- NOTE | 2023-12-18 11:30 | IMM_PTH ---
PATHOLOGY RESULTS PATIENT: EDWIGE BEARDEN LOC: EN U#:[id number] AGE/SX: 73/F ROOM: RE12/18/[address]: Dr. Al Emerson DO : 1950 BED: DIS: 12/18/2023 SPEC #: [id number] RECD: 12/18/23 14:15 STATUS: CHANO REAlexander #: [id number] TASHA: 12/18/23 11:[address]: Al Emerson DEPT: IMMUNOHISTOCHEMISTRY RECD BY: Odalys Song ENTERED: 12/18/23 14:16 SP TYPE: IMMUNO OTHR DR: Mylene Esteban, BUSINESS PROCESS MODELER-C Tissues: Stomach, NOS Procedures: H Pylori (initial) PHYSICIAN & INSTITUTION [place] [id number] SPECIMEN INFORMATION: Tissue Source: A - Gastric body Clinical Info: Fecal incontinence, constipation, gastritis, diarrhea, anemia Specimen Number: [id number] CPT code: 44046 METHODOLOGY: Deparaffinized sections of prefer/formalin-fixed tissue or PAP/DQ stained slides are incubated with monoclonal/polyclonal antibodies/oligonucleotide probes. Localization is made via biotin free immunoperoxidase method. Appropriate controls are performed and reacted as expected. Results on target cell population are indicated in the following table: RESULTS: ANTIBODY / CLONE RESULT Block A H Pylori (polyclonal) negative These tests were developed and their performance characteristics determined by [facility]. They may not have been cleared or approved by the U.S. Food and Drug Administration. The FDA has determined that such clearance or approval is not necessary. The above immunohistochemical/dualISH markers are ordered and reviewed by the Pathologist. INTERPRETATION: A. Gastric body, biopsy: Negative for Helicobacter pylori organisms. KAREN:erin 12/22/2023
[2023-12-18 12:05] VITALS: BP 139/84; BP 147/95; PULSE 73; RESP 16; TEMP 36.1; O2SAT 100
[2023-12-18 12:10] VITALS: BP 132/77; BP 147/95; PULSE 75; RESP 16; O2SAT 99
--- NOTE | 2023-12-18 12:12 | OP.CCLET_ITS ---
12/18/2023 Mylene Esteban Re : Upper GI endoscopy procedure for Cristine Perkinsr Carlito This procedure was performed on December. My impressions and recommendations are as follows: Impressions : - Normal esophagus. - Chronic gastritis. Biopsied. - Erythematous duodenopathy. Recommendations : - Discharge patient to home. - Resume previous diet. - Continue present medications. -Ursodiol 500 mg p.o. twice daily x 12 weeks My findings are described in the full procedure note, which is enclosed. If I can be of further assistance, please feel free to contact me at . Sincerely, Al Emerson, 12/18/2023 12:11:55 PM This report has been signed electronically.
--- NOTE | 2023-12-18 12:12 | OP.EGD_ITS ---
Patient Name: Cristine Urbina Procedure Date: 12/18/2023 11:17 AM Date of : 1950 Age: 73 Procedure: Upper GI endoscopy Indications: Epigastric abdominal pain, Functional Dyspepsia Providers: Al Emerson DO Referring MD: Mylene Esteban Medicines: Monitored Anesthesia Care Patient Profile: This is a 73 year old female. Refer to note in patient chart for documentation of history and physical. Patient has symptoms of chronic abdominal cramping, chronic abdominal distention and chronic epigastric abdominal pain. Complications: No immediate complications. Procedure: Pre-Anesthesia Assessment: - Prior to the procedure, a History and Physical was performed, and patient medications and allergies were reviewed. The patient is competent. The risks and benefits of the procedure and the sedation options and risks were discussed with the patient. All questions were answered and informed consent was obtained. Patient identification and proposed procedure were verified by the physician in the pre-procedure area. Mental Status Examination: alert and oriented. Airway Examination: normal oropharyngeal airway and neck mobility. Respiratory Examination: clear to auscultation. CV Examination: normal. Prophylactic Antibiotics: The patient does not require prophylactic antibiotics. Prior Anticoagulants: The patient has taken no anticoagulant or antiplatelet agents. ASA Grade Assessment: II - A patient with mild systemic disease. After reviewing the risks and benefits, the patient was deemed in satisfactory condition to undergo the procedure. The anesthesia plan was to use monitored anesthesia care (MAC). Immediately prior to administration of medications, the patient was re-assessed for adequacy to receive sedatives. The heart rate, respiratory rate, oxygen saturations, blood pressure, adequacy of pulmonary ventilation, and response to care were monitored throughout the procedure. The physical status of the patient was re-assessed after the procedure. After obtaining informed consent, the endoscope was passed under direct vision. Throughout the procedure, the patient's blood pressure, pulse, and oxygen saturations were monitored continuously. The Colonoscope was introduced through the mouth, and advanced to the second part of duodenum. The upper GI endoscopy was accomplished without difficulty. The patient tolerated the procedure well. Scope In: 11:35:15 AM Scope Out: 11:39:02 AM Total Procedure Duration Time 0 hours 3 minutes 47 seconds Findings: The examined esophagus was normal. Diffuse severe inflammation characterized by congestion (edema), erosions, erythema, friability and granularity was found in the entire examined stomach. Biopsies were taken with a cold forceps for histology. Verification of patient identification for the specimen was done. Biopsies were taken with a cold forceps for Helicobacter pylori testing. Verification of patient identification for the specimen was done. Estimated blood loss was minimal. Diffuse moderately erythematous mucosa without active bleeding and with no stigmata of bleeding was found in the duodenal bulb, in the first portion of the duodenum and in the second portion of the duodenum. Impression: - Normal esophagus. - Chronic gastritis. Biopsied. - Erythematous duodenopathy. Recommendation: - Discharge patient to home. - Resume previous diet. - Continue present medications. -Ursodiol 500 mg p.o. twice daily x 12 weeks Procedure Code(s): --- Professional --- 82601, Esophagogastroduodenoscopy, flexible, transoral; with biopsy, single or multiple CPT copyright 2021 [employer]. All rights reserved. The codes documented in this report are preliminary and upon it lead review may be revised to meet current compliance requirements. Al Emerson DO 12/18/2023 12:11:55 PM This report has been signed electronically. Number of Addenda: 0 Note Initiated On: 12/18/2023 11:17 AM
[2023-12-18 12:15] VITALS: BP 144/86; BP 147/95; PULSE 72; RESP 16; TEMP 36.4; O2SAT 100
--- NOTE | 2023-12-18 12:15 | OP.COLON_ITS ---
Patient Name: Cristine Urbina Procedure Date: 12/18/2023 11:39 AM Date of : 1950 Age: 73 Procedure: Colonoscopy Indications: High risk colon cancer surveillance: Personal history of colonic polyps, Incidental - Generalized abdominal pain Providers: Al Emerson DO Referring MD: Mylene Esteban Medicines: Monitored Anesthesia Care Patient Profile: This is a 73 year old female. Refer to note in patient chart for documentation of history and physical. Patient has symptoms of chronic abdominal cramping, chronic abdominal distention and chronic epigastric abdominal pain. Last Colonoscopy: more than 3 years ago. Complications: No immediate complications. Procedure: Pre-Anesthesia Assessment: - Prior to the procedure, a History and Physical was performed, and patient medications and allergies were reviewed. The patient is competent. The risks and benefits of the procedure and the sedation options and risks were discussed with the patient. All questions were answered and informed consent was obtained. Patient identification and proposed procedure were verified by the physician in the pre-procedure area. Mental Status Examination: alert and oriented. Airway Examination: normal oropharyngeal airway and neck mobility. Respiratory Examination: clear to auscultation. CV Examination: normal. Prophylactic Antibiotics: The patient does not require prophylactic antibiotics. Prior Anticoagulants: The patient has taken no anticoagulant or antiplatelet agents. ASA Grade Assessment: II - A patient with mild systemic disease. After reviewing the risks and benefits, the patient was deemed in satisfactory condition to undergo the procedure. The anesthesia plan was to use monitored anesthesia care (MAC). Immediately prior to administration of medications, the patient was re-assessed for adequacy to receive sedatives. The heart rate, respiratory rate, oxygen saturations, blood pressure, adequacy of pulmonary ventilation, and response to care were monitored throughout the procedure. The physical status of the patient was re-assessed after the procedure. After I obtained informed consent, the scope was passed under direct vision. Throughout the procedure, the patient's blood pressure, pulse, and oxygen saturations were monitored continuously. The Colonoscope was introduced through the anus and advanced to the terminal ileum. The colonoscopy was performed without difficulty. The patient tolerated the procedure well. The quality of the bowel preparation was adequate. The ileocecal valve, appendiceal orifice, and rectum were photographed. Scope In: 11:40:22 AM Scope Withdrawal Time 0 hours 13 minutes 58 seconds Scope Out: 12:01:23 PM Total Procedure Duration Time 0 hours 21 minutes 1 second Findings: The perianal and digital rectal examinations were normal. A few small and large-mouthed diverticula were found in the recto-sigmoid colon, sigmoid colon, hepatic flexure and ascending colon. A 28 mm polyp was found in the transverse colon. The polyp was sessile. The polyp was removed with a saline injection-lift technique using a hot snare. The polyp was removed with a piecemeal technique using a hot snare. Resection and retrieval were complete. Verification of patient identification for the specimen was done. Estimated blood loss was minimal. A 4 mm polyp was found in the cecum. The polyp was sessile. The polyp was removed with a jumbo cold forceps. Resection and retrieval were complete. Verification of patient identification for the specimen was done. Estimated blood loss was minimal. Impression: - Diverticulosis in the recto-sigmoid colon, in the sigmoid colon, at the hepatic flexure and in the ascending colon. - One 28 mm polyp in the transverse colon, removed using injection-lift and a hot snare and removed piecemeal using a hot snare. Resected and retrieved. - One 4 mm polyp in the cecum, removed with a jumbo cold forceps. Resected and retrieved. Recommendation: - Repeat colonoscopy in 3 years for surveillance. - Continue present medications. Procedure Code(s): --- Professional --- 76725, Colonoscopy, flexible; with removal of tumor(s), polyp(s), or other lesion(s) by snare technique 84651, 59, Colonoscopy, flexible; with biopsy, single or multiple 82414, Colonoscopy, flexible; with directed submucosal injection(s), any substance CPT copyright 2021 [employer]. All rights reserved. The codes documented in this report are preliminary and upon shorts sifter review may be revised to meet current compliance requirements. Al Emerson DO 12/18/2023 12:15:48 PM This report has been signed electronically. Number of Addenda: 0 Note Initiated On: 12/18/2023 11:39 AM
--- NOTE | 2023-12-18 12:16 | OP.CCLET_ITS ---
12/18/2023 Mylene Esteban Re : Colonoscopy procedure for Cristine Perkinsr Carlito This procedure was performed on December. My impressions and recommendations are as follows: Impressions : - Diverticulosis in the recto-sigmoid colon, in the sigmoid colon, at the hepatic flexure and in the ascending colon. - One 28 mm polyp in the transverse colon, removed using injection-lift and a hot snare and removed piecemeal using a hot snare. Resected and retrieved. - One 4 mm polyp in the cecum, removed with a jumbo cold forceps. Resected and retrieved. Recommendations : - Repeat colonoscopy in 3 years for surveillance. - Continue present medications. My findings are described in the full procedure note, which is enclosed. If I can be of further assistance, please feel free to contact me at . Sincerely, Al Emerson, 12/18/2023 12:15:48 PM This report has been signed electronically.
[2023-12-18 12:35] VITALS: BP 147/95
== END 2023-12-18 12:45 | disposition home or self-care (01) ==
LOC: EN 10:07 → AC 10:07
PROVIDERS: PCP Nurse Practitioner Primary Care; Referring Provider Nurse Practitioner Primary Care; Visit Provider Internal Medicine Gastroenterology
PROC: 0DJD8ZZ Inspection of Lower Intestinal Tract, Via Natural or Artificial Opening Endoscopic (ICD-10-PCS; CPT 45378; principal; 2023-12-18 11:25)
DX: Z12.11 Encounter for screening for malignant neoplasm of colon (principal); E11.9 Type 2 diabetes mellitus without complications; K57.30 Diverticulosis of large intestine without perforation or abscess without bleeding; D12.0 Benign neoplasm of cecum; D12.3 Benign neoplasm of transverse colon; K29.50 Unspecified chronic gastritis without bleeding; K30 Functional dyspepsia; R15.9 Full incontinence of feces; D64.9 Anemia, unspecified; K31.89 Other diseases of stomach and duodenum; K21.9 Gastro-esophageal reflux disease without esophagitis; E07.9 Disorder of thyroid, unspecified; G43.909 Migraine, unspecified, not intractable, without status migrainosus; E78.00 Pure hypercholesterolemia, unspecified; Z79.899 Other long term (current) drug therapy; Z87.891 Personal history of nicotine dependence; Z86.73 Personal history of transient ischemic attack (TIA), and cerebral infarction without residual deficits; Z86.718 Personal history of other venous thrombosis and embolism; Z86.010 Personal history of colon polyps
CPT/HCPCS: 45385; 45380; 45381; 43239; 82962; 88305; 88342; J7120; J2405

== ENCOUNTER 2024-11-22 19:11 | Inpatient (IN) | payer MEDICARE, OTHER, SELFPAY ==
--- NOTE | 2024-10-25 15:52 | PAT.ANESEVAL ---
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 When Was Last Pacemaker Check QUESTION #4 FULL TEXT: You/Your Family Experience fever (hyperthermia) with Anesthesia Last Oral Intake Last Oral intake: Last Oral Intake NPO since Meds taken in AM with sips of water? 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 Has anyone observed you stop breathing during sleep? STOP Results Positive 10/25/24 10:14 QUESTION #5 FULL TEXT : Do you snore loudly (louder than talking or can be heard through closed doors)? 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 Specify any problems Hx of Preganancy in last 3 No 10/25/24 10:14 Months Nurse Filling Out Transfusion MGRIEVE 10/25/24 10:14 & Questions: Date: 10/25/24 10/25/24 10:14 Time: 10:16 10/25/24 10:14 Patient unable to answer at this time (ie. 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 Hx Now No 10/25/24 10:14 Gestational Age (in weeks): EDC: Hx Hx Para Hx Section SAB No 10/25/24 10:14 [facility] Medical History (Updated 10/25/24 @ 10:30 by Jeanne Woods) Post-menopausal Anxiety Glaucoma Ambulates with cane Low iron Easy bruising History of ulceration History of IBS History of edema Loss of consciousness Hx of transfusion of whole blood Lymphocytic gastritis Wears glasses Wears partial dentures Thyroid disease Diabetes Arthritis Bladder disease DVT (deep venous thrombosis) High cholesterol Restless legs Back pain Migraine headache TIA (transient ischemic attack) Difficulty swallowing Dietary restriction History of diverticulitis Gastric reflux Former smoker CPAP (continuous positive airway pressure) dependence History of pain when walking History of echocardiogram History of stress test Hypertension Cardiology follow-up encounter Hx of mitral valve prolapse History of deviated nasal septum Hx of lipoma Fecal incontinence Infection of total left knee replacement Home Medications ?Medication ?Instructions ?Recorded ?Last Taken ?Type clonazepam 1 mg tablet 0.5 mg PO QHS sleep 08/07/15 12/14/23 History gabapentin 400 mg capsule 600 mg PO QHS pain 08/07/15 12/14/23 History levothyroxine 125 mcg tablet 100 mcg PO DAILY Thyroid 08/07/15 12/15/23 History (Synthroid) candesartan 16 mg tablet (Atacand) 32 mg PO QHS Check with primary 07/21/17 12/14/23 History doctor duloxetine 60 mg capsule,delayed 60 mg PO DAILY nerve pain 07/21/17 12/15/23 History release (Cymbalta) oxybutynin chloride 10 mg 10 mg PO DAILY bladder 07/21/17 08/26/23 History tablet,extended release 24 hr (Ditropan XL) tizanidine 4 mg tablet (Zanaflex) 4 mg PO PRN PRN Pain 07/21/17 08/26/23 History empagliflozin 25 mg tablet 12.5 mg PO DAILY Blood sugar 04/04/22 12/15/23 History (Jardiance) psyllium husk 0.4 gram capsule 0.4 g PO BID PRN Stomach health 04/04/22 Unknown History (Fiber (psyllium husk)) amlodipine 5 mg tablet 5 mg PO DAILY BP 08/01/23 12/15/23 History atenolol 100 mg tablet 100 mg PO BID BP 08/01/23 12/15/23 History fluticasone propionate 50 1 spray intranasal DAILY PRN 08/01/23 08/26/23 History mcg/actuation nasal allergy symptoms spray,suspension gabapentin 300 mg capsule 300 mg PO DAILY NERVE PAIN 08/01/23 12/15/23 History latanoprost 0.005 % eye drops 1 drp EACH EYE QHS GLAUCOMA 08/01/23 12/14/23 History nystatin 100,000 unit/gram topical 1 applic topical PRN SKIN 08/01/23 08/26/23 History cream semaglutide 1 mg/dose (4 mg/3 mL) 1 mg subcut WE DIABETES 08/01/23 08/23/23 History subcutaneous pen injector (Ozempic) Lactobacillus acidophilus 250 500 mmu cells PO DAILY PROBIOTIC 12/11/23 12/14/23 History million cell capsule (Probiotic Acidophilus) cholecalciferol (vitamin D3) 50 50 mcg PO DAILY SUPPLEMENT 12/11/23 Unknown History mcg (2,000 unit) tablet (Vitamin D3) erenumab-aooe 70 mg/mL 70 mg subcut QMONTH MIGRAINES 12/11/23 Unknown History subcutaneous auto-injector (Aimovig Autoinjector) vitamin B12 1,000 mcg-folic acid 2 mallory sublingual DAILY SUPPLEMENT 12/11/23 Unknown History 400 mcg sublingual lozenge metoclopramide HCl 5 mg tablet 5 mg PO TID nausea #90 tabs 04/21/24 Unknown Rx ondansetron 4 mg disintegrating 4 mg PO Q8H PRN nausea and 07/08/24 Unknown Rx tablet vomiting #60 tabs pantoprazole 40 mg tablet,delayed 40 mg PO BID GERD #60 tabs 07/08/24 Unknown Rx release clopidogrel 75 mg tablet (Plavix) 75 mg PO QDAY BLOOD THINNER 07/28/24 10/12/24 History ursodiol 500 mg tablet 500 mg PO Q12H PROTECT LIVER #60 08/19/24 Unknown Rx tabs atorvastatin 40 mg tablet 40 mg PO DAILY CHOLESTEROL 10/25/24 Unknown History empagliflozin 10 mg tablet 5 mg PO DAILY BLOOD SUGAR 10/25/24 Unknown History (Jardiance) linaclotide 290 mcg capsule 290 mcg PO BID IBS 10/25/24 Unknown History (Linzess) Allergy/AdvReac Type Severity Reaction Status Date / Time Sulfa (Sulfonamide Allergy Itching Verified 10/25/24 09:48 Antibiotics) linezolid (From Zyvox) AdvReac Other Verified 10/25/24 09:48 Surgical History (Updated 10/25/24 @ 10:13 by Jeanne Woods) History of back surgery History of total left hip replacement Hx of total knee replacement History of lumbar fusion History of cardiac catheterization History of esophagogastroduodenoscopy (EGD) Hx of colonoscopy Hx of arthroscopy of shoulder Hx of tubal ligation History of carpal tunnel surgery of right wrist History of carpal tunnel surgery of left wrist History of bunionectomy History of laparoscopic cholecystectomy Hx of left knee surgery History of total right knee replacement History of total left knee replacement Social History Smoking Status: Former smoker Audit: Pertinent Findings Pertinent Findings EKG Perinent findings: August 04, 2023. Normal sinus rhythm. Right bundle branch block. Consult pertinent findings: October 13, 2024. YANELIS MARSH. #1 CVA-MRI on May 18, 2024 showed left inferior cerebellar infarct and a small chronic right cerebellar infarct. Patient is on Plavix and atorvastatin and following with neurology #2 hypertension is controlled. #3 mitral valve prolapse is stable. Last echo in 2018 showed trivial MR. #4 obstructive sleep apnea. Patient is compliant with her CPAP. #5 preop cardiovascular clearance EKG is sinus rhythm and stable from previous. Cardiac risk score is 1. May hold Plavix for 7 days prior to surgery. Recommendation Anesthesia Recommendation Anesthesia recommendation: OPTIMIZED for anesthesia
--- NOTE | 2024-11-02 13:07 | EKG12_ITS ---
Test Reason : PRE OP Blood Pressure : */* mmHG Vent. Rate : 103 BPM Atrial Rate : 103 BPM P-R Int : 146 ms QRS Dur : 136 ms QT Int : 396 ms P-R-T Axes : 43 -27 20 degrees QTcB Int : 518 ms Sinus tachycardia Right bundle branch block Abnormal ECG Confirmed by RAISA KINNEY MD ([id number]), industrial editor ISIDRO GUY ([id number]) on 11/02/2024 1:52:09 PM Referred By: Raghav Murphy Confirmed By: RAISA KINNEY MD
[2024-11-02 13:40] LABS: Absolute Lymphocyte Count 2.22 X10^3/uL (0.83-4.51); Absolute Neutrophil Count 3.5 X10^3/uL (2.0-7.7); Basophil# 0.01 X10^3/uL; Basophil% 0.1 % (0-1); Eosinophil# 0.12 X10^3/uL; Eosinophils% 1.8 % (0-5); Hematocrit 44.2 % (37-47); Hemoglobin 13.9 g/dL (12.0-15.0); Lymphocyte # 2.22 X10^3/ul (0.83-4.51); Lymphocyte % 33.3 % (19-41); Mean Corp Hgb Conc 31.4 g/dL (32-36); Mean Corpuscular Volume 95.3 fL (81-99); Mean Platelet Vol. 9.2 fl (6.2-12.0); NRBC Flagged by Analyzer 0 % (0-5); Neutrophil % 52.5 % (47-70); Platelet Count 194 K/mm3 (150-450); RBC Distribution Width CV 13.2 % (11.6-14.6); RBC Distribution Width SD 45.9 fl (35.1-43.9); Red Blood Count 4.64 M/mm3 (4.2-5.4); White Blood Count 6.7 K/mm3 (4.4-11.0)
[2024-11-02 13:59] LABS: Anion Gap 5 (5-15); BUN 10 mg/dL (7-18); BUN/Creat Ratio 10.7 RATIO (10-20); Calcium,Total 9.8 mg/dL (8.5-10.1); Chloride 106 mmol/L (98-107); Creatinine, Serum 0.94 mg/dL (0.55-1.02); EST Glomerular Filtration Rate 62 mL/min (>60); Est Glom Filt Rate - Afr Amer 75 mL/min (>60); Glucose 121 mg/dL (74-106); Potassium 3.7 mmol/L (3.5-5.1); Sodium Level 139 mmol/L (136-145)
[2024-11-02 14:02] LABS: International Normalized Ratio 1.1; Prothrombin Time (Protime)PT. 14.1 SECONDS (11.7-14.9)
[2024-11-02 14:03] LABS: Partial Thromboplast Time 28.6 Seconds (24.1-36.2)
[2024-11-02 14:08] LABS: Hemoglobin A1c 5.6 % (3.8-5.6)
[2024-11-02 14:15] LABS: AST(SGOT) 12 U/L (15-37); Alanine Aminotransfer ALT/SGPT 11 U/L (13-56); Alkaline Phosphatase 94 U/L (45-117); Bilirubin, Direct 0.33 mg/dL (0.00-0.30); Globulin 4.5 g/dL (2.2-4.2); Protein, Total 8.5 g/dL (6.4-8.2)
--- NOTE | 2024-11-14 20:44 | HP.PCM_ITS ---
History and Physical History and Physical Patient Name: Cristine Urbina : 1950From:? TA ESQUEDA PA-C DATE OF PRE-OPERATIVE EXAM: 11/12/2024 DATE OF SURGERY:? 11/22/2024 SCHEDULED PROCEDURE:? Revision left total knee arthroplasty HISTORY OF PRESENT ILLNESS: Preoperative history and physical exam was performed on November 12, 2024.? This is a 74-year-old female who has lengthy history on her left knee.? Patient had an initial left total knee arthroplasty in October 2012.? She had postoperative pain associated with this.? They show and had workup and did require explantation left total knee with placement of static spacer on August 08, 2015.? Patient then required a revision antibiotic spacer with aggressive synovectomy and debridement of the joint with placement of incisional wound VAC on September 01, 2015.? Patient had a history of slow healing wound.? Patient underwent IV antibiotics and was followed by infectious disease.? This was followed with a removal antibiotic spacer and revision left total knee arthroplasty on October 13, 2015.? Patient then continued to have left knee pain and instability.? She tried fitting for a brace.? She did undergo a left knee revision with polyethylene exchange and extensor mechanism realignment with medial imbrication and lateral release on July 21, 2017. ? Patient now continues to have persistent left knee pain and instability following the above surgeries.? Her pain can reach 7/10 at times.? The pain is not constant.? She does feel the left knee once the buccal forward.? She has had to use a cane for support.? Patient has had some falls secondary to the knee.? Her mobility has been limited.? Patient has had inflammatory workup with most recent ESR 26 and CRP 0.1 on August 18, 2024.? A1c has been 5.6.? After failing conservative measures and previous surgical interventions the patient does wish to proceed with a revision left total knee arthroplasty.? Patient has obtain s urgical clearance from her medical care provider Mylene Esteban and cardiology Kimber Marks.? She is currently in pain management with Adia Triplett however she has not required any significant narcotics recently.? Patient has had recent cough that she did have chest x-ray which was overall normal.??? The cough was secondary to allergy.? The cough has resolved now.? She has medical history pert inent for type 2 diabetes mellitus, hypertension, past history of stroke, sleep apnea, migraines, chronic kidney disease, anxiety, history of DVT, irritable bowel syndrome, history of iron deficiency, and gastroesophageal reflux disease.? Patient's past history DVT was in 2002 after right total knee arthroplasty.? Previous stroke 2006.? Patient denies any recent chest pain or shortness of breath.? Patient has been advised by cardiology to stop her Plavix 5 days prior to surgery.? She is also going to hold her Ozempic 7 days prior to surgery. REVIEW OF SYSTEMS: Review Of Systems: Constitutional: Reports weight change. Cardiovasular: Denies chest pain, heart murmur, irregular heartbeat and peripheral vascular disease. Respiratory: Denies asthma, cough, pneumonia, sleep apnea, shortness of breath, tuberculosis and wheezing. Gastrointestinal: Reports heartburn, but denies constipation, diarrhea, nausea, rectal itching, bloody stools and vomiting. Genitourinary: Denies incontinence. Musculoskeletal: Reports pain, trouble walking and weakness, but denies leg swelling. Skin: Denies Raynaud's, history of shingles and tattoo. Neurological: Reports difficulty with balance and tremor but denies ambulatory dysfunction, dizziness, numbness/tingling and transient monocular blindness. Psychiatric: Denies anxiety, depression, insomnia, mental illness and stress. Hematologic/Lymphatic: Reports past transfusion, but denies anemia and bleeding/bruising tendency. Reviewed, no changes. PAST MEDICAL HISTORY: Advance Care Plan: Other Directive, P.O.A. Effective Date: 09/30/2016 Comments: [employer] ? Other Directive, LIVING WILL Effective Date: 09/30/2016 Comments: [employer] Past Medical History: Medical Problems: Diabetes, High Blood Pressure, Stroke, Arthritis, Sleep Apnea, Bundle Branch Block, Migraines Covid- 19 - (09/2020) Anxiety, IBS, GERD, DVT, Kidney Disease/Renal Failure Accidents: Fell - (01/15/2022) RT 3rd FINGER, RT SHOULDER, RT KNEE Fall - (10/2023) FELL BACKWARDS- NO MEDICAL ATTENTION NEEDED. Surgical Hx: [facility] Knee Arthroscopy - DR FLYNN @ [facility] RT Shoulder Arthroscopy - DR FLYNN @ [facility] RT Foot Bunion - @ [facility] Lito CTR - DR NEIL @ [facility] RT TKR - (2002) DR FLYNN @ [facility] LT TKR - (2011) DR FLYNN @ [facility] IV Fliter - (2011) [facility] Hammer Toe - [facility] LT Knee, I&D w/ Explant TKA w/ Placement of ABx Spacer - (08/08/2015) SAW @ [facility] LT Knee, Revision of ABx Spacer, Debridement, Placement of Wound Vac - (09/01/2015) [facility] @ [facility] LT TKR Revision - (10/13/2015) [facility] @ [facility] Lito Lympoma (Fatty Tumor) - lipoma LT TKR Revision - (07/29/2017) [facility] @ [facility] Heart Cath L4 - 5 Posterior Lumbar Interbody Fusion w/ Posterolateral Fusion - (06/06/2022) Dr Elsy Stone @ [facility] Left Hip Injection Under Fluoro - (08/07/2023) DR. MURPHY AT [facility] Revision Right TKR ALL Components - (08/27/2023) DR. MURPHY AT [facility] Hip Replacement LT - (02/10/2024) DIRECT ANTERIOR DR. MURPHY AT [facility] Anesthesia Complications: None Assistive Devices: Glasses, Cpap, Cane Reviewed, no changes. SOCIAL HISTORY: Social History: Marital: .Occupation: Retired.Work Status: Retired.Hand Dominance: Right- handed. Personal Habits:? Cigarette Use: Former.Smokeless Tobacco: Never Used Smokeless Tobacco.E-Cigarette Use: Never used.Alcohol: Occasionally.Drug Use: Denies Use.Enjoy Exercising: Exercises 1-3 X/Week. Reviewed, no changes. VITALS: Ht: 73 Wt: 246lb Wt k.586 BMI: 32.5 BP: 126/82 Pulse: 77 Resp: 12 T: 96.4 T: 35.8C Pain Level: 0 O2SatR: 89 ALLERGIES: Sulfa Linezolid Sulfa (Sulfonamide Antibiotics) Sulfonamide (Substance) MEDICATIONS: Senokot S 8.6-50 mg dose = 2 tab(s), oral, bid, take until first bowel movement, then as needed, 0 refill(s), Triamcinolone Acetonide 0.5 % apply 1 application topically twice a day for 14 days, Levothyroxine Sodium 100 mcg dose : 100 mcg = 1 tab(s), oral, qday, # 90 tab(s), 2 refill(s), pharmacy: [id number], 188, cm, 10/16/23 14:27:00 est, height, kg, 10/16/23 14:27:00 est, dosing weight, Clonazepam 0.5 mg dose : 0.5 mg = 1 tab(s), oral, qhs, # 90 tab(s), 1 refill(s), pharmacy: [facility], 188, cm, 10/15/23 14:04:00 est, height, 105.5, kg, 10/15/23 14:04:00 est, dosing weight, Jardiance 10 mg dose : 10 mg = 1 tab(s), oral, qam, 0 refill(s), Acetaminophen 500 mg every 8 hours, Trulance 3 mg twice a day, Amlodipine Besylate 5 mg daily, Atenolol 100 mg twice a day, Latanoprost 0.005 % daily, Nystatin [id number] Unit/GM as needed, Ozempic (1 MG/Dose) 4 mg/3ml sa, Gabapentin 300 mg daily, Fluticasone Propionate Nasal [place] [facility] 24- Hour 50 mcg/Act dose = 1 spray(s), nostril, each, bid, # 16 gram(s), 0 refill(s), pharmacy: [id number], bacterial sinusitis, 188, cm, 02/25/23 11:03:00 edt, height, Pantoprazole Sodium 40 mg daily, Tizanidine Comfort Pac 4 mg as needed, Ipratropion [place] 42 mcg 2 sprays each nostril bid, Candesartan Cilexetil 16 mg 1 tab po daily, Tizanidine HCL 4 mg prn, Oxybutynin Chloride ER 10 mg 1 tab po daily, Duloxetine HCL 60 mg 1 by mouth every day, Ondansetron 4 mg dissolve 1 tablet on tongue every 8 hours if needed for nausea or vomiting, Metoclopramide HCL 5 mg take 1 tablet by mouth twice a day, Aimovig 140 mg/ml once monthly, Probiotic Gummies 30 mg daily, Ursodiol 500 mg once every 12 hrs, Plavix 75 mg 1x daily, Linzess 72 mcg 1 by mouth every day PRE-OP EXAM: General appearance:NORMAL? Other: Eyes: Conjunctivae and lids: NORMAL? Pupils: ERR Ears, Nose, Mouth, and Throat: NORMAL? Other: Inspection of lips, teeth and gums: NORMAL?? Other: Neck: Examination of neck: no masses noted. Respiratory: Assessment of respiratory effort: NORMAL?? Other: ? Auscultation of lungs: clear to auscultation no wheezes, rhonchi or rales. Cardiovascular:? Auscultation of heart: regular rate and rhythm, no murmurs, gallops or rubs. PHYSICAL EXAMINATION: On exam left knee is without erythema or signs of infection.? She has no erythema or wounds.? Previous incision is well-healed.? She has moderate effusion.? Range of motion: Lacks 3 full extension to 110 flexion.? She has medial lateral laxity approximately 3 mm and post engagement with posterior drawer testing.? She has atrophy of the left quadriceps in comparison to the right.? Sensation intact to light touch. IMAGING STUDIES: Previous x-rays of the left knee reveal well aligned total knee arthroplasty was cemented long tibial stem and tibial cone.? There is a cemented femoral stem.? Tibial cement mantle shows radiographic lucency around the medial edge which has been present over serial radiographs.? There is a condylar constrained/total stabilized implant.? Patella tracks laterally on the sunrise view. IMPRESSION: 1.? Painful left revision total knee arthroplasty with instability 2.? Hypertension 3.? Type 2 diabetes mellitus with most recent A1c 5.6 4.? History of stroke 5.? Sleep apnea 6.? Chronic kidney disease 7.? History of DVT 8.? Anxiety 9.? Irritable bowel syndrome 10.? Gastroesophageal reflux disease 11.? Migraines 12.? History of iron deficiency 13.? Obesity with BMI 32.5 PLAN: Dr. Raghav Murphy did discuss and review with the patient all treatment options including surgical versus nonsurgical options.? I will continue plan established by Dr. Raghav Murphy.? Patient does wish to proceed with the above-stated procedure.? Will continue plan that has been established by Dr. Raghav Murphy.? Potential risks, benefits, and complications of the procedure were discussed in detail including but not limited to , infection, nerve and blood vessel damage, persistent pain, numbness, tingling, paresthesias, blood clot, pulmonary embolism, and requirement for possible further surgery.? The patient expressed full understanding and has no further questions for the doctor.? Patient does agree to proceed with the above-stated procedure and has signed the surgery consent form. POST-OP MEDICATION PLAN: Pain Medications: Postoperative pain regimen will be initiated by Dr. Raghav Murphy in the hospital.? We will avoid nonsteroidal anti-inflammatories due to her chronic kidney disease.? We are reaching out to pain management to see who will manage postoperative pain control.? Patient does have walker that she will bring to the hospital.? There is concern with patient going home due to her living home alone and safety concerns.? Patient has been instructed to stop the Ozempic 1 week prior to surgery.? Cardiology also would like her to stop the Plavix 5 days prior to surgery. DVT Prophylaxis: Due to past history of DVT patient will be placed on Rivaroxaban 10 mg once daily for 2 weeks postoperatively.? This will be followed by aspirin 81 mg twice daily for an additional 2 weeks. This dictation was created using voice recognition software. Phonetic and/or grammatical errors may exist. ___? I have re-examined the patient.? There are no clinical changes since date of exam. ___? See progress notes for changes. ___? Dictated on admission Date: ? Time: Signature:
[2024-11-22] VITALS (13 sets, daily range): BP systolic 117–139; BP diastolic 77–95; PULSE 77–90; RESP 16–18; TEMP 3.1–37.5; O2SAT 91–100; BMI 31.8
[2024-11-22] MEDS: Lactated Ringers 1,000 ML 999 ML IV (09:24)
[2024-11-22] MEDS: Gabapentin 600 MG Tablet PO (09:25)
[2024-11-22] MEDS: Acetaminophen 500 MG Tablet 1000 MG PO ×2 (09:25→21:42)
[2024-11-22] MEDS: Magnesium 1 GM over 15 mins IV (09:25)
[2024-11-22] MEDS: TRANEXAMIC ACID 2,000 MG, 0.9% Normal Saline (100mL Bag) 100 ML OPERA.SITE (10:00)
--- NOTE | 2024-11-22 10:11 | PRE.ANES_ITS ---
ASA Classification* ASA Classification ASA Classification: 3 Assessment & Plan Anesthesia* Anesthesia Assessment Anesthesia Assessment: Discussed sedation and/or anesthesia options, risks, benefits, and alternatives with patient/parents/legal guardian/POA. Questions invited. The patient/parents/legal guardian/POA seems to understand and agrees to proceed with anesthesia plan. Reviewed the physical assessment, medical history, allergy history and patient home medications list prior to surgery/procedure/anesthetic and documented any changes. Performed airway and anesthesia risk assessments. Anesthesia Type Anesthesia Type: General (patient prefers general, offered spinal but declined) and Block (plan for post-operative left adductor canal block with ultrasound gu idance) History Source History Obtained from:: Patient and Chart Anesthesia Focused Assessment* Temperature: 97.4 F Pulse Rate: 77 Blood Pressure: 139/95 Respiratory Rate: 16 Pulse Ox: 96 Oxygen Delivery Method: Room Air Airway Assessment Mouth opens: 2 cm Mallampati Score: II Teeth Condition: Intact and Caps/Crowns Neck Range of motion (ROM): Full ROM Focused Labs Anesthesia Preop lab: CBC WBC 6.7 K/mm3 (4.4-11.0) 11/02/24 13:24 RBC 4.64 M/mm3 (4.2-5.4) 11/02/24 13:24 Hgb 13.9 g/dL (12.0-15.0) 11/02/24 13:24 Hct 44.2 % (37-47) 11/02/24 13:24 Plt Count 194 K/mm3 (150-450) 11/02/24 13:24 CHEMISTRY Potassium 3.7 mmol/L (3.5-5.1) 11/02/24 13:24 Sodium 139 mmol/L (136-145) 11/02/24 13:24 Magnesium 2.0 mg/dL (1.6-2.6) 11/02/24 13:23 Phosphorus 3.6 mg/dL (2.5-4.9) 10/05/15 08:20 BUN 10 mg/dL (7-18) 11/02/24 13:24 Creatinine 0.94 mg/dL (0.55-1.02) 11/02/24 13:24 Glucose 121 mg/dL (74-106) H 11/02/24 13:24 POC Glucose 129 mg/dL (74-106) H 12/18/23 10:33 TSH 4.670 uIU/mL (0.358-3.740) H 11/02/24 13:23 COAG PT 14.1 SECONDS (11.7-14.9) 11/02/24 13:23 Pre-Assessment Diagnosis/Proposed Procedure Planned Operative Procedure(s): ERAS, REVISION LEFT TOTAL KNEE ARTHROPLASTY Anesthesia History 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 When Was Last Pacemaker Check QUESTION #4 FULL TEXT: You/Your Family Experience fever (hyperthermia) with Anesthesia Last Oral Intake Last Oral intake: Last Oral Intake NPO since 05:45 11/22/24 09:02 Meds taken in AM with sips of Yes 11/22/24 09:02 water? 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 - film crew member: PONV - film crew member Female Yes 10/25/24 10:14 HX of Motion Sickness No 10/25/24 10:14 HX of N/V After Surgery No 10/25/24 10:14 Non-Smoker Yes 10/25/24 10:14 Duration of Surgery greater Yes 10/25/24 10:14 than 60 minutes Number of Risk Factors 3 10/25/24 10:14 PONV Score Moderate Risk 10/25/24 10:14 Height & Weight Height & Weight: Anesthesia: Height & Weight Height 6 ft 2 in 11/22/24 09:02 Weight: 112.3 kg 11/22/24 09:02 Body Mass Index (BMI) 31.8 11/22/24 09:02 Respiratory Assessment Respiratory Assessment - film crew member: Respiratory Tract Infection Hx - film crew member Hx Respiratory Tract Infection No 10/25/24 10:14 STOP Sleep Apnea STOP Sleep Apnea - film crew member: STOP Sleep Apnea - film crew member Hx Hypertension Yes: CONTROLLED WITH MED 10/25/24 10:14 Hx Sleep Apnea Yes 10/25/24 10:14 CPAP Yes 10/25/24 10:14 BIPAP No 10/25/24 10:14 Do you snore loudly (louder than talking or can be heard Do you often feel tired/ fatigued/ sleepy during daytime? Has anyone observed you stop breathing during sleep? STOP Results Positive 10/25/24 10:14 QUESTION #5 FULL TEXT : Do you snore loudly (louder than talking or can be heard through closed doors)? 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 Specify any problems Hx of Preganancy in last 3 No 10/25/24 10:14 Months Nurse Filling Out Transfusion MGRIFFITH 10/25/24 10:14 & Questions: Date: 10/25/24 10/25/24 10:14 Time: 10:16 10/25/24 10:14 Patient unable to answer at this time (ie. confused, unrespo /Reproduction History /Reproductive History - film crew member: /Reproductive Hx- film crew member Hx Now No 10/25/24 10:14 Gestational Age (in weeks): EDC: Hx Hx Para Hx Section SAB No 10/25/24 10:14 Active Medications Active Medications: Current Medications Generic Name Dose Route Start Last Admin Trade Name Freq PRN Reason Stop Dose Admin Lactated Ringer's 1,000 mls @ 999 mls/hr 11/22/24 10:00 11/22/24 09:24 IV 11/22/24 11:00 999 mls/hr .Q1H1M MICHELL Administration Magnesium Sulfate 1 gm/ 102 mls @ 408 mls/hr 11/22/24 10:00 11/22/24 09:25 Dextrose IV 11/22/24 10:14 408 mls/hr X1 ONE Administration Insulin Human Lispro 1 - 6 unit 11/22/24 10:00 Insulin Lispro 100 Unit/Ml Insuln.Pen SC 11/22/24 20:00 Q4H PRN PRN BG>/= 180, SEE PROTOCOL Protocol PFSH Medical History Post-menopausal Anxiety Glaucoma Ambulates with cane Low iron Easy bruising History of ulceration History of IBS History of edema Loss of consciousness Hx of transfusion of whole blood Lymphocytic gastritis Wears glasses Wears partial dentures Thyroid disease Diabetes Arthritis Bladder disease DVT (deep venous thrombosis) High cholesterol Restless legs Back pain Migraine headache TIA (transient ischemic attack) Difficulty swallowing Dietary restriction History of diverticulitis Gastric reflux Former smoker CPAP (continuous positive airway pressure) dependence History of pain when walking History of echocardiogram History of stress test Hypertension Cardiology follow-up encounter Hx of mitral valve prolapse History of deviated nasal septum Hx of lipoma Fecal incontinence Infection of total left knee replacement Home Medications ?Medication ?Instructions ?Recorded ?Last Taken ?Type clonazepam 1 mg tablet 0.5 mg PO QHS sleep 08/07/15 11/20/24 History gabapentin 400 mg capsule 600 mg PO QHS pain 08/07/15 11/21/24 History levothyroxine 125 mcg tablet 100 mcg PO DAILY Thyroid 08/07/15 11/22/24 05:45 History (Synthroid) candesartan 16 mg tablet (Atacand) 32 mg PO QHS Check with primary 07/21/17 11/20/24 History doctor duloxetine 60 mg capsule,delayed 60 mg PO DAILY nerve pain 07/21/17 11/21/24 History release (Cymbalta) oxybutynin chloride 10 mg 10 mg PO DAILY bladder 07/21/17 11/20/24 History tablet,extended release 24 hr (Ditropan XL) tizanidine 4 mg tablet (Zanaflex) 4 mg PO PRN PRN Pain 07/21/17 08/26/23 History empagliflozin 25 mg tablet 12.5 mg PO DAILY Blood sugar 04/04/22 12/15/23 History (Jardiance) psyllium husk 0.4 gram capsule 0.4 g PO BID PRN Stomach health 04/04/22 Unknown History (Fiber (psyllium husk)) amlodipine 5 mg tablet 5 mg PO DAILY BP 08/01/23 11/22/24 05:45 History atenolol 100 mg tablet 100 mg PO BID BP 08/01/23 11/22/24 05:45 History fluticasone propionate 50 1 spray intranasal DAILY PRN 08/01/23 11/21/24 History mcg/actuation nasal allergy symptoms spray,suspension gabapentin 300 mg capsule 300 mg PO DAILY NERVE PAIN 08/01/23 11/21/24 History latanoprost 0.005 % eye drops 1 drp EACH EYE QHS GLAUCOMA 08/01/23 11/21/24 History nystatin 100,000 unit/gram topical 1 applic topical PRN SKIN 08/01/23 08/26/23 History cream semaglutide 1 mg/dose (4 mg/3 mL) 1 mg subcut WE DIABETES 08/01/23 11/10/24 History subcutaneous pen injector (Ozempic) Lactobacillus acidophilus 250 500 mmu cells PO DAILY PROBIOTIC 12/11/23 12/14/23 History million cell capsule (Probiotic Acidophilus) cholecalciferol (vitamin D3) 50 50 mcg PO DAILY SUPPLEMENT 12/11/23 11/21/24 History mcg (2,000 unit) tablet (Vitamin D3) erenumab-aooe 70 mg/mL 70 mg subcut QMONTH MIGRAINES 12/11/23 11/05/24 History subcutaneous auto-injector (Aimovig Autoinjector) vitamin B12 1,000 mcg-folic acid 2 mallory sublingual DAILY SUPPLEMENT 12/11/23 11/20/24 History 400 mcg sublingual lozenge metoclopramide HCl 5 mg tablet 5 mg PO TID nausea #90 tabs 04/21/24 11/20/24 Rx ondansetron 4 mg disintegrating 4 mg PO Q8H PRN nausea and 07/08/24 Unknown Rx tablet vomiting #60 tabs pantoprazole 40 mg tablet,delayed 40 mg PO BID GERD #60 tabs 07/08/24 11/21/24 Rx release clopidogrel 75 mg tablet (Plavix) 75 mg PO QDAY BLOOD THINNER 07/28/24 10/12/24 History ursodiol 500 mg tablet 500 mg PO Q12H PROTECT LIVER #60 08/19/24 11/21/24 Rx tabs atorvastatin 40 mg tablet 40 mg PO DAILY CHOLESTEROL 10/25/24 11/21/24 History empagliflozin 10 mg tablet 5 mg PO DAILY BLOOD SUGAR 10/25/24 11/21/24 History (Jardiance) linaclotide 290 mcg capsule 290 mcg PO BID IBS 10/25/24 11/21/24 History (Linzess) Allergy/AdvReac Type Severity Reaction Status Date / Time Sulfa (Sulfonamide Allergy Itching Verified 11/22/24 08:56 Antibiotics) linezolid (From Zyvox) AdvReac Other Verified 11/22/24 08:56 Surgical History History of back surgery History of total left hip replacement Hx of total knee replacement History of lumbar fusion History of cardiac catheterization History of esophagogastroduodenoscopy (EGD) Hx of colonoscopy Hx of arthroscopy of shoulder Hx of tubal ligation History of carpal tunnel surgery of right wrist History of carpal tunnel surgery of left wrist History of bunionectomy History of laparoscopic cholecystectomy Hx of left knee surgery History of total right knee replacement History of total left knee replacement Social History Smoking Status: Former smoker Review of Systems (Anesthesia) ROS Narrative System reviewed and no additional complaints, except as documented.
[2024-11-22] MEDS: Cefazolin 2 GM in Syringe 10 ML IV (12:06)
[2024-11-22] MEDS: dexAMETHasone 10 MG/ML Vial IV (12:10)
[2024-11-22 12:34] LABS: Bedside Glucose 93 mg/dL (74-106)
[2024-11-22] MEDS: JPS (Morphine 10mg/ml) OPERA.SITE (18:26)
--- NOTE | 2024-11-22 19:19 | OP.PCM_ITS ---
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: Bart King Tasks completed by physician office assistant: Other (See operative report) Additional anesthesiologists' assistant?: No Type of Anesthesia: General RN Documented Start/Stop Times: Operation Date: 11/22/24 10:00 Case Time Into Pre-Op 11/22/24 08:30 Out of Pre-Op 11/22/24 11:50 Anesthesia Start 11/22/24 11:56 Into Room 11/22/24 11:56 Procedure Start 11/22/24 12:26 Procedure End 11/22/24 18:58 Anesthesia End 11/22/24 19:06 Out of Room 11/22/24 19:06 Into Recovery 11/22/24 19:10 Procedure Start Time: 12:26 Procedure Stop Time: 18:58 Select all DRAINS/GRAFTS/IMPLANTS that apply: Implanted device (See operative report) Implanted device details: See operative report Special Medications: Ancef, redosed after 3 hours. Estimated Blood Loss: 250 mL Fluids Replaced: Crystalloid Specimen collected: Yes Description of specimen(s) removed: 3 separate specimens were sent to microbiology Description of surgery: Implants used: Femur: Kingston triathlon hinged size 5 distal femoral component with 5 mm augments medially and laterally, 100 x 15 mm cemented stem. Size 7 8 femoral cone. Tibia: Size 5 Jamie revision baseplate with 15 x 50 mm cemented stem. Size E tibial cone Poly: 19 mm hinged total knee polyethylene Procedure: On the date of procedure patient's left lower extremity was marked in the preoperative area. The patient was then taken back to the operating room where the patient was placed on the table in the supine position. All bony prominences were identified a well-padded. Anesthesia assumed control of the C-spine and airway and remained controlled throughout the remainder of the procedure. A tourniquet was placed on the left upper thigh and the leg was prepped in a sterile fashion. The surgeon then scrubbed at this time. Upon reentering the room LEFt lower extremity was draped in a standard orthopedic fashion. A timeout was then called and everyone agreed upon the side, the site, the procedure to be performed, patient's identity and antibiotics given. An Esmarch bandage was used to exsanguinate the extremity and the tourniquet was placed up to 250 mmHg with the knee in flexion. A midline skin incision was made using the previous incision and extending it proximally and distally to identify normal tissue planes. Medial and lateral flaps were developed appropriate releases. The standard medial parapatellar arthrotomy was made and extended into quadriceps snip following the previous suture line from her previous quadricep snip. The patella was subluxed laterally. At this time an aggressive synovectomy was performed re-creating the medial gutter first, then the suprapatellar pouch than the lateral gutter. Once this was completed the knee was flexed up an osteotome was used to remove the tibial polyethylene. The remainder of the synovium was debrided. The standard deep MCL release was done and the patella scar pad was resected and lateral releases were performed. Next our attention was directed to the femur. Wear flexible osteotomes and TPS saw were used to break up the implant cement interface. Distally around the implant distal femur interface. This was done both medially and laterally. After this was completed he was placed in flexion bone tamp was used to remove the femur component from the end of the bone. We were able to dislodge the femoral component from the cement mantle. This was done with minimal bone loss. Our attention was now directed towards the significant cement mantle which remained. Osteotomes were used to carefully debride the cement mantle of the canal in order to prevent fracture of the femur. We did essentially drill in order to create the ability to get the distal cement plug out. Finally after all this was removed the cement plug was removed. This took Significant amount of time and attention in order prevent fracture. This took significant addition al time in order to prevent fracture complication at this time attention was now directed towards the proximal tibia. Possible osteotome and TPS saw were then used to break up the proximal tibia implant interface and stacked osteotomes were used to attempt to remove the implant from the cement mantle. Then a bone tamp was used. This took considerable amount of time and after working at this for little over an hour we put the tourniquet down and elected to proceed with the proximal tibial osteotomy in order to remove the implant. An osteotomy was performed of the tibial tubercle. We carefully burred around the cone in order to anteriorly before we made the osteotomy. We then used the bur to drill holes along the tibia and the length we wanted our osteotomy. We then went anterior and slightly lateral. Once we had created a path we then used a TPS saw. Curved osteotomes were then placed to separate the bone from the cement. We then opened up the osteotomy and the door like fashion. This allowed us to get to the proximal. Our attention was then turned to the tibia where the intramedullary canal was reamed to the cement mantle and proximal cone. Once this was done we then drilled holes in the cement mantle in order to make it able to come out piecemeal. We carefully debrided around the proximal tibial implant where the window was open. Once this was done we then carefully used the osteotome to debride cement from within the cone from the bottom side. We removing the cement in the tibia posterior and medially there was a membrane signifying a loose cement mantle. Distally and anteriorly there was good cement fixation. Finally when this was completed we were able to remove the tibial component and cone component from the knee. We then directed our attention of the residual cement mantle distally and carefully debrided that. We drilled centrally and then carefully used osteotomes to break up the ring of cement. This took considerable amount of time and attention in order to prevent complication. Once this was completed we then placed 2 cables around the distal portion of the osteotomy. We debrided around the proximal tibia and placed a cable around the proximal portion of the osteotomy. At this time the extra medullary tibial cutting guide was used to make the appropriate tibial cut 90 degrees from the mechanical axis. A drop lalo was then used to verify the cut. At this time we then reamed for a size E tibial cone and a trial cone was placed. A size 5 tibial base plate was selected. the knee was flexed and the tibial component was pinned into place and the Launch[employer] reamer was used to ream the proximal medullary canal. The trial implant was impacted in its prepared position. Our attention was then turned back to the femur or the femur intramedullary canal was reamed to 19 mm and the intramedullary reamer was used as a cutting guide to make our distal femoral cut. Distal femoral was made using the standard TheWrap medial epicondyle guide to set the joint line. Cleanup cut was made we knew we would need a 5 augment medially, and 5 augment laterally. Using the previous femoral component and tibial component as a guide the size 5 4-in-1 femoral cutting guide was pinned into place in the appropriate rotation. Rotation was based on the medial epicondyles and tibial cut. Once this was pinned in place anterior cut, anterior chamfer cut, posterior cut and posterior chamfer cuts were made. At this time we then reamed the femur for a tibial cone. Size 8 tibial cone was found to be appropriate. A central cone was used. The appropriate trials were then placed on the femur and tibia. A trial polyethylene was trialed to ensure proper balancing and stability of the knee. Patella tracking, was then verified and corrected appropriately as needed. Our attention was then directed to the patella. The patella component was stably fixed without significant erosion. Patellar tracking was again checked and patient did have some lateral tracking. By this time the tourniquet was down. We carefully made a lateral release in order to help alleviate some of her chronic lateral patellar tracking. Patient tracked appropriately.. Final components were verified and opened, 6 liters of normal saline were irrigated throughout the joint under low-pressure lavage. Then the cement was mixed in a vacuum. Jamie Simplex cement with tobramycin was used. The wound was copiously irrigated with normal saline. When the cement was ready the components were cemented into place starting with the tibia, femur. The femur and the tibia were cemented separately. Antibiotic cement was used. The trial poly component was placed and the knee was placed in full extension. All excess cement was removed in the process. Once the cement had cured the tracking, alignment and balance were verified and a size 19 mm polyethylene component was placed. Once the final components were placed and 3-minute dilute Betadine lavage perfo rmed followed by chlorhexidine lavage and TXA lavage and finally the wound was copiously irrigated with normal saline solution and the remainder of the periarticular injection was given. The wound was closed in a layer de jesus fashion using #2 FiberWire proximally in order to repair the quadriceps snip and imbricate the medial tissues. #1 vicryl interrupted sutures for the arthrotomy, 2-0 interrupted Vicryl for the subcuticular layer and 2-0 nylon sutures for final skin closure. A sterile compressive dressing was then placed. Patient was placed in a knee immobilizer the patient was then awakened from anesthesia, transferred to the [facility] and transferred to the PACU for recovery. Post op plan DVT ppx: Xarelto 10 mg daily for DVT prophylaxis for the first 2 weeks followed by aspirin twice daily 81 mg for 2 weeks, thigh high compression stockings Follow up: in office in 2 weeks for wound check PT: to start POD #0 at hospital, outpatient PT should be arranged. Patient will be toe-touch weightbearing due to her tibial osteotomy. She was placed in a knee immobilizer we will hold flexion for the first 2 weeks. Will hold strengthening for at least 6 weeks. Range of motion will return based on healing of the osteotomy. My physician anesthesiologists' assistant was a vital part of this case. He was important in appropriate retraction during the case, and protection of soft tissues during bony cuts. His intimate knowledge of the case and my steps aided in safe and expedient completion of the procedure as well as appropriate position of the leg during the case. He was also vital in assisting with closure under my direct supervision. Modifier 22: This case was a revision of a revision significantly more difficult than a standard revision total knee replacement. This should be taken into consideration. There is considerable amount of time spent removing the significant intramedullary cement mantle's from both the tibia and the femur. Additionally an osteotomy had to be performed on the tibia in order to remove the tibial component and repair of this osteotomy was also something that a significant amount of time to the case. Overall case in its entirety was 6 and half hours 3 dosing of antibiotics. Standard revision total knee replacement roughly 2-1/2 hours. This should be taken significantly into consideration for the above-mentioned modifier 22 Surgical Findings: Stable knee. Patella tracked appropriately after lateral release. Osteotomy was performed in order to remove tibial implant. Complications Complications: No Admit VTE Documentation VTE Present on Admission: No VTE Mechan Device Prophylaxis: Thigh High YUKI Hose VTE Pharm Prophylaxis ordered?: Yes
--- NOTE | 2024-11-22 19:35 | RAD_ITS ---
STUDY: X-RAY - LEFT KNEE REASON FOR EXAM: Female, 74 years old. post op -- AP and Lateral xray of operative knee in PACU TECHNIQUE: AP and lateral view(s) of the knee. COMPARISON: None. FINDINGS: Postop changes status post knee prosthesis placement which appears to be in anatomic alignment and position There is residual gas and soft tissue swelling at the operative site RAD/Knee 1 or 2 Views IMPRESSION: Status post knee prosthesis placement. Electronically Signed: Armando Morgan MD at 20:32 EST ,
--- NOTE | 2024-11-22 19:39 | PCM.POST.ANE ---
Anesthesia: Postop Eval I Current Vital Signs Temperature: 37.5 F Pulse Rate: 87 Blood Pressure: 138/93 Respiratory Rate: 18 Pulse Ox: 99 Oxygen Delivery Method: Nasal Cannula Oxygen Flow Rate (L/min): 2 Assessment Airway patent: Yes Spontaneous unlabored respirations: Yes Mental status: Awake and Calm nausea: No Vomiting: No Anesthesia Complication: No Fluid Hydration Crystalloid volume administer (ml): 3,400 Total IV fluid infused: 3,400 Progress Note Anesthesia document: Postop Eval 1 completed: Yes
[2024-11-22 20:46] LABS: Bedside Glucose 224 mg/dL (74-106)
--- NOTE | 2024-11-22 21:15 | PCM.POSTANE2 ---
Anesthesia Postop Eval I Sum Postop Eval Completion status Anesthesia document: Postop Eval 1 completed: Yes Anesthesia Postop Eval I Summary Anesthesia Postop Eval I Summary: Anesthesia Postop Eval I: Assessment Summary Airway patent Yes 11/22/24 21:15 Spontaneous unlabored Yes 11/22/24 21:15 respirations Mental status Awake,Calm 11/22/24 21:15 nausea No 11/22/24 21:15 Vomiting No 11/22/24 21:15 Anesthesia Postop Eval I: Fluid Summary Crystalloid volume administer 3,400 11/22/24 21:15 (ml) Colloids volume administered ( ml) Blood Product volume administered (ml) Total IV fluid infused 3,400 11/22/24 21:15 Anesthesia Postop Eval I: Summary Notes Anesthesia Complication No 11/22/24 21:15 Anesthesia Complication Comment: Post-operative progress note Anesthesia: Postop Eval II Evaluation Mental status: Awake and Calm Pain Level: 3 nausea: No Vomiting: No Complications Anesthesia Complication: No
[2024-11-22] MEDS: Doxycycline 100 MG CAPSULE PO (21:41)
[2024-11-22] MEDS: Gabapentin 300 MG Capsule 600 MG PO (21:41)
[2024-11-22] MEDS: Metoclopramide 5 MG TABLET PO (21:41)
[2024-11-22] MEDS: Senna/Docusate Sodium 1 Tablet 2 TABLET PO (21:42)
[2024-11-22] MEDS: clonazePAM 0.5 MG Tablet PO (21:42)
[2024-11-22] MEDS: Pantoprazole Sodium 40 MG Tablet PO (21:42)
[2024-11-22] MEDS: Atenolol 100 MG Tablet PO (21:44)
[2024-11-22] MEDS: Latanoprost 0.005% 1 Bottle 1 DRP EACH EYE (21:44)
[2024-11-22] MEDS: Ursodiol 250 MG Tablet 500 MG PO (21:46)
[2024-11-22] MEDS: Losartan Potassium 100 MG Tablet PO (21:47)
[2024-11-22] MEDS: oxyCODONE 5 MG Tablet PO (22:41)
[2024-11-23] VITALS (8 sets, daily range): BP systolic 80–113; BP diastolic 49–71; PULSE 74–88; RESP 14–16; TEMP 35.9–36.7; O2SAT 95–100
[2024-11-23] MEDS: Levothyroxine 100 MCG Tablet PO (06:45)
[2024-11-23] MEDS: Acetaminophen 500 MG Tablet 1000 MG PO ×3 (06:45→22:49)
[2024-11-23] MEDS: Metoclopramide 5 MG TABLET PO ×3 (06:45→22:49)
[2024-11-23] MEDS: oxyCODONE 5 MG Tablet PO ×3 (06:52→18:03)
[2024-11-23] MEDS: Rivaroxaban 10 MG Tablet PO (06:53)
--- NOTE | 2024-11-23 06:58 | PCM.PN.ORT ---
Subjective Subjective The patient was sitting in bed upon examination. Patient denies any chest pain, shortness of breath, dizziness, lightheadedness, nausea or vomiting, or calf pain. Pain is controlled on medications. No adverse overnight events. Patient got up to the floor late last night due to length of surgery. She has not been out of bed yet. She denies any dizziness or lightheadedness. Her pain has been adequately controlled so far. She is currently in a knee immobilizer with no flexion for a minimum of 2 weeks. She has limited weightbearing due to tibial osteotomy. She will be toe-touch weightbearing with walker. Patient does live home alone and will require placement upon discharge. Case management is currently involved. Objective Data Objective Data Vital Signs: Vital Signs Temp Pulse Resp BP Pulse Ox O2 Del Method O2 Flow Rate 96.7 F L 78 16 105/71 100 Nasal Cannula 2 11/23/24 02:10 11/23/24 02:10 11/23/24 02:10 11/23/24 02:10 11/23/24 02:10 11/23/24 02:10 11/23/24 02:10 Oxygen Flow Rate (L/min) 2 Oxygen Delivery Method Nasal Cannula Weight: 112.3 kg Body Mass Index (BMI) 31.8 Intake & Output: Intake and Output for Last 24 Hours 11/21/24 11/22/24 11/23/24 23:59 23:59 23:59 Intake Total 1522 / 1522 Output Total 850 / 850 Balance 1522 / 1522 -850 / -850 Lab / Micro Data 11/02/24 13:24 11/02/24 13:24 Labs: Laboratory Results - last 24 hr 11/22/24 08:55: POC Glucose 93 11/22/24 09:15: Blood Type O POSITIVE, Antibody Screen NEGATIVE 11/22/24 20:00: POC Glucose 224 H Micro: Microbiology 11/02/24 13:24 Swab (Method) Nasal Screen MRSA/MSSA - Final Radiography Diagnostic Testing: Radiology Impression Knee X-Ray 11/22/24 19:35 IMPRESSION: Status post knee prosthesis placement. Electronically Signed: Armando Morgan MD at 20:32 EST , Physical Exam Narrative Vital signs stable and afebrile. SCDs in place bilaterally and YUKI hose on the right. No YUKI hose on the left. Patient is able to plantarflex and dorsiflex actively. Sensation is intact to light touch to saphenous, sural, superficial and deep peroneal, and tibial distribution. Knee immobilizer currently in place. This was loosened and there was no breakthrough drainage with compressive Zack wrap and ABDs. Negative Homans bilaterally, negative signs and symptoms of DVT. Const alert, oriented x3 and no apparent distress Assessment & Plan Assessment/Plan (1) Status post revision of total replacement of left knee: PLAN: 1. S/P revision left total knee arthroplasty with tibial tubercle osteotomy POD #1 2. Continue Pain Medications: Tylenol and oxycodone. We are avoiding nonsteroidal anti-inflammatories due to chronic kidney disease and anticoagulation. 3. DVT Prophylaxis: Patient has past history of DVT. She will be placed on Xarelto 10 mg once daily for 2 weeks postoperatively due to past history of DVT and limited weightbearing. After 2 weeks of Xarelto plan will be to then transition to 81 mg aspirin twice daily for an additional 2 weeks. Will continue with SCDs and YUKI hose. Discussed with nurse to make sure patient has YUKI hose on the left lower extremity. 4. PT/OT: Toe-touch weightbearing with walker. Knee immobilizer at all times and no flexion of the left knee for a minimum of 2 weeks. Appreciate recommendations for discharge planning. Patient does live home alone and concern for safety with current limitations. 5. H & H: No current labs, asymptomatic. Vitals are stable 6. Postoperative wound: Currently patient has compressive Zack wrap with ABDs. We are limiting flexion for 2 weeks postoperatively for incision rest. Plan will be for removal of the Zack wrap tomorrow to assessed wound. If any drainage possible placement of wound VAC and consultation from wound nurse. 7. Currently on doxycycline for 2 weeks postoperatively. Microbiology wound and tissue specimens were reviewed in chart and currently pending. I discussed with the patient potential side effects of doxycycline including sensitivity to the sunlight and increased risk of skin burn. Recommend patient take appropriate precautions. Also recommend patient to take probiotic while on the antibiotic. Patient voiced understanding agreement. 8. Encouraged Incentive Spirometry 9. Patient is aware of postoperative constipation that can occur from 1-3 days postoperatively. Will continue with senna 2 tablets twice daily until first bowel movement. Patient was advised if not having a bowel movement after day 3 she is to contact orthopedics so appropriate change can be made. Patient voiced understanding. 10. Continue postoperative medical treatment per medicine 11. Disposition: Due to weightbearing restrictions and limitations as well as living home alone there is concern for safe discharge home. I would appreciate recommendations from physical therapy. Case management is currently involved for appropriate discharge planning. Patient will remain in the knee immobilizer with no flexion for 2 weeks. Toe-touch weightbearing due to tibial tubercle osteotomy. Patient will continue with above pain medications. Once we have plan for discharge we can move forward. Labs will be repeated tomorrow. We also want to monitor patient's microbiology with cultures for appropriate discharge planning for antibiotics. Due to past history of DVT patient is currently on Xarelto for DVT prophylaxis. I have reviewed the [place] Automated Rx Reporting System (OARRS) report for this patient for refill pattern and other prescriber involvement as part of the appropriate surveillance for the provision of acute and chronic controlled medications. The report was requested and reviewed on the date of this entry and was considered in the prescribing process. This dictation was created using voice recognition software. Phonetic and/or grammatical errors may exist. (2) DVT (deep venous thrombosis):
[2024-11-23 07:22] LABS: Hematocrit 30.8 % (37-47); Hemoglobin 9.5 g/dL (12.0-15.0); Mean Corp Hgb Conc 30.8 g/dL (32-36); Mean Corpuscular Hgb 29.5 pg (27.0-32.0); Mean Corpuscular Volume 95.7 fL (81-99); Mean Platelet Vol. 10.3 fl (6.2-12.0); Platelet Count 193 K/mm3 (150-450); RBC Distribution Width CV 13.6 % (11.6-14.6); RBC Distribution Width SD 47.7 fl (35.1-43.9); Red Blood Count 3.22 M/mm3 (4.2-5.4); White Blood Count 11.5 K/mm3 (4.4-11.0)
[2024-11-23 07:48] LABS: Anion Gap 8 (5-15); BUN 17 mg/dL (7-18); BUN/Creat Ratio 14.9 RATIO (10-20); Calcium,Total 8.4 mg/dL (8.5-10.1); Chloride 105 mmol/L (98-107); Creatinine, Serum 1.14 mg/dL (0.55-1.02); EST Glomerular Filtration Rate 49 mL/min (>60); Est Glom Filt Rate - Afr Amer 60 mL/min (>60); Estimated Creatinine Clearance 60.67 ml/min; Glucose 176 mg/dL (74-106); Potassium 3.9 mmol/L (3.5-5.1); Sodium Level 139 mmol/L (136-145)
[2024-11-23] MEDS: Senna/Docusate Sodium 1 Tablet 2 TABLET PO ×2 (10:10→22:49)
[2024-11-23] MEDS: Doxycycline 100 MG CAPSULE PO ×2 (10:10→22:48)
[2024-11-23] MEDS: Cholecalciferol (VIT D3) 25 MCG TABLET (1,000 UNITS) 50 MCG PO (10:10)
[2024-11-23] MEDS: Pantoprazole Sodium 40 MG Tablet PO ×2 (10:10→22:48)
[2024-11-23] MEDS: Empagliflozin 10 MG Tablet 5 MG PO (10:11)
[2024-11-23] MEDS: Tolterodine Tartrate 2 MG CAP.SA PO (10:13)
[2024-11-23] MEDS: Lactobacillis Acidophilus 1 CAP PO (10:15)
[2024-11-23] MEDS: DULoxetine Hcl 60 MG Capsule PO (10:15)
[2024-11-23] MEDS: Clopidogrel Bisulfate 75 MG Tablet PO (10:15)
[2024-11-23] MEDS: Atorvastatin Calcium 40 MG Tablet PO (10:15)
[2024-11-23] MEDS: Ursodiol 250 MG Tablet 500 MG PO ×2 (10:16→22:49)
[2024-11-23] MEDS: Gabapentin 300 MG Capsule PO (10:29)
[2024-11-23] MEDS: Ensure Surgery 237 ML LIQUID PO ×3 (10:30→18:03)
[2024-11-23] MEDS: FLU VACCINE **HIGH DOSE** TV 24-25 180 MCG/0.5 ML SYRINGE IM (10:31)
--- NOTE | 2024-11-23 11:21 | NURSING ---
DR ADAMS NOTIFIED VIA TEXT OF BP 89/56 (LT ARM), 77/50 (RT ARM), HR 79. HELD THE 5MG NORVASC AND SHE IS SUPPOSED TO GET 100MG ATENOLOL AND HAS NO FLUIDS ORDERED. HE RESPONDED BACK NO NEW ORDERS NOW. AT THIS TIME DR CAMPBELL WAS PAGED AND ORDERS RECEIVED FOR FLUIDS. IN THE MEANTIME, TA ESQUEDA RESPONDED TO HIS PAGE RELATED TO TEXT SENT TO DR ADAMS, AT THAT TIME J CARLOS TOLD HIM I WAS SPEAKING W/DR CAMPBELL
[2024-11-23] MEDS: 0.9% Normal Saline (500mL Bag) 500 ML 999 ML IV (11:39)
[2024-11-23] MEDS: 0.9% Saline Lock 10 ML Syringe IV (11:39)
--- NOTE | 2024-11-23 11:44 | NURSING ---
FLUID ORDERS WERE RECEIVED BY DR CAMPBELL AND SHORTLY AFTER, DR ADAMS CAME TO UNIT AND REVIEWED MEDICATIONS
--- NOTE | 2024-11-23 12:18 | CASEMGMT ---
CARY SINGH Assessment Face to Face with patient for initial transition planning/care coordination assessment. CARY SINGH introduced self and role at [facility], pt voices understanding. Pt is A&Ox4 and is resting comfortably in bed and is calm. Care providers, pharmacy, and demographics verified. Admitting dx: ERAS, Revision Lt Total Knee Arthroplasty LACE Strata: 2 PCP: Mylene Esteban Specialists: Ted, Neuro; Friend, GI; Jeff, endocrinology Preferred Pharmacy: [facility] Insurance: [employer] Prescription Benefit: Yes LNOK: La (Thomas), Whit Olguin (Sister) Living Arrangements: Pt lives alone in a single story home with 2 steps to enter ADLs/IADLs: Ind at baseline Transportation: Self, family. Denies concerns DME: CPAP with no additional oxygen. Pt states that she has a history with [facility] for home oxygen use after being diagnosed with Covid. Pt has a pulse ox, continuous BGM and regular BGM with sufficient supplies, BP Machine, walk-in shower with chair and grab bars, raised TS, Cane, walker, lift chair, and medical alert system. HHC/SNF: Hx with [facility] at home. Hx at [facility] and [facility] Pt?s goal: Return to [facility] Plan: Anticipate [facility]. Pt states that she did not have a good experience at [facility] and states that she wants to return to the [facility] for further rehab prior to returning home. Pt states that she would subsequently want HHC through [facility] set up. [facility] SW notified and to follow therapy and send referral once appropriate. Pt denies further questions or concerns at this time. Eduar Cotto RN, CM
[2024-11-23] MEDS: 0.9% Normal Saline (1000mL) 1,000 ML 125 ML IV (13:08)
--- NOTE | 2024-11-23 13:37 | PN.HOSP_ITS ---
Reason for Visit Reason for Visit: Diagnoses Acute embolism and thrombosis of unspecified deep veins of unspecified lower extremity (11/22/24) Encounter for other preprocedural examination (11/22/24) Presence of left artificial knee joint (11/22/24) Subjective Subjective Consult requested by Dr. Murphy for postoperative medical management. Patient's blood pressure has been noted to be low but patient is otherwise feeling well. Objective Data Objective Data Vital Signs: Vital Signs Temp Pulse Resp BP Pulse Ox O2 Del Method O2 Flow Rate 36.6 C 80 15 85/52 L 97 Nasal Cannula 2 11/23/24 13:09 11/23/24 13:09 11/23/24 13:09 11/23/24 13:09 11/23/24 13:09 11/23/24 13:09 11/23/24 13:09 Oxygen Flow Rate (L/min) 2 Oxygen Delivery Method Nasal Cannula Weight: 112.3 kg Body Mass Index (BMI) 31.8 Intake & Output: Intake and Output for Last 24 Hours 11/21/24 11/22/24 11/23/24 23:59 23:59 23:59 Intake Total 1522 / 1522 500 / 500 Output Total 850 / 850 Balance 1522 / 1522 -350 / -350 Lab / Micro Data 11/23/24 06:55 11/23/24 06:55 Labs: Laboratory Results - last 24 hr 11/22/24 20:00: POC Glucose 224 H 11/23/24 06:55: WBC 11.5 H, RBC 3.22 L, Hgb 9.5 L, Hct 30.8 L, MCV 95.7, MCH 29.5, MCHC 30.8 L, RDW Std Deviation 47.7 H, RDW Coeff of Olesya 13.6, Plt Count 193, MPV 10.3, Sodium 139, Potassium 3.9, Chloride 105, Carbon Dioxide 26.0, Anion Gap 8, BUN 17, Creatinine 1.14 H, Estim Creat Clear Calc 60.67, Est GFR (MDRD) Af Amer 60, Est GFR (MDRD) Non-Af 49 L, BUN/Creatinine Ratio 14.9, G lucose 176 H, Calcium 8.4 L Micro: Microbiology 11/02/24 13:24 Swab (Method) Nasal Screen MRSA/MSSA - Final Radiography Diagnostic Testing: Radiology Impression Knee X-Ray 11/22/24 19:35 IMPRESSION: Status post knee prosthesis placement. Electronically Signed: Armando Morgan MD at 20:32 EST Reading Location ID and State: [facility] / [place] Tel , Service support , Physical Exam Const Constitutional Narrative: Lying in bed. Awake and alert. No respiratory distress. No conversational dyspnea. HEENT head/scalp atraumatic and moist oral mucous membranes Resp normal respiratory effort, no retractions, no use of accessory muscles and clear to auscultation bilaterally Cardio regular rate, regular rhythm, S1 normal heart sound and S2 normal heart sound GI normal to inspection, nondistended, normoactive bowel sounds, soft to palpation, non-tender and non-distended Neuro Sensorium / Orientation: awake and alert Assessment & Plan Assessment/Plan (1) Hypotension: PLAN: I agree with the IV fluids. Patient looks well at this time. I will feel aggressive intervention is necessary at this time beyond the IV fluids. Patient is on antihypertensives with losartan, atenolol and amlodipine. I have put hold parameters on those. I full intended the patient is going to improve and should likely be ready for discharge on the . PLAN: Plan Status post left knee replacement revision. Management per orthopedics. VTE prophylaxis per orthopedics. Hospital service will follow along. Once again if patient's blood pressure is overall stabilized, I feel the patient could be medically ready for discharge as early as the . Charges/Coding Visit Charges Inpatient E&M: 09269 Subs Hosp L2
--- NOTE | 2024-11-23 13:37 | CASEMGMT ---
Addendum entered by Vernell Real 11/23/24 16:40: Pt has not been able to complete therapy d/t low blood pressure at this time. SW will follow up for additional choices vs [facility] tomorrow after pt has completed therapy. BALTAZAR Garcia Original Note: Social Work- SW notified that pt would like referral to TCU. SW completed referral. Referral declined by TCU. BALTAZAR Garcia
--- NOTE | 2024-11-23 15:01 | CHAPLAIN ---
Type of Pastoral Visit _x__ Initial Visit ___ Follow-up Visit ___ On-call Visit ___ General Patient Visit ___ Spiritual Assessment ___ Family Conference ___ Bereavement ___ Rapid Response ___ Code Blue ___ Other (describe below) Pastoral Care Referral From __x_ Patient ___ Family ___ Nurse ___ Physician ___ Emergency Management Coordinator ___ Supervisor Cured Meats ___ Other (describe below) Sacrament/Intervention _x__ Active listening ___ Anointing ___ Protestant ___ Bereavement ___ Communion ___ [place] exploration ___ _x__ Life review _x__ Prayer ___ Reconciliation ___ Sacrament of Sick ___ Supportive presence ___ Wedding ___ Other (describe below) Pastoral Comments patient and daughter are in the room; pt describes her situation and what she might be having for rehab; pt realizes that she will need more rehab and is looking forward to that; pt is welcoming of prayer; she declares no further needs
[2024-11-23] MEDS: Ferrous Sulfate 325 MG Tablet PO (18:03)
--- NOTE | 2024-11-23 18:35 | NURSING ---
DR ADAMS NOTIFIED VIA TEXT, URINE OUTPUT ONLY 275 FOR THE DAY. THERAPY DID SIT HER AT BEDSIDE BUT PT BECAME DIZZY SO THEY DID NOT DO ANTHING ELSE. LAST BP 103/60. ORDERS RECEIVED
[2024-11-23] MEDS: 0.9% Normal Saline (1000mL) 1,000 ML 150 ML IV (20:44)
[2024-11-23] MEDS: Latanoprost 0.005% 1 Bottle 1 DRP EACH EYE (22:50)
[2024-11-23] MEDS: clonazePAM 0.5 MG Tablet PO (22:51)
[2024-11-23] MEDS: Gabapentin 300 MG Capsule 600 MG PO (22:51)
[2024-11-24] VITALS (8 sets, daily range): BP systolic 105–156; BP diastolic 58–77; PULSE 96–115; RESP 14–18; TEMP 36.6–37.1; O2SAT 95–99
[2024-11-24] MEDS: 0.9% Normal Saline (1000mL) 1,000 ML 125 ML IV (03:30)
[2024-11-24] MEDS: oxyCODONE 5 MG Tablet PO ×5 (03:30→23:31)
[2024-11-24] MEDS: Rivaroxaban 10 MG Tablet PO (05:40)
[2024-11-24] MEDS: Acetaminophen 500 MG Tablet 1000 MG PO ×3 (05:40→21:26)
[2024-11-24] MEDS: Metoclopramide 5 MG TABLET PO ×3 (05:41→21:27)
[2024-11-24] MEDS: Levothyroxine 100 MCG Tablet PO (05:42)
[2024-11-24 06:57] LABS: Hematocrit 25.1 % (37-47); Hemoglobin 7.8 g/dL (12.0-15.0); Mean Corp Hgb Conc 31.1 g/dL (32-36); Mean Corpuscular Hgb 30.1 pg (27.0-32.0); Mean Corpuscular Volume 96.9 fL (81-99); Mean Platelet Vol. 10.2 fl (6.2-12.0); Platelet Count 152 K/mm3 (150-450); RBC Distribution Width CV 13.7 % (11.6-14.6); RBC Distribution Width SD 48.4 fl (35.1-43.9); Red Blood Count 2.59 M/mm3 (4.2-5.4); White Blood Count 10.6 K/mm3 (4.4-11.0)
--- NOTE | 2024-11-24 08:24 | PCM.PN.HOSP ---
Reason for Visit Reason for Visit: Diagnoses Acute embolism and thrombosis of unspecified deep veins of unspecified lower extremity (11/22/24) Hypotension, unspecified (11/22/24) Encounter for other preprocedural examination (11/22/24) Presence of left artificial knee joint (11/22/24) Subjective Subjective Feels well. No dizziness/lightheadedness. Objective Data Objective Data Vital Signs: Vital Signs Temp Pulse Resp BP Pulse Ox O2 Del Method O2 Flow Rate 36.9 C 97 16 106/58 L 98 Nasal Cannula 2 11/24/24 07:15 11/24/24 07:20 11/24/24 07:20 11/24/24 07:15 11/24/24 07:20 11/24/24 07:20 11/24/24 07:20 Oxygen Flow Rate (L/min) 2 Oxygen Delivery Method Nasal Cannula Weight: 112.3 kg Body Mass Index (BMI) 31.8 Intake & Output: Intake and Output for Last 24 Hours 11/22/24 11/23/24 11/24/24 23:59 23:59 23:59 Intake Total 1522 / 1522 2488.33 / 2488.33 1000 / 1000 Output Total 1525 / 1525 950 / 950 Balance 1522 / 1522 963.33 / 963.33 50 / 50 Lab / Micro Data 11/24/24 06:11 11/23/24 06:55 Labs: Laboratory Results - last 24 hr 11/24/24 06:11: WBC 10.6, RBC 2.59 L, Hgb 7.8 L, Hct 25.1 L, MCV 96.9, MCH 30.1, MCHC 31.1 L, RDW Std Deviation 48.4 H, RDW Coeff of Olesya 13.7, Plt Count 152, MPV 10.2 Micro: Microbiology 11/22/24 Unknown Tissue - Knee Gram Stain - Final 11/22/24 Unknown Tissue - Knee Gram Stain - Final 11/22/24 Unknown Tissue - Knee Gram Stain - Final 11/02/24 13:24 Swab (Method) Nasal Screen MRSA/MSSA - Final Physical Exam Const alert and no apparent distress HEENT head/scalp atraumatic GI non-distended Neuro Sensorium / Orientation: awake and alert Assessment & Plan Assessment/Plan (1) Hypotension: PLAN: Improved with IVF. Patient is on antihypertensives with losartan, atenolol and amlodipine. I have put hold parameters on those based on her BP. (2) Acute blood loss anemia: PLAN: Hg on 11/02 13.9, then 9.5 on 11/23 and 7.8. Monitor for now. I don't recommend transfusion until hemoglobin is 7 or less. Start Ferrous Sulfate every other day. PLAN: Plan Status post left knee replacement revision. Management per orthopedics. VTE prophylaxis per orthopedics. Medically stable for discharge. Will follow peripherally. Charges/Coding Visit Charges Inpatient E&M: 37809 Subs Hosp L1
[2024-11-24] MEDS: Cholecalciferol (VIT D3) 25 MCG TABLET (1,000 UNITS) 50 MCG PO (09:00)
[2024-11-24] MEDS: Senna/Docusate Sodium 1 Tablet 2 TABLET PO ×2 (09:01→21:26)
[2024-11-24] MEDS: Pantoprazole Sodium 40 MG Tablet PO ×2 (09:01→21:27)
[2024-11-24] MEDS: Folic Acid 1 MG Tablet PO (09:02)
[2024-11-24] MEDS: Tolterodine Tartrate 2 MG CAP.SA PO (09:02)
[2024-11-24] MEDS: Lactobacillis Acidophilus 1 CAP PO (09:02)
[2024-11-24] MEDS: Empagliflozin 10 MG Tablet 5 MG PO (09:03)
[2024-11-24] MEDS: Clopidogrel Bisulfate 75 MG Tablet PO (09:03)
[2024-11-24] MEDS: Atorvastatin Calcium 40 MG Tablet PO (09:03)
[2024-11-24] MEDS: DULoxetine Hcl 60 MG Capsule PO (09:04)
[2024-11-24] MEDS: Doxycycline 100 MG CAPSULE PO ×2 (09:05→21:26)
[2024-11-24] MEDS: Ursodiol 250 MG Tablet 500 MG PO ×2 (09:05→21:28)
[2024-11-24] MEDS: Gabapentin 300 MG Capsule PO (09:09)
[2024-11-24] MEDS: Ferrous Sulfate 325 MG Tablet PO ×2 (10:47→16:10)
[2024-11-24] MEDS: Ensure Surgery 237 ML LIQUID PO ×2 (10:47→16:15)
--- NOTE | 2024-11-24 11:07 | WOUNDNOTE ---
wound photo: left knee
--- NOTE | 2024-11-24 11:45 | PN.ORTHO_ITS ---
Subjective Subjective Patient appears to be comfortable in bedside chair. Patient has not yet been up and working with physical therapy getting in her bedside chair is the most that she is moved. Patient states that today her dizziness and nausea is better. Patient denies having any shortness of breath, chest pain, calf pain. Patient denies any fever, chills. Patient states that today her pain is adequately controlled. Patient is currently in a knee immobilizer with instructions to do no flexion for 2 weeks. Patient's weightbearing status is toe-touch weightbearing with a walker. Patient will require placement following discharge due to living alone. Patient is willing to go to a alf facility in [place] rather than [facility]. Case management is involved in this case. Objective Data Objective Data Vital Signs: Vital Signs Temp Pulse Resp BP Pulse Ox O2 Del Method O2 Flow Rate 98.1 F 96 14 105/59 L 95 Room Air 2 11/24/24 08:59 11/24/24 08:59 11/24/24 08:59 11/24/24 08:59 11/24/24 09:10 11/24/24 09:10 11/24/24 08:59 Oxygen Flow Rate (L/min) 2 Oxygen Delivery Method Room Air Weight: 112.3 kg Body Mass Index (BMI) 31.8 Intake & Output: Intake and Output for Last 24 Hours 11/22/24 11/23/24 11/24/24 23:59 23:59 23:59 Intake Total 1522 / 1522 2488.33 / 2488.33 2500 / 2500 Output Total 1525 / 1525 1200 / 1200 Balance 1522 / 1522 963.33 / 963.33 1300 / 1300 Lab / Micro Data 11/24/24 06:11 11/23/24 06:55 Labs: Laboratory Results - last 24 hr 11/24/24 06:11: WBC 10.6, RBC 2.59 L, Hgb 7.8 L, Hct 25.1 L, MCV 96.9, MCH 30.1, MCHC 31.1 L, RDW Std Deviation 48.4 H, RDW Coeff of Olesya 13.7, Plt Count 152, MPV 10.2 Micro: Microbiology 11/22/24 Unknown Tissue - Knee Gram Stain - Final 11/22/24 Unknown Tissue - Knee Wound Culture - Preliminary No growth-Final to follow 11/22/24 Unknown Tissue - Knee Gram Stain - Final 11/22/24 Unknown Tissue - Knee Wound Culture - Preliminary No growth-Final to follow 11/22/24 Unknown Tissue - Knee Gram Stain - Final 11/22/24 Unknown Tissue - Knee Wound Culture - Preliminary No growth-Final to follow 11/02/24 13:24 Swab (Method) Nasal Screen MRSA/MSSA - Final Physical Exam Narrative 1. YUKI hose in place bilaterally. 2. Knee immobilizer in place on the left knee. 3. SCDs in place bilaterally. 4. Incision is with minimal bloody drainage. Left knee is fluctuant. 5. Dorsiflexion and plantarflexion are performed without pain or restriction. 6. Sensation is intact to light touch. 7. Neurovascularly intact. 8. Negative Homans bilaterally. Const alert and oriented x3 Assessment & Plan Assessment/Plan (1) Status post revision of total replacement of left knee: PLAN: 1. Status post revision of left total knee arthroplasty with tibial tubercle osteotomy postop day 2. 2. Pain medications: Continue Tylenol and oxycodone. We are avoiding nonsteroidal anti-inflammatory medications due to chronic kidney disease and anticoagulation. 3. DVT prophylaxis: Patient does have a history of DVT. Patient will be placed on Xarelto 10 mg once daily for 2 weeks postoperatively. After 2 weeks of Xarelto we will plan to move to 81 mg of aspirin twice daily for an additional 2 weeks. Patient will continue with SCDs and YUKI hose. 4. Physical therapy: Patient is to be toe-touch weightbearing with a walker. Patient is to wear her knee immobilizer at all times and had no flexion in the left knee for 2 weeks. Patient lives at home alone and has concern with safety with current limitations. Case management is involved. 5. H&H: 7.8/.1 respectively. Patient is currently asymptomatic. Hospitalist will manage and does not recommend transfusion until hemoglobin is 7 or less. 6. Postoperative wound: Patient's compressive Zack wrap and ABDs was removed today to assess the wound. Dressing was with minimal bloody drainage from the incision. Left knee was fluctuant but was not able to express fluid. Wound nurse was consulted and recommended that we wait and see what the incision and me look like tomorrow before deciding to put a wound VAC on. 7. Patient is currently on doxycycline for 2 weeks postoperatively. Microbiology from wound has not displayed any Gram stain results other than rare white blood cells, as well as 1+ white blood cells. Preliminary wound cultures have shown no growth. 8. Encouraged incentive spirometry. 9. Constipation: Patient was encouraged to take her senna until first bowel movement. Patient was educated to call our office if patient has not had a bowel movement at 3 days postoperatively to reassess. Patient voiced understanding. 10. Continue postoperative medical treatment per medicine. 11. Disposition: At this time there is concern for safe discharge home due to safety concerns with weightbearing status. Recommendations from physical therapy are appreciated once patient completes first physical therapy session. Case management is involved for appropriate discharge. Patient will remain in the knee immobilizer for 2 weeks with no flexion. Patient will be toe-touch weightbearing due to tibial tubercle osteotomy. Medicine will continue to manage hemoglobin and hematocrit until stabilized. Labs will be repeated tomorrow. Will monitor microbiology for final results. Patient will continue on the current pain medications, as well as DVT prophylaxis. Patient was encouraged to call us with any questions, concerns, new problems.
--- NOTE | 2024-11-24 12:05 | VDLE_ITS ---
Reason For Study: RLE Pain RIGHT LEFT GSV is normal. Unable to acquire LT CFV / FV due to CFV is compressible, spontaneous, phasic, presence of immobilizer. competent and demonstrates normal augmentation. FV is compressible, spontaneous, phasic, competent and demonstrates normal augmentation. POP V is compressible, spontaneous, phasic, competent and demonstrates normal augmentation. T/P Trunk is compressible. PTV is compressible. RT PerV is compressible. Procedure This is a venous duplex using B-mode, color flow and spectral Doppler. Exam performed portable in patient room. The exam was diagnostic. A preliminary report was called and/or faxed to M/S 3 RN. VL/Venous Duplex US, Unilateral Interpretation Summary Deep veins of the right lower extremity are patent and compressible segmentally . There is no evidence of right lower extremity deep vein thrombosis. Valvular competence crow ears intact within the proximal deep venous system on the right . The right great saphenous vein a ppears patent and compressible segmentally. Ordering Physician: Beryl Smith Referring Physician: Raghav Murphy Performed By: Soto Hayes RVT
--- NOTE | 2024-11-24 12:08 | CASEMGMT ---
Discharge Planning A list of SNF providers including quality and resource use data and consistent with the patient's preferred geographic region, medical needs, and insurance network was created in [employer] Guide.? This list was provided to the SW. Randi Thakur Discharge Planning Asst.
--- NOTE | 2024-11-24 15:19 | CASEMGMT ---
RN CM to pt room at this time. Pt is laying down comfortably in bed. Pt notified that TCU has declined the referral. Pt states that she is still interested in attending a SNF for further rehab. List provided to pt at this time for review (see AYAD Bryan planning advisor note). Pt denies further concerns at this time. SW updated.
[2024-11-24] MEDS: tiZANidine HCl 2 MG Tablet 4 MG PO (16:11)
--- NOTE | 2024-11-24 16:26 | NURSING ---
All documentation by nursing informatics analyst Gladys Mackay reviewed by nursing informatics analyst Jackie RAMAN, RN.
[2024-11-24] MEDS: 0.9% Saline Lock 10 ML Syringe IV (21:23)
[2024-11-24] MEDS: Gabapentin 300 MG Capsule 600 MG PO (21:25)
[2024-11-24] MEDS: clonazePAM 0.5 MG Tablet PO (21:25)
[2024-11-24] MEDS: Losartan Potassium 100 MG Tablet PO (21:27)
[2024-11-24] MEDS: Latanoprost 0.005% 1 Bottle 1 DRP EACH EYE (21:28)
[2024-11-24] MEDS: Atenolol 100 MG Tablet PO (21:28)
[2024-11-25 03:01] VITALS: BP 137/77; PULSE 92; RESP 16; TEMP 36.5; O2SAT 93
[2024-11-25 06:02] LABS: Absolute Lymphocyte Count 1.74 X10^3/uL (0.83-4.51); Absolute Neutrophil Count 7.9 X10^3/uL (2.0-7.7); Basophil# 0.02 X10^3/uL; Basophil% 0.2 % (0-1); Eosinophils% 0.8 % (0-5); Hematocrit 23.9 % (37-47); Hemoglobin 7.5 g/dL (12.0-15.0); Lymphocyte # 1.74 X10^3/ul (0.83-4.51); Lymphocyte % 14.7 % (19-41); Mean Corp Hgb Conc 31.4 g/dL (32-36); Mean Corpuscular Volume 95.6 fL (81-99); Mean Platelet Vol. 10.5 fl (6.2-12.0); Monocyte% 16.9 % (0-10); NRBC Flagged by Analyzer 0 % (0-5); Neutrophil # 7.93 X10^3/uL (2.7-7.7); Neutrophil % 66.8 % (47-70); POSITIVE DIFFERENTIAL YES; Platelet Count 143 K/mm3 (150-450); RBC Distribution Width CV 13.8 % (11.6-14.6); RBC Distribution Width SD 48.1 fl (35.1-43.9); White Blood Count 11.9 K/mm3 (4.4-11.0)
[2024-11-25 06:19] VITALS: BP 164/78
[2024-11-25 06:19] LABS: Differential Indicated SCAN CRITERIA MET
[2024-11-25] MEDS: oxyCODONE 5 MG Tablet PO ×3 (06:22→21:30)
[2024-11-25] MEDS: Acetaminophen 500 MG Tablet 1000 MG PO ×3 (06:23→21:31)
[2024-11-25] MEDS: Rivaroxaban 10 MG Tablet PO (06:23)
[2024-11-25] MEDS: Levothyroxine 100 MCG Tablet PO (06:23)
[2024-11-25] MEDS: Metoclopramide 5 MG TABLET PO ×3 (06:23→21:32)
[2024-11-25 07:55] LABS: Anisocytosis 2+; Hypochromasia 2+; Platelet Estimate ADEQUATE (ADEQ)
[2024-11-25 09:17] VITALS: BP 141/80; PULSE 94; RESP 18; TEMP 37.2; O2SAT 93
[2024-11-25] MEDS: Folic Acid 1 MG Tablet PO (09:26)
[2024-11-25] MEDS: Empagliflozin 10 MG Tablet 5 MG PO (09:26)
[2024-11-25] MEDS: Doxycycline 100 MG CAPSULE PO ×2 (09:26→21:33)
[2024-11-25] MEDS: DULoxetine Hcl 60 MG Capsule PO (09:26)
[2024-11-25] MEDS: Lactobacillis Acidophilus 1 CAP PO (09:26)
[2024-11-25] MEDS: Ursodiol 250 MG Tablet 500 MG PO ×2 (09:27→21:35)
[2024-11-25] MEDS: Senna/Docusate Sodium 1 Tablet 2 TABLET PO ×2 (09:27→21:32)
[2024-11-25] MEDS: Pantoprazole Sodium 40 MG Tablet PO ×2 (09:27→21:32)
[2024-11-25] MEDS: Tolterodine Tartrate 2 MG CAP.SA PO (09:27)
[2024-11-25] MEDS: Cholecalciferol (VIT D3) 25 MCG TABLET (1,000 UNITS) 50 MCG PO (09:27)
[2024-11-25] MEDS: amLODIPine 5 MG Tablet PO (09:27)
[2024-11-25] MEDS: Atenolol 100 MG Tablet PO ×2 (09:27→21:33)
[2024-11-25] MEDS: Clopidogrel Bisulfate 75 MG Tablet PO (09:27)
[2024-11-25] MEDS: Atorvastatin Calcium 40 MG Tablet PO (09:30)
[2024-11-25] MEDS: Gabapentin 300 MG Capsule 600 MG PO ×2 (09:32→21:41)
[2024-11-25] MEDS: Gabapentin 300 MG Capsule PO (09:35)
--- NOTE | 2024-11-25 10:05 | CASEMGMT ---
Call rec'd from pt re: pt choice list. She would like referrals made as follows; 1)TCU, 2)[facility] 3)[facility]. It was explained to pt that TCU is not in network with her insurance. Pt requested that I call her daughter, La, with this information. Call placed to daughter and she was in agreeable to the above. Referral sent to [facility] who declined d/t no bed availability. Referral then sent to [facility]. Awaiting response. Randi Thakur DC Planning Asst.
[2024-11-25] MEDS: Ferrous Sulfate 325 MG Tablet PO ×2 (12:37→16:34)
--- NOTE | 2024-11-25 12:54 | PCM.PN.ORT ---
Subjective Subjective The patient was sitting in bed upon examination. Patient denies any chest pain, shortness of breath, dizziness, lightheadedness, nausea or vomiting, or calf pain. Pain is controlled on medications. No adverse overnight events. Patient has been doing overall well. Her vitals have been stable. She has had postoperative drop in hemoglobin and which today was currently 7.5. She is asymptomatic without any dizziness or lightheadedness. Case management states she was excepted at [facility]. They are awaiting approval through insurance. Objective Data Objective Data Vital Signs: Vital Signs Temp Pulse Resp BP Pulse Ox O2 Del Method O2 Flow Rate 99.0 F 94 18 141/80 H 93 Room Air 2 11/25/24 09:17 11/25/24 09:17 11/25/24 09:17 11/25/24 09:17 11/25/24 09:17 11/25/24 09:17 11/24/24 08:59 Oxygen Flow Rate (L/min) 2 Oxygen Delivery Method Room Air Weight: 112.3 kg Body Mass Index (BMI) 31.8 Intake & Output: Intake and Output for Last 24 Hours 11/23/24 11/24/24 11/25/24 23:59 23:59 23:59 Intake Total 2488.33 / 2488.33 3300 / 3300 Output Total 1525 / 1525 2450 / 2450 1800 / 1800 Balance 963.33 / 963.33 850 / 850 -1800 / -1800 Lab / Micro Data 11/25/24 05:49 11/23/24 06:55 Labs: Laboratory Results - last 24 hr 11/25/24 05:49: WBC 11.9 H, RBC 2.50 L, Hgb 7.5 L, Hct 23.9 L, MCV 95.6, MCH 30.0, MCHC 31.4 L, RDW Std Deviation 48.1 H, RDW Coeff of Olesya 13.8, Plt Count 143 L, MPV 10.5, Immature Gran % (Auto) 0.600, Neut % (Auto) 66.8, Lymph % (Auto) 14.7 L, Baldwin % (Auto) 16.9 H, Eos % (Auto) 0.8, Baso % (Auto) 0.2, Absolute Neuts (auto) 7.9 H, Absolute Lymphs (auto) 1.74, Nucleated RBC % 0, Platelet Estimate ADEQUATE, Hypochromasia 2+, Anisocytosis 2+ Micro: Microbiology 11/22/24 Unknown Tissue - Knee Gram Stain - Final 11/22/24 Unknown Tissue - Knee Wound Culture - Preliminary No growth-Final to follow 11/22/24 Unknown Tissue - Knee Anaerobic Culture - Preliminary No growth in 48 hours. 11/22/24 Unknown Tissue - Knee Gram Stain - Final 11/22/24 Unknown Tissue - Knee Wound Culture - Preliminary No growth-Final to follow 11/22/24 Unknown Tissue - Knee Anaerobic Culture - Preliminary No growth in 48 hours. 11/22/24 Unknown Tissue - Knee Gram Stain - Final 11/22/24 Unknown Tissue - Knee Wound Culture - Preliminary No growth-Final to follow 11/22/24 Unknown Tissue - Knee Anaerobic Culture - Preliminary No growth in 48 hours. 11/02/24 13:24 Swab (Method) Nasal Screen MRSA/MSSA - Final Physical Exam Narrative Vital signs stable and afebrile. Left thigh is soft and supple Patient is able to plantarflex and dorsiflex actively. Sensation is intact to light touch to saphenous, sural, superficial and deep peroneal, and tibial distribution. Knee immobilizer in place with compressive Zack wrap with ABDs. There was minimal drainage upon inspection of the incision. No active drainage on the incision. Drainage was on the ABD. Negative Homans bilaterally, negative signs and symptoms of DVT. Const alert, oriented x3 and no apparent distress Assessment & Plan Assessment/Plan (1) Status post revision of total replacement of left knee: PLAN: 1. S/P revision left total knee arthroplasty with tibial tubercle osteotomy POD #3 2. Continue Pain Medications: Tylenol and oxycodone. We are avoiding nonsteroidal anti-inflammatories due to chronic kidney disease and anticoagulation. 3. DVT Prophylaxis: Patient has past history of DVT. She will be placed on Xarelto 10 mg once daily for 2 weeks postoperatively due to past history of DVT and limited weightbearing. After 2 weeks of Xarelto plan will be to then transition to 81 mg aspirin twice daily for an additional 2 weeks. Will continue with SCDs and YUKI bearden. 4. PT/OT: Toe-touch weightbearing with walker. Knee immobilizer at all times and no flexion of the left knee for a minimum of 2 weeks. Appreciate recommendations for discharge planning. Patient does live home alone and concern for safety with current limitations. 5. H & H: 7.5/23.9, asymptomatic. Vitals are stable. Yesterday hemoglobin was 7.9. She is currently on iron and folic acid. Medicine has been consulted and recommend no transfusion unless she drops below 7.0. Patient does have history of iron deficiency/anemia. Drop in hemoglobin secondary to acute blood loss versus dilutional component. No intraoperative complications. 6. Postoperative wound: Wound nurse has been consulted. At this time do not feel that a wound VAC is necessary. Patient has flexion restrictions. She is currently in the knee immobilizer for 2 weeks with no range of motion. There was minimal drainage on the ABD. We will continue with compressive Zack wrap and ABD with daily changes. 7. Currently on doxycycline for 2 weeks postoperatively. Microbiology wound and tissue specimens were reviewed in chart and currently without growth. I discussed with the patient potential side effects of doxycycline including sensitivity to the sunlight and increased risk of skin burn. Recommend patient take appropriate precautions. Also recommend patient to take probiotic while on the antibiotic. Patient voiced understanding agreement. 8. Encouraged Incentive Spirometry 9. Patient is aware of postoperative constipation that can occur from 1-3 days postoperatively. Will continue with senna 2 tablets twice daily until first bowel movement. Patient was advised if not having a bowel movement after day 3 she is to contact orthopedics so appropriate change can be made. Patient voiced understanding. Patient reports she is passing gas but no bowel movement yet. We also discussed the potential for the iron to cause some constipation and will use the stool softener. 10. Continue postoperative medical treatment per medicine 11. Disposition: Plan is going to be discharged to [facility]. She has been accepted. We are waiting on approval from insurance. Patient will continue above pain regimen and DVT prophylaxis regimen. Continue physical therapy restrictions. Patient will require a 2-3-week follow-up with the primary care physician with repeat labs and further management of her postoperative anemia. She did voiced understanding. She does have history of iron deficiency. Pain medication will be placed on chart. She will follow-up per postoperative instructions. She has scheduled 2-week follow-up with [facility] for x-rays and suture removal. Upon discharge she will contact our office with any concerns or questions. Case was discussed with case management and charge nurse. If she has approval from insurance plan will be discharged today. I have reviewed the [place] Automated Rx Reporting System (OARRS) report for this patient for refill pattern and other prescriber involvement as part of the appropriate surveillance for the provision of acute and chronic controlled medications. The report was requested and reviewed on the date of this entry and was considered in the prescribing process. This dictation was created using voice recognition software. Phonetic and/or grammatical errors may exist. (2) Acute blood loss anemia: (3) DVT (deep venous thrombosis):
--- NOTE | 2024-11-25 13:04 | TREXTCAR_ITS ---
Diet Diet Order/Speech Therapy: 11/23/24 10:42 ADA [Diet: Consistent Carb - Calorie Controlled] How many daily calories?: 1800 calorie Routine Orders/Code Status Routine Lab Work: CBC and BMP (Would recommend repeat CBC and BMP in 2 days. Patient will require follow-up with PCP in 2-3 weeks. Recommend repeat lab work prior to her appointment.) Code Status: Full Code DC O2, CPAP, BIPAP needs Home O2 Discharge instructions: No Wound(s) LEFT KNEE: Wound Type: Surgical Incision Dressing Change: Dry Sterile Dressing (Continue compressive Zack wrap with ABD. Daily ABD changes.) Therapies Weight Bearing: Toe-touch weight bearing (Toe-touch weightbearing left lower extremity with knee immobilizer in place. No flexion of the left knee.) Extremity Affected:: Left Lower Physical Therapy: Eval and Treat (Toe-touch weightbearing with walker left lower extremity. Must remain in knee immobilizer at all times. No flexion of the left knee.) Occupational Therapy: Eval and Treat (Toe-touch weightbearing with walker left lower extremity. Must remain in knee immobilizer at all times. No flexion of the left knee.) Problem/Diagnosis (1) Status post revision of total replacement of left knee: Status: Acute Code(s): Z96.652 - Presence of left artificial knee joint Plan: 1. S/P revision left total knee arthroplasty with tibial tubercle osteotomy POD #3 2. Continue Pain Medications: Tylenol and oxycodone. We are avoiding nonsteroidal anti-inflammatories due to chronic kidney disease and anticoagulation. 3. DVT Prophylaxis: Patient has past history of DVT. She will be placed on Xarelto 10 mg once daily for 2 weeks postoperatively due to past history of DVT and limited weightbearing. After 2 weeks of Xarelto plan will be to then transition to 81 mg aspirin twice daily for an additional 2 weeks. Will continue with SCDs and YUKI bearden. 4. PT/OT: Toe-touch weightbearing with walker. Knee immobilizer at all times and no flexion of the left knee for a minimum of 2 weeks. Appreciate recommendations for discharge planning. Patient does live home alone and concern for safety with current limitations. 5. H & H: 7.5/23.9, asymptomatic. Vitals are stable. Yesterday hemoglobin was 7.9. She is currently on iron and folic acid. Medicine has been consulted and recommend no transfusion unless she drops below 7.0. Patient does have history of iron deficiency/anemia. Drop in hemoglobin secondary to acute blood loss versus dilutional component. No intraoperative complications. 6. Postoperative wound: Wound nurse has been consulted. At this time do not feel that a wound VAC is necessary. Patient has flexion restrictions. She is currently in the knee immobilizer for 2 weeks with no range of motion. There was minimal drainage on the ABD. We will continue with compressive Zack wrap and ABD with daily changes. 7. Currently on doxycycline for 2 weeks postoperatively. Microbiology wound and tissue specimens were reviewed in chart and currently without growth. I discussed with the patient potential side effects of doxycycline including sensitivity to the sunlight and increased risk of skin burn. Recommend patient take appropriate precautions. Also recommend patient to take probiotic while on the antibiotic. Patient voiced understanding agreement. 8. Encouraged Incentive Spirometry 9. Patient is aware of postoperative constipation that can occur from 1-3 days postoperatively. Will continue with senna 2 tablets twice daily until first bowel movement. Patient was advised if not having a bowel movement after day 3 she is to contact orthopedics so appropriate change can be made. Patient voiced understanding. Patient reports she is passing gas but no bowel movement yet. We also discussed the potential for the iron to cause some constipation and will use the stool softener. 10. Continue postoperative medical treatment per medicine 11. Disposition: Plan is going to be discharged to [facility]. She has been accepted. We are waiting on approval from insurance. Patient will continue above pain regimen and DVT prophylaxis regimen. Continue physical therapy restrictions. Patient will require a 2-3-week follow-up with the primary care physician with repeat labs and further management of her postoperative anemia. She did voiced understanding. She does have history of iron deficiency. Pain medication will be placed on chart. She will follow-up per postoperative instructions. She has scheduled 2-week follow-up with [facility] for x-rays and suture removal. Upon d ischarge she will contact our office with any concerns or questions. Case was discussed with case management and charge nurse. If she has approval from insurance plan will be discharged today. I have reviewed the [place] Automated Rx Reporting System (OARRS) report for this patient for refill pattern and other prescriber involvement as part of the appropriate surveillance for the provision of acute and chronic controlled medications. The report was requested and reviewed on the date of this entry and was considered in the prescribing process. This dictation was created using voice recognition software. Phonetic and/or grammatical errors may exist. (2) Acute blood loss anemia: Status: Acute Code(s): D62 - Acute posthemorrhagic anemia (3) DVT (deep venous thrombosis): Status: Acute Code(s): I82.409 - Acute embolism and thrombosis of unspecified deep veins of unspecified lower extremity Comment: IN THE PAST/HAD KATE FILTER/REMOVED AT THIS TIME Allergies/Procedures Done in Hospital Allergies Sulfa (Sulfonamide Antibiotics) Allergy (Verified 11/22/24 08:56) Itching linezolid (From Zyvox) Adverse Reaction (Verified 11/22/24 08:56) Other Type of Care/Length of Stay Estimated LOS: Convalescent Care Less Than 30 days Type of Care Needed: Skilled Rehab Potential: Good Prognosis: Good Additional Orders/Day of Discharge Day of Discharge: 11/25/24 Discharge Plan Admission Admit Date/Time: 11/22/24 19:11 Attending Provider: Maurilio Weaver Primary Care Provider: Mylene Esteban APPLICATION SECURITY ENGINEER Consulting Providers: Carlos Fields; Hannah Minaya; Pranav Turcios; Raghav Murphy Discharge Orders/Prescriptions Prescriptions: New acetaminophen 500 mg Tablet 1,000 mg PO Q8 21 Days Qty: 126 0RF Rx Instructions: Do not take more than 3000 mg Tylenol in a 24-hour period. doxycycline monohydrate 100 mg Capsule 100 mg PO BID 14 Days Qty: 0 0RF Rx Instructions: Take for 2 weeks postoperatively ferrous sulfate [FeroSul] 325 mg (65 mg iron) Tablet 325 mg PO 1200,1700 21 Days Qty: 42 0RF folic acid 1 mg Tablet 1 mg PO BREAKFAST 21 Days Qty: 21 0RF oxycodone 5 mg Tablet 5 - 10 mg PO Q4H PRN PRN (Reason: as needed for pain) 7 Days Qty: 42 0RF Xarelto 10 mg Tablet 10 mg PO DAILY@0600 14 Days Qty: 0 0RF Rx Instructions: Take for 2 weeks postoperatively. After 2 weeks we will switch over to aspirin 81 mg twice daily for an additional 2 weeks sennosides-docusate sodium [Stimulant Laxative Plus] 8.6-50 mg Tablet 2 tab PO BID Qty: 0 0RF Rx Instructions: Take until first bowel movement, then as needed Continued metoclopramide HCl 5 mg tablet 5 mg PO TID Qty: 90 2RF clopidogrel [Plavix] 75 mg tablet 75 mg PO QDAY gabapentin 400 MG capsule 600 mg PO QHS Patient Comments: Nerve pain clonazepam 1 mg tablet 0.5 mg PO QHS Patient Comments: ANXIETY levothyroxine [Synthroid] 125 mcg tablet 100 mcg PO DAILY Patient Comments: THYROID oxybutynin chloride [Ditropan XL] 10 MG tablet extended release 24hr 10 mg PO DAILY tizanidine [Zanaflex] 4 MG tablet 4 mg PO PRN PRN (Reason: Pain) candesartan [Atacand] 16 MG tablet 32 mg PO QHS duloxetine [Cymbalta] 60 MG capsule 60 mg PO DAILY Jardiance 25 mg tablet 12.5 mg PO DAILY Patient Comments: take 1 tablet by mouth every morning psyllium husk [Fiber (psyllium husk)] 0.4 gram capsule 0.4 g PO BID PRN (Reason: Stomach health) amlodipine 5 mg tablet 5 mg PO DAILY atenolol 100 mg tablet 100 mg PO BID Patient Comments: take 1 tablet by mouth twice a day fluticasone propionate 50 mcg/actuation spray,suspension 1 spray intranasal DAILY PRN (Reason: allergy symptoms) Rx Instructions: administer into each nostril latanoprost 0.005 % drops 1 drp EACH EYE QHS nystatin 100,000 unit/gram cream 1 applic TOPICAL PRN Patient Comments: apply topically twice a day as directed Ozempic 1 mg/dose (4 mg/3 mL) pen injector 1 mg subcut WE gabapentin 300 mg capsule 300 mg PO DAILY cholecalciferol (vitamin D3) [Vitamin D3] 50 mcg (2,000 unit) tablet 50 mcg PO DAILY vitamin C77-zzfoy acid 1,000-400 mcg lozenge 2 mallory sublingual DAILY Probiotic Acidophilus 250 million cell capsule 500 mmu cells PO DAILY Aimovig Autoinjector 70 mg/mL auto-injector 70 mg subcut QMONTH Jardiance 10 mg tablet 5 mg PO DAILY atorvastatin 40 mg tablet 40 mg PO DAILY Linzess 290 mcg capsule 290 mcg PO BID ondansetron 4 mg tablet,disintegrating 4 mg PO Q8H PRN (Reason: nausea and vomiting) Qty: 60 3RF pantoprazole 40 mg tablet,delayed release (DR/EC) 40 mg PO BID Qty: 60 3RF ursodiol 500 mg tablet 500 mg PO Q12H Qty: 60 3RF Other Ambulatory Orders: Type & Screen - PAT ONLY (Routine) Timeframe: [id number] Facility: [facility] - Location: Laboratory Ordered By: Dr. Chad Chapman Referrals / Follow Up: Mylene Esteban APPLICATION SECURITY ENGINEER, APPLICATION SECURITY ENGINEER-C [Primary Care Provider] - (Follow-up in 2-3 weeks for repeat labs and continue treatment of postoperative anemia) Raghav Murphy MD [Med Staff - Active Staff] - 12/08/24 2:15 pm Disposition Disposition (needs filled in before D/C Order can be placed): [facility]
--- NOTE | 2024-11-25 13:16 | DCINST_ITS ---
Discharge Instructions Diet Discharge Diet: No restrictions DC O2, CPAP, BIPAP needs Home O2 Discharge instructions: No Dressing / Incision Discharge Activity: May Not Drive (while taking narcotic pain medications.) May shower in (days): 1 (Please turn dressing away from water. Okay to get wet as long as dressing is intact to skin.) Ice area for (Minutes): 20 (Every 1-2 hours while awake[address] place barrier between the skin and ice pack.) Weight Bearing Status: Toe touch weight bearing (Toe-touch weightbearing with walker. Must keep knee immobilizer on at all times. No flexion of the left knee.) Keep extremity elevated above heart level: Operative Extremity Dressing / Incision Call your doctor if your incision/area has: Continuous Slow Oozing, Sudden Increased Bleeding, Increased Pain/ Swelling, Increased Redness and Foul Smelling Discharge Call your doctor if you observe: Fever of 101 or Higher, Coldness, Increased Pain, Numbness or Tingling, Change in Color, Shortness of breath, Chest pain, Calf discomfort and Uncontrolled pain Change Dressing in: 1 day (Daily dressing changes with Zack wrap and ABD.) Additional Dressing/Incision Instructions:: Follow [facility] Post-op Instructions. DVT prophylaxis plan: Due to past history of DVT will be placed on Xarelto for 2 weeks postoperatively. After 2 weeks we will then transition over to aspirin 81 mg twice daily for an additional 2 weeks. Postoperative anemia: Will continue on iron and folic acid postoperatively. Will follow-up with primary care provider 2-3 weeks with repeat labs. Recommend primary care provider continue medications and further treatment at their discretion. Do not use any ointments, Neosporin, salves, alcohol pads over the incision for 6 weeks postoperatively. Do not submerge underwater for 6 weeks postoperatively. Continue with YUKI hose/elastic stockings for 2 weeks postoperatively. May remove at nighttime but needs to be placed back on the leg during the day. Do NOT use alcohol with narcotic pain medication. Do NOT make important decisions while taking narcotic medication. If you have problems with taking your medication (rash, itching, nausea, etc.) call the office at once. Follow Up Care Test Results: Test results from this visit will be discussed in further detail at your follow- up appointment, if applicable. Discharge Plan Admission Admit Date/Time: 11/22/24 19:11 Attending Provider: Maurilio Weaver Primary Care Provider: Mylene Esteban NP Consulting Providers: Carlos Fields; Hannah Minaya; Pranav Turcios; Raghav Murphy Discharge Orders/Prescriptions Prescriptions: New acetaminophen 500 mg Tablet 1,000 mg PO Q8 21 Days Qty: 126 0RF Rx Instructions: Do not take more than 3000 mg Tylenol in a 24-hour period. doxycycline monohydrate 100 mg Capsule 100 mg PO BID 14 Days Qty: 0 0RF Rx Instructions: Take for 2 weeks postoperatively ferrous sulfate [FeroSul] 325 mg (65 mg iron) Tablet 325 mg PO 1200,1700 21 Days Qty: 42 0RF folic acid 1 mg Tablet 1 mg PO BREAKFAST 21 Days Qty: 21 0RF oxycodone 5 mg Tablet 5 - 10 mg PO Q4H PRN PRN (Reason: as needed for pain) 7 Days Qty: 42 0RF Xarelto 10 mg Tablet 10 mg PO DAILY@0600 14 Days Qty: 0 0RF Rx Instructions: Take for 2 weeks postoperatively. After 2 weeks we will switch over to aspirin 81 mg twice daily for an additional 2 weeks sennosides-docusate sodium [Stimulant Laxative Plus] 8.6-50 mg Tablet 2 tab PO BID Qty: 0 0RF Rx Instructions: Take until first bowel movement, then as needed Continued metoclopramide HCl 5 mg tablet 5 mg PO TID Qty: 90 2RF clopidogrel [Plavix] 75 mg tablet 75 mg PO QDAY gabapentin 400 MG capsule 600 mg PO QHS Patient Comments: Nerve pain clonazepam 1 mg tablet 0.5 mg PO QHS Patient Comments: ANXIETY levothyroxine [Synthroid] 125 mcg tablet 100 mcg PO DAILY Patient Comments: THYROID oxybutynin chloride [Ditropan XL] 10 MG tablet extended release 24hr 10 mg PO DAILY tizanidine [Zanaflex] 4 MG tablet 4 mg PO PRN PRN (Reason: Pain) candesartan [Atacand] 16 MG tablet 32 mg PO QHS duloxetine [Cymbalta] 60 MG capsule 60 mg PO DAILY Jardiance 25 mg tablet 12.5 mg PO DAILY Patient Comments: take 1 tablet by mouth every morning psyllium husk [Fiber (psyllium husk)] 0.4 gram capsule 0.4 g PO BID PRN (Reason: Stomach health) amlodipine 5 mg tablet 5 mg PO DAILY atenolol 100 mg tablet 100 mg PO BID Patient Comments: take 1 tablet by mouth twice a day fluticasone propionate 50 mcg/actuation spray,suspension 1 spray intranasal DAILY PRN (Reason: allergy symptoms) Rx Instructions: administer into each nostril latanoprost 0.005 % drops 1 drp EACH EYE QHS nystatin 100,000 unit/gram cream 1 applic TOPICAL PRN Patient Comments: apply topically twice a day as directed Ozempic 1 mg/dose (4 mg/3 mL) pen injector 1 mg subcut WE gabapentin 300 mg capsule 300 mg PO DAILY cholecalciferol (vitamin D3) [Vitamin D3] 50 mcg (2,000 unit) tablet 50 mcg PO DAILY vitamin [id number] acid 1,000-400 mcg lozenge 2 mallory sublingual DAILY Probiotic Acidophilus 250 million cell capsule 500 mmu cells PO DAILY Aimovig Autoinjector 70 mg/mL auto-injector 70 mg subcut QMONTH Jardiance 10 mg tablet 5 mg PO DAILY atorvastatin 40 mg tablet 40 mg PO DAILY Linzess 290 mcg capsule 290 mcg PO BID ondansetron 4 mg tablet,disintegrating 4 mg PO Q8H PRN (Reason: nausea and vomiting) Qty: 60 3RF pantoprazole 40 mg tablet,delayed release (DR/EC) 40 mg PO BID Qty: 60 3RF ursodiol 500 mg tablet 500 mg PO Q12H Qty: 60 3RF Other Ambulatory Orders: Type & Screen - PAT ONLY (Routine) Timeframe: 20241112 Facility: [facility] - Location: Laboratory Ordered By: Dr. Chad Chapman Referrals / Follow Up: Raghav Murphy MD [Med Staff - Active Staff] - 12/08/24 2:15 pm Mylene Esteban NP, RADIO INTERFERENCE SUPERVISOR-C [Primary Care Provider] - (Follow-up in 2-3 weeks for repeat labs and continue treatment of postoperative anemia) Disposition Disposition (needs filled in before D/C Order can be placed): [facility]
--- NOTE | 2024-11-25 13:20 | DS.PCM_ITS ---
Providers Date of Admission: 11/22/24 Date of Discharge: 11/25/24 Primary Care Physician: Mylene Esteban, [place] Consultations 11/22/24 19:12 Consult: Hospitalist Routine Consulting Provider: [facility] Reason for Consult: post op med management EMERGENT Consult: No MD Notified: Yes Date Notified: 11/23/24 Time Notified: 01:00 Method of Notification: Text Reason For Visit: ERAS, REVISION LEFT TOTAL KNEE ARTHROPLASTY Diagnosis Discharge Diagnosis (1) Status post revision of total replacement of left knee: Status: Acute Code(s): Z96.652 - Presence of left artificial knee joint Plan: 1. S/P revision left total knee arthroplasty with tibial tubercle osteotomy POD #3 2. Continue Pain Medications: Tylenol and oxycodone. We are avoiding nonsteroidal anti-inflammatories due to chronic kidney disease and anticoagulation. 3. DVT Prophylaxis: Patient has past history of DVT. She will be placed on Xarelto 10 mg once daily for 2 weeks postoperatively due to past history of DVT and limited weightbearing. After 2 weeks of Xarelto plan will be to then transition to 81 mg aspirin twice daily for an additional 2 weeks. Will continue with SCDs and YUKI hose. 4. PT/OT: Toe-touch weightbearing with walker. Knee immobilizer at all times and no flexion of the left knee for a minimum of 2 weeks. Appreciate recommendations for discharge planning. Patient does live home alone and concern for safety with current limitations. 5. H & H: 7.5/23.9, asymptomatic. Vitals are stable. Yesterday hemoglobin was 7.9. She is currently on iron and folic acid. Medicine has been consulted and recommend no transfusion unless she drops below 7.0. Patient does have history of iron deficiency/anemia. Drop in hemoglobin secondary to acute blood loss versus dilutional component. No intraoperative complications. 6. Postoperative wound: Wound nurse has been consulted. At this time do not feel that a wound VAC is necessary. Patient has flexion restrictions. She is currently in the knee immobilizer for 2 weeks with no range of motion. There was minimal drainage on the ABD. We will continue with compressive Zack wrap and ABD with daily changes. 7. Currently on doxycycline for 2 weeks postoperatively. Microbiology wound and tissue specimens were reviewed in chart and currently without growth. I discussed with the patient potential side effects of doxycycline including sensitivity to the sunlight and increased risk of skin burn. Recommend patient take appropriate precautions. Also recommend patient to take probiotic while on the antibiotic. Patient voiced understanding agreement. 8. Encouraged Incentive Spirometry 9. Patient is aware of postoperative constipation that can occur from 1-3 days postoperatively. Will continue with senna 2 tablets twice daily until first bowel movement. Patient was advised if not having a bowel movement after day 3 she is to contact orthopedics so appropriate change can be made. Patient voiced understanding. Patient reports she is passing gas but no bowel movement yet. We also discussed the potential for the iron to cause some constipation and will use the stool softener. 10. Continue postoperative medical treatment per medicine 11. Disposition: Plan is going to be discharged to [facility]. She has been accepted. We are waiting on approval from insurance. Patient will continue above pain regimen and DVT prophylaxis regimen. Continue physical therapy restrictions. Patient will require a 2-3-week follow-up with the primary care physician with repeat labs and further management of her postoperative anemia. She did voiced understanding. She does have history of iron deficiency. Pain medication will be placed on chart. She will follow-up per postoperative instructions. She has scheduled 2-week follow-up with [facility] for x-rays and suture removal. Upon discharge she will contact our office with any concerns or questions. Case was discussed with case management and charge nurse. If she has approval from insurance plan will be discharged today. I have reviewed the [place] Automated Rx Reporting System (OARRS) report for this patient for refill pattern and other prescriber involvement as part of the appropriate surveillance for the provision of acute and chronic controlled medications. The report was requested and reviewed on the date of this entry and was considered in the prescribing process. This dictation was created using voice recognition software. Phonetic and/or grammatical errors may exist. (2) Acute blood loss anemia: Status: Acute Code(s): D62 - Acute posthemorrhagic anemia (3) DVT (deep venous thrombosis): Status: Acute Code(s): I82.409 - Acute embolism and thrombosis of unspecified deep veins of unspecified lower extremity Medications at Discharge Home Medications clonazepam 1 mg tablet 0.5 mg PO QHS sleep 08/07/15 gabapentin 400 mg capsule 600 mg PO QHS pain 08/07/15 levothyroxine 125 mcg tablet (Synthroid) 100 mcg PO DAILY Thyroid 08/07/15 candesartan 16 mg tablet (Atacand) 32 mg PO QHS Check with primary doctor 07/21/17 duloxetine 60 mg capsule,delayed release (Cymbalta) 60 mg PO DAILY nerve pain 07/21/17 oxybutynin chloride 10 mg tablet,extended release 24 hr (Ditropan XL) 10 mg PO DAILY bladder 07/21/17 tizanidine 4 mg tablet (Zanaflex) 4 mg PO PRN PRN Pain 07/21/17 empagliflozin 25 mg tablet (Jardiance) 12.5 mg PO DAILY Blood sugar 04/04/22 psyllium husk 0.4 gram capsule (Fiber (psyllium husk)) 0.4 g PO BID PRN Stomach health 04/04/22 amlodipine 5 mg tablet 5 mg PO DAILY BP 08/01/23 atenolol 100 mg tablet 100 mg PO BID BP 08/01/23 fluticasone propionate 50 mcg/actuation nasal spray,suspension 1 spray intranasal DAILY PRN allergy symptoms 08/01/23 gabapentin 300 mg capsule 300 mg PO DAILY NERVE PAIN 08/01/23 latanoprost 0.005 % eye drops 1 drp EACH EYE QHS GLAUCOMA 08/01/23 nystatin 100,000 unit/gram topical cream 1 applic topical PRN SKIN 08/01/23 semaglutide 1 mg/dose (4 mg/3 mL) subcutaneous pen injector (Ozempic) 1 mg subcut WE DIABETES 08/01/23 Lactobacillus acidophilus 250 million cell capsule (Probiotic Acidophilus) 500 mmu cells PO DAILY PROBIOTIC 12/11/23 cholecalciferol (vitamin D3) 50 mcg (2,000 unit) tablet (Vitamin D3) 50 mcg PO DAILY SUPPLEMENT 12/11/23 erenumab-aooe 70 mg/mL subcutaneous auto-injector (Aimovig Autoinjector) 70 mg subcut QMONTH MIGRAINES 12/11/23 vitamin B12 1,000 mcg-folic acid 400 mcg sublingual lozenge 2 mallory sublingual DAILY SUPPLEMENT 12/11/23 metoclopramide HCl 5 mg tablet 5 mg PO TID nausea #90 tabs 04/21/24 ondansetron 4 mg disintegrating tablet 4 mg PO Q8H PRN nausea and vomiting #60 tabs 07/08/24 pantoprazole 40 mg tablet,delayed release 40 mg PO BID GERD #60 tabs 07/08/24 clopidogrel 75 mg tablet (Plavix) 75 mg PO QDAY BLOOD THINNER 07/28/24 ursodiol 500 mg tablet 500 mg PO Q12H PROTECT LIVER #60 tabs 08/19/24 atorvastatin 40 mg tablet 40 mg PO DAILY CHOLESTEROL 10/25/24 empagliflozin 10 mg tablet (Jardiance) 5 mg PO DAILY BLOOD SUGAR 10/25/24 linaclotide 290 mcg capsule (Linzess) 290 mcg PO BID IBS 10/25/24 acetaminophen 500 mg tablet 1,000 mg (2 x 500 mg) PO Q8 21 days #126 tabs 11/25/24 doxycycline monohydrate 100 mg capsule 100 mg PO BID 14 days #0 caps 11/25/24 ferrous sulfate 325 mg (65 mg iron) tablet (FeroSul) 325 mg PO 1200,1700 21 days #42 tabs 11/25/24 folic acid 1 mg tablet 1 mg PO BREAKFAST 21 days #21 tabs 11/25/24 oxycodone 5 mg tablet 5 - 10 mg (1 - 2 x 5 mg) PO Q4H PRN PRN as needed for pain 7 days #42 tabs 11/25/24 rivaroxaban 10 mg tablet (Xarelto) 10 mg PO DAILY@0600 14 days #0 tabs 11/25/24 sennosides 8.6 mg-docusate sodium 50 mg tablet (Stimulant Laxative Plus) 2 tab PO BID #0 tabs 11/25/24 Hospital Course Operations total knee replacement Summary of Care Provided Hospital Course: Patient is a 74-year-old female who has had multiple histories of surgery on her left knee. Initial left total knee arthroplasty was in October 2012. Patient had explantation left total knee with placement of static spacer on August 08, 2015. She then required a revision antibiotic spacer with aggressive synovectomy and debridement with placement of incisional wound VAC on September 01, 2015. Patient postoperatively had history of slow wound healing. She underwent IV antibiotics in which she was followed by infectious disease. This was then followed with a removal antibiotic spacer and revision left total knee arthroplasty on October 13, 2015. Patient continued to have knee pain and instability. She attempted bracing. She had to undergo a left knee revision with polyethylene exchange and extensor mechanism realignment with medial imbrication and lateral release on July 21, 2017. Despite those surgery she continued to have persistent left knee pain and instability. After failing conservative measures, the patient opted to proceed with a revision left total knee arthroplasty. The patient underwent the above-stated procedure on November 22, 2024. Patient did receive perioperative antibiotics. Intraoperatively was uneventful. For details please see dictated operative note. The patient was placed in thigh-high teds, bilateral SCDs, remained stable in recovery. Patient was admitted to the 3rd floor at [facility]. The patient's pain was managed with the use of IV and p.o. pain medications. Patient participated in physical therapy. Patient was placed in a knee immobilizer and will avoid any flexion of the left knee. She is toe-touch weightbearing with walker. Patient had postoperative anemia in which she was placed on ferrous sulfate and folic acid. She will continue this and follow-up with the primary care physician in 2-3 weeks for reassessment and further treatment. Patient will also be placed on oral doxycycline postoperatively. She will continue with the pain regimen including Tylenol and oxycodone. Due to past history of DVT she is currently on Xarelto for 2 weeks postoperatively which will be followed by aspirin 81 mg twice daily for an additional 2 weeks. Patient was discharged on postoperative day # 3 to intermediate facility at [facility]. Patient was given medications stated below. Patient will follow up with [facility] per postop instructions for reassessment. Weight / BMI Weight Weight: 112.3 kg Body Mass Index (BMI) 31.8 ABG / Lab / Microbiology Data 11/25/24 05:49 11/23/24 06:55 Laboratory: Laboratory Results - last 24 hr 11/25/24 05:49: WBC 11.9 H, RBC 2.50 L, Hgb 7.5 L, Hct 23.9 L, MCV 95.6, MCH 30.0, MCHC 31.4 L, RDW Std Deviation 48.1 H, RDW Coeff of Olesya 13.8, Plt Count 143 L, MPV 10.5, Immature Gran % (Auto) 0.600, Neut % (Auto) 66.8, Lymph % (Auto) 14.7 L, Bland % (Auto) 16.9 H, Eos % (Auto) 0.8, Baso % (Auto) 0.2, A bsolute Neuts (auto) 7.9 H, Absolute Lymphs (auto) 1.74, Nucleated RBC % 0, Platelet Estimate ADEQUATE, Hypochromasia 2+, Anisocytosis 2+ Microbiology: Microbiology 11/22/24 Unknown Tissue - Knee Gram Stain - Final 11/22/24 Unknown Tissue - Knee Wound Culture - Preliminary No growth-Final to follow 11/22/24 Unknown Tissue - Knee Anaerobic Culture - Preliminary No growth in 48 hours. 11/22/24 Unknown Tissue - Knee Gram Stain - Final 11/22/24 Unknown Tissue - Knee Wound Culture - Preliminary No growth-Final to follow 11/22/24 Unknown Tissue - Knee Anaerobic Culture - Preliminary No growth in 48 hours. 11/22/24 Unknown Tissue - Knee Gram Stain - Final 11/22/24 Unknown Tissue - Knee Wound Culture - Preliminary No growth-Final to follow 11/22/24 Unknown Tissue - Knee Anaerobic Culture - Preliminary No growth in 48 hours. 11/02/24 13:24 Swab (Method) Nasal Screen MRSA/MSSA - Final D/C Instructions Discharge Diet: No restrictions May shower in (days): 1 (Please turn dressing away from water. Okay to get wet as long as dressing is intact to skin.) Ice area for (Minutes): 20 (Every 1-2 hours while awake[address] place barrier between the skin and ice pack.) Weight Bearing Status: Toe touch weight bearing (Toe-touch weightbearing with walker. Must keep knee immobilizer on at all times. No flexion of the left knee.) Keep extremity elevated above heart level: Operative Extremity Call your doctor if your incision/area has: Continuous Slow Oozing, Sudden Increased Bleeding, Increased Pain/ Swelling, Increased Redness and Foul Smelling Discharge Call your doctor if you observe: Fever of 101 or Higher, Coldness, Increased Pain, Numbness or Tingling, Change in Color, Shortness of breath, Chest pain, Calf discomfort and Uncontrolled pain Additional Dressing/Incision Instructions: Follow [facility] Post-op Instructions. DVT prophylaxis plan: Due to past history of DVT will be placed on Xarelto for 2 weeks postoperatively. After 2 weeks we will then transition over to aspirin 81 mg twice daily for an additional 2 weeks. Postoperative anemia: Will continue on iron and folic acid postoperatively. Will follow-up with primary care provider 2-3 weeks with repeat labs. Recommend primary care provider continue medications and further treatment at their discretion. Do not use any ointments, Neosporin, salves, alcohol pads over the incision for 6 weeks postoperatively. Do not submerge underwater for 6 weeks postoperatively. Continue with YUKI hose/elastic stockings for 2 weeks postoperatively. May remove at nighttime but needs to be placed back on the leg during the day. Do NOT use alcohol with narcotic pain medication. Do NOT make important decisions while taking narcotic medication. If you have problems with taking your medication (rash, itching, nausea, etc.) call the office at once. DC O2, CPAP, BIPAP Needs Home O2 Discharge instructions: No Meaningful Use Info Meaningful Use Meaningful Use Diagnoses (Choose all that apply): None applicable Ischemic Stroke Statin Dosing Therapy Reference: STATIN DOSE THERAPY REFERENCE: * Patients > 75 years receive moderate or high dose statin therapy. * Patients 75 years or YOUNGER should receive HIGH intensity statin dose unless contraindicated. You will be required to document reason for non-treatment if statin daily dose does not meet guidelines. HIGH DOSE STATIN THERAPY DAILY Atorvastatin > than or = to 40 mg Rosuvastatin > than or = to 20 mg Amlodipine + Atorvastatin > than or = to 2.5/40 mg Ezetimibe + Simvastatin 10/80 mg Simvastatin 80mg Discharge Plan Admission Admit Date/Time: 11/22/24 19:11 Attending Provider: Maurilio Weaver Primary Care Provider: Mylene Esteban NP Consulting Providers: Carlos Fields; Hannah Minaya; Pranav Turcios; Raghav Murphy Discharge Orders/Prescriptions Prescriptions: New acetaminophen 500 mg Tablet 1,000 mg PO Q8 21 Days Qty: 126 0RF Rx Instructions: Do not take more than 3000 mg Tylenol in a 24-hour period. doxycycline monohydrate 100 mg Capsule 100 mg PO BID 14 Days Qty: 0 0RF Rx Instructions: Take for 2 weeks postoperatively ferrous sulfate [FeroSul] 325 mg (65 mg iron) Tablet 325 mg PO 1200,1700 21 Days Qty: 42 0RF folic acid 1 mg Tablet 1 mg PO BREAKFAST 21 Days Qty: 21 0RF oxycodone 5 mg Tablet 5 - 10 mg PO Q4H PRN PRN (Reason: as needed for pain) 7 Days Qty: 42 0RF Xarelto 10 mg Tablet 10 mg PO DAILY@0600 14 Days Qty: 0 0RF Rx Instructions: Take for 2 weeks postoperatively. After 2 weeks we will switch over to aspirin 81 mg twice daily for an additional 2 weeks sennosides-docusate sodium [Stimulant Laxative Plus] 8.6-50 mg Tablet 2 tab PO BID Qty: 0 0RF Rx Instructions: Take until first bowel movement, then as needed Continued metoclopramide HCl 5 mg tablet 5 mg PO TID Qty: 90 2RF clopidogrel [Plavix] 75 mg tablet 75 mg PO QDAY gabapentin 400 MG capsule 600 mg PO QHS Patient Comments: Nerve pain clonazepam 1 mg tablet 0.5 mg PO QHS Patient Comments: ANXIETY levothyroxine [Synthroid] 125 mcg tablet 100 mcg PO DAILY Patient Comments: THYROID oxybutynin chloride [Ditropan XL] 10 MG tablet extended release 24hr 10 mg PO DAILY tizanidine [Zanaflex] 4 MG tablet 4 mg PO PRN PRN (Reason: Pain) candesartan [Atacand] 16 MG tablet 32 mg PO QHS duloxetine [Cymbalta] 60 MG capsule 60 mg PO DAILY Jardiance 25 mg tablet 12.5 mg PO DAILY Patient Comments: take 1 tablet by mouth every morning psyllium husk [Fiber (psyllium husk)] 0.4 gram capsule 0.4 g PO BID PRN (Reason: Stomach health) amlodipine 5 mg tablet 5 mg PO DAILY atenolol 100 mg tablet 100 mg PO BID Patient Comments: take 1 tablet by mouth twice a day fluticasone propionate 50 mcg/actuation spray,suspension 1 spray intranasal DAILY PRN (Reason: allergy symptoms) Rx Instructions: administer into each nostril latanoprost 0.005 % drops 1 drp EACH EYE QHS nystatin 100,000 unit/gram cream 1 applic TOPICAL PRN Patient Comments: apply topically twice a day as directed Ozempic 1 mg/dose (4 mg/3 mL) pen injector 1 mg subcut WE gabapentin 300 mg capsule 300 mg PO DAILY cholecalciferol (vitamin D3) [Vitamin D3] 50 mcg (2,000 unit) tablet 50 mcg PO DAILY vitamin Z11-fiqci acid 1,000-400 mcg lozenge 2 mallory sublingual DAILY Probiotic Acidophilus 250 million cell capsule 500 mmu cells PO DAILY Aimovig Autoinjector 70 mg/mL auto-injector 70 mg subcut QMONTH Jardiance 10 mg tablet 5 mg PO DAILY atorvastatin 40 mg tablet 40 mg PO DAILY Linzess 290 mcg capsule 290 mcg PO BID ondansetron 4 mg tablet,disintegrating 4 mg PO Q8H PRN (Reason: nausea and vomiting) Qty: 60 3RF pantoprazole 40 mg tablet,delayed release (DR/EC) 40 mg PO BID Qty: 60 3RF ursodiol 500 mg tablet 500 mg PO Q12H Qty: 60 3RF Other Ambulatory Orders: Type & Screen - PAT ONLY (Routine) Timeframe: [id number] Facility: [facility] - Location: Laboratory Ordered By: Dr. Chad Chapman Referrals / Follow Up: Raghav Murphy MD [Med Staff - Active Staff] - 12/08/24 2:15 pm Mylene Esteban NP, [employer] [Primary Care Provider] - (Follow-up in 2-3 weeks for repeat labs and continue treatment of postoperative anemia) Disposition Disposition (needs filled in before D/C Order can be placed): [facility] Facility
[2024-11-25 15:34] VITALS: BP 134/72; PULSE 91; RESP 18; TEMP 36.8; O2SAT 94
[2024-11-25 21:26] VITALS: BP 153/81; PULSE 109; RESP 18; TEMP 37.2; O2SAT 98
[2024-11-25] MEDS: clonazePAM 0.5 MG Tablet PO (21:30)
[2024-11-25] MEDS: Losartan Potassium 100 MG Tablet PO (21:33)
[2024-11-25] MEDS: Latanoprost 0.005% 1 Bottle 1 DRP EACH EYE (21:34)
[2024-11-26 04:44] VITALS: BP 147/77; PULSE 93; RESP 16; TEMP 36.8; O2SAT 98
[2024-11-26] MEDS: Rivaroxaban 10 MG Tablet PO (04:46)
[2024-11-26] MEDS: Levothyroxine 100 MCG Tablet PO (04:47)
[2024-11-26] MEDS: Acetaminophen 500 MG Tablet 1000 MG PO ×2 (04:47→12:34)
[2024-11-26] MEDS: Metoclopramide 5 MG TABLET PO ×2 (04:47→12:33)
[2024-11-26] MEDS: oxyCODONE 5 MG Tablet PO ×2 (04:55→14:34)
[2024-11-26] MEDS: Empagliflozin 10 MG Tablet 5 MG PO (09:30)
[2024-11-26] MEDS: Atorvastatin Calcium 40 MG Tablet PO (09:30)
[2024-11-26] MEDS: DULoxetine Hcl 60 MG Capsule PO (09:30)
[2024-11-26] MEDS: Doxycycline 100 MG CAPSULE PO (09:30)
[2024-11-26] MEDS: Tolterodine Tartrate 2 MG CAP.SA PO (09:30)
[2024-11-26] MEDS: Folic Acid 1 MG Tablet PO (09:31)
[2024-11-26] MEDS: Lactobacillis Acidophilus 1 CAP PO (09:31)
[2024-11-26] MEDS: Pantoprazole Sodium 40 MG Tablet PO (09:31)
[2024-11-26] MEDS: Senna/Docusate Sodium 1 Tablet 2 TABLET PO (09:32)
[2024-11-26] MEDS: Clopidogrel Bisulfate 75 MG Tablet PO (09:32)
[2024-11-26] MEDS: amLODIPine 5 MG Tablet PO (09:32)
[2024-11-26] MEDS: Atenolol 100 MG Tablet PO (09:32)
[2024-11-26] MEDS: Cholecalciferol (VIT D3) 25 MCG TABLET (1,000 UNITS) 50 MCG PO (09:33)
[2024-11-26] MEDS: Ursodiol 250 MG Tablet 500 MG PO (09:33)
--- NOTE | 2024-11-26 09:38 | CASEMGMT ---
Social Work Precert has been obtained for pt to go to [facility] today. PA notified and pt is ready for dc today. 7000 exemption form completed in [facility]. DC orthopedic assistant updated to complete dc once PA has completed dc paperwork. Disposition: [facility], skilled level of care under convalescent stay BALTAZAR Meyer
[2024-11-26] MEDS: Gabapentin 300 MG Capsule PO (09:41)
[2024-11-26 09:48] VITALS: BP 128/68; PULSE 94; RESP 16; TEMP 36.6; O2SAT 100
[2024-11-26] MEDS: Ferrous Sulfate 325 MG Tablet PO (12:33)
--- NOTE | 2024-11-26 13:01 | PCM.PN.ORT ---
Subjective Subjective The patient was sitting in bed upon examination. Patient denies any chest pain, shortness of breath, dizziness, lightheadedness, nausea or vomiting, or calf pain. Pain is controlled on medications. No adverse overnight events. Patient states she was having some initial right groin pain but that has improved. Her pain has been well-managed. She did require to bring in some of her own home medications. She is passing gas and since bring in her own medication she will now start her Linzess. She feels as if she will have a bowel movement very shortly. She denies any abdominal pain. She has been tolerating therapy however she does have limitations with no range of motion of the knee with use of knee immobilizer and toe-touch weightbearing. Plan was for possible discharge to senior living facility yesterday however insurance did not approve until this morning. Objective Data Objective Data Vital Signs: Vital Signs Temp Pulse Resp BP Pulse Ox O2 Del Method O2 Flow Rate 97.9 F 94 16 128/68 H 100 Room Air 2 11/26/24 09:48 11/26/24 09:48 11/26/24 09:48 11/26/24 09:48 11/26/24 09:48 11/26/24 09:48 11/24/24 08:59 Oxygen Flow Rate (L/min) 2 Oxygen Delivery Method Room Air Weight: 112.3 kg Body Mass Index (BMI) 31.8 Intake & Output: Intake and Output for Last 24 Hours 11/24/24 11/25/24 11/26/24 23:59 23:59 23:59 Intake Total 3300 / 3300 2400 / 2400 Output Total 2450 / 2450 1800 / 1800 Balance 850 / 850 600 / 600 Lab / Micro Data 11/25/24 05:49 11/23/24 06:55 Labs: Laboratory Results - last 24 hr 11/25/24 05:49: Diff Path Review May Micro: Microbiology 11/22/24 Unknown Tissue - Knee Gram Stain - Final 11/22/24 Unknown Tissue - Knee Wound Culture - Preliminary No growth-Final to follow 11/22/24 Unknown Tissue - Knee Anaerobic Culture - Preliminary No growth in 48 hours. 11/22/24 Unknown Tissue - Knee Gram Stain - Final 11/22/24 Unknown Tissue - Knee Wound Culture - Preliminary No growth-Final to follow 11/22/24 Unknown Tissue - Knee Anaerobic Culture - Preliminary No growth in 48 hours. 11/22/24 Unknown Tissue - Knee Gram Stain - Final 11/22/24 Unknown Tissue - Knee Wound Culture - Preliminary No growth-Final to follow 11/22/24 Unknown Tissue - Knee Anaerobic Culture - Preliminary No growth in 48 hours. 11/02/24 13:24 Swab (Method) Nasal Screen MRSA/MSSA - Final Radiography Diagnostic Testing: Radiology Impression Venous Doppler Study 11/24/24 12:05 Interpretation Summary Deep veins of the right lower extremity are patent and compressible segmentally. There is no evidence of right lower extremity deep vein thrombosis. Valvular competence appears intact within the proximal deep venous system on the right . The right great saphenous vein appears patent and compressible segmentally. Ordering Physician: Beryl Smith Referring Physician: Raghav Murphy Performed By: Soto Hayes RVT Physical Exam Narrative Vital signs stable and afebrile. Left thigh is soft and supple Patient is able to plantarflex and dorsiflex actively. Sensation is intact to light touch to saphenous, sural, superficial and deep peroneal, and tibial distribution. Knee immobilizer in place with compressive Zack wrap with ABDs. no breakthrough bleeding or drainage. Negative Homans bilaterally, negative signs and symptoms of DVT. Const alert, oriented x3 and no apparent distress Assessment & Plan Assessment/Plan (1) Status post revision of total replacement of left knee: PLAN: 1. S/P revision left total knee arthroplasty with tibial tubercle osteotomy POD #4 2. Continue Pain Medications: Tylenol and oxycodone. We are avoiding nonsteroidal anti-inflammatories due to chronic kidney disease and anticoagulation. 3. DVT Prophylaxis: Patient has past history of DVT. She will be placed on Xarelto 10 mg once daily for 2 weeks postoperatively due to past history of DVT and limited weightbearing. After 2 weeks of Xarelto plan will be to then transition to 81 mg aspirin twice daily for an additional 2 weeks. Will continue with Janelle and YUKI bearden. 4. PT/OT: Toe-touch weightbearing with walker. Knee immobilizer at all times and no flexion of the left knee for a minimum of 2 weeks. Appreciate recommendations for discharge planning. Patient does live home alone and concern for safety with current limitations. 5. Postoperative wound: Wound nurse has been consulted. At this time do not feel that a wound VAC is necessary. Patient has flexion restrictions. She is currently in the knee immobilizer for 2 weeks with no range of motion. There was minimal drainage on the ABD. We will continue with compressive Zack wrap and ABD with daily changes. 6. Currently on doxycycline for 2 weeks postoperatively. Microbiology wound and tissue specimens were reviewed in chart and currently without growth. I discussed with the patient potential side effects of doxycycline including sensitivity to the sunlight and increased risk of skin burn. Recommend patient take appropriate precautions. Also recommend patient to take probiotic while on the antibiotic. Patient voiced understanding agreement. 7. Encouraged Incentive Spirometry 8. Patient is aware of postoperative constipation that can occur from 1-3 days postoperatively. Patient has added in her Linzess which she states is very helpful. Will continue with senna 2 tablets twice daily until first bowel movement. Patient was advised if not having a bowel movement after day 3 she is to contact orthopedics so appropriate change can be made. Patient voiced understanding. Patient reports she is passing gas but no bowel movement yet. We also discussed the potential for the iron to cause some constipation and will use the stool softener. 9. Continue postoperative medical treatment per medicine 10. Disposition: Plan is going to be discharged to [facility] today. Plan was for discharge yesterday but insurance did not approve until this morning. Patient will continue above pain regimen and DVT prophylaxis regimen. Continue physical therapy restrictions. Patient will require a 2-3-week follow-up with the primary care physician with repeat labs and further management of her postoperative anemia. She did voiced understanding. She does have history of iron deficiency. Pain medication will be placed on chart. She will follow-up per postoperative instructions. She has scheduled 2-week follow-up with [facility] for x-rays and suture removal. Upon discharge she will contact our office with any concerns or questions. Case was discussed with case management and charge nurse. If she has approval from insurance plan will be discharged today. I have reviewed the [place] Automated Rx Reporting System (OARRS) report for this patient for refill pattern and other prescriber involvement as part of the appropriate surveillance for the provision of acute and chronic controlled medications. The report was requested and reviewed on the date of this entry and was considered in the prescribing process. This dictation was created using voice recognition software. Phonetic and/or grammatical errors may exist. (2) Acute blood loss anemia: (3) DVT (deep venous thrombosis):
[2024-11-26 14:25] VITALS: BP 125/69; PULSE 87; RESP 17; TEMP 36.7; O2SAT 97
[2024-11-26 14:26] LABS: Pathologist Review Reviewed
--- NOTE | 2024-11-26 14:26 | CASEMGMT ---
Discharge orders, signed med list, and transport time sent to [facility]. Physicians will transport pt by wheelchair at 2:30p. Nursing, SW, and pt updated. Pt states that she will update her daughter. Randi Thakur DC Planning Asst.
--- NOTE | 2024-11-26 14:44 | NURSING ---
This RN attempted to call report at [facility] but no one answered so this RN left a message to have them call me back at this floor's phone number.
== END 2024-11-26 15:55 | disposition skilled nursing facility (03) | DRG 467 ==
LOC: MS3 11-23 08:53
PROVIDERS: Anesthesiology; Admitting Provider Specialist; PCP Nurse Practitioner Primary Care; Referring Provider Specialist
PROC: 0SRD0J9 Replacement of Left Knee Joint with Synthetic Substitute, Cemented, Open Approach (ICD-10-PCS; principal; 2024-11-22 09:35)
DX: T84.033A Mechanical loosening of internal left knee prosthetic joint, initial encounter (principal); D62 Acute posthemorrhagic anemia; E11.22 Type 2 diabetes mellitus with diabetic chronic kidney disease; I12.9 Hypertensive chronic kidney disease with stage 1 through stage 4 chronic kidney disease, or unspecified chronic kidney disease; N18.9 Chronic kidney disease, unspecified; T84.023A Instability of internal left knee prosthesis, initial encounter; G47.30 Sleep apnea, unspecified; F41.9 Anxiety disorder, unspecified; M25.362 Other instability, left knee; G43.909 Migraine, unspecified, not intractable, without status migrainosus; M19.90 Unspecified osteoarthritis, unspecified site; K21.9 Gastro-esophageal reflux disease without esophagitis; I45.4 Nonspecific intraventricular block; I95.9 Hypotension, unspecified; Z79.84 Long term (current) use of oral hypoglycemic drugs; Z79.890 Hormone replacement therapy; Z86.718 Personal history of other venous thrombosis and embolism; Y79.2 Prosthetic and other implants, materials and accessory orthopedic devices associated with adverse incidents; Z87.891 Personal history of nicotine dependence; Z96.652 Presence of left artificial knee joint
CPT/HCPCS: 36415; 73560; 80048; 80076; 82040; 82962; 83036; 83735; 84443; 85025; 85027; 85610; 85730; 86850; 86900; 86901; 87015; 87070; 87075; 87081; 87102; 87116; 87176; 87205; 87206; 90662; 93005; 93971; 94668; 97162; 97166; 97530; 97535; 99252; C1776; A4216; G0463; J2405; J3475

== ENCOUNTER → 2024-12-22 | Outpatient (CLI) | payer MEDICARE, OTHER, SELFPAY ==
--- NOTE | 2024-12-22 14:57 | NEURO ---
NCS and/or EMG Patient Report Ordering Doctor: Ab Jordan DATE OF SERVICE: 12/22/24 Cristine presents for electrodiagnostic testing of the right upper limb. She reports intermittent pain around the thumb which radiates to the forearm. Electrodiagnostic findings: Right median motor nerve demonstrates normal distal latency, amplitude with borderline reduced conduction velocity. Right ulnar motor response is within normal limits, including conduction across the elbow. Borderline prolonged right median F?wave. Prolonged right median sensory latency at the wrist. Needle EMG testing was performed in the right upper limb. All muscles tested showed no evidence of denervation with normal motor unit action potentials. Electrodiagnostic impression: This is an abnormal study. 1. Electrodiagnostic findings suggestive of right-sided median mononeuropathy. This consistent with a mild right carpal tunnel syndrome. Multi Select Codes Neurology Neurology Interp Codes: 33913-75 Musc test done w/n test comp (interp) and 38166-22 Nrv cndj tst 5-6 studies (interp)
== END | disposition home or self-care (01) ==
LOC: PSN 13:51
PROVIDERS: PCP Nurse Practitioner Primary Care; Referring Provider Orthopaedic Surgery Orthopaedic Surgery of the Spine; Visit Provider Orthopaedic Surgery Orthopaedic Surgery of the Spine
DX: G56.21 Lesion of ulnar nerve, right upper limb (principal)
CPT/HCPCS: 95886; 95909

== ENCOUNTER 2025-05-25 07:58 | Day surgery (SDC) | payer MEDICARE, OTHER, SELFPAY ==
--- NOTE | 2025-05-16 17:03 | PAT.ANE_ITS ---
Pre-Assessment Diagnosis/Proposed Procedure Planned Operative Procedure(s): (B) Upper eyelid Blepharoplasty Anesthesia History Anesthesia History - belt brander: Anesthesia History - belt brander Hx Hospitalization Yes: L TKR 05/16/25 14:34 Any Problems With Anesthesia No 05/16/25 14:34 Cholinesterase deficiency No 05/16/25 14:34 You/Your Family Experience No 05/16/25 14:34 fever (hyperthermia) with Relationship Recent Exposure to Contagious No 11/22/24 09:02 Disease Does patient have nerve No 05/16/25 14:34 stimulator Patient instructed to have device shut off --Does patient have Pacemaker or ICD? When Was Last Pacemaker Check QUESTION #4 FULL TEXT: You/Your Family Experience fever (hyperthermia) with Anesthesia Last Oral Intake Last Oral intake: Last Oral Intake NPO since Meds taken in AM with sips of water? 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 - belt brander: PONV - belt brander Female Yes 05/16/25 14:34 HX of Motion Sickness No 05/16/25 14:34 HX of N/V After Surgery No 05/16/25 14:34 Non-Smoker Yes 05/16/25 14:34 Duration of Surgery greater No 05/16/25 14:34 than 60 minutes Number of Risk Factors 2 05/16/25 14:34 PONV Score Moderate Risk 05/16/25 14:34 Height & Weight Height & Weight: Anesthesia: Height & Weight Height 6 ft 2 in 11/25/24 15:00 Respiratory Assessment Respiratory Assessment - belt brander: Respiratory Tract Infection Hx - belt brander Hx Respiratory Tract Infection No 05/16/25 14:34 STOP Sleep Apnea STOP Sleep Apnea - belt brander: STOP Sleep Apnea - belt brander Hx Hypertension Yes 05/16/25 14:34 Hx Sleep Apnea Yes 05/16/25 14:34 CPAP Yes 05/16/25 14:34 BIPAP No 05/16/25 14:34 Do you snore loudly (louder than talking or can be heard Do you often feel tired/ fatigued/ sleepy during daytime? Has anyone observed you stop breathing during sleep? STOP Results Positive 05/16/25 14:34 QUESTION #5 FULL TEXT : Do you snore loudly (louder than talking or can be heard through closed doors)? Tobacco Use History Tobacco Use History - belt brander: Tobacco Use History - belt brander Tobacco Use Smoking Status Former smoker 05/16/25 14:34 Hx Tobacco Use No 05/16/25 14:34 Years Smoking Packs Smoked per Day Smoking Cessation Date was No - quit smoking greater 05/16/25 14:34 within the last 15 years than 15 years ago Hx Smoking Cessation Date 11/03/89 05/16/25 14:34 Hx Smoking Cessation No 05/16/25 14:34 Counseling Hematologic Medial History Hematologic Hx - belt brander: Hematologic Medical Hx - fisher purse seine Hx of Blood Transfusion Yes 05/16/25 14:34 Hx of Transfusion in last 3 No 05/16/25 14:34 Months Date of Last Transfusion (if within last 3 months) Ever experience any problems No 05/16/25 14:34 with transfusion(s)? Specify any problems Hx of Preganancy in last 3 No 05/16/25 14:34 Months Nurse Filling Out Transfusion JZOLLINGE 05/16/25 14:34 & Questions: Date: 05/16/25 05/16/25 14:34 Time: 14:35 05/16/25 14:34 Patient unable to answer at this time (ie. confused, unrespo /Reproduction History /Reproductive History - belt brander: /Reproductive Hx- belt brander Hx Now No 05/16/25 14:34 Gestational Age (in weeks): EDC: Hx Hx Para Hx Section SAB No 05/16/25 14:34 PFSH Medical History Post-menopausal Anxiety Glaucoma Ambulates with cane Low iron Easy bruising History of ulceration History of IBS History of edema Loss of consciousness Hx of transfusion of whole blood Lymphocytic gastritis Wears glasses Wears partial dentures Thyroid disease Diabetes Arthritis Bladder disease DVT (deep venous thrombosis) High cholesterol Restless legs Back pain Migraine headache TIA (transient ischemic attack) Difficulty swallowing Dietary restriction History of diverticulitis Gastric reflux Former smoker CPAP (continuous positive airway pressure) dependence History of pain when walking History of echocardiogram History of stress test Hypertension Cardiology follow-up encounter Hx of mitral valve prolapse History of deviated nasal septum Hx of lipoma Fecal incontinence Infection of total left knee replacement Home Medications ?Medication ?Instructions ?Recorded ?Last Taken ?Type clonazepam 1 mg tablet 0.5 mg PO QHS sleep 08/07/15 11/20/24 History gabapentin 400 mg capsule 600 mg PO QHS pain 08/07/15 11/21/24 History levothyroxine 125 mcg tablet 100 mcg PO DAILY Thyroid 08/07/15 11/22/24 05:45 History (Synthroid) candesartan 16 mg tablet (Atacand) 32 mg PO QHS Check with primary 07/21/17 11/20/24 History doctor duloxetine 60 mg capsule,delayed 60 mg PO DAILY nerve pain 07/21/17 11/21/24 History release (Cymbalta) oxybutynin chloride 10 mg 10 mg PO DAILY bladder 07/2111/20/24 History tablet,extended release 24 hr (Ditropan XL) tizanidine 4 mg tablet (Zanaflex) 4 mg PO PRN PRN Pain 07/21/17 08/26/23 History amlodipine 5 mg tablet 5 mg PO DAILY BP 08/01/23 05:45 History atenolol 100 mg tablet 100 mg PO BID BP 08/01/23 05:45 History fluticasone propionate 50 1 spray intranasal DAILY PRN 08/01/23 11/21/24 History mcg/actuation nasal allergy symptoms spray,suspension gabapentin 300 mg capsule 300 mg PO DAILY NERVE PAIN 0 08/01/23 11/21/24 History latanoprost 0.005 % eye drops 1 drp EACH EYE QHS GLAUC ISIDORO 08/01/23 11/21/24 History nystatin 100,000 unit/gram topical 1 applic topical SC N SKIN 08/01/23 08/26/23 History cream semaglutide 1 mg/dose (4 mg/3 mL) 1 mg subcut WE DIABE JORGE 08/01/23 11/10/24 History subcutaneous pen injector (Ozempic) Lactobacillus acidophilus 250 500 mmu cells PO DAILY P ROBIOTIC 12/11/23 12/14/23 History million cell capsule (Probiotic Acidophilus) cholecalciferol (vitamin D3) 50 50 mcg PO DAILY SUPPLE MENT 12/11/23 11/21/24 History mcg (2,000 unit) tablet (Vitamin D3) erenumab-aooe 70 mg/mL 70 mg subcut QMONTH MIGRAINE S 12/11/23 11/05/24 History subcutaneous auto-injector (Aimovig Autoinjector) ondansetron 4 mg disintegrating 4 mg PO Q8H PRN nausea and 07/08/24 Unknown Rx tablet vomiting #60 tabs clopidogrel 75 mg tablet (Plavix) 75 mg PO QDAY BLOOD THINNER 07/28/24 10/12/24 History atorvastatin 40 mg tablet 40 mg PO DAILY CHOLESTEROL 1 12/26/23 11/21/24 History empagliflozin 10 mg tablet 5 mg PO DAILY BLOOD SUGAR 1 12/26/23 11/21/24 History (Jardiance) linaclotide 290 mcg capsule 290 mcg PO BID IBS 4 11/21/24 History (Linzess) folic acid 1 mg tablet 1 mg PO BREAKFAST 21 days #2 1 tabs 11/25/24 Unknown Rx oxycodone 5 mg tablet 5 - 10 mg (1 - 2 x 5 mg) PO Q4H 11/25/24 Unknown Rx PRN PRN as needed for pain 7 days #42 tabs ursodiol 500 mg tablet 500 mg PO Q12H PROTECT LIVER #60 04/04/25 Unknown Rx tabs pantoprazole 40 mg tablet,delayed 40 mg PO BID GERD #6 0 tabs 04/07/25 Unknown Rx release acetaminophen 500 mg tablet 1,000 mg PO Q8 PRN fever o r pain 05/16/25 Unknown History metoclopramide HCl 5 mg tablet 5 mg PO TID PRN nausea 05/16/25 Unknown History Allergy/AdvReac Type Severity Reaction Status Date / Time Sulfa (Sulfonamide Allergy Itching Verified 04/22/25 11:17 Antibiotics) linezolid (From Zyvox) AdvReac Severe Other Verified 05/16/25 14:09 Surgical History History of back surgery History of total left hip replacement Hx of total knee replacement History of lumbar fusion History of cardiac catheterization History of esophagogastroduodenoscopy (EGD) Hx of colonoscopy Hx of arthroscopy of shoulder Hx of tubal ligation History of carpal tunnel surgery of right wrist History of carpal tunnel surgery of left wrist History of bunionectomy History of laparoscopic cholecystectomy Hx of left knee surgery History of total right knee replacement History of total left knee replacement Social History Smoking Status: Former smoker Audit: Pertinent Findings HISTORY of Pertinent Findings History of Pertinent Findings: Patient has a history of type 2 diabetes that appears to be well-controlled and she follows with the compilation clerk. She does have a history of hypertension that is also well-controlled with her current medication regimen. She also has a history of GERD and is on a PPI at that has controlled her sym ptoms fairly well based on notes. Pertinent Findings EKG Perinent findings: EKG done on 11/22/2024 demonstrated sinus tachycardia with a ventricular rate of 103. There is also evidence of a right bundle branch block. This right bundle branch block was present on a previous EKG that was done in August 2023. Recommendation Anesthesia Recommendation Anesthesia recommendation: OPTIMIZED for anesthesia
[2025-05-25] VITALS (12 sets, daily range): BP systolic 158–185; BP diastolic 85–104; PULSE 59–94; RESP 16–18; TEMP 36.1–37; O2SAT 92–99; BMI 30.8
[2025-05-25] MEDS: Lactated Ringers 1,000 ML 15 ML IV (08:43)
--- NOTE | 2025-05-25 09:59 | PCM.PRE.AN2 ---
ASA Classification* ASA Classification ASA Classification: 3 Assessment & Plan Anesthesia* Anesthesia Assessment Anesthesia Assessment: Discussed sedation and/or anesthesia options, risks, benefits, and alternatives with patient/parents/legal guardian/POA. Questions invited. The patient/parents/legal guardian/POA seems to understand and agrees to proceed with anesthesia plan. Reviewed the physical assessment, medical history, allergy history and patient home medications list prior to surgery/procedure/anesthetic and documented any changes. Performed airway and anesthesia risk assessments. Anesthesia Type Anesthesia Type: MAC History Source History Obtained from:: Patient and Chart Anesthesia Focused Assessment* Temperature: 98.6 F Pulse Rate: 71 Blood Pressure: 160/97 Respiratory Rate: 16 Pulse Ox: 99 Oxygen Delivery Method: Room Air Airway Assessment Mouth opens: >3 cm Mallampati Score: I Teeth Condition: Partial (Right remnant partial denture is in place.) Neck Range of motion (ROM): Limited ROM (Slight Decrease) Labs Anesthesia Preop lab: CBC WBC 11.9 K/mm3 (4.4-11.0) H 11/25/24 05:49 11/25/24 RBC 2.50 M/mm3 (4.2-5.4) L 11/25/24 05:49 11/25/24 Hgb 7.5 g/dL (12.0-15.0) L 11/25/24 05:49 11/25/24 Hct 23.9 % (37-47) L 11/25/24 05:49 11/25/24 Plt Count 143 K/mm3 (150-450) L 11/25/24 05:49 11/25/24 CHEMISTRY Potassium 3.9 mmol/L (3.5-5.1) 11/23/24 06:55 11/23/24 Sodium 139 mmol/L (136-145) 11/23/24 06:55 11/23/24 Magnesium 2.0 mg/dL (1.6-2.6) 11/02/24 13:23 11/02/24 Phosphorus 3.6 mg/dL (2.5-4.9) 10/05/15 08:20 10/05/15 BUN 17 mg/dL (7-18) 11/23/24 06:55 11/23/24 Creatinine 1.14 mg/dL (0.55-1.02) H 11/23/24 06:55 11/23/24 Glucose 176 mg/dL (74-106) H 11/23/24 06:55 11/23/24 POC Glucose 119 mg/dL (74-106) H 05/25/25 08:31 05/25/25 TSH 4.670 uIU/mL (0.358-3.740) H 11/02/24 13:23 11/02/24 COAG PT 14.1 SECONDS (11.7-14.9) 11/02/24 13:23 11/02/24 Pre-Assessment Diagnosis/Proposed Procedure Planned Operative Procedure(s): (B) Upper eyelid Blepharoplasty Anesthesia History Anesthesia History - auto specialty services manager: Anesthesia History - auto specialty services manager Hx Hospitalization Yes: L TKR 05/16/25 14:34 Any Problems With Anesthesia No 05/16/25 14:34 Cholinesterase deficiency No 05/16/25 14:34 You/Your Family Experience No 05/16/25 14:34 fever (hyperthermia) with Relationship Recent Exposure to Contagious No 05/25/25 08:31 Disease Does patient have nerve No 05/16/25 14:34 stimulator Patient instructed to have device shut off --Does patient have Pacemaker No 05/25/25 08:31 or ICD? When Was Last Pacemaker Check QUESTION #4 FULL TEXT: You/Your Family Experience fever (hyperthermia) with Anesthesia Last Oral Intake Last Oral intake: Last Oral Intake NPO since 06:20 05/25/25 08:31 Meds taken in AM with sips of Yes 05/25/25 08:31 water? Meds patient instructed to take am of surgery Any additional information?: Yes Meds taken in AM with sips of water?: Yes PONV PONV - auto specialty services manager: PONV - auto specialty services manager Female Yes 05/16/25 14:34 HX of Motion Sickness No 05/16/25 14:34 HX of N/V After Surgery No 05/16/25 14:34 Non-Smoker Yes 05/16/25 14:34 Duration of Surgery greater No 05/16/25 14:34 than 60 minutes Number of Risk Factors 2 05/16/25 14:34 PONV Score Moderate Risk 05/16/25 14:34 Height & Weight Height & Weight: Anesthesia: Height & Weight Height 6 ft 2 in 05/25/25 08:31 Weight: 109 kg 05/25/25 08:31 Body Mass Index (BMI) 30.8 05/25/25 08:31 Respiratory Assessment Respiratory Assessment - auto specialty services manager: Respiratory Tract Infection Hx - auto specialty services manager Hx Respiratory Tract Infection No 05/16/25 14:34 STOP Sleep Apnea STOP Sleep Apnea - auto specialty services manager: STOP Sleep Apnea - auto specialty services manager Hx Hypertension Yes 05/16/25 14:34 Hx Sleep Apnea Yes 05/16/25 14:34 CPAP Yes 05/16/25 14:34 BIPAP No 05/16/25 14:34 Do you snore loudly (louder than talking or can be heard Do you often feel tired/ fatigued/ sleepy during daytime? Has anyone observed you stop breathing during sleep? STOP Results Positive 05/16/25 14:34 QUESTION #5 FULL TEXT : Do you snore loudly (louder than talking or can be heard through closed doors)? Tobacco Use History Tobacco Use History - auto specialty services manager: Tobacco Use History - auto specialty services manager Tobacco Use Smoking Status Former smoker 05/16/25 14:34 Hx Tobacco Use No 05/16/25 14:34 Years Smoking Packs Smoked per Day Smoking Cessation Date was No - quit smoking greater 05/16/25 14:34 within the last 15 years than 15 years ago Hx Smoking Cessation Date 11/03/89 05/16/25 14:34 Hx Smoking Cessation No 05/16/25 14:34 Counseling Hematologic Medial History Hematologic Hx - auto specialty services manager: Hematologic Medical Hx - retail training manager Hx of Blood Transfusion Yes 05/16/25 14:34 Hx of Transfusion in last 3 No 05/16/25 14:34 Months Date of Last Transfusion (if within last 3 months) Ever experience any problems No 05/16/25 14:34 with transfusion(s)? Specify any problems Hx of Preganancy in last 3 No 05/16/25 14:34 Months Nurse Filling Out Transfusion JZOGREGORY 05/16/25 14:34 & Questions: Date: 05/16/25 05/16/25 14:34 Time: 14:35 05/16/25 14:34 Patient unable to answer at this time (ie. confused, unrespo /Reproduction History /Reproductive History - auto specialty services manager: /Reproductive Hx- auto specialty services manager Hx Now No 05/16/25 14:34 Gestational Age (in weeks): EDC: Hx Hx Para Hx Section SAB No 05/16/25 14:34 Active Medications Active Medications: Current Medications Generic Name Dose Route Start Last Admin Trade Name Freq PRN Reason Stop Dose Admin Cefazolin Sodium 2 gm/ Sodium 110 mls @ 200 mls/hr 05/25/25 09:50 Chloride IV 05/25/25 10:22 INTRAOP ONE Lactated Ringer's 1,000 mls @ 15 mls/hr 05/25/25 08:15 05/25/25 08:43 IV 15 mls/hr .Q48H MICHELL Administration PFSH Medical History Post-menopausal Anxiety Glaucoma Ambulates with cane Low iron Easy bruising History of ulceration History of IBS History of edema Loss of consciousness Hx of transfusion of whole blood Lymphocytic gastritis Wears glasses Wears partial dentures Thyroid disease Diabetes Arthritis Bladder disease DVT (deep venous thrombosis) High cholesterol Restless legs Back pain Migraine headache TIA (transient ischemic attack) Difficulty swallowing Dietary restriction History of diverticulitis Gastric reflux Former smoker CPAP (continuous positive airway pressure) dependence History of pain when walking History of echocardiogram History of stress test Hypertension Cardiology follow-up encounter Hx of mitral valve prolapse History of deviated nasal septum Hx of lipoma Fecal incontinence Infection of total left knee replacement Home Medications ?Medication ?Instructions ?Recorded ?Last Taken ?Type clonazepam 1 mg tablet 0.5 mg PO QHS sleep 08/07/15 11/20/24 History gabapentin 400 mg capsule 600 mg PO QHS pain 08/07/15 11/21/24 History levothyroxine 125 mcg tablet 100 mcg PO DAILY Thyroid 08/07/15 11/22/24 05:45 History (Synthroid) candesartan 16 mg tablet (Atacand) 32 mg PO QHS Check with primary 07/21/17 11/20/24 History doctor duloxetine 60 mg capsule,delayed 60 mg PO DAILY nerve pain 07/21/17 11/21/24 History release (Cymbalta) oxybutynin chloride 10 mg 10 mg PO DAILY bladder 07/21/17 11/20/24 History tablet,extended release 24 hr (Ditropan XL) tizanidine 4 mg tablet (Zanaflex) 4 mg PO PRN PRN Pain 07/21/17 08/26/23 History amlodipine 5 mg tablet 5 mg PO DAILY BP 08/01/23 05/25/25 History atenolol 100 mg tablet 100 mg PO BID BP 08/01/23 05/25/25 History fluticasone propionate 50 1 spray intranasal DAILY PRN 08/01/23 11/21/24 History mcg/actuation nasal allergy symptoms spray,suspension gabapentin 300 mg capsule 300 mg PO DAILY NERVE PAIN 08/01/23 05/25/25 History latanoprost 0.005 % eye drops 1 drp EACH EYE QHS GLAUCOMA 08/01/23 11/21/24 History nystatin 100,000 unit/gram topical 1 applic topical PRN SKIN 08/01/23 08/26/23 History cream semaglutide 1 mg/dose (4 mg/3 mL) 1 mg subcut WE DIABETES 08/01/23 05/11/25 History subcutaneous pen injector (Ozempic) Lactobacillus acidophilus 250 500 mmu cells PO DAILY PROBIOTIC 12/11/23 12/14/23 History million cell capsule (Probiotic Acidophilus) cholecalciferol (vitamin D3) 50 50 mcg PO DAILY SUPPLEMENT 12/11/23 11/21/24 History mcg (2,000 unit) tablet (Vitamin D3) erenumab-aooe 70 mg/mL 70 mg subcut QMONTH MIGRAINES 12/11/23 11/05/24 History subcutaneous auto-injector (Aimovig Autoinjector) ondansetron 4 mg disintegrating 4 mg PO Q8H PRN nausea and 07/08/24 Unknown Rx tablet vomiting #60 tabs clopidogrel 75 mg tablet (Plavix) 75 mg PO QDAY BLOOD THINNER 07/28/24 05/18/25 History atorvastatin 40 mg tablet 40 mg PO DAILY CHOLESTEROL 10/25/24 11/21/24 History empagliflozin 10 mg tablet 5 mg PO DAILY BLOOD SUGAR 10/25/24 11/21/24 History (Jardiance) linaclotide 290 mcg capsule 290 mcg PO BID IBS 10/25/24 11/21/24 History (Linzess) folic acid 1 mg tablet 1 mg PO BREAKFAST 21 days #21 tabs 11/25/24 Unknown Rx oxycodone 5 mg tablet 5 - 10 mg (1 - 2 x 5 mg) PO Q4H 11/25/24 Unknown Rx PRN PRN as needed for pain 7 days #42 tabs ursodiol 500 mg tablet 500 mg PO Q12H PROTECT LIVER #60 04/04/25 Unknown Rx tabs pantoprazole 40 mg tablet,delayed 40 mg PO BID GERD #60 tabs 04/07/25 05/25/25 Rx release acetaminophen 500 mg tablet 1,000 mg PO Q8 PRN fever or pain 05/16/25 Unknown History metoclopramide HCl 5 mg tablet 5 mg PO TID PRN nausea 05/16/25 Unknown History Allergy/AdvReac Type Severity Reaction Status Date / Time Sulfa (Sulfonamide Allergy Itching Verified 05/25/25 08:18 Antibiotics) linezolid (From Zyvox) AdvReac Severe Other Verified 05/25/25 08:18 Surgical History History of back surgery History of total left hip replacement Hx of total knee replacement History of lumbar fusion History of cardiac catheterization History of esophagogastroduodenoscopy (EGD) Hx of colonoscopy Hx of arthroscopy of shoulder Hx of tubal ligation History of carpal tunnel surgery of right wrist History of carpal tunnel surgery of left wrist History of bunionectomy History of laparoscopic cholecystectomy Hx of left knee surgery History of total right knee replacement History of total left knee replacement Social History Smoking Status: Former smoker Review of Systems (Anesthesia) ROS Narrative System reviewed and no additional complaints, except as documented.
--- NOTE | 2025-05-25 10:04 | PCM.HP.STD ---
HPI - General HPI Narrative EDWIGE BEARDEN, is a 74 F who presents for upper eyelid blepharoplasty. Current Encounter (DATE OF SURGERY H&P UPDATE): I saw and examined the patient this morning in pre-operative holding. We discussed risks and benefits of today's surgery and they would like to proceed. NO CHANGE in health history since last seen and evaluated EXCEPT that she has not taken Plavix since 18 May 2025. Ready to proceed with surgery. [facility] Medical History Post-menopausal Anxiety Glaucoma Ambulates with cane Low iron Easy bruising History of ulceration History of IBS History of edema Loss of consciousness Hx of transfusion of whole blood Lymphocytic gastritis Wears glasses Wears partial dentures Thyroid disease Diabetes Arthritis Bladder disease DVT (deep venous thrombosis) High cholesterol Restless legs Back pain Migraine headache TIA (transient ischemic attack) Difficulty swallowing Dietary restriction History of diverticulitis Gastric reflux Former smoker CPAP (continuous positive airway pressure) dependence History of pain when walking History of echocardiogram History of stress test Hypertension Cardiology follow-up encounter Hx of mitral valve prolapse History of deviated nasal septum Hx of lipoma Fecal incontinence Infection of total left knee replacement Home Medications ?Medication ?Instructions ?Recorded ?Last Taken ?Type clonazepam 1 mg tablet 0.5 mg PO QHS sleep 08/07/15 11/20/24 History gabapentin 400 mg capsule 600 mg PO QHS pain 08/07/15 11/21/24 History levothyroxine 125 mcg tablet 100 mcg PO DAILY Thyroid 08/07/15 11/22/24 05:45 History (Synthroid) candesartan 16 mg tablet (Atacand) 32 mg PO QHS Check with primary 07/21/17 11/20/24 History doctor duloxetine 60 mg capsule,delayed 60 mg PO DAILY nerve pain 07/21/17 11/21/24 History release (Cymbalta) oxybutynin chloride 10 mg 10 mg PO DAILY bladder 07/21/17 11/20/24 History tablet,extended release 24 hr (Ditropan XL) tizanidine 4 mg tablet (Zanaflex) 4 mg PO PRN PRN Pain 07/21/17 08/26/23 History amlodipine 5 mg tablet 5 mg PO DAILY BP 08/01/23 05/25/25 History atenolol 100 mg tablet 100 mg PO BID BP 08/01/23 05/25/25 History fluticasone propionate 50 1 spray intranasal DAILY PRN 08/01/23 11/21/24 History mcg/actuation nasal allergy symptoms spray,suspension gabapentin 300 mg capsule 300 mg PO DAILY NERVE PAIN 08/01/23 05/25/25 History latanoprost 0.005 % eye drops 1 drp EACH EYE QHS GLAUCOMA 08/01/23 11/21/24 History nystatin 100,000 unit/gram topical 1 applic topical PRN SKIN 08/01/23 08/26/23 History cream semaglutide 1 mg/dose (4 mg/3 mL) 1 mg subcut WE DIABETES 08/01/23 05/11/25 History subcutaneous pen injector (Ozempic) Lactobacillus acidophilus 250 500 mmu cells PO DAILY PROBIOTIC 12/11/23 12/14/23 History million cell capsule (Probiotic Acidophilus) cholecalciferol (vitamin D3) 50 50 mcg PO DAILY SUPPLEMENT 12/11/23 11/21/24 History mcg (2,000 unit) tablet (Vitamin D3) erenumab-aooe 70 mg/mL 70 mg subcut QMONTH MIGRAINES 12/11/23 11/05/24 History subcutaneous auto-injector (Aimovig Autoinjector) ondansetron 4 mg disintegrating 4 mg PO Q8H PRN nausea and 07/08/24 Unknown Rx tablet vomiting #60 tabs clopidogrel 75 mg tablet (Plavix) 75 mg PO QDAY BLOOD THINNER 07/28/24 05/18/25 History atorvastatin 40 mg tablet 40 mg PO DAILY CHOLESTEROL 10/25/24 11/21/24 History empagliflozin 10 mg tablet 5 mg PO DAILY BLOOD SUGAR 10/25/24 11/21/24 History (Jardiance) linaclotide 290 mcg capsule 290 mcg PO BID IBS 10/25/24 11/21/24 History (Linzess) folic acid 1 mg tablet 1 mg PO BREAKFAST 21 days #21 tabs 11/25/24 Unknown Rx oxycodone 5 mg tablet 5 - 10 mg (1 - 2 x 5 mg) PO Q4H 11/25/24 Unknown Rx PRN PRN as needed for pain 7 days #42 tabs ursodiol 500 mg tablet 500 mg PO Q12H PROTECT LIVER #60 04/04/25 Unknown Rx tabs pantoprazole 40 mg tablet,delayed 40 mg PO BID GERD #60 tabs 04/07/25 05/25/25 Rx release acetaminophen 500 mg tablet 1,000 mg PO Q8 PRN fever or pain 05/16/25 Unknown History metoclopramide HCl 5 mg tablet 5 mg PO TID PRN nausea 05/16/25 Unknown History Allergy/AdvReac Type Severity Reaction Status Date / Time Sulfa (Sulfonamide Allergy Itching Verified 05/25/25 08:18 Antibiotics) linezolid (From Zyvox) AdvReac Severe Other Verified 05/25/25 08:18 Surgical History History of back surgery History of total left hip replacement Hx of total knee replacement History of lumbar fusion History of cardiac catheterization History of esophagogastroduodenoscopy (EGD) Hx of colonoscopy Hx of arthroscopy of shoulder Hx of tubal ligation History of carpal tunnel surgery of right wrist History of carpal tunnel surgery of left wrist History of bunionectomy History of laparoscopic cholecystectomy Hx of left knee surgery History of total right knee replacement History of total left knee replacement Social History Smoking Status: Former smoker Vital Signs Vital Signs Vital Signs: 05/25/25 08:31 05/25/25 08:31 Temperature 98.6 F Temperature Source Temporal Pulse Rate 71 Respiratory Rate 16 Respiratory Pattern Normal Blood Pressure 160/97 H Blood Pressure Mean 118 Blood Pressure Source Monitor Blood Pressure Position Semi-Fowlers Blood Pressure Location Right Arm Pulse Ox 99 Oxygen Delivery Method Room Air Weight Weight: 240 lb 4.862 oz Body Mass Index (BMI) 30.8 Physical Exam Narrative Details - Skin: Great skin, normal tone, minimal static rhytids on the forehead. - Eyes: Excess upper eyelid skin, good levator function, 13 mm levator function, 4 mm MRD-1, slow lower lid snapback test, 8 mm lower eyelid laxity, significant retroseptal fat on inferior eyelids. Results Lab / Micro Data Labs: Laboratory Results - last 24 hr 05/25/25 08:31: POC Glucose 119 H Assessment & Plan Assessment/Plan (1) Dermatochalasis of both upper eyelids: PLAN: INTERVAL H&P PLAN, DATE OF SURGERY: We will proceed with surgery today. I talked to the patient extensively about the risks of surgery, including bleeding, infection, damage to surrounding structures, poor scaring, surgical site dehiscence and wound formation, need for wound care, lagophthalmos, blinking problems, asymmetries, excess skin at the end result, need for repeat operations, failure to obtain the desired result, DVT/PE, and the risks of anesthesia including , including stroke (from low blood pressure/ischemia or clot). The benefits and alternatives of this surgery were also discussed. All of their questions were answered, and they agreed to proceed with surgery. I marked her in pre-operative holding.
[2025-05-25] MEDS: Povidone Iodine 30 ML Opthalmic Sol 1 DRP (10:36)
[2025-05-25] MEDS: Lidocaine 1% /Epi 1:100 (20ml) 20 ML Vial (10:38)
[2025-05-25] MEDS: Bupiv/Epi 0.25% 30 ML Vial (10:38)
[2025-05-25] MEDS: Erythromycin Base 1 OPTH.TUBE 1 APPLIC (10:48)
--- NOTE | 2025-05-25 11:30 | PCM.POST.ANE ---
Anesthesia: Postop Eval I Current Vital Signs Temperature: 97 F Pulse Rate: 59 Blood Pressure: 184/104 Respiratory Rate: 16 Pulse Ox: 95 Assessment Airway patent: Yes Spontaneous unlabored respirations: Yes nausea: No Vomiting: No Anesthesia Complication: No Fluid Hydration Crystalloid volume administer (ml): 500 Total IV fluid infused: 500 Progress Note Anesthesia document: Postop Eval 1 completed: Yes
--- NOTE | 2025-05-25 11:30 | PCM.POSTANE2 ---
Anesthesia Postop Eval I Sum Anesthesia Postop Eval I Summary Anesthesia Postop Eval I Summary: Anesthesia Postop Eval I: Assessment Summary Airway patent Spontaneous unlabored respirations Mental status Awake,Calm 05/25/25 11:31 OUTPATIENT COORDINATOR.RWOO nausea No 05/25/25 11:31 OUTPATIENT COORDINATOR.MARCOSOO Vomiting No 05/25/25 11:31 OUTPATIENT COORDINATOR.JOHN Anesthesia Postop Eval I: Fluid Summary Crystalloid volume administer (ml) Colloids volume administered ( ml) Blood Product volume administered (ml) Total IV fluid infused Anesthesia Postop Eval I: Summary Notes Anesthesia Complication No 05/25/25 11:31 OUTPATIENT COORDINATOR.JOHN Anesthesia Complication Comment: Post-operative progress note
--- NOTE | 2025-05-25 11:30 | POSTOPAN2_ITS ---
Anesthesia Postop Eval I Sum Anesthesia Postop Eval I Summary Anesthesia Postop Eval I Summary: Anesthesia Postop Eval I: Assessment Summary Airway patent Spontaneous unlabored respirations Mental status Awake,Calm 05/25/25 11:31 LOGGING ASSISTANT.RWOO nausea No 05/25/25 11:31 LOGGING ASSISTANT.MARCOSOO Vomiting No 05/25/25 11:31 LOGGING ASSISTANT.JOHN Anesthesia Postop Eval I: Fluid Summary Crystalloid volume administer (ml) Colloids volume administered ( ml) Blood Product volume administered (ml) Total IV fluid infused Anesthesia Postop Eval I: Summary Notes Anesthesia Complication No 05/25/25 11:31 LOGGING ASSISTANT.JOHN Anesthesia Complication Comment: Post-operative progress note
--- NOTE | 2025-05-25 11:31 | PCM.POSTANE2 ---
Anesthesia Postop Eval I Sum Anesthesia Postop Eval I Summary Anesthesia Postop Eval I Summary: Anesthesia Postop Eval I: Assessment Summary Airway patent Spontaneous unlabored respirations Mental status nausea Vomiting Anesthesia Postop Eval I: Fluid Summary Crystalloid volume administer (ml) Colloids volume administered ( ml) Blood Product volume administered (ml) Total IV fluid infused Anesthesia Postop Eval I: Summary Notes Anesthesia Complication Anesthesia Complication Comment: Post-operative progress note Anesthesia: Postop Eval II Evaluation Mental status: Awake and Calm Pain Level: 0 nausea: No Vomiting: No Complications Anesthesia Complication: No
--- NOTE | 2025-05-25 16:10 | PCM.OPRPT ---
Operative Report (Standard) Operative Information Date of Procedure: 05/25/25 Pre-Operative Diagnosis: Upper eyelid dermatochalasis bilaterally Post-Operative Diagnosis: Same Surgery/Procedure Performed: 1) Bilateral upper eyelid blepharoplasty (CPT 58236 with 50 modifier) rn midwife: Yes Ssds Mk 2 Advanced Operator: Lakeisha Ramirez Tasks completed by curriculum assistant principal: Retracting Type of Anesthesia: Local MAC (3 cc of 1% lidocaine with 1 200,000 epinephrine) RN Documented Start/Stop Times: Operation Date: 05/25/25 09:50 Case Time Into Pre-Op 05/25/25 08:07 Out of Pre-Op 05/25/25 10:11 Anesthesia Start 05/25/25 10:15 Into Room 05/25/25 10:15 Procedure Start 05/25/25 10:44 Procedure End 05/25/25 11:17 Anesthesia End 05/25/25 11:23 Out of Room 05/25/25 11:23 Into Recovery 05/25/25 11:25 Out of Recovery 05/25/25 12:14 Into Phase II Recovery 05/25/25 12:16 Out of Phase II 05/25/25 13:30 Procedure Start Time: 10:44 Procedure Stop Time: 11:17 Select all DRAINS/GRAFTS/IMPLANTS that apply: None Estimated Blood Loss: Minimal Specimen collected: No Description of surgery: Indications: Patient is a delightful 74-year-old female who presents today for an upper eyelid blepharoplasty. She understands the risk benefits and alternatives to the procedure. Procedure details: Patient was correctly identified in preoperative holding and taken back to the operating room where she was administered sedation and local anesthesia as noted above. She was prepped and draped in sterile fashion all proper timeouts were performed. On the right side, a 15 blade scalpel was used to incise the upper eyelid skin (which was marked in preoperative holding ahead of time with the patient sitting up). Care was taken to preserve 1 cm of pretarsal skin (1 cm from the eyelid margin) for the inferior aspect of the incision, and there was approximately 12 mm of skin between the upper aspect of the incision and the eyebrows. The border laterally was the orbital rim and the border medially was the medial puncta. The skin was excised full-thickness but the orbicularis was left preserved. Hemostasis was obtained with Bovie electrocautery. The wound was irrigated with copious amounts normal saline. The same procedure was performed on the left side. The incisions were then closed with 6-0 Prolene suture in a running subcuticular fashion with the tails placed laterally and medially with Steri-Strips. Patient was awakened taken to the PACU in stable condition. She tolerated the procedure well. She was able to close her eyes at the end of the case without any lagophthalmos. Surgical Findings: Heavy upper eyelid skin weighing down the eyelids Complications Complications: No Admit VTE Documentation VTE Mechan Device Prophylaxis: SCD's
== END 2025-05-25 13:30 | disposition home or self-care (01) ==
LOC: SDC 07:59 → AC 08:00
PROVIDERS: PCP Nurse Practitioner Primary Care; Referring Provider Surgery Plastic and Reconstructive Surgery; Visit Provider Surgery Plastic and Reconstructive Surgery
PROC: (CPT 15823; principal; 2025-05-25 09:40)
DX: H02.834 Dermatochalasis of left upper eyelid (principal); E11.9 Type 2 diabetes mellitus without complications; E78.00 Pure hypercholesterolemia, unspecified; Z87.891 Personal history of nicotine dependence; Z79.899 Other long term (current) drug therapy; Z86.718 Personal history of other venous thrombosis and embolism; I10 Essential (primary) hypertension; H02.831 Dermatochalasis of right upper eyelid; Z79.02 Long term (current) use of antithrombotics/antiplatelets; K21.9 Gastro-esophageal reflux disease without esophagitis
CPT/HCPCS: 15823; 00103; 82962; J2405